=== PATIENT | male | born 1935 | race Hispanic/Latino ===

== ENCOUNTER 2017-01-26 10:53 | Inpatient (IN) | payer MEDICARE, OTHER, BC ==
[2017-01-26 10:53] VITALS: BMI 21.9
--- NOTE | 2017-01-26 13:03 | RAD ---
PROCEDURE: CHEST RADIOGRAPH, 1 VIEW. Technique: Single view portable erect @ 12:19. HISTORY: ADMISSION COMPARISON: None available. FINDINGS: LUNGS: Clear. PLEURA: No pneumothorax or pleural fluid seen. CARDIOVASCULAR: No radiographic findings to suggest acute or significant cardiovascular disease. OSSEOUS STRUCTURES: No significant abnormalities. VISUALIZED UPPER ABDOMEN: Normal. OTHER FINDINGS: None. IMPRESSION: No active disease.
[2017-01-26 13:07] LABS: BASO # 0.1 K/uL (0.0-0.2); BASO % 0.8 % (0.0-2.0); EOS # 0.2 K/uL (0.0-0.7); EOS % 1.6 % (0.0-4.0); HEMATOCRIT 32.3 % (35.0-51.0); LYMPH % 19.9 % (20.0-40.0); MEAN CELL VOLUME 88.4 fL (80.0-94.0); MEAN CORPUSCULAR HEMOGLOBIN 29.5 pg (27.0-31.0); MEAN CORPUSCULAR HGB CONC 33.4 g/dL (33.0-37.0); MEAN PLATELET VOLUME 9.3 fL (7.2-11.7); MONO # 0.9 K/uL (0.0-0.8); MONO % 9.4 % (0.0-10.0); RED CELL DISTRIBUTION WIDTH 14.2 % (11.5-14.5); WHITE BLOOD COUNT 10.1 K/uL (4.8-10.8)
[2017-01-26 13:30] LABS: CHLORIDE 98 mmol/L (98-107)
[2017-01-26 13:31] LABS: POTASSIUM 3.8 mmol/L (3.6-5.2); SODIUM 138 mmol/L (132-148)
[2017-01-26 13:33] LABS: ALB/GLOB RATIO 1.1 (1.0-2.1); AST/SGOT 18 U/L (17-59); BILIRUBIN,TOTAL 0.3 mg/dL (0.2-1.3); BLOOD UREA NITROGEN 28 mg/dL (9-20); CARBON DIOXIDE 27 mmol/L (22-30); GFR AFRICAN-AMERICAN > 60; TOTAL PROTEIN 6.8 g/dL (6.3-8.3)
[2017-01-26 13:34] LABS: ALKALINE PHOSPHATASE 97 U/L (38-126); ALT/SGPT 19 U/L (21-72); CALCIUM 9.1 mg/dl (8.6-10.4); GLUCOSE,RANDOM 105 mg/dL (75-110)
--- NOTE | 2017-01-26 14:00 | C.PDOC ---
History Of Present Illness 82 y/o male sent by longterm with prescription from Dr. Bloom for evaluation of gangrene to right 5th toe. Pt is unable to day when symptoms started, is a poor lhistorian. Pt reports pain in the right foot. He denies chest pain, SOB, fever/chills, trauma/injuries. Time Seen by Provider: 01/26/17 11:21 Chief Complaint (Nursing): Abnormal Skin Integrity History Per: Patient History/Exam Limitations: clinical condition Onset/Duration Of Symptoms: Days Current Symptoms Are (Timing): Still Present Quality Of Symptoms: Painful Severity: Moderate Past Medical History Reviewed: Historical Data, Nursing Documentation, Vital Signs Vital Signs: Last Vital Signs Temp 98 F 01/31/17 15:48 Pulse 73 01/31/17 16:40 Resp 20 01/31/17 15:48 BP 179/62 H 01/31/17 15:48 Pulse Ox 99 01/31/17 15:48 - Medical History PMH: Anemia, Anxiety, Atrial Fibrillation, CAD, HTN, Hypercholesterolemia Surgical History: Coronary Stent - [facility] Procedures COLONOSCOPY (08/26/07) CONTRAST AORTOGRAM (11/26/04) CONTRAST ARTERIOGRAM-LEG (11/26/04) ESOPHAGOGASTRODUODENOSCOPY [EGD] W/CLOSED BIOPSY (08/26/07) Family History: States: No Known Family Hx - Social History Hx Tobacco Use: No Hx Alcohol Use: No Hx Substance Use: No Review Of Systems Except As Marked, All Systems Reviewed And Found Negative. Constitutional: Negative for: Fever, Chills Cardiovascular: Negative for: Chest Pain Respiratory: Negative for: Shortness of Breath Gastrointestinal: Negative for: Nausea, Vomiting, Abdominal Pain, Diarrhea Musculoskeletal: Positive for: Other (pain to right foot) Physical Exam - Physical Exam Appears: Well, Non-toxic, No Acute Distress Skin: Warm, Dry, No Rash Head: Normacephalic Eye(s): bilateral: Normal Inspection Oral Mucosa: Moist Neck: Supple Cardiovascular: Rhythm Regular Respiratory: Normal Breath Sounds, No Rales, No Rhonchi, No Wheezing Gastrointestinal/Abdominal: Normal Exam, Bowel Sounds, Soft, No Tenderness, No Guarding, No Rebound Extremity: Tenderness, No Swelling, Other (Bilateral feet, cool to touch, right foot - black gangrenous eschar on 5th digit, 2nd and 3rd digits fused. Left 4th digit small ulceration 0.5 cm on dorsal aspect) Pulses: Left Dorsalis Pedis: Decreased, Right Dorsalis Pedis: Decreased Neurological/Psych: Other (awake, alert, mildly confused) ED Course And Treatment - Laboratory Results Result Diagrams: 01/28/17 06:54 01/28/17 06:54 ECG: Interpreted By Me, Viewed By Me (sinus bradycardia 59 bpm, normal axis, RBBB, no acute ST changes) O2 Sat by Pulse Oximetry: 100 (on room air) Pulse Ox Interpretation: Normal Progress Note: Plan: Blood work, CXR, XR right foot, arterial doppler ordered and reviewed. Patient given PO tylenol for pain. Spoke with Dr. Bloom, would like CT angio with runoff of extremty - ordered. He states PAD is chronic , no need for heparin. - Physician Consult Information Physician Contacted: Kingsley Silvestre Outcome Of Conversation: Discussed patient with Dr. Umer Silvestre, he agrees with admission for PAD, rigth 5th toe gangrene - Dr. Bloom for vascular surgery. Disposition - Disposition Disposition: HOSPITALIZED Disposition Time: 15:02 Condition: STABLE - Clinical Impression Clinical Impression: Toe gangrene, PAD (peripheral artery disease) - Scribe Statement The provider has reviewed the documentation as recorded by the Frandy cuellar Provider Attestation: All medical record entries made by the Frandy were at my direction and personally dictated by me. I have reviewed the chart and agree that the record accurately reflects my personal performance of the history, physical exam, medical decision making, and the department course for this patient. I have also personally directed, reviewed, and agree with the discharge instructions and disposition. Decision To Admit - Pt Status Changed To: Hospital Disposition Of: Inpatient - Admit Certification Admit to Inpatient:: After my assessment, the patient will require hospitalization for at least two midnights. This is because of the severity of symptoms shown, intensity of services needed, and/or the medical risk in this patient being treated as an outpatient. - InPatient: Physician Admission Certification: I certify that this patient requires 2 or more midnights of care for the following reason:: see notes - . Bed Request Type: Regular Admitting Physician: Kingsley Silvestre Patient Diagnosis: Toe gangrene, PAD (peripheral artery disease)
--- NOTE | 2017-01-26 15:27 | RAD ---
PROCEDURE: Right Foot Radiographs. HISTORY: RIGHT FOOT, 5TH TOE GANGRENE COMPARISON: None. FINDINGS: BONES: No fracture or dislocation. Tiny inferior calcaneal spur JOINTS: First metatarsal-phalangeal joint space narrowing, subchondral sclerosis and 1st metatarsal head osseous hypertrophy no gross periosteal reaction or bone destruction about the 5th digitin this patient with a history of 5th toe gangrene SOFT TISSUES: Mild medial 1st metatarsal-phalangeal joint density/are swelling consistent with minimal bunion. History states 5th toe gangrene - evaluation is limited the 5th toe with scissoring over the 4th. Lateral view suggest diffuse mild soft tissue swelling about all phalanges Arterial vascular calcifications OTHER FINDINGS: None. IMPRESSION: No gross radiographic evidence of osteomyelitis. Nonspecific soft tissue swelling without gross a percutaneous gas apparent on these images First metatarsal-phalangeal joint osteoarthrosis Atherosclerotic arterial vascular disease
[2017-01-26] MEDS ORDERED: Iodixanol 320 mg/ml 150 ml Bottle IV ONE (15:59)
--- NOTE | 2017-01-26 19:15 | CP.PCM.HP ---
History of Present Illness - History of Present Illness History of Present Illness: 82-year-old male sent by residential with prescription from Dr. Bloom for evaluation of gangrene to right fifth toe. Patient is unable to see when symptoms started, is a poor historian. Patient reports pain in the right foot. Patient denies chest pain, SOB, fever/chills, trauma, injuries. Present on Admission - Present on Admission Any Indicators Present on Admission: No Past Patient History - Infectious Disease Hx of Infectious Diseases: None - Tetanus Immunizations Tetanus Immunization: Unknown - Past Social History Smoking Status: Former Smoker - CARDIAC Hx Atrial Fibrillation: Yes Hx Hypercholesterolemia: Yes Hx Hypertension: Yes - PULMONARY Hx Asthma: No Hx Bronchitis: No Hx Chronic Obstructive Pulmonary Disease (COPD): No Hx Emphysema: No Hx Pneumonia: No Hx Sleep Apnea: No - NEUROLOGICAL Hx Alzheimer's Disease: No Hx Dementia: No Hx Migraine: No Hx Parkinson's Disease: No Hx Seizures: No Hx Transient Ischemic Attacks (TIA): No - HEENT Hx HEENT Problems: No - RENAL Hx Chronic Kidney Disease: No Hx Kidney Stones: No - ENDOCRINE/METABOLIC Hx Hyperthyroidism: No Hx Hypothyroidism: No - HEMATOLOGICAL/ONCOLOGICAL Hx Anemia: Yes - INTEGUMENTARY Hx Dermatological Problems: No - MUSCULOSKELETAL/RHEUMATOLOGICAL Hx Arthritis: No Hx Fractures: No Hx Osteoporosis: No - GASTROINTESTINAL Hx Crohn's Disease: No Hx Diverticulitis: No Hx Gall Bladder Disease: No Hx Pancreatitis: No - GENITOURINARY/GYNECOLOGICAL Hx Sexually Transmitted Disorders: No - PSYCHIATRIC Hx Anxiety: Yes Hx Substance Use: No - SURGICAL HISTORY Hx Coronary Stent: Yes - ANESTHESIA Hx Anesthesia: Yes Hx Anesthesia Reactions: No Hx Malignant Hyperthermia: No Meds Allergies/Adverse Reactions: Allergies Allergy/AdvReac Type Severity Reaction Status Date / Time No Known Allergies Allergy Verified 10/02/16 10:29 Results - Vital Signs Recent Vital Signs: Last Vital Signs Temp 97.7 F 01/26/17 18:55 Pulse 67 01/26/17 18:55 Resp 16 01/26/17 18:55 BP 157/54 H 01/26/17 18:55 Pulse Ox 98 01/26/17 18:55 - Labs Result Diagrams: 02/01/17 16:50 02/01/17 16:50 Assessment & Plan (1) Altered mental status Status: Acute (2) Anemia Status: Acute (3) Atrial fibrillation Status: Acute (4) Hematuria Status: Acute (5) Myocardial infarction Status: Acute (6) NSTEMI (non-ST elevated myocardial infarction) Status: Acute (7) Near syncope Status: Acute (8) PAD (peripheral artery disease) Status: Acute (9) Respiratory failure with hypoxia Status: Acute (10) Severe sepsis Status: Acute (11) Toe gangrene Status: Acute (12) Toe ulcer Status: Acute (13) UTI (urinary tract infection) Status: Acute (14) Urinary retention Status: Acute - Assessment and Plan (Free Text) Plan: Consult ID Consult vascular surgeon Bacitracin IV fluid Plavix Cardizem Pepcid Pipercillin Sod/tazobactam Cozaar Lopressor Nitroglycerin Crestor
[2017-01-26] MEDS ORDERED: DICLOFENAC SODIUM TP PRN (19:29)
[2017-01-26] MEDS ORDERED: Magnesium Hydroxide Susp 30 ml UD PO PRN (19:29)
--- NOTE | 2017-01-26 21:28 | CP.PCM.CON ---
History of Present Illness - History of Present Illness History of Present Illness: vascular surgery consult for Dr. Irizarry 82 y/o male pmh of Afib, PVD, [place], CVA, CAD sent by halfway with prescription from [facility] for evaluation of gangrene to right 5th toe. Pt is unable to tell length of duration, poor historian. Pt reports pain in the right foot. Denies chest pain, SOB, fever, chills or any other complaints. Review of Systems - Review of Systems Review of Systems: See HPI Past Patient History - Infectious Disease Hx of Infectious Diseases: None - Tetanus Immunizations Tetanus Immunization: Unknown - Past Medical History & Family History Past Medical History?: Yes - Past Social History Smoking Status: Former Smoker - CARDIAC Hx Atrial Fibrillation: Yes Hx Hypercholesterolemia: Yes Hx Hypertension: Yes - PULMONARY Hx Asthma: No Hx Bronchitis: No Hx Chronic Obstructive Pulmonary Disease (COPD): No Hx Emphysema: No Hx Pneumonia: No Hx Sleep Apnea: No - NEUROLOGICAL Hx Alzheimer's Disease: No HX Cerebrovascular Accident: Yes Hx Dementia: No Hx Migraine: No Hx Parkinson's Disease: No Hx Seizures: No Hx Transient Ischemic Attacks (TIA): No - HEENT Hx HEENT Problems: No - RENAL Hx Chronic Kidney Disease: No Hx Kidney Stones: No - ENDOCRINE/METABOLIC Hx Hyperthyroidism: No Hx Hypothyroidism: No - HEMATOLOGICAL/ONCOLOGICAL Hx Anemia: Yes - INTEGUMENTARY Hx Dermatological Problems: No - MUSCULOSKELETAL/RHEUMATOLOGICAL Hx Arthritis: No Hx Fractures: No Hx Osteoporosis: No - GASTROINTESTINAL Hx Crohn's Disease: No Hx Diverticulitis: No Hx Gall Bladder Disease: No Hx Pancreatitis: No - GENITOURINARY/GYNECOLOGICAL Hx Sexually Transmitted Disorders: No - PSYCHIATRIC Hx Substance Use: No - SURGICAL HISTORY Hx Coronary Stent: Yes - ANESTHESIA Hx Anesthesia: Yes Hx Anesthesia Reactions: No Hx Malignant Hyperthermia: No Meds Allergies/Adverse Reactions: Allergies Allergy/AdvReac Type Severity Reaction Status Date / Time No Known Allergies Allergy Verified 10/02/16 10:29 - Medications Medications: Current Medications Acetaminophen (Tylenol 325mg Tab) 650 mg PO Q4 PRN PRN Reason: Pain, Mild (1-3) Bacitracin (Bacitracin) 0 gm TOP DAILY [facility] Clopidogrel Bisulfate (Plavix) 75 mg PO DAILY [facility] Diltiazem HCl (Cardizem) 30 mg PO QID [facility] Famotidine (Pepcid) 20 mg PO BID [facility] Home Med (Diclofenac Sodium [Diclozor]) 1 each TP DAILY PRN PRN Reason: Pain, Mild (1-3) Piperacillin Sod/Tazobactam (Sod 3.375 gm/ Sodium Chloride) 100 mls @ 100 mls/ hr IVPB Q6H [facility] Lactulose (Enulose) 15 gm PO ONCE PRN PRN Reason: Constipation Losartan Potassium (Cozaar) 100 mg PO DAILY [facility] Magnesium Hydroxide (Milk Of Magnesia) 30 ml PO ONCE PRN PRN Reason: Dyspepsia Metoprolol Tartrate (Lopressor) 100 mg PO BID [facility] Nitroglycerin (Nitrostat Sl Tab) 0.4 mg SL ONCE PRN PRN Reason: Other Rosuvastatin Calcium (Crestor) 10 mg PO HS [facility] Tamsulosin HCl (Flomax) 0.4 mg PO DAILY [facility] Physical Exam - Constitutional Appears: Non-toxic - Head Exam Head Exam: ATRAUMATIC, NORMAL INSPECTION, NORMOCEPHALIC - Eye Exam Eye Exam: EOMI, Normal appearance, PERRL Pupil Exam: NORMAL ACCOMODATION, PERRL - ENT Exam ENT Exam: Mucous Membranes Moist, Normal Exam - Respiratory Exam Respiratory Exam: Clear to Auscultation Bilateral, NORMAL BREATHING PATTERN - Cardiovascular Exam Cardiovascular Exam: REGULAR RHYTHM - GI/Abdominal Exam GI & Abdominal Exam: Normal Bowel Sounds, Soft. absent: Distended, Tenderness - Extremities Exam Additional comments: R big toe gangrenous. cool to touch Results - Vital Signs Recent Vital Signs: Last Vital Signs Temp 97.6 F 01/26/17 19:00 Pulse 114 H 01/26/17 19:00 Resp 20 01/26/17 19:00 BP 177/72 H 01/26/17 19:00 Pulse Ox 95 01/26/17 19:00 - Labs Result Diagrams: 01/26/17 13:02 01/26/17 13:02 Assessment & Plan - Assessment and Plan (Free Text) Assessment: b/l PVD w R toe gangrene Laukocytosis CTA: b/l SFA occlusion, near occluded SMA -Angioplasty tomorrow -NPO after midnight -Hold Plavix Will MARK Irizarry
[2017-01-26] MEDS: Piperacillin/Tazobact 3.375 GM in Sodium Chloride 0.9% 100 ML IVPB SCH (21:48)
[2017-01-27] MEDS: Piperacillin/Tazobact 3.375 GM in Sodium Chloride 0.9% 100 ML IVPB SCH ×2 (01:26→09:30)
[2017-01-27] MEDS: Bacitracin Ointment 30 GM TUBE TOP SCH (10:33)
--- NOTE | 2017-01-27 11:39 | CARD ---
APPROVED REPORT EKG Measurement Heart [id number] <Conclusion> Sinus bradycardia Right bundle branch block Abnormal ECG
--- NOTE | 2017-01-27 12:05 | CT ---
PROCEDURE: CT Angiography Abdomen, Pelvis and Lower Extremity with Contrast HISTORY: diminished pedal pulse, gangrene right side COMPARISON: None. TECHNIQUE: Technique: CT angiography of the abdomen, pelvis and bilateral lower extremities performed in the arterial phase of enhancement. Coronal and sagittal reformats, and well as rotating MIP images of the vessels generated at the workstation. Intravenous contrast dose: 100 milliliters Visipaque 320 Radiation dose: Total exam DLP = 1179.80 MGy-cm. This CT exam was performed using one or more of the following dose reduction techniques: Automated exposure control, adjustment of the mA and/or kV according to patient size, and/or use of iterative reconstruction technique. FINDINGS: CT ANGIOGRAPHY: ABDOMINAL AORTA:: Very irregular plaque throughout abdominal aorta with significant soft plaque and intimal calcification with ulcerative plaque in the infrarenal aorta. MAJOR AORTIC BRANCHES: Celiac [place]: Occluded celiac artery or. Superior mesenteric artery: Moderate stenosis with irregular mixed soft and calcific plaque of the proximal SMA Inferior mesenteric artery: Mild stenosis of the origin of the inferior mesenteric artery Renal arteries: Unremarkable. PELVIC ARTERIES: Right Common Iliac: Unremarkable. Right External Iliac: Unremarkable. Right Internal Iliac: Unremarkable. Left Common Iliac: Unremarkable. Left External Iliac: Unremarkable. Left Internal Iliac: Unremarkable. RIGHT LOWER EXTREMITY ARTERIES: Right Common Femoral: Moderate stenosis stenosis of the proximal common femoral artery Right Superficial Femoral: Occluded SFA with no reconstitution Right Profunda Femoris: Mild stenosis at the origin of the profunda femoral artery Right Popliteal:Occludes proximally Reconstitution of the distal popliteal artery. Right Anterior Tibial: Unremarkable Right Tibioperoneal Trunk: Unremarkable. Right Posterior Tibial: Moderate calcific plaque otherwise patent Right Peroneal: Unremarkable. Right dorsalis pedis : Unremarkable. LEFT LOWER EXTREMITY ARTERIES: Left Common Femoral: Severe stenosis of the proximal common femoral artery. Left Superficial Femoral: Occluded superficial femoral artery beginning at the origin and extending to the mid popliteal artery Left Profunda Femoris: The stenosis at the origin of the superficial femoral artery Left Popliteal: Distal popliteal artery is patent Left Anterior Tibial: A calcific plaque but otherwise Unremarkable. Left Tibioperoneal Trunk: Unremarkable. Left Posterior Tibial: A calcified otherwise Unremarkable. Left Peroneal: Unremarkable. Left Dorsalis pedis: Unremarkable. NON-ANGIOGRAPHIC ASPECT OF THE EXAM: LOWER THORAX: Soft tissue mass seen in the medial basal segment of the right lower lobe measuring 2.3 x 1.7 centimeters. LIVER: Unremarkable. No gross lesion or ductal dilatation. GALLBLADDER AND BILE DUCTS: Unremarkable. PANCREAS: Unremarkable. No gross lesion or ductal dilatation. SPLEEN: Unremarkable. ADRENALS: Unremarkable. No mass. KIDNEYS AND URETERS: Unremarkable. No hydronephrosis. No solid mass. STOMACH AND BOWEL: Unremarkable. No obstruction. No gross mural thickening. APPENDIX: Normal appendix. PERITONEUM: Unremarkable. No free fluid. No free air. LYMPH NODES: Unremarkable. No enlarged lymph nodes. BLADDER: Very distended urinary bladder. REPRODUCTIVE: Unremarkable. BONES: No acute fracture. OTHER FINDINGS: None. IMPRESSION: CT ANGIOGRAM ABDOMEN/ PELVIS: 1.Severe plaque throughout the abdominal aorta with ulcerative plaque in the infrarenal aorta without aneurysm. 2. Occluded tube celiac artery. 3. No stenosis of the proximal SMA. 4. Right and left common iliac artery and external iliac artery are unremarkable. LEFT LOWER EXTREMITY CT ANGIOGRAM: 1. Severe stenosis of the proximal common femoral artery which is otherwise unremarkable. 2. The SFA is occluded beginning at the origin with reconstitution at the level of the distal popliteal artery. 3. There is moderate stenosis at the origin of the profunda femoral artery. 4. Left runoff shows a patent peroneal artery, posterior tibial artery, anterior tibial artery with minimal calcific plaque. RIGHT LOWER EXTREMITY CT ANGIOGRAM: 1. Moderate stenosis of the mid common femoral artery. 2. Superficial femoral artery is occluded beginning at the origin with reconstitution the mid popliteal artery. 3. Profunda femoral artery has mild stenosis at the origin. 4. Right runoff shows a patent peroneal artery anterior tibial artery and posterior tibial artery. NONVASCULAR FINDINGS: Soft tissue mass medial basal segment right lower lobe measuring 2.3 x 1.7 centimeter.
--- NOTE | 2017-01-27 12:37 | VASCLAB ---
STUDY DESCRIPTION: HISTORY: RIGHT LEG DECREASED PULSE PRIORS: None. TECHNIQUE: Pulse volume recording waveforms and segmental pressures of bilateral lower extremities at multiple levels were obtained. Ankle Brachial Indices (ABIs) were calculated. Report prepared by Patito Cordova RDCS, RVS RIGHT LOWER EXTREMITY: * Brachial artery: Pressure - mmHg. * High thigh: Pressure - mmHg: Ratio - : PVR waveform - Pulsatile * Low thigh: Pressure - mmHg: Ratio - PVR waveform: Reduced * Calf: Pressure - mmHg: Ratio - PVR waveform: None * Posterior tibial Artery: Pressure - mmHg: Ratio - PVR waveform: None * Dorsalis pedis Artery: Pressure - mmHg: Ratio - PVR waveform: None * Great toe: Pressure - mmHg: Ratio - PVR waveform: * Ankle brachial index (CODEY): LEFT LOWER EXTREMITY: * Brachial artery: Pressure - mmHg. * High thigh: Pressure - mmHg: Ratio - : PVR waveform - Pulsatile * Low thigh: Pressure - mmHg: Ratio - PVR waveform: Pulsatile * Calf: Pressure - mmHg: Ratio - PVR waveform: Reduced * Posterior tibial Artery: Pressure - mmHg: Ratio - PVR waveform: None * Dorsalis pedis Artery: Pressure - mmHg: Ratio - PVR waveform: None * Great toe: Pressure - mmHg: Ratio - PVR waveform: Ankle brachial index (CODEY): OTHER FINDINGS: IMPRESSION: Right: Moderately reduced PVR waveform of the right distal femoral, dorsalis pedis,suggesting moderate arterial disease of the distal femoral and tibial arteries. Left: Moderately reduced PVR waveform of the left dorsalis pedis, suggesting moderate arterial disease of the tibial arteries. Ankle brachial index was not performed due to no audible pulses. CTA recommended as follow up.
[2017-01-27] MEDS ORDERED: Propofol 10 mg/ml Inj (20 ML) ONE ×2 (14:15→14:16)
[2017-01-27] MEDS ORDERED: Iodixanol 320 MG/ML 100 ML BOTTLE IV ONE (14:33)
[2017-01-27] MEDS ORDERED: Iodixanol 320 MG/ML 200 ML BOTTLE IV ONE (14:33)
[2017-01-27] MEDS ORDERED: ePHEDrine 50 mg/ml Inj ONE (14:53)
--- NOTE | 2017-01-27 15:21 | PCM.SURG1 ---
Surgeon's Initial Post Op Note - Surgeon's Notes Surgeon: derek Watch Mechanic: 0 Type of Anesthesia: IV Sedation Anesthesia Administered By: sanjuana/marvin Pre-Operative Diagnosis: gangrene right 5th toe Operative Findings: multi level disease. atheromatous plaques in infrarenal aorta. 50 % right common iliac stenosis. severe common femoral disease. sfa occluded to level of knee joint. popliteal reappears at knee joint with primary run off via anterior tibial. left. 5 hungarian sheath occlusive in common femoral - poor vizualization of vessels distally. pressure closure to left groin Post-Operative Diagnosis: same Operation Performed: aortofemoral angiogram via left TRUCK LOADER OVERHEAD CRANE Specimen/Specimens Removed: 0 Estimated Blood Loss: EBL {In ML}: 10 Blood Products Given: N/A Drains Used: No Drains Post-Op Condition: Good Date of Surgery/Procedure: 01/27/17 Time of Surgery/Procedure: 15:22
[2017-01-27] MEDS: Piperacill/Tazo 3.375gm in Dex 50 ML IVPB SCH ×2 (16:00→21:46)
[2017-01-27] MEDS: Dextrose 5%/0.45% NS 1,000 ML IV SCH (17:22)
--- NOTE | 2017-01-27 17:57 | CON ---
DATE: 01/27/2017 CHIEF COMPLAINT AND REASON FOR CONSULTATION: The patient referred by Dr. Jeff Silvestre as the patient has been having periods of paranoia, accused the staff trying to hurt him and also has been very restless, agitated, has increasing confusion. HISTORY OF PRESENT ILLNESS: This is the case of an 82-year-old male who was sent in from the senior living. The patient was evaluated initially for gangrene of the right fifth toe. The patient has history of dementia. The patient also complaining of pain in the right toe. The patient referred for evaluation as the patient has been having bouts of agitation, screaming, stating that somebody is trying to hurt him and also trying to kill him and the patient is also trying to get out of bed. The patient apparently went for procedure: The patient went for the following procedure: aortofemoral angiogram via left [employer]. The patient when seen today was noted to be anxious, agitated, restless, stating that somebody is trying to kill him. He also has periods of confusion and wants his Ivy catheter to be removed. The patient was looking for his , stating that he wants to go home. The patient also needs constant monitoring as he is trying to get out of bed. PAST PSYCHIATRIC HISTORY: As stated, in the chart, the patient has no prior inpatient treatment. PAST MEDICAL HISTORY: The patient has a history of atrial fibrillation, cardiac problems, near syncope, urinary retention. The patient also has history of peripheral arterial disease. The patient has history of hypertension , history of coronary stent placement in the past. DRUG AND ALCOHOL HISTORY: Denies any. ALLERGIES: The patient has no known allergies. PSYCHOSOCIAL HISTORY: The patient claims he lives with his . LIST OF CURRENT MEDICATIONS: Includes bacitracin, Cardizem, Cozaar, Crestor, Flomax, metoprolol, Pepcid, Plavix, Zosyn. VITAL SIGNS: Temperature is 97.5, pulse rate is 104, blood pressure 163/73, respirations 20, oxygen sat is 98%. The patient was earlier given Ativan as he was very restless. It did calm him down. LABORATORY DATA: Review of his labs. The patient's WBC is 10.1, H and H is 10.8/32.3, creatinine is 1.1. Liver function tests are within normal limits. REVIEW OF SYSTEMS: GENERAL: The patient is alert, but with periods of confusion. The patient is looking for his , somewhat paranoid. Periods of confusion. SKIN: No diaphoresis. HEENT: No headache or dizziness. NECK: Supple. RESPIRATORY: No dyspnea. CARDIOVASCULAR: No chest pain. GASTROINTESTINAL: No nausea, no vomiting. EXTREMITIES: The patient is not complaining of pain. GENITOURINARY: The patient wants his Ivy catheter to be removed. MUSCULOSKELETAL: Feels weak. NEUROLOGIC: Alert with periods of confusion. MENTAL STATUS EXAMINATION: Elderly male who is about 5 feet, 3-1/2, about 125 pounds. Alert, but confused. Oriented x 2. Mood is irritable. Affect is reactive. Speech spontaneous. Thought process confused off and on. Thought content: Has periods of paranoia, stating people ae trying to kill him. No hallucinations. No suicidal or homicidal ideation. Attention and memory seem to be limited. Insight and judgment limited. Impulse control is guarded at this time. IMPRESSION: Possible delirium, toxic metabolic encephalopathy - multifactorial secondary to his medical problems. PLAN AND RECOMMENDATION: The patient seen, meds reviewed. For now, we will keep patient in the 4-bedded room for monitoring. Psych conrad, the patient is still exhibiting behavior problems. We will try to give him Ativan 0.5 IV b.i.d. p.r.n. for agitation for now. Continue treatment plan as outlined. Isaias Villalba MD cc: [phone] TT: 01/27/2017 17:57:12 Confirmation # [id number] Dictation # [id number] MTDD
--- NOTE | 2017-01-27 18:36 | CP.PCM.CON ---
History of Present Illness - History of Present Illness History of Present Illness: 82 y/o male sent by residential with prescription from [facility] for evaluation of gangrene to right 5th toe. Pt is unable to tell length of duration, poor historian. Pt reports pain in the right foot. Denies chest pain, SOB, fever, chills or any other complaints. - Medical History PMH: Anemia, Anxiety, Atrial Fibrillation, CAD, HTN, Hypercholesterolemia Surgical History: Coronary Stent ANGIO + multi level disease. atheromatous plaques in infrarenal aorta. 50 % right common iliac stenosis. severe common femoral disease. sfa occluded to level of knee joint. popliteal reappears at knee joint with primary run off via anterior tibial. left. 5 telugu sheath occlusive in common femoral - poor vizualization of vessels distally. pressure closure to left groin Past Patient History - Infectious Disease Hx of Infectious Diseases: None - Tetanus Immunizations Tetanus Immunization: Unknown - Past Medical History & Family History Past Medical History?: Yes - Past Social History Smoking Status: Former Smoker - CARDIAC Hx Atrial Fibrillation: Yes Hx Hypercholesterolemia: Yes Hx Hypertension: Yes - PULMONARY Hx Asthma: No Hx Bronchitis: No Hx Chronic Obstructive Pulmonary Disease (COPD): No Hx Emphysema: No Hx Pneumonia: No Hx Sleep Apnea: No - NEUROLOGICAL Hx Alzheimer's Disease: No HX Cerebrovascular Accident: Yes Hx Dementia: No Hx Migraine: No Hx Parkinson's Disease: No Hx Seizures: No Hx Transient Ischemic Attacks (TIA): No - HEENT Hx HEENT Problems: No - RENAL Hx Chronic Kidney Disease: No Hx Kidney Stones: No - ENDOCRINE/METABOLIC Hx Hyperthyroidism: No Hx Hypothyroidism: No - HEMATOLOGICAL/ONCOLOGICAL Hx Anemia: Yes - INTEGUMENTARY Hx Dermatological Problems: No - MUSCULOSKELETAL/RHEUMATOLOGICAL Hx Arthritis: No Hx Fractures: No Hx Osteoporosis: No - GASTROINTESTINAL Hx Crohn's Disease: No Hx Diverticulitis: No Hx Gall Bladder Disease: No Hx Pancreatitis: No - GENITOURINARY/GYNECOLOGICAL Hx Sexually Transmitted Disorders: No - PSYCHIATRIC Hx Substance Use: No - SURGICAL HISTORY Hx Coronary Stent: Yes - ANESTHESIA Hx Anesthesia: Yes Hx Anesthesia Reactions: No Hx Malignant Hyperthermia: No Meds Allergies/Adverse Reactions: Allergies Allergy/AdvReac Type Severity Reaction Status Date / Time No Known Allergies Allergy Verified 10/02/16 10:29 - Medications Medications: Current Medications Acetaminophen (Tylenol 325mg Tab) 650 mg PO Q4 PRN PRN Reason: Pain, Mild (1-3) Last Admin: 01/27/17 03:30 Dose: 650 mg Bacitracin (Bacitracin) 0 gm TOP DAILY [facility] Last Admin: 01/27/17 10:33 Dose: Not Given Clopidogrel Bisulfate (Plavix) 75 mg PO DAILY [facility] Diltiazem HCl (Cardizem) 30 mg PO QID [facility] Last Admin: 01/27/17 17:44 Dose: 30 mg Famotidine (Pepcid) 20 mg PO BID [facility] Last Admin: 01/27/17 17:47 Dose: 20 mg Home Med (Diclofenac Sodium [Diclozor]) 1 each TP DAILY PRN PRN Reason: Pain, Mild (1-3) Piperacillin Sod/Tazobactam Sod (Zosyn 3.375 Gm Iv Premix) 50 mls @ 100 mls/hr IVPB Q6H [facility] Last Admin: 01/27/17 16:00 Dose: 100 mls/hr Dextrose/Sodium Chloride (Dextrose 5%/0.45% Ns 1000 Ml) 1,000 mls @ 100 mls/hr IV .Q10H [facility] Last Admin: 01/27/17 17:22 Dose: 100 mls/hr Lactulose (Enulose) 15 gm PO ONCE PRN PRN Reason: Constipation Lorazepam (Ativan) 0.5 mg IVP BID PRN PRN Reason: Agitation Losartan Potassium (Cozaar) 100 mg PO DAILY [facility] Last Admin: 01/27/17 10:33 Dose: Not Given Magnesium Hydroxide (Milk Of Magnesia) 30 ml PO ONCE PRN PRN Reason: Dyspepsia Metoprolol Tartrate (Lopressor) 100 mg PO BID [facility] Last Admin: 01/27/17 17:44 Dose: 100 mg Nitroglycerin (Nitrostat Sl Tab) 0.4 mg SL ONCE PRN PRN Reason: Other Rosuvastatin Calcium (Crestor) 10 mg PO HS [facility] Last Admin: 01/26/17 21:58 Dose: 10 mg Tamsulosin HCl (Flomax) 0.4 mg PO DAILY [facility] Last Admin: 01/27/17 10:33 Dose: Not Given Results - Vital Signs Recent Vital Signs: Last Vital Signs Temp 97.5 F L 01/27/17 09:13 Pulse 103 H 01/27/17 17:38 Resp 18 01/27/17 17:38 BP 161/65 H 01/27/17 17:38 Pulse Ox 98 01/27/17 17:38 - Labs Result Diagrams: 01/26/17 13:02 01/26/17 13:02
--- NOTE | 2017-01-27 18:46 | CP.PCM.PN ---
Subjective - Date & Time of Evaluation Date of Evaluation: 01/27/17 Time of Evaluation: 10:20 - Subjective Subjective: clinically same Objective - Vital Signs/Intake and Output Vital Signs (last 24 hours): Temp Pulse Resp BP Pulse Ox 97.5 F L 103 H 18 161/65 H 98 01/27/17 09:13 01/27/17 17:38 01/27/17 17:38 01/27/17 17:38 01/27/17 17:38 Intake and Output: 01/27/17 01/27/17 06:59 18:59 Intake Total 100 100 Balance 100 100 - Medications Medications: Current Medications Acetaminophen (Tylenol 325mg Tab) 650 mg PO Q4 PRN PRN Reason: Pain, Mild (1-3) Last Admin: 01/27/17 03:30 Dose: 650 mg Bacitracin (Bacitracin) 0 gm TOP DAILY [facility] Last Admin: 01/27/17 10:33 Dose: Not Given Clopidogrel Bisulfate (Plavix) 75 mg PO DAILY [facility] Diltiazem HCl (Cardizem) 30 mg PO QID [facility] Last Admin: 01/27/17 17:44 Dose: 30 mg Famotidine (Pepcid) 20 mg PO BID [facility] Last Admin: 01/27/17 17:47 Dose: 20 mg Home Med (Diclofenac Sodium [Diclozor]) 1 each TP DAILY PRN PRN Reason: Pain, Mild (1-3) Piperacillin Sod/Tazobactam Sod (Zosyn 3.375 Gm Iv Premix) 50 mls @ 100 mls/hr IVPB Q6H [facility] Last Admin: 01/27/17 16:00 Dose: 100 mls/hr Dextrose/Sodium Chloride (Dextrose 5%/0.45% Ns 1000 Ml) 1,000 mls @ 100 mls/hr IV .Q10H [facility] Last Admin: 01/27/17 17:22 Dose: 100 mls/hr Lactulose (Enulose) 15 gm PO ONCE PRN PRN Reason: Constipation Lorazepam (Ativan) 0.5 mg IVP BID PRN PRN Reason: Agitation Losartan Potassium (Cozaar) 100 mg PO DAILY [facility] Last Admin: 01/27/17 10:33 Dose: Not Given Magnesium Hydroxide (Milk Of Magnesia) 30 ml PO ONCE PRN PRN Reason: Dyspepsia Metoprolol Tartrate (Lopressor) 100 mg PO BID [facility] Last Admin: 01/27/17 17:44 Dose: 100 mg Nitroglycerin (Nitrostat Sl Tab) 0.4 mg SL ONCE PRN PRN Reason: Other Rosuvastatin Calcium (Crestor) 10 mg PO HS [facility] Last Admin: 01/26/17 21:58 Dose: 10 mg Tamsulosin HCl (Flomax) 0.4 mg PO DAILY [facility] Last Admin: 01/27/17 10:33 Dose: Not Given - Labs Labs: PT 11.6 SECONDS (9.7-12.2) 01/26/17 13:02 INR 1.0 01/26/17 13:02 APTT 30 SECONDS (21-34) 01/26/17 13:02 - Constitutional Appears: Well - Head Exam Head Exam: ATRAUMATIC, NORMAL INSPECTION, NORMOCEPHALIC - Eye Exam Eye Exam: EOMI, Normal appearance, PERRL Pupil Exam: NORMAL ACCOMODATION, PERRL - ENT Exam ENT Exam: Mucous Membranes Moist, Normal Exam - Neck Exam Neck Exam: Full ROM, Normal Inspection. absent: Lymphadenopathy - Respiratory Exam Respiratory Exam: Decreased Breath Sounds - Cardiovascular Exam Cardiovascular Exam: REGULAR RHYTHM, +S1, +S2 - GI/Abdominal Exam GI & Abdominal Exam: Soft, Diminished Bowel Sounds - Rectal Exam Rectal Exam: Deferred Assessment and Plan (1) Altered mental status Status: Acute (2) Atrial fibrillation Status: Acute (3) UTI (urinary tract infection) Status: Acute (4) Anemia Status: Acute (5) Hematuria Status: Acute (6) Myocardial infarction Status: Acute (7) Near syncope Status: Acute (8) PAD (peripheral artery disease) Status: Acute (9) Toe gangrene Status: Acute (10) Toe ulcer Status: Acute (11) Urinary retention Status: Acute - Assessment and Plan (Free Text) Plan: Continue same Dr. Herson Thorne Status post aortofemoral angiogram Zosyn Continue IV fluids Losartan Nitroglycerin Plavix
[2017-01-28] MEDS: Dextrose 5%/0.45% NS 1,000 ML IV SCH ×4 (02:13→21:33)
--- NOTE | 2017-01-28 02:23 | CON ---
DATE: 01/27/2017 HISTORY OF PRESENT ILLNESS: This is an 82-year-old male admitted to [facility] with a chief com plaint of right toe gangrene secondary to peripheral vascular disease, referred for infectious diseas e evaluation for antibiotic management. The patient was started empirically on IV Zosyn. Results of cultures are still pending. The patient is a poor historian. It is unclear when he developed the r ight toe gangrene. He was seen and evaluated promptly by Dr. Irizarry, who scheduled him for angiogr am. The angiogram revealed severe disease in the lower extremity. Further workup is planned, which may involve attempt at revascularization or amputation. The patient has a complex past medical histo ry, which includes atrial fibrillation, peripheral vascular disease, stroke, left-sided weakness, HI, CVA, coronary artery disease, gangrene of right fifth toe; unclear as to the duration. REVIEW OF SYSTEMS: Denies chest pain, headache, earache, toothache, visual disturbance, or weight lo ss. Mild pain to right lower extremity. No chest pain, no cough, no shortness of breath. No abdomi nal pain, nausea, vomiting, no diarrhea. No recent travel. No pets. No exposure to toxins or chemi cals. ALLERGIES: None. FAMILY HISTORY: Noncontributory. MEDICATIONS: Include Ativan 0.5 mg IV b.i.d., Cardizem-CD 30 mg 4 times daily, losartan 100 mg daily , 10 mg daily, Flomax 0.4 mg daily, metoprolol 100 p.o. b.i.d., nitroglycerin sublingual p.r.n. chest pain, Pepcid 20 mg daily, Plavix 75 p.o. once daily, Zosyn 3.375 grams IV every 8 hours IV pig gyback. FAMILY HISTORY: Positive for hypertension. No known allergies to medications. PHYSICAL EXAMINATION: GENERAL: Reveals a chronically-ill elderly male, awake, responsive, oriented x 1. VITAL SIGNS: BP 140/70, pulse 76, respiratory rate is 16, temperature 100.2, BP 130/70. HEENT: Head normocephalic, atraumatic. Eyes: Pupils equal, round and reactive, sclerae nonicteric, extraocular motions intact. Ears: Normal. Nose: Normal. Pharynx not injected. Tongue midline. No thrush. Slight facial asymmetry noted. No parotid gland swelling. NECK: No JVD, no thyromegaly, no bruits. CHEST: Symmetrical expansion. LUNGS: Bilateral air entry, decreased breath sounds, clear to auscultation. HEART: S1, S2. ABDOMEN: Obese, soft, bowel sounds present. No rebound, no guarding, no masses. RECTAL: Deferred. EXTREMITIES: Reveal osteoarthritic changes. Peripheral pulses diminished. NEUROLOGIC: Cranial nerves II-XII intact. Moves upper and lower extremities. SKIN: Gangrene of the fifth toe, right foot. LABORATORY DATA: Angiogram revealed multilevel disease, atheromatous plaques, and infrarenal aorta, 50% right common iliac stenosis, severe common femoral disease, SFA/saphenous was occluded. Poplitea l reappears at the knee joint with runoff via anterior tibial. Labs reveal white count 10, platelet count 236,000, hemoglobin 9.3 and platelet count 272,000. BUN and creatinine were normal. ASSESSMENT: 1. Gangrene, fifth toe. 2. Severe peripheral vascular disease. 3. History of coronary artery disease. 4. . 5. Stroke. PLAN: We will obtain blood cultures, wound cultures, urine cultures. Continue current IV antibiotic therapy pending results. Prognosis appears to be guarded for limb salvage. May require amputation. May be at high risk for revascularization. We will discuss further with you and add further recomm endations. Thank you very much for allowing me to participate in the care of this patient. Lan Bains MD cc: [id number] TT: 01/28/2017 02:22:41 Confirmation # [id number] Dictation # [id number] vn
[2017-01-28] MEDS: Piperacill/Tazo 3.375gm in Dex 50 ML IVPB SCH ×4 (02:30→21:27)
[2017-01-28 07:08] LABS: CHLORIDE 104 mmol/L (98-107); POTASSIUM 3.2 mmol/L (3.6-5.2); SODIUM 141 mmol/L (132-148)
[2017-01-28 07:10] LABS: AST/SGOT 24 U/L (17-59); BILIRUBIN,TOTAL 0.4 mg/dL (0.2-1.3); CARBON DIOXIDE 24 mmol/L (22-30); GFR AFRICAN-AMERICAN > 60
[2017-01-28 07:11] LABS: ALB/GLOB RATIO 1.1 (1.0-2.1); ALKALINE PHOSPHATASE 76 U/L (38-126); ALT/SGPT 18 U/L (21-72); BLOOD UREA NITROGEN 16 mg/dL (9-20); CALCIUM 8.2 mg/dl (8.6-10.4); GLUCOSE,RANDOM 121 mg/dL (75-110); TOTAL PROTEIN 5.9 g/dL (6.3-8.3)
[2017-01-28 07:12] LABS: MEAN CELL VOLUME 87.9 fL (80.0-94.0); MEAN CORPUSCULAR HEMOGLOBIN 29.6 pg (27.0-31.0); MEAN CORPUSCULAR HGB CONC 33.6 g/dL (33.0-37.0); MEAN PLATELET VOLUME 9.6 fL (7.2-11.7); RED CELL DISTRIBUTION WIDTH 14.5 % (11.5-14.5); WHITE BLOOD COUNT 10.2 K/uL (4.8-10.8)
--- NOTE | 2017-01-28 11:47 | PN ---
DATE: 01/28/2017 SUBJECTIVE: The patient is seen in safety observation room. The patient still has periods of confusion, insisting he wants to go home, and said his doctor promised him, he will be in the hospital only for 1 day, and he said he has been here for a few days. The patient also does not know where he is. The patient is oriented h knows he is in the hospital and seems to be scared being in the hospital and complaining of pain in his right foot. VITAL SIGNS: Temperature is 97.4. Pulse is 64, blood pressure 161/65, respirations 20. Oxygen sat is 97%. REVIEW OF SYSTEMS: GENERAL: The patient is alert, verbal, but with periods of confusion. He was seen in his room, stating he wants to go home. The patient needs redirection from time to time. SKIN: No diaphoresis. HEENT: No headache, no dizziness. NECK: Supple. RESPIRATORY: No dyspnea. CARDIOVASCULAR: No chest pain. GASTROINTESTINAL: No nausea, no vomiting. GENITOURINARY: The patient has Ivy catheter, but wanted it to be removed. EXTREMITIES: Complaining of pain in his right lower extremity. NEUROLOGIC: Alert with periods of confusion. MENTAL STATUS EXAMINATION: Elderly male seen in the safety observation room, alert, verbal, but still confused. The patient is oriented to person. He was not sure if he was in the hospital or not. He said he used to live close by the hospital for many years. Speech is spontaneous. Affect is reactive. Mood is somatic and anxious. Thought process: Confused off and on. Thought content : The patient wants to go home today still has periods of paranoia and hallucinations. No suicidal or homicidal ideation. Attention and memory seem to be limited. Insight and judgment limited. Impulse control is guarded at this time. IMPRESSION: Delirium, metabolic encephalopathy, multifactorial. PLAN AND RECOMMENDATIONS: The patient is seen, meds reviewed. We will keep the patient in safety observation room. Continue Ativan 0.5 b.i.d. p.r.n. for agitation. Continue treatment plan as outlined. The patient needs to be in the safety observation room, as he needs to be redirected from time to time, especially with his off and on confusion. His mental status seems to be waxing and waning. Isaias Villalba MD cc: [phone] TT: 01/28/2017 10:08:21 Confirmation # [id number] Dictation # [id number] MTDD
[2017-01-28] MEDS ORDERED: Potassium Chloride 20 mEq ER Tab PO ONE (12:45)
[2017-01-28] MEDS: Bacitracin Ointment 30 GM TUBE TOP SCH (12:52)
--- NOTE | 2017-01-28 16:48 | CARD ---
APPROVED REPORT EXAM: Two-dimensional and M-mode echocardiogram with Doppler and color Doppler. Other Information Quality : GoodRhythm : NSR INDICATION Peripheral Edema M-Mode DIMENSIONS RVDd1.14 (2.1-3.2cm)Left Atrium (MM)3.39 (2.5-4.0cm) IVSd0.92 (0.7-1.1cm)Aortic Root2.84 (2.2-3.7cm) LVDd4.68 (4.0-5.6cm)Aortic Cusp Exc.1.25 (1.5-2.0cm) PWd1.03 (0.7-1.1cm)FS (%) 28 % LVDs3.36 (2.0-3.8cm)LVEF (%)55 (>50%) Aortic Valve AoV Peak Prdyhfdl137.1cm/Leatha Peak GR.8mmHg Mitral Valve MV E Vuobzmgj59.0cm/sMV A Fvntshvu984.7cm/sE/A ratio0.7 TDI E/Lateral E'0.0E/Medial E'0.0 Tricuspid Valve TR Peak Qqsmnojo103kk/sTR Peak Gr.[id number] LEFT VENTRICLE The left ventricle is normal size. There is normal left ventricular wall thickness. The left ventricular systolic function is normal. The left ventricular ejection fraction is within the normal range. There is normal LV segmental wall motion. Transmitral Doppler flow pattern is Grade I-abnormal relaxation pattern. RIGHT VENTRICLE The right ventricle is normal size. The right ventricular systolic function is normal. ATRIA The left atrium size is normal. The right atrium size is normal. AORTIC VALVE The aortic valve is normal in structure. No aortic regurgitation is present. MITRAL VALVE The mitral valve is normal in structure. Anterior mitral annular calcification is mild. There is no mitral valve regurgitation noted. TRICUSPID VALVE The tricuspid valve is normal in structure. There is mild tricuspid regurgitation. Right ventricular systolic pressure is estimated at less than 30 mmHg. PULMONIC VALVE The pulmonic valve is not well visualized. GREAT VESSELS The aortic root is normal size. The aortic root displays moderate sclerocalcific changes. The IVC is normal in size and collapses >50% with inspiration. PERICARDIAL EFFUSION There is no pericardial effusion. <Conclusion> The left ventricular systolic function is normal. Transmitral Doppler flow pattern is Grade I-abnormal relaxation pattern. The right ventricular systolic function is normal. Mild anterior mitral annular calcification. There is no mitral valve regurgitation noted. There is mild tricuspid regurgitation. Right ventricular systolic pressure is estimated at less than 30 mmHg. The aortic root displays moderate sclerocalcific changes. There is no pericardial effusion.
--- NOTE | 2017-01-28 16:59 | CP.PCM.PN ---
Subjective - Date & Time of Evaluation Date of Evaluation: 01/28/17 Time of Evaluation: 09:20 - Subjective Subjective: clinically same Objective - Vital Signs/Intake and Output Vital Signs (last 24 hours): Temp Pulse Resp BP Pulse Ox 99.3 F 70 20 171/63 H 99 01/28/17 16:00 01/28/17 16:00 01/28/17 16:00 01/28/17 16:00 01/28/17 16:00 Intake and Output: 01/28/17 01/28/17 06:59 18:59 Intake Total 1520 Output Total 650 Balance 870 - Medications Medications: Current Medications Acetaminophen (Tylenol 325mg Tab) 650 mg PO Q4 PRN PRN Reason: Pain, Mild (1-3) Last Admin: 01/27/17 23:53 Dose: 650 mg Bacitracin (Bacitracin) 0 gm TOP DAILY [facility] Last Admin: 01/28/17 12:52 Dose: 1 applic Clopidogrel Bisulfate (Plavix) 75 mg PO DAILY [facility] Last Admin: 01/28/17 11:42 Dose: 75 mg Diltiazem HCl (Cardizem) 30 mg PO QID [facility] Last Admin: 01/28/17 13:41 Dose: Not Given Famotidine (Pepcid) 20 mg PO BID [facility] Last Admin: 01/28/17 11:42 Dose: 20 mg Home Med (Diclofenac Sodium [Diclozor]) 1 each TP DAILY PRN PRN Reason: Pain, Mild (1-3) Piperacillin Sod/Tazobactam Sod (Zosyn 3.375 Gm Iv Premix) 50 mls @ 100 mls/hr IVPB Q6H [facility] Last Admin: 01/28/17 14:34 Dose: 100 mls/hr Dextrose/Sodium Chloride (Dextrose 5%/0.45% Ns 1000 Ml) 1,000 mls @ 100 mls/hr IV .Q10H [facility] Last Admin: 01/28/17 11:59 Dose: Not Given Lactulose (Enulose) 15 gm PO ONCE PRN PRN Reason: Constipation Lorazepam (Ativan) 0.5 mg IVP BID PRN PRN Reason: Agitation Losartan Potassium (Cozaar) 100 mg PO DAILY [facility] Last Admin: 01/28/17 11:42 Dose: 100 mg Magnesium Hydroxide (Milk Of Magnesia) 30 ml PO ONCE PRN PRN Reason: Dyspepsia Metoprolol Tartrate (Lopressor) 100 mg PO BID [facility] Last Admin: 01/28/17 11:43 Dose: 100 mg Nitroglycerin (Nitrostat Sl Tab) 0.4 mg SL ONCE PRN PRN Reason: Other Rosuvastatin Calcium (Crestor) 10 mg PO HS [facility] Last Admin: 01/27/17 21:47 Dose: 10 mg Tamsulosin HCl (Flomax) 0.4 mg PO DAILY [facility] Last Admin: 01/28/17 11:47 Dose: 0.4 mg - Labs Labs: 01/28/17 06:54 01/28/17 06:54 PT 11.6 SECONDS (9.7-12.2) 01/26/17 13:02 INR 1.0 01/26/17 13:02 APTT 30 SECONDS (21-34) 01/26/17 13:02 - Constitutional Appears: Well - Head Exam Head Exam: ATRAUMATIC, NORMAL INSPECTION, NORMOCEPHALIC - Eye Exam Eye Exam: EOMI, Normal appearance, PERRL Pupil Exam: NORMAL ACCOMODATION, PERRL - ENT Exam ENT Exam: Mucous Membranes Moist, Normal Exam - Neck Exam Neck Exam: Full ROM, Normal Inspection. absent: Lymphadenopathy - Respiratory Exam Respiratory Exam: Decreased Breath Sounds - Cardiovascular Exam Cardiovascular Exam: REGULAR RHYTHM, +S1, +S2 - GI/Abdominal Exam GI & Abdominal Exam: Soft, Diminished Bowel Sounds - Rectal Exam Rectal Exam: Deferred Assessment and Plan (1) Altered mental status Status: Acute (2) Atrial fibrillation Status: Acute (3) UTI (urinary tract infection) Status: Acute (4) Anemia Status: Acute (5) Hematuria Status: Acute (6) Myocardial infarction Status: Acute (7) Near syncope Status: Acute (8) PAD (peripheral artery disease) Status: Acute (9) Toe gangrene Status: Acute (10) Toe ulcer Status: Acute (11) Urinary retention Status: Acute - Assessment and Plan (Free Text) Plan: Vascular surgeon on board Cardio consult Wound care Statin Plavix Zosyn IV fluids
--- NOTE | 2017-01-28 17:19 | CP.PCM.PN ---
Subjective - Date & Time of Evaluation Date of Evaluation: 01/28/17 Time of Evaluation: 16:00 - Subjective Subjective: VASCULAR SURGERY PROGRESS NOTE FOR DR. LEMON Patient seen and examined at bedside. He is s/p angio yesterday. Objective - Vital Signs/Intake and Output Vital Signs (last 24 hours): Temp Pulse Resp BP Pulse Ox 99.3 F 70 20 171/63 H 99 01/28/17 16:00 01/28/17 16:00 01/28/17 16:00 01/28/17 16:00 01/28/17 16:00 Intake and Output: 01/28/17 01/28/17 06:59 18:59 Intake Total 1520 Output Total 650 Balance 870 - Medications Medications: Current Medications Acetaminophen (Tylenol 325mg Tab) 650 mg PO Q4 PRN PRN Reason: Pain, Mild (1-3) Last Admin: 01/27/17 23:53 Dose: 650 mg Bacitracin (Bacitracin) 0 gm TOP DAILY [facility] Last Admin: 01/28/17 12:52 Dose: 1 applic Clopidogrel Bisulfate (Plavix) 75 mg PO DAILY [facility] Last Admin: 01/28/17 11:42 Dose: 75 mg Diltiazem HCl (Cardizem) 30 mg PO QID [facility] Last Admin: 01/28/17 13:41 Dose: Not Given Famotidine (Pepcid) 20 mg PO BID [facility] Last Admin: 01/28/17 11:42 Dose: 20 mg Home Med (Diclofenac Sodium [Diclozor]) 1 each TP DAILY PRN PRN Reason: Pain, Mild (1-3) Piperacillin Sod/Tazobactam Sod (Zosyn 3.375 Gm Iv Premix) 50 mls @ 100 mls/hr IVPB Q6H [facility] Last Admin: 01/28/17 14:34 Dose: 100 mls/hr Dextrose/Sodium Chloride (Dextrose 5%/0.45% Ns 1000 Ml) 1,000 mls @ 100 mls/hr IV .Q10H [facility] Last Admin: 01/28/17 11:59 Dose: Not Given Lactulose (Enulose) 15 gm PO ONCE PRN PRN Reason: Constipation Lorazepam (Ativan) 0.5 mg IVP BID PRN PRN Reason: Agitation Losartan Potassium (Cozaar) 100 mg PO DAILY [facility] Last Admin: 01/28/17 11:42 Dose: 100 mg Magnesium Hydroxide (Milk Of Magnesia) 30 ml PO ONCE PRN PRN Reason: Dyspepsia Metoprolol Tartrate (Lopressor) 100 mg PO BID [facility] Last Admin: 01/28/17 11:43 Dose: 100 mg Nitroglycerin (Nitrostat Sl Tab) 0.4 mg SL ONCE PRN PRN Reason: Other Rosuvastatin Calcium (Crestor) 10 mg PO HS [facility] Last Admin: 01/27/17 21:47 Dose: 10 mg Tamsulosin HCl (Flomax) 0.4 mg PO DAILY [facility] Last Admin: 01/28/17 11:47 Dose: 0.4 mg - Labs Labs: 01/28/17 06:54 01/28/17 06:54 PT 11.6 SECONDS (9.7-12.2) 01/26/17 13:02 INR 1.0 01/26/17 13:02 APTT 30 SECONDS (21-34) 01/26/17 13:02 Assessment and Plan - Assessment and Plan (Free Text) Assessment: 82yo M with PVD and right toe gangrene. Now s/p aortofemoral angiogram via left MANUFACTURING DIRECTOR yesterday - May need bypass - Needs cardiology evaluation prior to consideration of surgery - Discussed plan with Dr. Edie Joaquin PGY-2
--- NOTE | 2017-01-28 19:18 | CP.PCM.PN ---
Subjective - Date & Time of Evaluation Date of Evaluation: 01/28/17 Time of Evaluation: 09:00 - Subjective Subjective: iv rx in progress await vascular follow up Objective - Vital Signs/Intake and Output Vital Signs (last 24 hours): Temp Pulse Resp BP Pulse Ox 99.3 F 70 20 179/52 H 99 01/28/17 16:00 01/28/17 18:28 01/28/17 16:00 01/28/17 18:28 01/28/17 16:00 Intake and Output: 01/28/17 01/29/17 18:59 06:59 Intake Total 1300 Output Total 800 Balance 500 - Medications Medications: Current Medications Acetaminophen (Tylenol 325mg Tab) 650 mg PO Q4 PRN PRN Reason: Pain, Mild (1-3) Last Admin: 01/27/17 23:53 Dose: 650 mg Bacitracin (Bacitracin) 0 gm TOP DAILY [facility] Last Admin: 01/28/17 12:52 Dose: 1 applic Clopidogrel Bisulfate (Plavix) 75 mg PO DAILY [facility] Last Admin: 01/28/17 11:42 Dose: 75 mg Diltiazem HCl (Cardizem) 30 mg PO QID [facility] Last Admin: 01/28/17 18:29 Dose: 30 mg Famotidine (Pepcid) 20 mg PO BID [facility] Last Admin: 01/28/17 18:29 Dose: 20 mg Home Med (Diclofenac Sodium [Diclozor]) 1 each TP DAILY PRN PRN Reason: Pain, Mild (1-3) Piperacillin Sod/Tazobactam Sod (Zosyn 3.375 Gm Iv Premix) 50 mls @ 100 mls/hr IVPB Q6H [facility] Last Admin: 01/28/17 14:34 Dose: 100 mls/hr Dextrose/Sodium Chloride (Dextrose 5%/0.45% Ns 1000 Ml) 1,000 mls @ 100 mls/hr IV .Q10H [facility] Last Admin: 01/28/17 11:59 Dose: Not Given Lactulose (Enulose) 15 gm PO ONCE PRN PRN Reason: Constipation Lorazepam (Ativan) 0.5 mg IVP BID PRN PRN Reason: Agitation Losartan Potassium (Cozaar) 100 mg PO DAILY [facility] Last Admin: 01/28/17 11:42 Dose: 100 mg Magnesium Hydroxide (Milk Of Magnesia) 30 ml PO ONCE PRN PRN Reason: Dyspepsia Metoprolol Tartrate (Lopressor) 100 mg PO BID [facility] Last Admin: 01/28/17 18:29 Dose: 100 mg Nitroglycerin (Nitrostat Sl Tab) 0.4 mg SL ONCE PRN PRN Reason: Other Rosuvastatin Calcium (Crestor) 10 mg PO HS [facility] Last Admin: 01/27/17 21:47 Dose: 10 mg Tamsulosin HCl (Flomax) 0.4 mg PO DAILY [facility] Last Admin: 01/28/17 11:47 Dose: 0.4 mg - Labs Labs: 01/28/17 06:54 01/28/17 06:54 PT 11.6 SECONDS (9.7-12.2) 01/26/17 13:02 INR 1.0 01/26/17 13:02 APTT 30 SECONDS (21-34) 01/26/17 13:02 - Constitutional Appears: Non-toxic, Chronically Ill - Head Exam Head Exam: NORMOCEPHALIC - Eye Exam Eye Exam: PERRL. absent: Scleral icterus - ENT Exam ENT Exam: Mucous Membranes Dry - Neck Exam Neck Exam: absent: Lymphadenopathy - Respiratory Exam Respiratory Exam: Decreased Breath Sounds, Rhonchi - Cardiovascular Exam Cardiovascular Exam: REGULAR RHYTHM, +S1, +S2 - GI/Abdominal Exam GI & Abdominal Exam: Distended, Soft. absent: Tenderness - Rectal Exam Rectal Exam: Deferred Assessment and Plan - Assessment and Plan (Free Text) Assessment: gengrene 5th toe cellulitis r/o sepsis OBS Severe PVD cont rx discussed with dr Umer Silvestre
--- NOTE | 2017-01-28 23:03 | CP.PCM.CON ---
History of Present Illness - History of Present Illness History of Present Illness: Reason For Consultation: Pre Operative Cardiac risk 82 Male poor historian As per chart patient is known to have unfixed CAD, Carotid artery disease, CVA, A Fib, PAD Needs further evaluation and info from Primary sound assistant Dr. Stone Check ECHO 82 y/o male pmh of Afib, PVD, IL, CVA, CAD sent by [facility] with prescription from [place] for evaluation of gangrene to right 5th toe. Pt is unable to tell length of duration, poor historian. Pt reports pain in the right foot. Denies chest pain, SOB, fever, chills or any other complaints. Review of Systems - Review of Systems Review of Systems: Unable to obtain Physical Exam - Constitutional Appears: Non-toxic - Head Exam Head Exam: ATRAUMATIC, NORMAL INSPECTION, NORMOCEPHALIC - Eye Exam Eye Exam: EOMI, Normal appearance, PERRL Pupil Exam: NORMAL ACCOMODATION, PERRL - ENT Exam ENT Exam: Mucous Membranes Moist, Normal Exam - Respiratory Exam Respiratory Exam: Clear to Auscultation Bilateral, NORMAL BREATHING PATTERN - Cardiovascular Exam Cardiovascular Exam: REGULAR RHYTHM - GI/Abdominal Exam GI & Abdominal Exam: Normal Bowel Sounds, Soft. absent: Distended, Tenderness - Extremities Exam Additional comments: R big toe gangrenous. cool to touch Past Patient History - Infectious Disease Hx of Infectious Diseases: None - Tetanus Immunizations Tetanus Immunization: Unknown - Past Medical History & Family History Past Medical History?: Yes - Past Social History Smoking Status: Former Smoker - CARDIAC Hx Atrial Fibrillation: Yes Hx Hypercholesterolemia: Yes Hx Hypertension: Yes - PULMONARY Hx Asthma: No Hx Bronchitis: No Hx Chronic Obstructive Pulmonary Disease (COPD): No Hx Emphysema: No Hx Pneumonia: No Hx Sleep Apnea: No - NEUROLOGICAL Hx Alzheimer's Disease: No HX Cerebrovascular Accident: Yes Hx Dementia: No Hx Migraine: No Hx Parkinson's Disease: No Hx Seizures: No Hx Transient Ischemic Attacks (TIA): No - HEENT Hx HEENT Problems: No - RENAL Hx Chronic Kidney Disease: No Hx Kidney Stones: No - ENDOCRINE/METABOLIC Hx Hyperthyroidism: No Hx Hypothyroidism: No - HEMATOLOGICAL/ONCOLOGICAL Hx Anemia: Yes - INTEGUMENTARY Hx Dermatological Problems: No - MUSCULOSKELETAL/RHEUMATOLOGICAL Hx Arthritis: No Hx Fractures: No Hx Osteoporosis: No - GASTROINTESTINAL Hx Crohn's Disease: No Hx Diverticulitis: No Hx Gall Bladder Disease: No Hx Pancreatitis: No - GENITOURINARY/GYNECOLOGICAL Hx Sexually Transmitted Disorders: No - PSYCHIATRIC Hx Substance Use: No - SURGICAL HISTORY Hx Coronary Stent: Yes - ANESTHESIA Hx Anesthesia: Yes Hx Anesthesia Reactions: No Hx Malignant Hyperthermia: No Meds Allergies/Adverse Reactions: Allergies Allergy/AdvReac Type Severity Reaction Status Date / Time No Known Allergies Allergy Verified 10/02/16 10:29 - Medications Medications: Current Medications Acetaminophen (Tylenol 325mg Tab) 650 mg PO Q4 PRN PRN Reason: Pain, Mild (1-3) Last Admin: 01/28/17 21:18 Dose: 650 mg Bacitracin (Bacitracin) 0 gm TOP DAILY [facility] Last Admin: 01/28/17 12:52 Dose: 1 applic Clopidogrel Bisulfate (Plavix) 75 mg PO DAILY [facility] Last Admin: 01/28/17 11:42 Dose: 75 mg Diltiazem HCl (Cardizem) 30 mg PO QID [facility] Last Admin: 01/28/17 21:18 Dose: 30 mg Famotidine (Pepcid) 20 mg PO BID [facility] Last Admin: 01/28/17 18:29 Dose: 20 mg Home Med (Diclofenac Sodium [Diclozor]) 1 each TP DAILY PRN PRN Reason: Pain, Mild (1-3) Piperacillin Sod/Tazobactam Sod (Zosyn 3.375 Gm Iv Premix) 50 mls @ 100 mls/hr IVPB Q6H [facility] Last Admin: 01/28/17 21:27 Dose: 100 mls/hr Dextrose/Sodium Chloride (Dextrose 5%/0.45% Ns 1000 Ml) 1,000 mls @ 100 mls/hr IV .Q10H [facility] Last Admin: 01/28/17 21:33 Dose: 100 mls/hr Lactulose (Enulose) 15 gm PO ONCE PRN PRN Reason: Constipation Lorazepam (Ativan) 0.5 mg IVP BID PRN PRN Reason: Agitation Losartan Potassium (Cozaar) 100 mg PO DAILY [facility] Last Admin: 01/28/17 11:42 Dose: 100 mg Magnesium Hydroxide (Milk Of Magnesia) 30 ml PO ONCE PRN PRN Reason: Dyspepsia Metoprolol Tartrate (Lopressor) 100 mg PO BID [facility] Last Admin: 01/28/17 18:29 Dose: 100 mg Nitroglycerin (Nitrostat Sl Tab) 0.4 mg SL ONCE PRN PRN Reason: Other Rosuvastatin Calcium (Crestor) 10 mg PO HS [facility] Last Admin: 01/28/17 21:18 Dose: 10 mg Tamsulosin HCl (Flomax) 0.4 mg PO DAILY [facility] Last Admin: 01/28/17 11:47 Dose: 0.4 mg Results - Vital Signs Recent Vital Signs: Last Vital Signs Temp 99.3 F 01/28/17 16:00 Pulse 70 01/28/17 18:28 Resp 20 01/28/17 16:00 BP 179/52 H 01/28/17 18:28 Pulse Ox 99 01/28/17 16:00 - Labs Result Diagrams: 01/28/17 06:54 01/28/17 06:54 Labs: Laboratory Results - last 24 hr 01/28/17 06:54 WBC 10.2 RBC 3.19 L Hgb 9.4 L Hct 28.0 L MCV 87.9 MCH 29.6 MCHC 33.6 RDW 14.5 Plt Count 249 MPV 9.6 Sodium 141 Potassium 3.2 L Chloride 104 Carbon Dioxide 24 Anion Gap 16 BUN 16 Creatinine 1.0 Est GFR ( Amer) > 60 Est GFR (Non-Af Amer) > 60 Random Glucose 121 H Calcium 8.2 L Total Bilirubin 0.4 AST 24 ALT 18 L Alkaline Phosphatase 76 Total Protein 5.9 L Albumin 3.1 L Globulin 2.8 Albumin/Globulin Ratio 1.1 Assessment & Plan - Assessment and Plan (Free Text) Assessment: 1. 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 CAD 3. Carotid artery disease 4. COPD 5. Dementia
[2017-01-29] MEDS: Piperacill/Tazo 3.375gm in Dex 50 ML IVPB SCH ×4 (03:30→21:25)
[2017-01-29] MEDS: Dextrose 5%/0.45% NS 1,000 ML IV SCH ×2 (09:26→17:59)
[2017-01-29] MEDS: Bacitracin Ointment 30 GM TUBE TOP SCH (10:18)
--- NOTE | 2017-01-29 11:08 | CP.PCM.PN ---
Subjective - Date & Time of Evaluation Date of Evaluation: 01/29/17 Time of Evaluation: 07:20 - Subjective Subjective: Vascular Surgery Dr. Irizarry Pt S&E @bedside. AMS. unable to obtain ROS. Family at bedside. spoke at length about currently treatment plan and options. Objective - Vital Signs/Intake and Output Vital Signs (last 24 hours): Temp Pulse Resp BP Pulse Ox 97.5 F L 74 20 180/70 H 97 01/29/17 08:32 01/29/17 08:32 01/29/17 08:32 01/29/17 08:32 01/29/17 08:32 Intake and Output: 01/29/17 01/29/17 06:59 18:59 Intake Total 800 Output Total 1200 Balance -400 - Medications Medications: Current Medications Acetaminophen (Tylenol 325mg Tab) 650 mg PO Q4 PRN PRN Reason: Pain, Mild (1-3) Last Admin: 01/28/17 21:18 Dose: 650 mg Bacitracin (Bacitracin) 0 gm TOP DAILY [facility] Last Admin: 01/29/17 10:18 Dose: 1 applic Clopidogrel Bisulfate (Plavix) 75 mg PO DAILY [facility] Last Admin: 01/29/17 10:15 Dose: 75 mg Diltiazem HCl (Cardizem) 30 mg PO QID [facility] Last Admin: 01/29/17 10:15 Dose: 30 mg Famotidine (Pepcid) 20 mg PO BID [facility] Last Admin: 01/29/17 10:15 Dose: 20 mg Piperacillin Sod/Tazobactam Sod (Zosyn 3.375 Gm Iv Premix) 50 mls @ 100 mls/hr IVPB Q6H [facility] Last Admin: 01/29/17 10:10 Dose: 100 mls/hr Dextrose/Sodium Chloride (Dextrose 5%/0.45% Ns 1000 Ml) 1,000 mls @ 100 mls/hr IV .Q10H [facility] Last Admin: 01/29/17 09:26 Dose: 100 mls/hr Lactulose (Enulose) 15 gm PO ONCE PRN PRN Reason: Constipation Lorazepam (Ativan) 0.5 mg IVP BID PRN PRN Reason: Agitation Losartan Potassium (Cozaar) 100 mg PO DAILY [facility] Last Admin: 01/29/17 10:15 Dose: 100 mg Magnesium Hydroxide (Milk Of Magnesia) 30 ml PO ONCE PRN PRN Reason: Dyspepsia Metoprolol Tartrate (Lopressor) 100 mg PO BID [facility] Last Admin: 01/29/17 10:15 Dose: 100 mg Nitroglycerin (Nitrostat Sl Tab) 0.4 mg SL ONCE PRN PRN Reason: Other Rosuvastatin Calcium (Crestor) 10 mg PO HS [facility] Last Admin: 01/28/17 21:18 Dose: 10 mg Tamsulosin HCl (Flomax) 0.4 mg PO DAILY [facility] Last Admin: 01/29/17 10:15 Dose: 0.4 mg - Labs Labs: 01/28/17 06:54 01/28/17 06:54 PT 11.6 SECONDS (9.7-12.2) 01/26/17 13:02 INR 1.0 01/26/17 13:02 APTT 30 SECONDS (21-34) 01/26/17 13:02 - Constitutional Appears: Non-toxic, Agitated, Confused - Head Exam Head Exam: NORMAL INSPECTION - Eye Exam Eye Exam: Normal appearance - ENT Exam ENT Exam: Mucous Membranes Moist - Respiratory Exam Respiratory Exam: NORMAL BREATHING PATTERN. absent: Accessory Muscle Use, Respiratory Distress - GI/Abdominal Exam GI & Abdominal Exam: Soft. absent: Distended - Extremities Exam Additional comments: R 5th toe gangrene - Neurological Exam Neurological Exam: Altered - Psychiatric Exam Psychiatric exam: Agitated - Skin Skin Exam: Dry, Warm Assessment and Plan - Assessment and Plan (Free Text) Assessment: 82 y/o M w/ PVD and right toe gangrene s/p aortofemoral angiogram via left TEACHER RESOURCE yesterday - will likely need bypass vs amputation - f/u cardiology for surgical clearance - cont medical management Pt discussed w/ Dr. Edie Torres DO PGY1
--- NOTE | 2017-01-29 11:45 | PN ---
DATE: 01/29/2017 SUBJECTIVE: The patient is seen in the safety observation room. He is more alert, oriented. He kno ws he is in the hospital and he also states that his daughter visited him earlier this morning. The patient also wants to go home, but patient states that his doctor is going to do surgery on his toe. The patient has a gangrenous right fifth toe. VITAL SIGNS: Temperature is 97.5, pulse rate is 74, blood pressure 180/70, respirations 20, oxygen s at is 97%. Psych conrad, the patient is taking Ativan p.r.n. 0.5 mg b.i.d., but has not taken it. The patient is manageable. REVIEW OF SYSTEMS: GENERAL: The patient is more alert, verbal, seen in safety observation room. He is redirectable. T he patient states he wants to go home. SKIN: No diaphoresis. HEENT: No headache, no dizziness. NECK: Supple. RESPIRATORY: No dyspnea. CARDIOVASCULAR: No chest pain. GASTROINTESTINAL: No nausea, no vomiting. EXTREMITIES: The patient complaining of mild pain. He is moving extremities. MUSCULOSKELETAL: Feels weak. NEUROLOGIC: Alert, less confused, not agitated. MENTAL STATUS EXAMINATION: Elderly male who looks stated age, oriented x 2. Mood is calmer. Affect is reactive. Speech spontaneous. Thought process coherent. Thought content: The patient states h e wants to go home, but not persistent to leave today. He is more manageable. No psychosis. No bere cidal or homicidal ideation. Attention and memory seem to be improving. Insight and judgment improv ing. Impulse control is fair at this time. IMPRESSION: Metabolic encephalopathy, delirium, secondary to medical condition. PLAN: Continue treatment plan as outlined. The patient seems more manageable at this time. However , we will keep patient in the safety observation room. The patient is not exhibiting periods of para noia when seen. Isaias Villalba MD cc: [phone] TT: 01/29/2017 11:45:02 Confirmation # [id number] Dictation # [id number]
--- NOTE | 2017-01-29 14:18 | CP.PCM.PN ---
Subjective - Date & Time of Evaluation Date of Evaluation: 01/29/17 Time of Evaluation: 09:20 - Subjective Subjective: Clinically same Objective - Vital Signs/Intake and Output Vital Signs (last 24 hours): Temp Pulse Resp BP Pulse Ox 97.5 F L 74 20 180/70 H 97 01/29/17 08:32 01/29/17 13:42 01/29/17 08:32 01/29/17 08:32 01/29/17 08:32 Intake and Output: 01/29/17 01/29/17 06:59 18:59 Intake Total 800 Output Total 1200 Balance -400 - Medications Medications: Current Medications Acetaminophen (Tylenol 325mg Tab) 650 mg PO Q4 PRN PRN Reason: Pain, Mild (1-3) Last Admin: 01/29/17 12:12 Dose: 650 mg Bacitracin (Bacitracin) 0 gm TOP DAILY [facility] Last Admin: 01/29/17 10:18 Dose: 1 applic Clopidogrel Bisulfate (Plavix) 75 mg PO DAILY [facility] Last Admin: 01/29/17 10:15 Dose: 75 mg Diltiazem HCl (Cardizem) 30 mg PO QID [facility] Last Admin: 01/29/17 14:07 Dose: 30 mg Famotidine (Pepcid) 20 mg PO BID [facility] Last Admin: 01/29/17 10:15 Dose: 20 mg Piperacillin Sod/Tazobactam Sod (Zosyn 3.375 Gm Iv Premix) 50 mls @ 100 mls/hr IVPB Q6H [facility] Last Admin: 01/29/17 10:10 Dose: 100 mls/hr Dextrose/Sodium Chloride (Dextrose 5%/0.45% Ns 1000 Ml) 1,000 mls @ 100 mls/hr IV .Q10H [facility] Last Admin: 01/29/17 09:26 Dose: 100 mls/hr Lactulose (Enulose) 15 gm PO ONCE PRN PRN Reason: Constipation Lorazepam (Ativan) 0.5 mg IVP BID PRN PRN Reason: Agitation Losartan Potassium (Cozaar) 100 mg PO DAILY [facility] Last Admin: 01/29/17 10:15 Dose: 100 mg Magnesium Hydroxide (Milk Of Magnesia) 30 ml PO ONCE PRN PRN Reason: Dyspepsia Metoprolol Tartrate (Lopressor) 100 mg PO BID [facility] Last Admin: 01/29/17 10:15 Dose: 100 mg Nitroglycerin (Nitrostat Sl Tab) 0.4 mg SL ONCE PRN PRN Reason: Other Rosuvastatin Calcium (Crestor) 10 mg PO HS [facility] Last Admin: 01/28/17 21:18 Dose: 10 mg Tamsulosin HCl (Flomax) 0.4 mg PO DAILY [facility] Last Admin: 01/29/17 10:15 Dose: 0.4 mg - Labs Labs: 01/28/17 06:54 01/28/17 06:54 PT 11.6 SECONDS (9.7-12.2) 01/26/17 13:02 INR 1.0 01/26/17 13:02 APTT 30 SECONDS (21-34) 01/26/17 13:02 - Constitutional Appears: Well - Head Exam Head Exam: ATRAUMATIC, NORMAL INSPECTION, NORMOCEPHALIC - Eye Exam Eye Exam: EOMI, Normal appearance, PERRL Pupil Exam: NORMAL ACCOMODATION, PERRL - ENT Exam ENT Exam: Mucous Membranes Moist, Normal Exam - Neck Exam Neck Exam: Full ROM, Normal Inspection. absent: Lymphadenopathy - Respiratory Exam Respiratory Exam: Decreased Breath Sounds - Cardiovascular Exam Cardiovascular Exam: REGULAR RHYTHM, +S1, +S2 - GI/Abdominal Exam GI & Abdominal Exam: Soft, Diminished Bowel Sounds - Rectal Exam Rectal Exam: Deferred Assessment and Plan (1) Altered mental status Status: Acute (2) Atrial fibrillation Status: Acute (3) UTI (urinary tract infection) Status: Acute (4) Anemia Status: Acute (5) Hematuria Status: Acute (6) Myocardial infarction Status: Acute (7) Near syncope Status: Acute (8) PAD (peripheral artery disease) Status: Acute (9) Toe gangrene Status: Acute (10) Toe ulcer Status: Acute (11) Urinary retention Status: Acute - Assessment and Plan (Free Text) Plan: Dr. Nayan Irizarry Talk with family Continue Plavix Cardizem Continue antibiotics Continue IV fluids Continue antihypertensive meds
--- NOTE | 2017-01-29 15:07 | VASCLAB ---
PROCEDURE: HISTORY: Bilateral carotid disease COMPARISON: No previous carotid exam. TECHNIQUE: Grayscale and duplex Doppler evaluation of the cervical carotid and vertebral arteries were performed. The common carotid, carotid bifurcations and cervical Internal Carotid Artery (ICA) and proximal External Carotid Artery (ECA) were evaluated. The vertebral arteries were evaluated for gross patency and flow direction. Report prepared by JHOAN Ramirez FINDINGS: RIGHT CAROTID ARTERIES: 1. Common Carotid Artery: No significant focal plaque formation of the right common carotid artery. Maximum Peak Systolic velocity: 91 cm/sec: End-diastolic velocity 10 cm/sec. 2. Carotid Bifurcation: Moderate calcific plaque formation. Maximum Peak Systolic velocity: 117 cm/sec: End-diastolic velocity 19 cm/sec. 3. Internal Carotid Artery: Plaque description: Moderate calcific 3.1. Proximal Segment: Peak systolic velocity 112 cm/sec: End-diastolic velocity 16 cm/sec - % stenosis 0-15% 3.2. Middle Segment: Peak systolic velocity 116 cm/sec: End-diastolic velocity 16 cm/sec - % stenosis 0-15% 3.3. Distal Segment: Peak systolic velocity 76 cm/sec: End-diastolic velocity 13 cm/sec - % stenosis 0-15% 4. External Carotid Artery: Calcific plaque formation. Peak systolic velocity 278 cm/sec 5. ICA/CCA Ratio: 1.5 LEFT CAROTID ARTERIES: 1. Common Carotid Artery: No significant focal plaque formation of the left common carotid artery. Maximum Peak Systolic velocity: 103 cm/sec: End-diastolic velocity 11 cm/sec. 2. Carotid Bifurcation: Calcific plaque formation. Maximum Peak Systolic velocity: 123 cm/sec: End-diastolic velocity 13 cm/sec. 3. Internal Carotid Artery: Plaque description: Severe calcific 3.1. Proximal Segment: Peak systolic velocity 417 cm/sec: End-diastolic velocity 107 cm/sec - % stenosis 70-79% 3.2. Middle Segment: Peak systolic velocity 130 cm/sec: End-diastolic velocity 15 cm/sec - % stenosis 0-15% 3.3. Distal Segment: Peak systolic velocity 93 cm/sec: End-diastolic velocity 11 cm/sec - % stenosis 0-15% 4. External Carotid Artery: Minimal plaque formation. Peak systolic velocity 137 cm/sec 5. ICA/CCA Ratio: 4.3 VERTEBRAL ARTERIES: 1. Right Vertebral Artery: The right vertebral artery flow direction is antegrade. 2. Left Vertebral Artery: The left vertebral artery flow direction is antegrade. OTHER FINDINGS: Unable to obtain brachial pressures. Technically difficult exam due to patient constant movement. IMPRESSION: RIGHT: No evidence of hemodynamically significant stenosis of the right internal carotid artery. Increased velocity of the right ECA of 278 cm/s. LEFT: Elevated velocity at the left proximal internal carotid artery, suggesting 70-79% stenosis. Findings were reported by the vascular technologist sonographer to Satinder Ayala on 01/28/2017 at 10:27 a.m.
--- NOTE | 2017-01-29 15:08 | VASCLAB ---
PROCEDURE: Lower Extremity Vein mapping. HISTORY: Pre op right fem pop bypass, I73.89 PRIORS: No previous exam. TECHNIQUE: Bilateral common femoral, femoral, popliteal and posterior tibial, peroneal and great saphenous veins were evaluated. Flow was assessed with color Doppler, compressibility, assessment of phasic flow and augmentation response. Report prepared by JHOAN Ramirez FINDINGS: RIGHT: 1. Common Femoral Vein: Compressibility - Fully compressible: Thrombus - None : Flow - Phasic: Augmentation -Normal: Reflux - None. 2. Femoral Vein:Compressibility - Fully compressible: Thrombus - None 3. Popliteal Vein: Compressibility - Fully compressible: Thrombus - None 4. Posterior Tibial Vein: Compressibility - Fully compressible: Thrombus - None 5. Peroneal Vein:Compressibility - Fully compressible: Thrombus - None 6. Greater Saphenous Vein: Compressibility - Fully compressible: Thrombus - None 6.1. Thigh - Proximal Diameter: 0.30cm. Mid Diameter: 0.25cm. Distal Diameter: 0.25cm. 6.2. Calf - Proximal Diameter: 0.15cm. Mid Diameter:0.15cm. Distal Diameter: 0.17cm LEFT: 1. Common Femoral Vein: Compressibility - Fully compressible: Thrombus - None : Flow - Phasic: Augmentation -Normal: Reflux - None. 2. Femoral Vein:Compressibility - Fully compressible: Thrombus - None 3. Popliteal Vein: Compressibility - Fully compressible: Thrombus - None 4. Posterior Tibial Vein: Compressibility - Fully compressible: Thrombus - None 5. Peroneal Vein:Compressibility - Fully compressible: Thrombus - None 6. Greater Saphenous Vein: Compressibility - Fully compressible: Thrombus - None 6.1. Thigh - Proximal Diameter: 0.36cm. Mid Diameter: 0.31cm. Distal Diameter: 0.29cm. 6.2. Calf - Proximal Diameter: 0.22cm. Mid Diameter:0.23cm. Distal Diameter: 0.22 cm OTHER FINDINGS: Right: None. Left: None. IMPRESSION: 1. No evidence of deep or superficial vein thrombosis in bilateral lower extremities. 2. Lower extremity vein mapping completed. Please refer to the above listed measurements, for vein size. 3. Technically very difficult examination due to patient status.
--- NOTE | 2017-01-29 19:15 | CP.PCM.PN ---
Subjective - Date & Time of Evaluation Date of Evaluation: 01/29/17 Time of Evaluation: 08:00 - Subjective Subjective: EVENTDS NOTED IV RX REORDERED PRE OP RISK EVAL IN PROGRESS Objective - Vital Signs/Intake and Output Vital Signs (last 24 hours): Temp Pulse Resp BP Pulse Ox 98.2 F 65 20 154/63 H 99 01/29/17 15:00 01/29/17 15:00 01/29/17 15:00 01/29/17 15:00 01/29/17 15:00 Intake and Output: 01/29/17 01/30/17 18:59 06:59 Output Total 300 Balance -300 - Medications Medications: Current Medications Acetaminophen (Tylenol 325mg Tab) 650 mg PO Q4 PRN PRN Reason: Pain, Mild (1-3) Last Admin: 01/29/17 12:12 Dose: 650 mg Bacitracin (Bacitracin) 0 gm TOP DAILY [facility] Last Admin: 01/29/17 10:18 Dose: 1 applic Clopidogrel Bisulfate (Plavix) 75 mg PO DAILY [facility] Last Admin: 01/29/17 10:15 Dose: 75 mg Diltiazem HCl (Cardizem) 30 mg PO QID [facility] Last Admin: 01/29/17 17:55 Dose: 30 mg Famotidine (Pepcid) 20 mg PO BID [facility] Last Admin: 01/29/17 17:55 Dose: 20 mg Piperacillin Sod/Tazobactam Sod (Zosyn 3.375 Gm Iv Premix) 50 mls @ 100 mls/hr IVPB Q6H [facility] Last Admin: 01/29/17 15:19 Dose: 100 mls/hr Dextrose/Sodium Chloride (Dextrose 5%/0.45% Ns 1000 Ml) 1,000 mls @ 100 mls/hr IV .Q10H [facility] Last Admin: 01/29/17 17:59 Dose: 100 mls/hr Lactulose (Enulose) 15 gm PO ONCE PRN PRN Reason: Constipation Lorazepam (Ativan) 0.5 mg IVP BID PRN PRN Reason: Agitation Last Admin: 01/29/17 14:30 Dose: 0.5 mg Losartan Potassium (Cozaar) 100 mg PO DAILY [facility] Last Admin: 01/29/17 10:15 Dose: 100 mg Magnesium Hydroxide (Milk Of Magnesia) 30 ml PO ONCE PRN PRN Reason: Dyspepsia Metoprolol Tartrate (Lopressor) 100 mg PO BID [facility] Last Admin: 01/29/17 17:55 Dose: 100 mg Nitroglycerin (Nitrostat Sl Tab) 0.4 mg SL ONCE PRN PRN Reason: Other Potassium Chloride (K-Dur 20 Meq Er Tab) 40 meq PO Q4H [facility] Stop: 01/29/17 23:01 Rosuvastatin Calcium (Crestor) 10 mg PO HS [facility] Last Admin: 01/28/17 21:18 Dose: 10 mg Tamsulosin HCl (Flomax) 0.4 mg PO DAILY [facility] Last Admin: 01/29/17 10:15 Dose: 0.4 mg - Labs Labs: 01/28/17 06:54 01/28/17 06:54 PT 11.6 SECONDS (9.7-12.2) 01/26/17 13:02 INR 1.0 01/26/17 13:02 APTT 30 SECONDS (21-34) 01/26/17 13:02 - Constitutional Appears: Non-toxic, Cachectic, Chronically Ill - Head Exam Head Exam: NORMOCEPHALIC - ENT Exam ENT Exam: Mucous Membranes Dry - Neck Exam Neck Exam: absent: Lymphadenopathy - Respiratory Exam Respiratory Exam: Decreased Breath Sounds - Cardiovascular Exam Cardiovascular Exam: REGULAR RHYTHM, +S1, +S2 - GI/Abdominal Exam GI & Abdominal Exam: Distended, Soft. absent: Tenderness - Rectal Exam Rectal Exam: Deferred - Exam Exam: NORMAL INSPECTION - Extremities Exam Extremities Exam: Pedal Edema Additional comments: ISCHEMIC CHANGES TO BOTH FEET - Back Exam Back Exam: absent: CVA tenderness (L), CVA tenderness (R) Assessment and Plan - Assessment and Plan (Free Text) Assessment: WILL LIKELY NEED AMPUTATION VS BYPASS
[2017-01-29] MEDS: Potassium Chloride 20 mEq ER Tab PO SCH ×2 (20:23→23:40)
--- NOTE | 2017-01-29 22:56 | CP.PCM.PN ---
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 absent: Distended, Tenderness - Extremities Exam Additional comments: R big toe gangrenous. cool to touch Objective - Vital Signs/Intake and Output Vital Signs (last 24 hours): Temp Pulse Resp BP Pulse Ox 98.2 F 65 20 154/63 H 99 01/29/17 15:00 01/29/17 15:00 01/29/17 15:00 01/29/17 15:00 01/29/17 15:00 Intake and Output: 01/29/17 01/30/17 18:59 06:59 Intake Total 1300 Output Total 300 600 Balance -300 700 - Medications Medications: Current Medications Acetaminophen (Tylenol 325mg Tab) 650 mg PO Q4 PRN PRN Reason: Pain, Mild (1-3) Last Admin: 01/29/17 12:12 Dose: 650 mg Bacitracin (Bacitracin) 0 gm TOP DAILY [facility] Last Admin: 01/29/17 10:18 Dose: 1 applic Clopidogrel Bisulfate (Plavix) 75 mg PO DAILY [facility] Last Admin: 01/29/17 10:15 Dose: 75 mg Diltiazem HCl (Cardizem) 30 mg PO QID [facility] Last Admin: 01/29/17 21:25 Dose: 30 mg Famotidine (Pepcid) 20 mg PO BID [facility] Last Admin: 01/29/17 17:55 Dose: 20 mg Piperacillin Sod/Tazobactam Sod (Zosyn 3.375 Gm Iv Premix) 50 mls @ 100 mls/hr IVPB Q6H [facility] Last Admin: 01/29/17 21:25 Dose: 100 mls/hr Dextrose/Sodium Chloride (Dextrose 5%/0.45% Ns 1000 Ml) 1,000 mls @ 100 mls/hr IV .Q10H [facility] Last Admin: 01/29/17 17:59 Dose: 100 mls/hr Lactulose (Enulose) 15 gm PO ONCE PRN PRN Reason: Constipation Lorazepam (Ativan) 0.5 mg IVP BID PRN PRN Reason: Agitation Last Admin: 01/29/17 14:30 Dose: 0.5 mg Losartan Potassium (Cozaar) 100 mg PO DAILY [facility] Last Admin: 01/29/17 10:15 Dose: 100 mg Magnesium Hydroxide (Milk Of Magnesia) 30 ml PO ONCE PRN PRN Reason: Dyspepsia Metoprolol Tartrate (Lopressor) 100 mg PO BID [facility] Last Admin: 01/29/17 17:55 Dose: 100 mg Nitroglycerin (Nitrostat Sl Tab) 0.4 mg SL ONCE PRN PRN Reason: Other Potassium Chloride (K-Dur 20 Meq Er Tab) 40 meq PO Q4H [facility] Stop: 01/29/17 23:01 Last Admin: 01/29/17 20:23 Dose: 40 meq Rosuvastatin Calcium (Crestor) 10 mg PO HS [facility] Last Admin: 01/29/17 21:25 Dose: 10 mg Tamsulosin HCl (Flomax) 0.4 mg PO DAILY [facility] Last Admin: 01/29/17 10:15 Dose: 0.4 mg - Labs Labs: 01/28/17 06:54 01/28/17 06:54 PT 11.6 SECONDS (9.7-12.2) 01/26/17 13:02 INR 1.0 01/26/17 13:02 APTT 30 SECONDS (21-34) 01/26/17 13:02 Assessment and Plan - Assessment and Plan (Free Text) Assessment: 1. 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 CAD 3. Carotid artery disease 4. COPD 5. Dementia
[2017-01-30] MEDS: Piperacill/Tazo 3.375gm in Dex 50 ML IVPB SCH ×4 (02:31→21:10)
[2017-01-30] MEDS: Dextrose 5%/0.45% NS 1,000 ML IV SCH ×3 (04:56→17:44)
[2017-01-30] MEDS: Bacitracin Ointment 30 GM TUBE TOP SCH (10:02)
--- NOTE | 2017-01-30 10:26 | CP.PCM.PN ---
Subjective - Date & Time of Evaluation Date of Evaluation: 01/30/17 Time of Evaluation: 10:17 - Subjective Subjective: high risk patient with gangrene right foot who has untreated cardiac and carotid disease angio shows need for right Bk fem pop bypass, poor sized vein for conduit.+/- right common iliac stent great casution has to be taken in approaching via the left groin as 5 american sheath was occlusive Objective - Vital Signs/Intake and Output Vital Signs (last 24 hours): Temp Pulse Resp BP Pulse Ox 98.1 F 83 20 167/55 H 98 01/30/17 07:00 01/30/17 07:00 01/30/17 07:00 01/30/17 07:00 01/30/17 07:00 Intake and Output: 01/30/17 01/30/17 06:59 18:59 Intake Total 2100 Output Total 1200 Balance 900 - Medications Medications: Current Medications Acetaminophen (Tylenol 325mg Tab) 650 mg PO Q4 PRN PRN Reason: Pain, Mild (1-3) Last Admin: 01/30/17 09:56 Dose: 650 mg Bacitracin (Bacitracin) 0 gm TOP DAILY [facility] Last Admin: 01/30/17 10:02 Dose: 1 applic Clopidogrel Bisulfate (Plavix) 75 mg PO DAILY [facility] Last Admin: 01/30/17 10:01 Dose: 75 mg Diltiazem HCl (Cardizem) 30 mg PO QID [facility] Last Admin: 01/30/17 10:01 Dose: 30 mg Famotidine (Pepcid) 20 mg PO BID [facility] Last Admin: 01/30/17 10:01 Dose: 20 mg Piperacillin Sod/Tazobactam Sod (Zosyn 3.375 Gm Iv Premix) 50 mls @ 100 mls/hr IVPB Q6H [facility] Last Admin: 01/30/17 02:31 Dose: 100 mls/hr Dextrose/Sodium Chloride (Dextrose 5%/0.45% Ns 1000 Ml) 1,000 mls @ 100 mls/hr IV .Q10H [facility] Last Admin: 01/30/17 04:56 Dose: Not Given Lactulose (Enulose) 15 gm PO ONCE PRN PRN Reason: Constipation Lorazepam (Ativan) 0.5 mg IVP BID PRN PRN Reason: Agitation Last Admin: 01/30/17 02:23 Dose: 0.5 mg Losartan Potassium (Cozaar) 100 mg PO DAILY [facility] Last Admin: 01/30/17 10:01 Dose: 100 mg Magnesium Hydroxide (Milk Of Magnesia) 30 ml PO ONCE PRN PRN Reason: Dyspepsia Metoprolol Tartrate (Lopressor) 100 mg PO BID [facility] Last Admin: 01/30/17 10:01 Dose: 100 mg Nitroglycerin (Nitrostat Sl Tab) 0.4 mg SL ONCE PRN PRN Reason: Other Rosuvastatin Calcium (Crestor) 10 mg PO HS [facility] Last Admin: 01/29/17 21:25 Dose: 10 mg Tamsulosin HCl (Flomax) 0.4 mg PO DAILY [facility] Last Admin: 01/30/17 10:01 Dose: 0.4 mg - Labs Labs: 01/28/17 06:54 01/28/17 06:54 PT 11.6 SECONDS (9.7-12.2) 01/26/17 13:02 INR 1.0 01/26/17 13:02 APTT 30 SECONDS (21-34) 01/26/17 13:02
--- NOTE | 2017-01-30 13:34 | CP.PCM.PN ---
Subjective - Date & Time of Evaluation Date of Evaluation: 01/30/17 Time of Evaluation: 09:20 - Subjective Subjective: clinically same Objective - Vital Signs/Intake and Output Vital Signs (last 24 hours): Temp Pulse Resp BP Pulse Ox 98.1 F 83 20 167/55 H 98 01/30/17 07:00 01/30/17 07:00 01/30/17 07:00 01/30/17 07:00 01/30/17 07:00 Intake and Output: 01/30/17 01/30/17 06:59 18:59 Intake Total 2100 Output Total 1200 Balance 900 - Medications Medications: Current Medications Acetaminophen (Tylenol 325mg Tab) 650 mg PO Q4 PRN PRN Reason: Pain, Mild (1-3) Last Admin: 01/30/17 09:56 Dose: 650 mg Bacitracin (Bacitracin) 0 gm TOP DAILY [facility] Last Admin: 01/30/17 10:02 Dose: 1 applic Clopidogrel Bisulfate (Plavix) 75 mg PO DAILY [facility] Last Admin: 01/30/17 10:01 Dose: 75 mg Diltiazem HCl (Cardizem) 30 mg PO QID [facility] Last Admin: 01/30/17 13:23 Dose: 30 mg Famotidine (Pepcid) 20 mg PO BID [facility] Last Admin: 01/30/17 10:01 Dose: 20 mg Piperacillin Sod/Tazobactam Sod (Zosyn 3.375 Gm Iv Premix) 50 mls @ 100 mls/hr IVPB Q6H [facility] Last Admin: 01/30/17 10:21 Dose: 100 mls/hr Dextrose/Sodium Chloride (Dextrose 5%/0.45% Ns 1000 Ml) 1,000 mls @ 100 mls/hr IV .Q10H [facility] Last Admin: 01/30/17 13:24 Dose: Not Given Lactulose (Enulose) 15 gm PO ONCE PRN PRN Reason: Constipation Lorazepam (Ativan) 0.5 mg IVP BID PRN PRN Reason: Agitation Last Admin: 01/30/17 02:23 Dose: 0.5 mg Losartan Potassium (Cozaar) 100 mg PO DAILY [facility] Last Admin: 01/30/17 10:01 Dose: 100 mg Magnesium Hydroxide (Milk Of Magnesia) 30 ml PO ONCE PRN PRN Reason: Dyspepsia Metoprolol Tartrate (Lopressor) 100 mg PO BID [facility] Last Admin: 01/30/17 10:01 Dose: 100 mg Nitroglycerin (Nitrostat Sl Tab) 0.4 mg SL ONCE PRN PRN Reason: Other Rosuvastatin Calcium (Crestor) 10 mg PO HS [facility] Last Admin: 01/29/17 21:25 Dose: 10 mg Tamsulosin HCl (Flomax) 0.4 mg PO DAILY [facility] Last Admin: 01/30/17 10:01 Dose: 0.4 mg - Labs Labs: 01/28/17 06:54 01/28/17 06:54 PT 11.6 SECONDS (9.7-12.2) 01/26/17 13:02 INR 1.0 01/26/17 13:02 APTT 30 SECONDS (21-34) 01/26/17 13:02 - Constitutional Appears: Well - Head Exam Head Exam: ATRAUMATIC, NORMAL INSPECTION, NORMOCEPHALIC - Eye Exam Eye Exam: EOMI, Normal appearance, PERRL Pupil Exam: NORMAL ACCOMODATION, PERRL - ENT Exam ENT Exam: Mucous Membranes Moist, Normal Exam - Neck Exam Neck Exam: Full ROM, Normal Inspection. absent: Lymphadenopathy - Respiratory Exam Respiratory Exam: Decreased Breath Sounds - Cardiovascular Exam Cardiovascular Exam: REGULAR RHYTHM, +S1, +S2 - GI/Abdominal Exam GI & Abdominal Exam: Soft, Diminished Bowel Sounds - Rectal Exam Rectal Exam: Deferred Assessment and Plan (1) Altered mental status Status: Acute (2) Atrial fibrillation Status: Acute (3) UTI (urinary tract infection) Status: Acute (4) Anemia Status: Acute (5) Hematuria Status: Acute (6) Myocardial infarction Status: Acute (7) Near syncope Status: Acute (8) PAD (peripheral artery disease) Status: Acute (9) Toe gangrene Status: Acute (10) Toe ulcer Status: Acute (11) Urinary retention Status: Acute - Assessment and Plan (Free Text) Plan: Continue antibiotics Wound care Vascular surgeon Cardio consult IV fluids Blood pressure meds
--- NOTE | 2017-01-30 14:03 | PN ---
DATE: 01/30/2017 SUBJECTIVE: The patient is seen. The patient is asking when he is going to be going home, but mental status is much better. He states that he will be going for possible surgery on his right foot next week. Other than that he was given Ativan p.r.n. and more manageable. VITAL SIGNS: Temperature is 98.1, pulse rate is 75, blood pressure 167/55, respirations 20, oxygen sats 98%. REVIEW OF SYSTEMS: GENERAL: The patient is alert, verbal, less confused, seen in the 4-bedded room , redirectable. SKIN: No pruritus. HEENT: No headache, no dizziness. NECK: Supple. RESPIRATORY: No dyspnea. CARDIOVASCULAR: No chest pain. GASTROINTESTINAL: He is eating better. EXTREMITIES: Complaining of pain in his right foot. MUSCULOSKELETAL: Feels weak. NEUROLOGIC: Alert, oriented x 3. MENTAL STATUS EXAMINATION: Elderly male who looks stated age, oriented x 3. The patient is from [facility]. Mood is calm. Affect is reactive. Speech spontaneous. Thought process coherent. Thought content: No overt psychosis. No suicidal or homicidal ideation. Attention and memory seem to be improving. Insight and judgment improving. Impulse control is fair at this time. IMPRESSION: Metabolic encephalopathy. PLAN AND RECOMMENDATIONS: The patient seen, meds reviewed. Continue present management. Surgical followup. The patient may continue the Ativan p.r.n. as ordered. The patient got 1 dose last night. Isaias Villalba MD cc: [phone] TT: 01/30/2017 14:02:31 Confirmation # [id number] Dictation # [id number] [id number]
[2017-01-30] MEDS: Potassium Chloride 20 mEq ER Tab PO SCH ×2 (15:45→17:35)
--- NOTE | 2017-01-30 18:50 | CP.PCM.PN ---
Subjective - Date & Time of Evaluation Date of Evaluation: 01/30/17 Time of Evaluation: 18:31 - Subjective Subjective: Patient seen and evaluated Basing on the patient complete history include history of Myocardial infarction , CAD which was never intervened, Severe Carotid artery disease, diffuse PAD, dementia, HTN and advanced age this patient assessed as high cardiovascular risk (include but not limited to PR, Cardiac arrest, Stroke, )for Peripheral vascular bypass surgery under general or spinal anaesthesia. Discussed with the patient's daughter and Dr. Irizarry. Daughter is considering moving him to larger medical facility where patient can access advanced stroke and heart center if necessary. If the benefit outweighs the risk and if the daughter and the family agreeable consider high risk surgery. If risk outweighs the benefit, choose medical therapy. Final decision left to the surgical team and the family. Thank you - Constitutional Appears: Non-toxic, Cachectic, Chronically Ill - Head Exam Head Exam: NORMOCEPHALIC - ENT Exam ENT Exam: Mucous Membranes Dry - Neck Exam Neck Exam: absent: Lymphadenopathy - Respiratory Exam Respiratory Exam: Decreased Breath Sounds - Cardiovascular Exam Cardiovascular Exam: REGULAR RHYTHM, +S1, +S2 - GI/Abdominal Exam GI & Abdominal Exam: Distended, Soft. absent: Tenderness - Rectal Exam Rectal Exam: Deferred - Exam Exam: NORMAL INSPECTION - Extremities Exam Extremities Exam: Pedal Edema Additional comments: ISCHEMIC CHANGES TO BOTH FEET - Back Exam Objective - Vital Signs/Intake and Output Vital Signs (last 24 hours): Temp Pulse Resp BP Pulse Ox 97.6 F 60 20 117/54 L 99 01/30/17 15:00 01/30/17 15:00 01/30/17 15:00 01/30/17 15:00 01/30/17 15:00 Intake and Output: 01/30/17 01/30/17 06:59 18:59 Intake Total 2100 1000 Output Total 1200 Balance 900 1000 - Medications Medications: Current Medications Acetaminophen (Tylenol 325mg Tab) 650 mg PO Q4 PRN PRN Reason: Pain, Mild (1-3) Last Admin: 01/30/17 14:43 Dose: 650 mg Bacitracin (Bacitracin) 0 gm TOP DAILY [facility] Last Admin: 01/30/17 10:02 Dose: 1 applic Clopidogrel Bisulfate (Plavix) 75 mg PO DAILY [facility] Last Admin: 01/30/17 10:01 Dose: 75 mg Diltiazem HCl (Cardizem) 30 mg PO QID [facility] Last Admin: 01/30/17 18:15 Dose: Not Given Famotidine (Pepcid) 20 mg PO BID [facility] Last Admin: 01/30/17 17:45 Dose: 20 mg Piperacillin Sod/Tazobactam Sod (Zosyn 3.375 Gm Iv Premix) 50 mls @ 100 mls/hr IVPB Q6H [facility] Last Admin: 01/30/17 14:38 Dose: 100 mls/hr Dextrose/Sodium Chloride (Dextrose 5%/0.45% Ns 1000 Ml) 1,000 mls @ 100 mls/hr IV .Q10H [facility] Last Admin: 01/30/17 17:44 Dose: 100 mls/hr Lactulose (Enulose) 15 gm PO ONCE PRN PRN Reason: Constipation Lorazepam (Ativan) 0.5 mg IVP BID PRN PRN Reason: Agitation Last Admin: 01/30/17 02:23 Dose: 0.5 mg Losartan Potassium (Cozaar) 100 mg PO DAILY [facility] Last Admin: 01/30/17 10:01 Dose: 100 mg Magnesium Hydroxide (Milk Of Magnesia) 30 ml PO ONCE PRN PRN Reason: Dyspepsia Metoprolol Tartrate (Lopressor) 100 mg PO BID [facility] Last Admin: 01/30/17 18:15 Dose: Not Given Nitroglycerin (Nitrostat Sl Tab) 0.4 mg SL ONCE PRN PRN Reason: Other Rosuvastatin Calcium (Crestor) 10 mg PO HS [facility] Last Admin: 01/29/17 21:25 Dose: 10 mg Tamsulosin HCl (Flomax) 0.4 mg PO DAILY [facility] Last Admin: 01/30/17 10:01 Dose: 0.4 mg - Labs Labs: 01/28/17 06:54 01/28/17 06:54 PT 11.6 SECONDS (9.7-12.2) 01/26/17 13:02 INR 1.0 01/26/17 13:02 APTT 30 SECONDS (21-34) 01/26/17 13:02 Assessment and Plan - Assessment and Plan (Free Text) Assessment: Basing on the patient complete history include history of Myocardial infarction , CAD which was never intervened, Severe Carotid artery disease, diffuse PAD, dementia, HTN and advanced age this patient assessed as high cardiovascular risk (include but not limited to PR, Cardiac arrest, Stroke, )for Peripheral vascular bypass surgery under general or spinal anaesthesia. Discussed with the patient's daughter and Dr. Irizarry. Daughter is considering moving him to larger medical facility where patient can access advanced stroke and heart center if necessary. If the benefit outweighs the risk and if the daughter and the family agreeable consider high risk surgery. If risk outweighs the benefit, choose medical therapy. Final decision left to the surgical team and the family. Thank you
[2017-01-31] MEDS: Piperacill/Tazo 3.375gm in Dex 50 ML IVPB SCH ×4 (03:45→21:00)
[2017-01-31] MEDS: Dextrose 5%/0.45% NS 1,000 ML IV SCH ×2 (04:00→13:51)
[2017-01-31 08:59] VITALS: RESP 20
[2017-01-31] MEDS: Bacitracin Ointment 30 GM TUBE TOP SCH (09:56)
--- NOTE | 2017-01-31 11:30 | CP.PCM.PN ---
Subjective - Date & Time of Evaluation Date of Evaluation: 01/31/17 Time of Evaluation: 09:20 - Subjective Subjective: clinically same Objective - Vital Signs/Intake and Output Vital Signs (last 24 hours): Temp Pulse Resp BP Pulse Ox 97.3 F L 73 20 176/68 H 98 01/31/17 08:58 01/31/17 08:58 01/31/17 08:58 01/31/17 08:58 01/31/17 08:58 Intake and Output: 01/31/17 01/31/17 06:59 18:59 Intake Total 2040 Output Total 1650 Balance 390 - Medications Medications: Current Medications Acetaminophen (Tylenol 325mg Tab) 650 mg PO Q4 PRN PRN Reason: Pain, Mild (1-3) Last Admin: 01/30/17 19:57 Dose: 650 mg Bacitracin (Bacitracin) 0 gm TOP DAILY [facility] Last Admin: 01/31/17 09:56 Dose: 1 applic Clopidogrel Bisulfate (Plavix) 75 mg PO DAILY [facility] Last Admin: 01/31/17 09:56 Dose: 75 mg Diltiazem HCl (Cardizem) 30 mg PO QID [facility] Last Admin: 01/31/17 09:54 Dose: 30 mg Famotidine (Pepcid) 20 mg PO BID [facility] Last Admin: 01/31/17 09:55 Dose: 20 mg Piperacillin Sod/Tazobactam Sod (Zosyn 3.375 Gm Iv Premix) 50 mls @ 100 mls/hr IVPB Q6H [facility] Last Admin: 01/31/17 09:54 Dose: 100 mls/hr Dextrose/Sodium Chloride (Dextrose 5%/0.45% Ns 1000 Ml) 1,000 mls @ 100 mls/hr IV .Q10H [facility] Last Admin: 01/31/17 04:00 Dose: 100 mls/hr Lactulose (Enulose) 15 gm PO ONCE PRN PRN Reason: Constipation Lorazepam (Ativan) 0.5 mg IVP BID PRN PRN Reason: Agitation Last Admin: 01/30/17 02:23 Dose: 0.5 mg Losartan Potassium (Cozaar) 100 mg PO DAILY [facility] Last Admin: 01/31/17 09:55 Dose: 100 mg Magnesium Hydroxide (Milk Of Magnesia) 30 ml PO ONCE PRN PRN Reason: Dyspepsia Metoprolol Tartrate (Lopressor) 100 mg PO BID [facility] Last Admin: 01/31/17 09:55 Dose: 100 mg Nitroglycerin (Nitrostat Sl Tab) 0.4 mg SL ONCE PRN PRN Reason: Other Rosuvastatin Calcium (Crestor) 10 mg PO HS [facility] Last Admin: 01/30/17 21:10 Dose: 10 mg Tamsulosin HCl (Flomax) 0.4 mg PO DAILY [facility] Last Admin: 01/31/17 09:56 Dose: 0.4 mg Tramadol HCl (Ultram) 50 mg PO Q4H PRN PRN Reason: Pain, moderate (4-7) - Labs Labs: 01/28/17 06:54 01/28/17 06:54 PT 11.6 SECONDS (9.7-12.2) 01/26/17 13:02 INR 1.0 01/26/17 13:02 APTT 30 SECONDS (21-34) 01/26/17 13:02 - Constitutional Appears: Well - Head Exam Head Exam: ATRAUMATIC, NORMAL INSPECTION, NORMOCEPHALIC - Eye Exam Eye Exam: EOMI, Normal appearance, PERRL Pupil Exam: NORMAL ACCOMODATION, PERRL - ENT Exam ENT Exam: Mucous Membranes Moist, Normal Exam - Neck Exam Neck Exam: Full ROM, Normal Inspection. absent: Lymphadenopathy - Respiratory Exam Respiratory Exam: Decreased Breath Sounds - Cardiovascular Exam Cardiovascular Exam: REGULAR RHYTHM, +S1, +S2 - GI/Abdominal Exam GI & Abdominal Exam: Soft, Diminished Bowel Sounds - Rectal Exam Rectal Exam: Deferred Assessment and Plan (1) Altered mental status Status: Acute (2) Atrial fibrillation Status: Acute (3) UTI (urinary tract infection) Status: Acute (4) Anemia Status: Acute (5) Hematuria Status: Acute (6) Myocardial infarction Status: Acute (7) Near syncope Status: Acute (8) PAD (peripheral artery disease) Status: Acute (9) Toe gangrene Status: Acute (10) Toe ulcer Status: Acute (11) Urinary retention Status: Acute - Assessment and Plan (Free Text) Plan: Dr Angeles Spicer on board Wound care Continue antibiotics Cardizem Plavix Continue blood pressure meds Prognosis explained
--- NOTE | 2017-01-31 13:21 | PN ---
DATE: 01/31/2017 SUBJECTIVE: The patient is seen. The patient is improving clinically. He states that his family is visiting him. He also gave some information, but he is stating that he speaks 6 languages and his brother speaks 12 languages. He is from [facility]. No behavioral problems. The patient is currently in safety observation room and redirectable. He said he is looking forward for surgery. VITAL SIGNS: Temperature is 97.3, pulse rate 73, blood pressure 176/68, respirations 20, oxygen saturation 98%. The patient is only on Ativan p.r.n. REVIEW OF SYSTEMS: GENERAL: He is alert, oriented x 3, seen in his room, redirectable. SKIN: No diaphoresis. HEENT: No headache, no dizziness. NECK: Supple. RESPIRATORY: No dyspnea. CARDIOVASCULAR: No chest pain. GASTROINTESTINAL: He is eating well. EXTREMITIES: Not complaining of pain. MUSCULOSKELETAL: Feels weak. NEUROLOGIC: Alert, oriented x 3. PSYCHIATRIC: The patient's mental status seems to be much improved. MENTAL STATUS EXAMINATION: Elderly male who looks stated age, oriented x 3. Mood is calm. Affect is reactive. Speech spontaneous. Thought process coherent. Thought content: No overt psychosis. No suicidal or homicidal ideation. Attention and memory seem to be improving. Insight and judgment improving. Impulse control is fair at this time. IMPRESSION: Metabolic encephalopathy, improving. PLAN AND RECOMMENDATIONS: The patient seen, meds reviewed. Continue present management. Continue surgical followup. Continue Ativan as ordered. Isaias Villalba MD cc: [phone] TT: 01/31/2017 13:21:03 Confirmation # [id number] Dictation # [id number] MTDD
--- NOTE | 2017-01-31 15:32 | CP.PCM.PN ---
Subjective - Date & Time of Evaluation Date of Evaluation: 01/31/17 Time of Evaluation: 09:00 - Subjective Subjective: high risk patient with gangrene right foot who has untreated cardiac and carotid disease events noted dr olson on board Objective - Vital Signs/Intake and Output Vital Signs (last 24 hours): Temp Pulse Resp BP Pulse Ox 97.3 F L 73 20 176/68 H 98 01/31/17 08:58 01/31/17 08:58 01/31/17 08:58 01/31/17 08:58 01/31/17 08:58 Intake and Output: 01/31/17 01/31/17 06:59 18:59 Intake Total 2040 Output Total 1650 700 Balance 390 -700 - Medications Medications: Current Medications Acetaminophen (Tylenol 325mg Tab) 650 mg PO Q4 PRN PRN Reason: Pain, Mild (1-3) Last Admin: 01/31/17 12:00 Dose: 650 mg Bacitracin (Bacitracin) 0 gm TOP DAILY [facility] Last Admin: 01/31/17 09:56 Dose: 1 applic Clopidogrel Bisulfate (Plavix) 75 mg PO DAILY [facility] Last Admin: 01/31/17 09:56 Dose: 75 mg Diltiazem HCl (Cardizem) 30 mg PO QID [facility] Last Admin: 01/31/17 13:52 Dose: 30 mg Famotidine (Pepcid) 20 mg PO BID [facility] Last Admin: 01/31/17 09:55 Dose: 20 mg Piperacillin Sod/Tazobactam Sod (Zosyn 3.375 Gm Iv Premix) 50 mls @ 100 mls/hr IVPB Q6H [facility] Last Admin: 01/31/17 15:14 Dose: 100 mls/hr Dextrose/Sodium Chloride (Dextrose 5%/0.45% Ns 1000 Ml) 1,000 mls @ 100 mls/hr IV .Q10H [facility] Last Admin: 01/31/17 13:51 Dose: 100 mls/hr Lactulose (Enulose) 15 gm PO ONCE PRN PRN Reason: Constipation Lorazepam (Ativan) 0.5 mg IVP BID PRN PRN Reason: Agitation Last Admin: 01/30/17 02:23 Dose: 0.5 mg Losartan Potassium (Cozaar) 100 mg PO DAILY [facility] Last Admin: 01/31/17 09:55 Dose: 100 mg Magnesium Hydroxide (Milk Of Magnesia) 30 ml PO ONCE PRN PRN Reason: Dyspepsia Metoprolol Tartrate (Lopressor) 100 mg PO BID [facility] Last Admin: 01/31/17 09:55 Dose: 100 mg Nitroglycerin (Nitrostat Sl Tab) 0.4 mg SL ONCE PRN PRN Reason: Other Rosuvastatin Calcium (Crestor) 10 mg PO HS [facility] Last Admin: 01/30/17 21:10 Dose: 10 mg Tamsulosin HCl (Flomax) 0.4 mg PO DAILY [facility] Last Admin: 01/31/17 09:56 Dose: 0.4 mg Tramadol HCl (Ultram) 50 mg PO Q4H PRN PRN Reason: Pain, moderate (4-7) - Labs Labs: 01/28/17 06:54 01/28/17 06:54 PT 11.6 SECONDS (9.7-12.2) 01/26/17 13:02 INR 1.0 01/26/17 13:02 APTT 30 SECONDS (21-34) 01/26/17 13:02 - Constitutional Appears: Non-toxic, Chronically Ill - Head Exam Head Exam: NORMOCEPHALIC - Eye Exam Eye Exam: PERRL. absent: Scleral icterus - ENT Exam ENT Exam: Mucous Membranes Dry - Neck Exam Neck Exam: absent: Lymphadenopathy - Respiratory Exam Respiratory Exam: Decreased Breath Sounds, Rhonchi - Cardiovascular Exam Cardiovascular Exam: REGULAR RHYTHM, +S1, +S2 - GI/Abdominal Exam GI & Abdominal Exam: Distended, Soft. absent: Tenderness - Rectal Exam Rectal Exam: Deferred - Exam Exam: NORMAL INSPECTION - Extremities Exam Extremities Exam: absent: Calf Tenderness, Pedal Edema - Back Exam Back Exam: absent: CVA tenderness (L), CVA tenderness (R) - Neurological Exam Neurological Exam: Alert, Awake, Oriented x3 - Psychiatric Exam Psychiatric exam: Normal Mood - Skin Skin Exam: Dry, Intact Assessment and Plan (1) Anemia Status: Acute (2) Atrial fibrillation Status: Acute (3) Toe ulcer Status: Acute - Assessment and Plan (Free Text) Assessment: ischemic ulcer cellulitis pvd cad arrythmia poor prognosis
[2017-02-01] MEDS: Dextrose 5%/0.45% NS 1,000 ML IV SCH ×3 (02:10→19:45)
[2017-02-01] MEDS: Piperacill/Tazo 3.375gm in Dex 50 ML IVPB SCH ×4 (02:43→21:33)
[2017-02-01] MEDS: Bacitracin Ointment 30 GM TUBE TOP SCH (09:36)
--- NOTE | 2017-02-01 14:29 | PN ---
DATE: 02/01/2017 SUBJECTIVE: The patient is seen in the safety observation room, receiving care from staff. The tosin ent is still awaiting medical clearance. He is supposed to go for surgery, but psych conrad, his menta l status is much improved. VITAL SIGNS: Temperature is 98.8, pulse rate 66, blood pressure 164/63, respirations 20, oxygen sat is 97%. REVIEW OF SYSTEMS: GENERAL: The patient is seen in a 4-bedded room, alert, verbal, asking care from staff. SKIN: No pruritus. HEENT: No headache, no dizziness. NECK: Supple. RESPIRATORY: No dyspnea. CARDIOVASCULAR: No chest pain. GASTROINTESTINAL: No nausea, no vomiting. EXTREMITIES: Not complaining of pain. MUSCULOSKELETAL: Weakness improving. NEUROLOGIC: Alert, oriented x 3. MENTAL STATUS EXAMINATION: Elderly male who looks stated age. Alert, oriented x 3, cooperative with staff. The patient, as stated, was receiving care. Speech spontaneous. Affect is reactive. Mood is calm. Thought process coherent. Thought content: The patient is looking forward for his possibl e surgery as patient has gangrened on his right fifth toe. No paranoia. No suicidal or homicidal id eation. No psychosis. Attention and memory seem to be fair. Insight and judgment fair. Impulse co ntrol is fair. IMPRESSION: Metabolic encephalopathy, much improved. PLAN AND RECOMMENDATIONS: The patient seen, meds reviewed. Continue present management. Continue t reatment plan as ordered. Continue present psych meds as ordered. The patient is manageable at this time and confusion has improved. Isaias Villalba MD cc: [phone] TT: 02/01/2017 14:28:50 Confirmation # [id number] Dictation # [id number]
[2017-02-01 17:00] LABS: BASO # 0.1 K/uL (0.0-0.2); BASO % 0.8 % (0.0-2.0); EOS # 0.6 K/uL (0.0-0.7); EOS % 6.3 % (0.0-4.0); HEMATOCRIT 27.6 % (35.0-51.0); LYMPH # 1.8 K/uL (1.0-4.3); MEAN CELL VOLUME 89.8 fL (80.0-94.0); MEAN CORPUSCULAR HEMOGLOBIN 29.8 pg (27.0-31.0); MEAN CORPUSCULAR HGB CONC 33.2 g/dL (33.0-37.0); MEAN PLATELET VOLUME 9.1 fL (7.2-11.7); MONO # 0.9 K/uL (0.0-0.8); MONO % 9.5 % (0.0-10.0); NRBC % 0.1 % (0.0-2.0); RED CELL DISTRIBUTION WIDTH 14.5 % (11.5-14.5); WHITE BLOOD COUNT 9.5 K/uL (4.8-10.8)
--- NOTE | 2017-02-01 17:03 | CP.PCM.PN ---
Subjective - Date & Time of Evaluation Date of Evaluation: 02/01/17 Time of Evaluation: 09:40 - Subjective Subjective: clinically same Objective - Vital Signs/Intake and Output Vital Signs (last 24 hours): Temp Pulse Resp BP Pulse Ox 97.6 F 66 20 193/66 H 98 02/01/17 15:00 02/01/17 15:00 02/01/17 15:00 02/01/17 15:00 02/01/17 15:00 Intake and Output: 02/01/17 02/01/17 06:59 18:59 Intake Total 1600 Output Total 2100 Balance -500 - Medications Medications: Current Medications Acetaminophen (Tylenol 325mg Tab) 650 mg PO Q4 PRN PRN Reason: Pain, Mild (1-3) Last Admin: 01/31/17 12:00 Dose: 650 mg Bacitracin (Bacitracin) 0 gm TOP DAILY [facility] Last Admin: 02/01/17 09:36 Dose: 1 applic Clopidogrel Bisulfate (Plavix) 75 mg PO DAILY [facility] Last Admin: 02/01/17 09:34 Dose: 75 mg Diltiazem HCl (Cardizem) 30 mg PO QID [facility] Last Admin: 02/01/17 14:17 Dose: 30 mg Famotidine (Pepcid) 20 mg PO BID [facility] Last Admin: 02/01/17 09:34 Dose: 20 mg Piperacillin Sod/Tazobactam Sod (Zosyn 3.375 Gm Iv Premix) 50 mls @ 100 mls/hr IVPB Q6H [facility] Last Admin: 02/01/17 16:05 Dose: 100 mls/hr Dextrose/Sodium Chloride (Dextrose 5%/0.45% Ns 1000 Ml) 1,000 mls @ 100 mls/hr IV .Q10H [facility] Last Admin: 02/01/17 09:40 Dose: Not Given Lactulose (Enulose) 15 gm PO ONCE PRN PRN Reason: Constipation Lorazepam (Ativan) 0.5 mg IVP BID PRN PRN Reason: Agitation Last Admin: 02/01/17 04:12 Dose: 0.5 mg Losartan Potassium (Cozaar) 100 mg PO DAILY [facility] Last Admin: 02/01/17 09:34 Dose: 100 mg Magnesium Hydroxide (Milk Of Magnesia) 30 ml PO ONCE PRN PRN Reason: Dyspepsia Metoprolol Tartrate (Lopressor) 100 mg PO BID [facility] Last Admin: 02/01/17 09:36 Dose: 100 mg Nitroglycerin (Nitrostat Sl Tab) 0.4 mg SL ONCE PRN PRN Reason: Other Rosuvastatin Calcium (Crestor) 10 mg PO HS [facility] Last Admin: 01/31/17 21:00 Dose: 10 mg Tamsulosin HCl (Flomax) 0.4 mg PO DAILY [facility] Last Admin: 02/01/17 09:34 Dose: 0.4 mg Tramadol HCl (Ultram) 50 mg PO Q4H PRN PRN Reason: Pain, moderate (4-7) Last Admin: 02/01/17 14:17 Dose: 50 mg - Labs Labs: 01/28/17 06:54 01/28/17 06:54 PT 11.6 SECONDS (9.7-12.2) 01/26/17 13:02 INR 1.0 01/26/17 13:02 APTT 30 SECONDS (21-34) 01/26/17 13:02 - Constitutional Appears: Well - Head Exam Head Exam: ATRAUMATIC, NORMAL INSPECTION, NORMOCEPHALIC - Eye Exam Eye Exam: EOMI, Normal appearance, PERRL Pupil Exam: NORMAL ACCOMODATION, PERRL - ENT Exam ENT Exam: Mucous Membranes Moist, Normal Exam - Neck Exam Neck Exam: Full ROM, Normal Inspection. absent: Lymphadenopathy - Respiratory Exam Respiratory Exam: Decreased Breath Sounds - Cardiovascular Exam Cardiovascular Exam: REGULAR RHYTHM, +S1, +S2 - GI/Abdominal Exam GI & Abdominal Exam: Soft, Diminished Bowel Sounds - Rectal Exam Rectal Exam: Deferred Assessment and Plan (1) Altered mental status Status: Acute (2) Atrial fibrillation Status: Acute (3) UTI (urinary tract infection) Status: Acute (4) Anemia Status: Acute (5) Hematuria Status: Acute (6) Myocardial infarction Status: Acute (7) Near syncope Status: Acute (8) PAD (peripheral artery disease) Status: Acute (9) Toe gangrene Status: Acute (10) Toe ulcer Status: Acute (11) Urinary retention Status: Acute - Assessment and Plan (Free Text) Plan: Vascular surgeon on board cardio on board Continue antibiotics Wound care Prevention of foot injury Continue Plavix and Cardizem Blood pressure medications
[2017-02-01 17:16] LABS: CHLORIDE 104 mmol/L (98-107); POTASSIUM 3.8 mmol/L (3.6-5.2); SODIUM 138 mmol/L (132-148)
[2017-02-01 17:18] LABS: ALB/GLOB RATIO 1.1 (1.0-2.1); AST/SGOT 42 U/L (17-59); BILIRUBIN,TOTAL 0.1 mg/dL (0.2-1.3); CARBON DIOXIDE 22 mmol/L (22-30); GFR AFRICAN-AMERICAN > 60; TOTAL PROTEIN 6.1 g/dL (6.3-8.3)
[2017-02-01 17:19] LABS: ALKALINE PHOSPHATASE 60 U/L (38-126); ALT/SGPT 23 U/L (21-72); BLOOD UREA NITROGEN 8 mg/dL (9-20); CALCIUM 8.1 mg/dl (8.6-10.4); GLUCOSE,RANDOM 100 mg/dL (75-110)
[2017-02-02] MEDS: Piperacill/Tazo 3.375gm in Dex 50 ML IVPB SCH ×3 (03:31→15:30)
[2017-02-02] MEDS: Dextrose 5%/0.45% NS 1,000 ML IV SCH (03:33)
--- NOTE | 2017-02-02 11:07 | PN ---
DATE: 02/02/2017 SUBJECTIVE: The patient is alert, verbal in the 4-bedded room. The patient needs redirection from time to time, as the patient tends to strip his clothes. He states that he is waiting for surgery, but not complaining of pain in his lower extremities, especially his right foot. VITAL SIGNS: Temperature is 98.1, pulse rate 58, blood pressure 169/51, respirations 20. Oxygen sat is 99%. REVIEW OF SYSTEMS: GENERAL: The patient is alert, verbal, seen in 4-bedded room. Cooperative, offers no new complaints. SKIN: No diaphoresis. HEENT: No headache, no dizziness. NECK: Supple. RESPIRATORY: No dyspnea. CARDIOVASCULAR: No chest pain. GASTROINTESTINAL: He is eating better. EXTREMITIES: Not complaining of pain. He is moving extremities. MUSCULOSKELETAL: Still feels weak. NEUROLOGIC: Alert and oriented x 3. GENITOURINARY: No urinary problems. MENTAL STATUS EXAMINATION: Elderly male who looks stated age, oriented x 3, cooperative with staff. The patient is much improved. Speech is spontaneous. Mood is calmer. Affect is reactive. Thought process is coherent. Thought content: The patient is not having behavioral problems. He is cooperative with care. He said he is waiting for surgery. No suicidal or homicidal ideation or psychosis. Attention and memory seem to be improving. Insight and judgment fair. Impulse control is fair. IMPRESSION: Metabolic encephalopathy, much improved. PLAN AND RECOMMENDATIONS: The patient is seen, meds reviewed. Continue present management. Continue present psych meds as ordered. We will keep patient in the 4-bedded room, as the patient needs redirection from time to time. Isaias Villalba MD cc: [phone] TT: 02/02/2017 11:07:05 Confirmation # [id number] Dictation # [id number] [id number]
[2017-02-02] MEDS: Bacitracin Ointment 30 GM TUBE TOP SCH (11:26)
--- NOTE | 2017-02-02 15:07 | CP.PCM.PN ---
Subjective - Date & Time of Evaluation Date of Evaluation: 02/02/17 Time of Evaluation: 09:40 - Subjective Subjective: clinically same Objective - Vital Signs/Intake and Output Vital Signs (last 24 hours): Temp Pulse Resp BP Pulse Ox 98.1 F 58 L 20 169/51 H 99 02/02/17 08:00 02/02/17 08:00 02/02/17 08:00 02/02/17 08:00 02/02/17 08:00 Intake and Output: 02/02/17 02/02/17 06:59 18:59 Intake Total 850 700 Output Total 500 600 Balance 350 100 - Medications Medications: Current Medications Acetaminophen (Tylenol 325mg Tab) 650 mg PO Q4 PRN PRN Reason: Pain, Mild (1-3) Last Admin: 02/02/17 00:11 Dose: 650 mg Bacitracin (Bacitracin) 0 gm TOP DAILY [facility] Last Admin: 02/02/17 11:26 Dose: 1 applic Clopidogrel Bisulfate (Plavix) 75 mg PO DAILY [facility] Last Admin: 02/02/17 11:20 Dose: 75 mg Diltiazem HCl (Cardizem) 30 mg PO QID [facility] Last Admin: 02/02/17 13:10 Dose: 30 mg Famotidine (Pepcid) 20 mg PO BID [facility] Last Admin: 02/02/17 11:25 Dose: 20 mg Piperacillin Sod/Tazobactam Sod (Zosyn 3.375 Gm Iv Premix) 50 mls @ 100 mls/hr IVPB Q6H [facility] Last Admin: 02/02/17 08:59 Dose: 100 mls/hr Lactulose (Enulose) 15 gm PO ONCE PRN PRN Reason: Constipation Lorazepam (Ativan) 0.5 mg IVP BID PRN PRN Reason: Agitation Last Admin: 02/02/17 03:31 Dose: 0.5 mg Losartan Potassium (Cozaar) 100 mg PO DAILY [facility] Last Admin: 02/02/17 11:20 Dose: 100 mg Magnesium Hydroxide (Milk Of Magnesia) 30 ml PO ONCE PRN PRN Reason: Dyspepsia Metoprolol Tartrate (Lopressor) 100 mg PO BID [facility] Last Admin: 02/02/17 11:20 Dose: 100 mg Nitroglycerin (Nitrostat Sl Tab) 0.4 mg SL ONCE PRN PRN Reason: Other Rosuvastatin Calcium (Crestor) 10 mg PO HS [facility] Last Admin: 02/01/17 21:33 Dose: 10 mg Tamsulosin HCl (Flomax) 0.4 mg PO DAILY [facility] Last Admin: 02/02/17 11:20 Dose: 0.4 mg Tramadol HCl (Ultram) 50 mg PO Q4H PRN PRN Reason: Pain, moderate (4-7) Last Admin: 02/02/17 14:58 Dose: 50 mg - Labs Labs: 02/01/17 16:50 02/01/17 16:50 PT 11.6 SECONDS (9.7-12.2) 01/26/17 13:02 INR 1.0 01/26/17 13:02 APTT 30 SECONDS (21-34) 01/26/17 13:02 - Constitutional Appears: Well - Head Exam Head Exam: ATRAUMATIC, NORMAL INSPECTION, NORMOCEPHALIC - Eye Exam Eye Exam: EOMI, Normal appearance, PERRL Pupil Exam: NORMAL ACCOMODATION, PERRL - ENT Exam ENT Exam: Mucous Membranes Moist, Normal Exam - Neck Exam Neck Exam: Full ROM, Normal Inspection. absent: Lymphadenopathy - Respiratory Exam Respiratory Exam: Decreased Breath Sounds - Cardiovascular Exam Cardiovascular Exam: +S1, +S2 - GI/Abdominal Exam GI & Abdominal Exam: Diminished Bowel Sounds - Rectal Exam Rectal Exam: Deferred Assessment and Plan (1) Altered mental status Status: Acute (2) Atrial fibrillation Status: Acute (3) UTI (urinary tract infection) Status: Acute (4) Anemia Status: Acute (5) Hematuria Status: Acute (6) Myocardial infarction Status: Acute (7) Near syncope Status: Acute (8) PAD (peripheral artery disease) Status: Acute (9) Toe gangrene Status: Acute (10) Toe ulcer Status: Acute (11) Urinary retention Status: Acute - Assessment and Plan (Free Text) Plan: No fresh complaints patient is alert awake Discharged to [facility] Dr. Collazo Wound care Continue meds Continue antibiotics
[2017-02-02 15:28] VITALS: BP 182/54; PULSE 62; TEMP 98.8; O2SAT 96
--- NOTE | 2017-02-02 17:10 | CP.PCM.PN ---
Subjective - Date & Time of Evaluation Date of Evaluation: 02/02/17 Time of Evaluation: 11:00 - Subjective Subjective: Alert, awake, s/p angiogram by DR Bloom. Denies sob or chest pains. Objective - Vital Signs/Intake and Output Vital Signs (last 24 hours): Temp Pulse Resp BP Pulse Ox 98.8 F 62 20 182/54 H 96 02/02/17 15:26 02/02/17 15:26 02/02/17 15:26 02/02/17 15:26 02/02/17 15:26 Intake and Output: 02/02/17 02/02/17 06:59 18:59 Intake Total 850 700 Output Total 500 600 Balance 350 100 - Medications Medications: Current Medications Acetaminophen (Tylenol 325mg Tab) 650 mg PO Q4 PRN PRN Reason: Pain, Mild (1-3) Last Admin: 02/02/17 00:11 Dose: 650 mg Bacitracin (Bacitracin) 0 gm TOP DAILY [facility] Last Admin: 02/02/17 11:26 Dose: 1 applic Clopidogrel Bisulfate (Plavix) 75 mg PO DAILY [facility] Last Admin: 02/02/17 11:20 Dose: 75 mg Diltiazem HCl (Cardizem) 30 mg PO QID [facility] Last Admin: 02/02/17 13:10 Dose: 30 mg Famotidine (Pepcid) 20 mg PO BID [facility] Last Admin: 02/02/17 11:25 Dose: 20 mg Piperacillin Sod/Tazobactam Sod (Zosyn 3.375 Gm Iv Premix) 50 mls @ 100 mls/hr IVPB Q6H [facility] Last Admin: 02/02/17 15:30 Dose: 100 mls/hr Lactulose (Enulose) 15 gm PO ONCE PRN PRN Reason: Constipation Lorazepam (Ativan) 0.5 mg IVP BID PRN PRN Reason: Agitation Last Admin: 02/02/17 03:31 Dose: 0.5 mg Losartan Potassium (Cozaar) 100 mg PO DAILY [facility] Last Admin: 02/02/17 11:20 Dose: 100 mg Magnesium Hydroxide (Milk Of Magnesia) 30 ml PO ONCE PRN PRN Reason: Dyspepsia Metoprolol Tartrate (Lopressor) 100 mg PO BID [facility] Last Admin: 02/02/17 11:20 Dose: 100 mg Nitroglycerin (Nitrostat Sl Tab) 0.4 mg SL ONCE PRN PRN Reason: Other Rosuvastatin Calcium (Crestor) 10 mg PO HS [facility] Last Admin: 02/01/17 21:33 Dose: 10 mg Tamsulosin HCl (Flomax) 0.4 mg PO DAILY [facility] Last Admin: 02/02/17 11:20 Dose: 0.4 mg Tramadol HCl (Ultram) 50 mg PO Q4H PRN PRN Reason: Pain, moderate (4-7) Last Admin: 02/02/17 14:58 Dose: 50 mg - Labs Labs: 02/01/17 16:50 02/01/17 16:50 PT 11.6 SECONDS (9.7-12.2) 01/26/17 13:02 INR 1.0 01/26/17 13:02 APTT 30 SECONDS (21-34) 01/26/17 13:02 Assessment and Plan - Assessment and Plan (Free Text) Assessment: Patient is seen and examined. Awake, alert , less confused. No sob or chest pains. He is accepted by [facility] , under DR Collazo for possible vascular surgery, will be transferred today. Daughter made aware.
== END 2017-02-02 17:45 | disposition short-term general hospital (02) | DRG 299 ==
LOC: C.ER 10:53 → C.9E 15:02 → C.5T 18:24 → C.3T 01-28 14:49
PROVIDERS: ADMIT Internal Medicine Nephrology; ATTEND Internal Medicine Nephrology
PROC: B40DYZZ Plain Radiography of Aorta and Bilateral Lower Extremity Arteries using Other Contrast (ICD-10-PCS; principal; 2017-01-27)
DX: I70.268 Atherosclerosis of native arteries of extremities with gangrene, other extremity (principal); G92 Toxic encephalopathy; I48.91 Unspecified atrial fibrillation; F03.90 Unspecified dementia, unspecified severity, without behavioral disturbance, psychotic disturbance, mood disturbance, and anxiety; F22 Delusional disorders; J44.9 Chronic obstructive pulmonary disease, unspecified; D64.9 Anemia, unspecified; F41.9 Anxiety disorder, unspecified; I25.10 Atherosclerotic heart disease of native coronary artery without angina pectoris; E78.00 Pure hypercholesterolemia, unspecified; Z95.5 Presence of coronary angioplasty implant and graft; L98.499 Non-pressure chronic ulcer of skin of other sites with unspecified severity; Z87.891 Personal history of nicotine dependence; Z86.73 Personal history of transient ischemic attack (TIA), and cerebral infarction without residual deficits; I10 Essential (primary) hypertension; L03.031 Cellulitis of right toe; F09 Unspecified mental disorder due to known physiological condition

== ENCOUNTER 2017-04-14 10:46 | Inpatient (IN) | payer MEDICARE, BC, OTHER ==
[2017-04-14 10:47] VITALS: BMI 21.9
--- NOTE | 2017-04-14 11:32 | C.PDOC ---
History Of Present Illness History as per [facility] paperwork. 82 y/o male sent from [facility] for new onset lethargy, sluggishness, and change in mental status. Patient with severe confusion baseline. 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 PMD: Dr. Jeff Silvestre Time Seen by Provider: 04/14/17 11:25 Chief Complaint (Nursing): Altered Mental Status History Per: Other ([place] paperwork) History/Exam Limitations: Clinical Condition Usual Baseline: Alert Confused Past Medical History Reviewed: Historical Data, Nursing Documentation, Vital Signs Vital Signs: Last Vital Signs Temp 97.7 F 04/14/17 13:15 Pulse 115 H 04/14/17 13:17 Resp 20 04/14/17 13:17 BP 143/54 L 04/14/17 13:17 Pulse Ox 85 L 04/14/17 13:17 - Medical History PMH: Anemia, Anxiety, Atrial Fibrillation, CAD, HTN, Hypercholesterolemia Denies: Alzheimer's Disease, Arthritis, Asthma, Bipolar Disorder, Bronchitis , Cardia Arrhythmia, CHF, COPD, Crohn's Disease, Dementia, Depression, Diverticulitis, Emphysema, Fibromyalgia, Fractures, Gastrointestinal Ulcer, Gall Bladder Disease, HIV, Hyperthyroidism, Hypothyroidism, Kidney Stones, Migraine, Mitral Valve Prolapse, Osteoporosis, Pancreatitis, Paranoia, Parkinson 's Disease, Peripheral Edema, Pneumonia, Post Traumatic Stress Disorder, Chronic Kidney Disease, Schizophrenia, Seizures, Sickle Cell Disease, Sexually Transmitted Disease, Sleep Apnea, TIA Surgical History: Coronary Stent Denies: Appendectomy, Cholecystectomy, Pacemaker - [facility] Procedures COLONOSCOPY (08/26/07) CONTRAST AORTOGRAM (11/26/04) CONTRAST ARTERIOGRAM-LEG (11/26/04) ESOPHAGOGASTRODUODENOSCOPY [EGD] W/CLOSED BIOPSY (08/26/07) PLAIN RADIOGRAPHY OF AORTA, BI LE ART USING OTH CONTRAST (01/26/17) Family History: States: Unknown Family Hx - Social History Hx Tobacco Use: No Hx Alcohol Use: No Hx Substance Use: No Review Of Systems Review Of Systems: ROS cannot be obtained secondary to pt's inabilty to answer questions. Physical Exam - Physical Exam Appears: Other (vocalizing sounds but not words/nonverbal, severely contracted) Skin: Warm, Dry Head: Atraumatic, Normacephalic Eye(s): bilateral: PERRL, EOMI Teeth: Edentulous Neck: Supple Chest: Symmetrical Cardiovascular: Rhythm Irregular (regular irregular), No Murmur Respiratory: Rales (scattered), No Wheezing Gastrointestinal/Abdominal: Soft, No Tenderness, No Guarding, No Rebound Back: Normal Inspection, Other (no decubiti) Extremity: No Deformity, Other (patches of eschar over multiple digits, bilateral feet) ED Course And Treatment - Laboratory Results Result Diagrams: 04/14/17 11:38 04/14/17 11:53 ECG: Interpreted By Me ECG Rhythm: Atrial Fibrillation Rate From EC (bpm) O2 Sat by Pulse Oximetry: 98 (RA) Pulse Ox Interpretation: Normal Disposition Discussed With Dr.: Kath Ewing Doctor Will See Patient In The: Hospital - Disposition Disposition: HOSPITALIZED Disposition Time: 12:37 Condition: GUARDED - Clinical Impression Clinical Impression: Atrial fibrillation, Altered mental status, UTI (urinary tract infection) - Scribe Statement The provider has reviewed the documentation as recorded by the Frandy Cage Provider Attestation: All medical record entries made by the Frandy were at my direction and personally dictated by me. I have reviewed the chart and agree that the record accurately reflects my personal performance of the history, physical exam, medical decision making, and the department course for this patient. I have also personally directed, reviewed, and agree with the discharge instructions and disposition. Decision To Admit - Pt Status Changed To: Hospital Disposition Of: Inpatient - Admit Certification Admit to Inpatient:: After my assessment, the patient will require hospitalization for at least two midnights. This is because of the severity of symptoms shown, intensity of services needed, and/or the medical risk in this patient being treated as an outpatient. - InPatient: Physician Admission Certification:: ams, rapid afib, uti - . Bed Request Type: Telemetry Patient Diagnosis: Atrial fibrillation, Altered mental status, UTI (urinary tract infection)
[2017-04-14] MEDS ORDERED: cefTRIAXone IV 1 gm in Dextros 50 ML IVPB ONE ×2 (11:33→11:51)
[2017-04-14] MEDS ORDERED: Piperacillin/Tazobact 3.375 gm 100 ML IV STA (11:34)
[2017-04-14 11:35] LABS: VENOUS BLOOD GAS BASE EXCESS 2.7 mmol/L (0.0-2.0); VENOUS BLOOD GAS PCO2 36 mmHg (40-60); VENOUS BLOOD GAS PO2 52 mm/Hg (30-55); VENOUS BLOOD PH 7.47 (7.32-7.43)
[2017-04-14] MEDS ORDERED: Vancomycin 1 gm/NS 200 ml 1 GM/200 ML BAG IVPB STA (11:35)
[2017-04-14 11:47] LABS: BASO # 0.1 K/uL (0.0-0.2); BASO % 0.5 % (0.0-2.0); EOS # 0.1 K/uL (0.0-0.7); EOS % 0.7 % (0.0-4.0); HEMOGLOBIN 9.1 g/dL (12.0-18.0); LYMPH % 15.4 % (20.0-40.0); MEAN CELL VOLUME 88.9 fL (80.0-94.0); MEAN CORPUSCULAR HEMOGLOBIN 28.5 pg (27.0-31.0); MEAN CORPUSCULAR HGB CONC 32.1 g/dL (33.0-37.0); MEAN PLATELET VOLUME 9.8 fL (7.2-11.7); MONO # 1.6 K/uL (0.0-0.8); MONO % 8.4 % (0.0-10.0); NEUT # 14.7 K/uL (1.8-7.0); RBC 3.17 Mil/uL (4.40-5.90); RED CELL DISTRIBUTION WIDTH 15.7 % (11.5-14.5)
[2017-04-14] MEDS ORDERED: Piperacillin/Tazobact 3.375 gm 100 ML IVPB ONE (11:51)
[2017-04-14 11:55] LABS: GRANULAR CAST 5 /lpf (0-1); SQUAMOUS EPITHIAL 2 /hpf (0-5); URINE BACTERIA RARE (<OCC); URINE BILIRUBIN NEGATIVE (NEGATIVE); URINE BLOOD 2+ (NEGATIVE); URINE CLARITY Hazy (Clear); URINE COLOR Yellow (YELLOW); URINE GLUCOSE (UA) NORMAL (Normal); URINE LEUKOCYTE ESTERASE 3+ Leu/uL (Negative); URINE NITRATE NEGATIVE (NEGATIVE); URINE PROTEIN 2+ mg/dL (NEGATIVE); URINE UROBILINOGEN NORMAL mg/dL (0.2-1.0); WHITE BLOOD COUNT 19.6 K/uL (4.8-10.8)
[2017-04-14 11:59] LABS: INR 1.1; PROTHROMBIN TIME 12.5 SECONDS (9.7-12.2)
[2017-04-14 12:20] LABS: CK-MB 8.33 ng/mL (0.0-3.38)
[2017-04-14 12:25] LABS: ALBUMIN 2.7 g/dL (3.5-5.0)
[2017-04-14 12:28] LABS: ALB/GLOB RATIO 0.8 (1.0-2.1); AST/SGOT 132 U/L (17-59); GFR AFRICAN-AMERICAN > 60; GFR NON-AFRICAN AMERICAN > 60
[2017-04-14 12:29] LABS: ALT/SGPT 116 U/L (21-72); BLOOD UREA NITROGEN 46 mg/dL (9-20); CALCIUM 8.2 mg/dl (8.6-10.4); LIPASE 20 U/L (23-300)
[2017-04-14] MEDS ORDERED: Sodium Chloride 0.9% 1,000 ML IV ONE ×2 (12:32→15:39)
[2017-04-14] MEDS ORDERED: Vancomycin 1 GM 1 GM/250 ML BAG IVPB ONE (12:49)
--- NOTE | 2017-04-14 13:21 | RAD ---
HISTORY: SOB COMPARISON: Chest x-ray performed 01/26/17 TECHNIQUE: Chest, one view. FINDINGS: Examination limited by patient obliquity. LUNGS: No focal consolidation. Please note that chest x-ray has limited sensitivity for the detection of pulmonary masses. PLEURA: No significant pleural effusion identified. No definite pneumothorax . CARDIOVASCULAR: The cardiomediastinal silhouette appears within normal limits of size. OSSEOUS STRUCTURES: Degenerative changes. Acromioclavicular arthropathy. VISUALIZED UPPER ABDOMEN: Unremarkable. OTHER FINDINGS: None. IMPRESSION: No focal consolidation, significant pleural effusion, or definite pneumothorax identified.
--- NOTE | 2017-04-14 14:00 | CP.PCM.CON ---
<Alan Almanzar - Last Filed: 04/14/17 15:28> History of Present Illness - History of Present Illness History of Present Illness: ICU Consult Note: Dr Bo Re: AMS, Elevated Troponin Pt is 82M with PMH of anemia, anxiety, afib, CAD (s/p stent placement), HTN, HLD , PAD. Pt is accompanied by daughter. Recently sent from [facility] for new onset lethargy and AMS. Per daughter pt is actually very sharp and alert. He has been placed on numerous anti-depressants since loss of his about 8 months ago. Pt was recently treated for UTI w/ VRE in March with Macrobid. Daughter reports pt's urine has been exceptionally dark with solid chunks within it for past 24 hours. Currently, pt states he is having chest pain. Denies abdominal pain, fevers, chills, nausea or vomiting. ED work-up shows leukocytosis of 19K, mild transaminitis and elevated troponin of 8.8. Given elevated troponin pt will be admitted to ICU. Review of Systems - Review of Systems All systems: reviewed and no additional remarkable complaints except (as per HPI ) Past Patient History - Infectious Disease Hx of Infectious Diseases: None - Tetanus Immunizations Tetanus Immunization: Unknown - Past Medical History & Family History Past Medical History?: Yes - Past Social History Smoking Status: Former Smoker - CARDIAC Hx Atrial Fibrillation: Yes Hx Cardia Arrhythmia: No Hx Congestive Heart Failure: No Hx Hypercholesterolemia: Yes Hx Hypertension: Yes Hx Mitral Valve Prolapse: No Hx Pacemaker: No Hx Peripheral Edema: No - PULMONARY Hx Asthma: No Hx Bronchitis: No Hx Chronic Obstructive Pulmonary Disease (COPD): No Hx Emphysema: No Hx Pneumonia: No Hx Sleep Apnea: No - NEUROLOGICAL Hx Alzheimer's Disease: No Hx Dementia: No Hx Migraine: No Hx Parkinson's Disease: No Hx Seizures: No Hx Transient Ischemic Attacks (TIA): No - HEENT Hx HEENT Problems: No - RENAL Hx Chronic Kidney Disease: No Hx Kidney Stones: No - ENDOCRINE/METABOLIC Hx Hyperthyroidism: No Hx Hypothyroidism: No - HEMATOLOGICAL/ONCOLOGICAL Hx Anemia: Yes Hx Human Immunodeficiency Virus (HIV): No Hx Sickle Cell Disease: No - INTEGUMENTARY Hx Dermatological Problems: No - MUSCULOSKELETAL/RHEUMATOLOGICAL Hx Arthritis: No Hx Fractures: No Hx Osteoporosis: No - GASTROINTESTINAL Hx Crohn's Disease: No Hx Diverticulitis: No Hx Gall Bladder Disease: No Hx Pancreatitis: No - GENITOURINARY/GYNECOLOGICAL Hx Sexually Transmitted Disorders: No - PSYCHIATRIC Hx Anxiety: Yes Hx Bipolar Disorder: No Hx Depression: No Hx Paranoia: No Hx Post Traumatic Stress Disorder: No Hx Schizophrenia: No Hx Substance Use: No - SURGICAL HISTORY Hx Appendectomy: No Hx Cholecystectomy: No Hx Coronary Stent: Yes - ANESTHESIA Hx Anesthesia: Yes Hx Anesthesia Reactions: No Hx Malignant Hyperthermia: No Meds Allergies/Adverse Reactions: Allergies Allergy/AdvReac Type Severity Reaction Status Date / Time No Known Allergies Allergy Verified 10/02/16 10:29 Physical Exam - Constitutional Appears: Confused, Cachectic, Chronically Ill - Eye Exam Eye Exam: EOMI - ENT Exam ENT Exam: Mucous Membranes Dry - Respiratory Exam Respiratory Exam: NORMAL BREATHING PATTERN. absent: Accessory Muscle Use, Rhonchi, Wheezes, Respiratory Distress - Cardiovascular Exam Cardiovascular Exam: Tachycardia, Irregular Rhythm, Systolic Murmur (aortic stenosis grade III). absent: Diastolic murmur, JVD, RRR - GI/Abdominal Exam GI & Abdominal Exam: Soft. absent: Distended, Firm, Tenderness - Rectal Exam Rectal Exam: absent: Deferred - Exam Additional comments: rooney in place, mildly dark urine with debris - Extremities Exam Extremities exam: Positive for: pedal pulses present (palpable DP L>R). 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 HTN Neuro: GCS 15 AMS - AAO to person but not place and time: likely 2/2 urosepsis Pulm: 100% FiO2 on 2L NC CV: Afib with RVR 120s, Aortic Stenosis; Hx of HTN, CAD w/ stent placement Consult Dr Spicer cardiology Aortic Stenosis POC Troponin 8.8: will get serial troponin and EKG Resume home anti-htn meds Heme: HgB 9.1 - chronic anemia Continue to monitor Renal: Endo: GI: No abdominal pain/symptoms will resume diet PPI : replace Rooney - cont strict I/O f/u urine culture - will order repeat tomorrow from new catheter hx of VRE in urine - will txt empirically ID: likely urosepsis f/u cultures begin empiric abx will get ID consult DVT proph - SCDs, HSQ Q8H GI proph - Pepcid Code status - DNR/DNI Case discussed with Dr. Anupam Almanzar, PGY3 <Deandre Bo S - Last Filed: 04/14/17 16:57> Meds - Medications Medications: Current Medications Alprazolam (Xanax) 0.25 mg PO Q8 PRN PRN Reason: Anxiety Stop: 04/21/17 16:36 Aspirin (Ecotrin) 81 mg PO DAILY [facility] Clopidogrel Bisulfate (Plavix) 75 mg PO DAILY [facility] Famotidine (Pepcid) 20 mg IVP DAILY [facility] Diltiazem HCl 125 mg/ Sodium (Chloride) 125 mls @ 5 mls/hr IV .Q24H [facility]; 5 MG/ HR PRN Reason: Protocol Imipenem/Cilastatin Sodium 500 (mg/ Sodium Chloride) 100 mls @ 100 mls/hr IVPB Q8H [facility] Vancomycin/Sodium Chloride (Vancocin) 1 gm in 200 mls @ 133.333 mls/hr IVPB Q24H [facility] Stop: 04/20/17 13:01 Results - Vital Signs Recent Vital Signs: Last Vital Signs Temp 97.7 F 04/14/17 13:15 Pulse 120 H 04/14/17 16:00 Resp 14 04/14/17 16:00 BP 134/67 04/14/17 15:39 Pulse Ox 100 04/14/17 16:00 - Labs Result Diagrams: 04/14/17 11:38 04/14/17 11:53 Attending/Attestation - Attestation I have personally seen and examined this patient.: Yes I have fully participated in the care of the patient.: Yes I have reviewed all pertinent clinical information: Yes Notes (Text): 04/14/17 16:55 Patient seen and examined. 82-year-old male transferred from [facility] for lethargy and change in mental status In the emergency room found to have elevated troponins. Started on IV antibiotics for possible sepsis. Patient recently treated for VRE. Continue IV fluids and monitor intake and output Triple lumen catheter placed left internal jugular Cardiology evaluation for elevated troponin Continue Plavix and aspirin Started on Cardizem drip for A. fib with rapid ventricular rate
--- NOTE | 2017-04-14 17:32 | RAD ---
HISTORY: s/p left IJ insertion COMPARISON: Comparison made with prior study 04/14/2017 FINDINGS: LUNGS: Interval placement left IJ region central venous line with tip extending superiorly on into the jugular vein. This must be repositioned. Findings discussed with ICU physician Dr. Almanzar at approximately 5:29 p.m. with written down and read back verification. No evidence of pneumothorax. Suspect minor bibasilar atelectasis PLEURA: No significant pleural effusion identified, no pneumothorax apparent. CARDIOVASCULAR: Normal. OSSEOUS STRUCTURES: No significant abnormalities. VISUALIZED UPPER ABDOMEN: Normal. OTHER FINDINGS: None. IMPRESSION: Malpositioned left IJ central venous line which extends superiorly into the upper neck as above. This must be repositioned. ICU physician aware these findings as above. No evidence of pneumothorax. Suspect mild bibasilar atelectasis.
[2017-04-14] MEDS: Sodium Chloride 0.9% 1,000 ML IV SCH (18:10)
[2017-04-14] MEDS ORDERED: Heparin25000 units/250ml 1/2NS 25,000 UNITS/250 ML BAG IV PRN (18:53)
--- NOTE | 2017-04-14 23:21 | CP.PCM.HP ---
Past Patient History - Infectious Disease Hx of Infectious Diseases: None - Tetanus Immunizations Tetanus Immunization: Unknown - Past Medical History & Family History Past Medical History?: Yes - Past Social History Smoking Status: Former Smoker - CARDIAC Hx Atrial Fibrillation: Yes Hx Cardia Arrhythmia: No Hx Congestive Heart Failure: No Hx Hypercholesterolemia: Yes Hx Hypertension: Yes Hx Mitral Valve Prolapse: No Hx Pacemaker: No Hx Peripheral Edema: No - PULMONARY Hx Asthma: No Hx Bronchitis: No Hx Chronic Obstructive Pulmonary Disease (COPD): No Hx Emphysema: No Hx Pneumonia: No Hx Sleep Apnea: No - NEUROLOGICAL Hx Alzheimer's Disease: No Hx Dementia: No Hx Migraine: No Hx Parkinson's Disease: No Hx Seizures: No Hx Transient Ischemic Attacks (TIA): No - HEENT Hx HEENT Problems: No - RENAL Hx Chronic Kidney Disease: No Hx Kidney Stones: No - ENDOCRINE/METABOLIC Hx Hyperthyroidism: No Hx Hypothyroidism: No - HEMATOLOGICAL/ONCOLOGICAL Hx Anemia: Yes Hx Human Immunodeficiency Virus (HIV): No Hx Sickle Cell Disease: No - INTEGUMENTARY Hx Dermatological Problems: No - MUSCULOSKELETAL/RHEUMATOLOGICAL Hx Arthritis: No Hx Fractures: No Hx Osteoporosis: No - GASTROINTESTINAL Hx Crohn's Disease: No Hx Diverticulitis: No Hx Gall Bladder Disease: No Hx Pancreatitis: No - GENITOURINARY/GYNECOLOGICAL Hx Sexually Transmitted Disorders: No - PSYCHIATRIC Hx Anxiety: Yes Hx Bipolar Disorder: No Hx Depression: No Hx Paranoia: No Hx Post Traumatic Stress Disorder: No Hx Schizophrenia: No Hx Substance Use: No - SURGICAL HISTORY Hx Appendectomy: No Hx Cholecystectomy: No Hx Coronary Stent: Yes - ANESTHESIA Hx Anesthesia: Yes Hx Anesthesia Reactions: No Hx Malignant Hyperthermia: No Meds Allergies/Adverse Reactions: Allergies Allergy/AdvReac Type Severity Reaction Status Date / Time No Known Allergies Allergy Verified 10/02/16 10:29 Results - Vital Signs Recent Vital Signs: Last Vital Signs Temp 98.2 F 04/14/17 20:00 Pulse 145 H 04/14/17 21:38 Resp 17 04/14/17 21:38 BP 143/60 04/14/17 21:38 Pulse Ox 97 04/14/17 21:38 - Labs Result Diagrams: 04/14/17 11:38 04/14/17 11:53 Labs: Laboratory Results - last 24 hr 04/14/17 20:48 Troponin I 4.5300 H*
--- NOTE | 2017-04-14 23:38 | CP.PCM.CON ---
History of Present Illness - History of Present Illness History of Present Illness: Patient seen and evaluated Non [facility] Medical management as per family request Past Patient History - Infectious Disease Hx of Infectious Diseases: None - Tetanus Immunizations Tetanus Immunization: Unknown - Past Medical History & Family History Past Medical History?: Yes - Past Social History Smoking Status: Former Smoker - CARDIAC Hx Atrial Fibrillation: Yes Hx Cardia Arrhythmia: No Hx Congestive Heart Failure: No Hx Hypercholesterolemia: Yes Hx Hypertension: Yes Hx Mitral Valve Prolapse: No Hx Pacemaker: No Hx Peripheral Edema: No - PULMONARY Hx Asthma: No Hx Bronchitis: No Hx Chronic Obstructive Pulmonary Disease (COPD): No Hx Emphysema: No Hx Pneumonia: No Hx Sleep Apnea: No - NEUROLOGICAL Hx Alzheimer's Disease: No Hx Dementia: No Hx Migraine: No Hx Parkinson's Disease: No Hx Seizures: No Hx Transient Ischemic Attacks (TIA): No - HEENT Hx HEENT Problems: No - RENAL Hx Chronic Kidney Disease: No Hx Kidney Stones: No - ENDOCRINE/METABOLIC Hx Hyperthyroidism: No Hx Hypothyroidism: No - HEMATOLOGICAL/ONCOLOGICAL Hx Anemia: Yes Hx Human Immunodeficiency Virus (HIV): No Hx Sickle Cell Disease: No - INTEGUMENTARY Hx Dermatological Problems: No - MUSCULOSKELETAL/RHEUMATOLOGICAL Hx Arthritis: No Hx Fractures: No Hx Osteoporosis: No - GASTROINTESTINAL Hx Crohn's Disease: No Hx Diverticulitis: No Hx Gall Bladder Disease: No Hx Pancreatitis: No - GENITOURINARY/GYNECOLOGICAL Hx Sexually Transmitted Disorders: No - PSYCHIATRIC Hx Anxiety: Yes Hx Bipolar Disorder: No Hx Depression: No Hx Paranoia: No Hx Post Traumatic Stress Disorder: No Hx Schizophrenia: No Hx Substance Use: No - SURGICAL HISTORY Hx Appendectomy: No Hx Cholecystectomy: No Hx Coronary Stent: Yes - ANESTHESIA Hx Anesthesia: Yes Hx Anesthesia Reactions: No Hx Malignant Hyperthermia: No Meds Allergies/Adverse Reactions: Allergies Allergy/AdvReac Type Severity Reaction Status Date / Time No Known Allergies Allergy Verified 10/02/16 10:29 - Medications Medications: Current Medications Alprazolam (Xanax) 0.25 mg PO Q8 PRN PRN Reason: Anxiety Stop: 04/21/17 16:36 Aspirin (Ecotrin) 81 mg PO DAILY [facility] Clopidogrel Bisulfate (Plavix) 75 mg PO DAILY [facility] Famotidine (Pepcid) 20 mg IVP DAILY [facility] Diltiazem HCl 125 mg/ Sodium (Chloride) 125 mls @ 5 mls/hr IV .Q24H [facility]; 5 MG/ HR PRN Reason: Protocol Last Titration: 04/14/17 20:00 Dose: 15 mg/hr, 15 mls/hr Imipenem/Cilastatin Sodium 500 (mg/ Sodium Chloride) 100 mls @ 100 mls/hr IVPB Q8H [facility] Last Admin: 04/14/17 18:09 Dose: 100 mls/hr Vancomycin/Sodium Chloride (Vancocin) 1 gm in 200 mls @ 133.333 mls/hr IVPB Q24H [facility] Stop: 04/20/17 13:01 Sodium Chloride (Sodium Chloride 0.9%) 1,000 mls @ 100 mls/hr IV .Q10H [facility] Last Admin: 04/14/17 18:10 Dose: 100 mls/hr Heparin Sodium/Sodium Chloride (Heparin 34765 Units/250ml 1/2 Normal Saline) 25 ,000 units in 250 mls @ 6.532 mls/hr IV .Q24H PRN; Protocol; 12 UNITS/KG/HR PRN Reason: PROTOCOL Last Admin: 04/14/17 19:51 Dose: 12 units/kg/hr, 6.532 mls/hr Results - Vital Signs Recent Vital Signs: Last Vital Signs Temp 98.2 F 04/14/17 20:00 Pulse 145 H 04/14/17 21:38 Resp 17 04/14/17 21:38 BP 143/60 04/14/17 21:38 Pulse Ox 97 04/14/17 21:38 - Labs Result Diagrams: 04/14/17 11:38 04/14/17 11:53 Labs: Laboratory Results - last 24 hr 04/14/17 20:48 Troponin I 4.5300 H*
--- NOTE | 2017-04-14 23:59 | CP.PCM.CON ---
History of Present Illness - History of Present Illness History of Present Illness: INFECTIOUS DISEASE CONSULT; HPI Pt is 82M with PMH of anemia, anxiety, afib, CAD (s/p stent placement), HTN, HLD , PAD. Pt is accompanied by daughter. Recently sent from [facility] for new onset lethargy and AMS. Pt was recently treated for UTI w/ VRE in March with Macrobid. Daughter reports pt's urine has been exceptionally dark with solid chunks within it for past 24 hours. Currently, pt states he is having chest pain. Denies abdominal pain, fevers, chills, nausea or vomiting. ED work-up shows leukocytosis of 19K, mild transaminitis and elevated troponin of 8.8. Given elevated troponin pt admitted to ICU. INFECTIOUS DISEASE CONSULTATION REQUESTED BY PMD FOR FURTHER EVALUATION. HISTORY OBTAINED MAINLY FROM THE CHART PATIENT UNABLE TO GIVE MUCH HISTORY. PATIENT PRESENTLY IS ON VANCOMYCIN 1 G EVERY 24 HOURLY RECEIVED 1 DOSE OF 1 G ROCEPHIN IN THE ER. NOW SWITCHED TO PRIMAXIN 500 EVERY 8 HOURLY.04/14/17. PMH: Anemia, Anxiety, Atrial Fibrillation, CAD, HTN, Hypercholesterolemia Surgical History: Coronary Stent Denies: Appendectomy, Cholecystectomy, Pacemaker - [facility] Procedures COLONOSCOPY (08/26/07) CONTRAST AORTOGRAM (11/26/04) CONTRAST ARTERIOGRAM-LEG (11/26/04) ESOPHAGOGASTRODUODENOSCOPY [EGD] W/CLOSED BIOPSY (08/26/07) PLAIN RADIOGRAPHY OF AORTA, BI LE ART USING OTH CONTRAST (01/26/17) Family History: States: Unknown Family Hx - Social History Hx Tobacco Use: No Hx Alcohol Use: No Hx Substance Use: No Review of Systems - Review of Systems Systems not reviewed;Unavailable: Altered Mental Status (not obtainable.) Past Patient History - Infectious Disease Hx of Infectious Diseases: None - Tetanus Immunizations Tetanus Immunization: Unknown - Past Medical History & Family History Past Medical History?: Yes - Past Social History Smoking Status: Former Smoker - CARDIAC Hx Atrial Fibrillation: Yes Hx Cardia Arrhythmia: No Hx Congestive Heart Failure: No Hx Hypercholesterolemia: Yes Hx Hypertension: Yes Hx Mitral Valve Prolapse: No Hx Pacemaker: No Hx Peripheral Edema: No - PULMONARY Hx Asthma: No Hx Bronchitis: No Hx Chronic Obstructive Pulmonary Disease (COPD): No Hx Emphysema: No Hx Pneumonia: No Hx Sleep Apnea: No - NEUROLOGICAL Hx Alzheimer's Disease: No Hx Dementia: No Hx Migraine: No Hx Parkinson's Disease: No Hx Seizures: No Hx Transient Ischemic Attacks (TIA): No - HEENT Hx HEENT Problems: No - RENAL Hx Chronic Kidney Disease: No Hx Kidney Stones: No - ENDOCRINE/METABOLIC Hx Hyperthyroidism: No Hx Hypothyroidism: No - HEMATOLOGICAL/ONCOLOGICAL Hx Anemia: Yes Hx Human Immunodeficiency Virus (HIV): No Hx Sickle Cell Disease: No - INTEGUMENTARY Hx Dermatological Problems: No - MUSCULOSKELETAL/RHEUMATOLOGICAL Hx Arthritis: No Hx Fractures: No Hx Osteoporosis: No - GASTROINTESTINAL Hx Crohn's Disease: No Hx Diverticulitis: No Hx Gall Bladder Disease: No Hx Pancreatitis: No - GENITOURINARY/GYNECOLOGICAL Hx Sexually Transmitted Disorders: No - PSYCHIATRIC Hx Anxiety: Yes Hx Bipolar Disorder: No Hx Depression: No Hx Paranoia: No Hx Post Traumatic Stress Disorder: No Hx Schizophrenia: No Hx Substance Use: No - SURGICAL HISTORY Hx Appendectomy: No Hx Cholecystectomy: No Hx Coronary Stent: Yes - ANESTHESIA Hx Anesthesia: Yes Hx Anesthesia Reactions: No Hx Malignant Hyperthermia: No Meds Allergies/Adverse Reactions: Allergies Allergy/AdvReac Type Severity Reaction Status Date / Time No Known Allergies Allergy Verified 10/02/16 10:29 - Medications Medications: Current Medications Alprazolam (Xanax) 0.25 mg PO Q8 PRN PRN Reason: Anxiety Stop: 04/21/17 16:36 Aspirin (Ecotrin) 81 mg PO DAILY [facility] Clopidogrel Bisulfate (Plavix) 75 mg PO DAILY [facility] Famotidine (Pepcid) 20 mg IVP DAILY [facility] Diltiazem HCl 125 mg/ Sodium (Chloride) 125 mls @ 5 mls/hr IV .Q24H DEUCE; 5 MG/ HR PRN Reason: Protocol Last Titration: 04/14/17 20:00 Dose: 15 mg/hr, 15 mls/hr Imipenem/Cilastatin Sodium 500 (mg/ Sodium Chloride) 100 mls @ 100 mls/hr IVPB Q8H DEUCE Last Admin: 04/14/17 18:09 Dose: 100 mls/hr Vancomycin/Sodium Chloride (Vancocin) 1 gm in 200 mls @ 133.333 mls/hr IVPB Q24H DEUCE Stop: 04/20/17 13:01 Sodium Chloride (Sodium Chloride 0.9%) 1,000 mls @ 100 mls/hr IV .Q10H DEUCE Last Admin: 04/14/17 18:10 Dose: 100 mls/hr Heparin Sodium/Sodium Chloride (Heparin 93863 Units/250ml 1/2 Normal Saline) 25 ,000 units in 250 mls @ 6.532 mls/hr IV .Q24H PRN; Protocol; 12 UNITS/KG/HR PRN Reason: PROTOCOL Last Admin: 04/14/17 19:51 Dose: 12 units/kg/hr, 6.532 mls/hr Physical Exam - Constitutional Appears: No Acute Distress - Head Exam Head Exam: NORMAL INSPECTION - Eye Exam Eye Exam: PERRL, Scleral icterus - ENT Exam ENT Exam: Normal Oropharynx - Neck Exam Neck exam: Positive for: Normal Inspection - Respiratory Exam Respiratory Exam: Decreased Breath Sounds - Cardiovascular Exam Cardiovascular Exam: Irregular Rhythm, +S1, +S2 - GI/Abdominal Exam GI & Abdominal Exam: Normal Bowel Sounds, Soft. absent: Tenderness - Extremities Exam Extremities exam: Positive for: pedal edema, pedal pulses present. Negative for : calf tenderness, normal capillary refill (RT FOOT DISTAL TOES WITH ISCHEMIC CHANGES AND DRY GANGRENE.) - Neurological Exam Neurological exam: Altered - Skin Skin Exam: Normal Color Results - Vital Signs Recent Vital Signs: Last Vital Signs Temp 98.2 F 04/14/17 20:00 Pulse 145 H 04/14/17 21:38 Resp 17 04/14/17 21:38 BP 143/60 04/14/17 21:38 Pulse Ox 97 04/14/17 21:38 - Labs Result Diagrams: 04/15/17 06:34 04/15/17 06:34 Labs: Laboratory Results - last 24 hr 04/14/17 20:48 Troponin I 4.5300 H* - Imaging and Cardiology Chest x-ray Status: Report reviewed by me (mild by basilar atelectasis. Malpositioned left IJ CVC. Physician aware) Assessment & Plan (1) Altered mental status Assessment and Plan: pancultures ua/urine cultures. MRSA screen Continue IV Primaxin 500 every 8 hourly for broader gram-negative coverage. / Continue IV Vanco 1 g every 24 hourly for now. 04/14/17. Monitor renal functions closely. follow-up Vanco trough level prior to the fourth dose and keep it between 10 and 20.. Follow-up CBC with differential in a.m. Follow-up LFTs in a.m. Follow-up cultures to adjust antibiotics. Patient presently has a Ivy catheter. Monitor input and output. Status: Acute (2) Atrial fibrillation Status: Acute (3) UTI (urinary tract infection) Assessment and Plan: UA urine culture in progress. Patient on IV antibiotics. We'll follow cultures to adjust antibiotics. Status: Acute (4) Myocardial infarction Status: Acute (5) PAD (peripheral artery disease) Assessment and Plan: patient has right foot distal toes with ischemic changes and dry gangrene. Status: Acute
[2017-04-15] MEDS: Heparin25000 units/250ml 1/2NS 25,000 UNITS/250 ML BAG IV PRN ×2 (02:31→20:27)
[2017-04-15] MEDS ORDERED: Heparin25000 units/250ml 1/2NS 25,000 UNITS/250 ML BAG IV PRN (03:00)
[2017-04-15] MEDS: Sodium Chloride 0.9% 1,000 ML IV SCH ×4 (03:17→20:20)
[2017-04-15 06:48] LABS: BASO % 0.3 % (0.0-2.0); EOS # 0.1 K/uL (0.0-0.7); EOS % 0.8 % (0.0-4.0); HEMOGLOBIN 7.4 g/dL (12.0-18.0); LYMPH # 1.9 K/uL (1.0-4.3); LYMPH % 10.9 % (20.0-40.0); MEAN CORPUSCULAR HEMOGLOBIN 28.6 pg (27.0-31.0); MEAN CORPUSCULAR HGB CONC 31.7 g/dL (33.0-37.0); MEAN PLATELET VOLUME 10.2 fL (7.2-11.7); MONO # 1.3 K/uL (0.0-0.8); MONO % 7.8 % (0.0-10.0); NEUT # 13.8 K/uL (1.8-7.0); NEUT % 80.2 % (50.0-75.0); RBC 2.61 Mil/uL (4.40-5.90); RED CELL DISTRIBUTION WIDTH 15.8 % (11.5-14.5); WHITE BLOOD COUNT 17.3 K/uL (4.8-10.8)
[2017-04-15 07:07] LABS: ALBUMIN 2.4 g/dL (3.5-5.0)
[2017-04-15 07:10] LABS: GFR AFRICAN-AMERICAN > 60; GFR NON-AFRICAN AMERICAN > 60
[2017-04-15 07:11] LABS: ALB/GLOB RATIO 0.8 (1.0-2.1); ALT/SGPT 111 U/L (21-72); AST/SGOT 100 U/L (17-59); BLOOD UREA NITROGEN 38 mg/dL (9-20)
[2017-04-15 07:12] LABS: CALCIUM 7.7 mg/dl (8.6-10.4); MAGNESIUM 2.1 mg/dL (1.6-2.3)
--- NOTE | 2017-04-15 08:28 | RAD ---
HISTORY: IJ withdrawn 3 cm COMPARISON: 04/14/2017 at 1648 hours FINDINGS: LUNGS: Please note below regarding the left internal jugular vein catheter cephalad course. No consolidation elevated right hemidiaphragm. Shallow inspiration. Mild central pulmonary vascular congestion PLEURA: No significant pleural effusion identified, no pneumothorax apparent. CARDIOVASCULAR: The previously referenced left internal jugular central venous line tip coursing cephalad and its prior repositioning recommendation is renoted. Per the prior report of this was discussed with the caring physician on 04/14/2017 at 5:29 p.m. This catheter course does not appear to have been repositioned changed to any significant degree a notable on this exam. As a result these findings were also called to the ICU and directly discussed with the nurse, Trista , taking care the patient on 04/15/2017 at 8:20 a.m.. Minimal cardiomegaly OSSEOUS STRUCTURES: Mild shoulder arthrosis and mid to inferior thoracic spine spondylosis VISUALIZED UPPER ABDOMEN: Normal. OTHER FINDINGS: EKG leads in place IMPRESSION: Left internal jugular vein catheter believe to be malpositioned--coursing cephalad. No pneumothorax. No consolidation Findings re- communicated as above No consolidation. Minimal cardiomegaly. Mild pulmonary venous congestion
[2017-04-15] MEDS: Vancomycin 1 gm/NS 200 ml 1 GM/200 ML BAG IVPB SCH (13:42)
--- NOTE | 2017-04-15 15:31 | CP.CCUPN ---
<Alan Almanzar - Last Filed: 04/15/17 15:01> CCU Objective - Vital Signs / Intake & Output Vital Signs (Last 4 hours): Vital Signs Pulse Resp BP Pulse Ox 04/15/17 12:02 111 H 21 135/50 L 96 04/15/17 12:00 105 H 21 99 Intake and Output (Last 8hrs): Intake & Output 04/15/17 04/15/17 04/15/17 06:59 14:59 22:59 Intake Total 1138.7 1118.4 Output Total 340 130 Balance 798.7 988.4 Weight 112 lb 6.972 oz Intake: IV 186.8 30 Intake, IV Amount 951.9 1088.4 LFA #18 95 110 Left Forearm 800 910 Right Forearm 56.9 68.4 Oral 0 0 Output: Emesis 340 130 - Medications Active Medications: Active Medications Generic Name Dose Route Start Last Admin Trade Name Freq PRN Reason Stop Dose Admin Alprazolam 0.25 mg 04/14/17 16:35 04/15/17 14:11 Xanax PO 04/21/17 16:36 0.25 mg Q8 PRN Administration Anxiety Aspirin 81 mg 04/15/17 10:00 04/15/17 14:12 Ecotrin PO 81 mg DAILY DEUCE Administration Clopidogrel Bisulfate 75 mg 04/15/17 10:00 04/15/17 14:11 Plavix PO 75 mg DAILY DEUCE Administration Diltiazem HCl 30 mg 04/15/17 14:00 04/15/17 14:09 Cardizem PO 30 mg QID DEUCE Administration Famotidine 20 mg 04/15/17 10:00 04/15/17 10:50 Pepcid IVP 20 mg DAILY DEUCE Administration Diltiazem HCl 125 mg/ Sodium 125 mls @ 5 mls/hr 04/14/17 16:00 04/15/17 13:34 Chloride IV 15 mg/hr .Q24H DEUCE 15 mls/hr Protocol Administration 5 MG/HR Imipenem/Cilastatin Sodium 500 100 mls @ 100 mls/hr 04/14/17 18:00 04/15/17 10:50 mg/ Sodium Chloride IVPB 100 mls/hr Q8H DEUCE Administration Vancomycin/Sodium Chloride 1 gm in 200 mls @ 133.333 mls/hr 04/15/17 13:00 13:42 Vancocin IVPB 04/20/17 13:01 133.333 mls/hr Q24H DEUCE Administration Sodium Chloride 1,000 mls @ 100 mls/hr 04/14/17 17:15 04/15/17 13:44 Sodium Chloride 0.9% IV Not Given .Q10H DEUCE Heparin Sodium/Sodium Chloride 25,000 units in 250 mls @ 6.532 mls/hr 03:15 04/15/17 02:31 Heparin 22337 Units/250ml 1/2 Normal Saline IV 14 units/kg/hr .Q24H PRN 7.62 mls/hr PROTOCOL Titration Protocol 12 UNITS/KG/HR - Patient Studies Lab Studies: Microbiology Studies 04/14/17 Unknown MRSA Culture (Admit) - Final Naris MRSA NOT DETECTED Lab Studies 04/15/17 04/15/17 04/15/17 Range/Units 09:22 06:34 06:34 WBC (4.8-10.8) K/uL RBC (4.40-5.90) Mil/uL Hgb (12.0-18.0) g/dL Hct (35.0-51.0) % MCV (80.0-94.0) fL MCH (27.0-31.0) pg MCHC (33.0-37.0) g/dL RDW (11.5-14.5) % Plt Count (130-400) K/uL MPV (7.2-11.7) fL Neut % (Auto) (50.0-75.0) % Lymph % (Auto) (20.0-40.0) % Clark % (Auto) (0.0-10.0) % Eos % (Auto) (0.0-4.0) % Baso % (Auto) (0.0-2.0) % Neut # (1.8-7.0) K/uL Lymph # (1.0-4.3) K/uL Clark # (0.0-0.8) K/uL Eos # (0.0-0.7) K/uL Baso # (0.0-0.2) K/uL APTT 74 H D (21-34) SECONDS Sodium 137 (132-148) mmol/L Potassium 4.0 (3.6-5.2) mmol/L Chloride 105 (98-107) mmol/L Carbon Dioxide 20 L (22-30) mmol/L Anion Gap 16 (10-20) BUN 38 H (9-20) mg/dL Creatinine 0.8 (0.8-1.5) MG/DL Est GFR ( Amer) > 60 Est GFR (Non-Af Amer) > 60 Random Glucose 135 H (75-110) mg/dL Lactic Acid 1.2 (0.7-2.1) mmol/L Calcium 7.7 L (8.6-10.4) mg/dl Phosphorus 3.9 (2.5-4.5) mg/dL Magnesium 2.1 (1.6-2.3) mg/dL Total Bilirubin 0.6 (0.2-1.3) mg/dL AST 100 H D (17-59) U/L ALT 111 H (21-72) U/L Alkaline Phosphatase 140 H (38-126) U/L Troponin I (0.00-0.120) ng/mL Total Protein 5.5 L (6.3-8.3) g/dL Albumin 2.4 L (3.5-5.0) g/dL Globulin 3.1 (2.2-3.9) gm/dL Albumin/Globulin Ratio 0.8 L (1.0-2.1) 04/15/17 04/15/17 04/15/17 Range/Units 06:34 02:03 02:03 WBC 17.3 H (4.8-10.8) K/uL RBC 2.61 L (4.40-5.90) Mil/uL Hgb 7.4 L (12.0-18.0) g/dL Hct 23.4 L (35.0-51.0) % MCV 90.0 (80.0-94.0) fL MCH 28.6 (27.0-31.0) pg MCHC 31.7 L (33.0-37.0) g/dL RDW 15.8 H (11.5-14.5) % Plt Count 276 (130-400) K/uL MPV 10.2 (7.2-11.7) fL Neut % (Auto) 80.2 H (50.0-75.0) % Lymph % (Auto) 10.9 L (20.0-40.0) % Clark % (Auto) 7.8 (0.0-10.0) % Eos % (Auto) 0.8 (0.0-4.0) % Baso % (Auto) 0.3 (0.0-2.0) % Neut # 13.8 H (1.8-7.0) K/uL Lymph # 1.9 (1.0-4.3) K/uL Clark # 1.3 H (0.0-0.8) K/uL Eos # 0.1 (0.0-0.7) K/uL Baso # 0.0 (0.0-0.2) K/uL APTT 39 H D (21-34) SECONDS Sodium (132-148) mmol/L Potassium (3.6-5.2) mmol/L Chloride (98-107) mmol/L Carbon Dioxide (22-30) mmol/L Anion Gap (10-20) BUN (9-20) mg/dL Creatinine (0.8-1.5) MG/DL Est GFR ( Amer) Est GFR (Non-Af Amer) Random Glucose (75-110) mg/dL Lactic Acid (0.7-2.1) mmol/L Calcium (8.6-10.4) mg/dl Phosphorus (2.5-4.5) mg/dL Magnesium (1.6-2.3) mg/dL Total Bilirubin (0.2-1.3) mg/dL AST (17-59) U/L ALT (21-72) U/L Alkaline Phosphatase (38-126) U/L Troponin I 3.9800 H* (0.00-0.120) ng/mL Total Protein (6.3-8.3) g/dL Albumin (3.5-5.0) g/dL Globulin (2.2-3.9) gm/dL Albumin/Globulin Ratio (1.0-2.1) 04/14/17 Range/Units 20:48 WBC (4.8-10.8) K/uL RBC (4.40-5.90) Mil/uL Hgb (12.0-18.0) g/dL Hct (35.0-51.0) % MCV (80.0-94.0) fL MCH (27.0-31.0) pg MCHC (33.0-37.0) g/dL RDW (11.5-14.5) % Plt Count (130-400) K/uL MPV (7.2-11.7) fL Neut % (Auto) (50.0-75.0) % Lymph % (Auto) (20.0-40.0) % Clark % (Auto) (0.0-10.0) % Eos % (Auto) (0.0-4.0) % Baso % (Auto) (0.0-2.0) % Neut # (1.8-7.0) K/uL Lymph # (1.0-4.3) K/uL Clark # (0.0-0.8) K/uL Eos # (0.0-0.7) K/uL Baso # (0.0-0.2) K/uL APTT (21-34) SECONDS Sodium (132-148) mmol/L Potassium (3.6-5.2) mmol/L Chloride (98-107) mmol/L Carbon Dioxide (22-30) mmol/L Anion Gap (10-20) BUN (9-20) mg/dL Creatinine (0.8-1.5) MG/DL Est GFR ( Amer) Est GFR (Non-Af Amer) Random Glucose (75-110) mg/dL Lactic Acid (0.7-2.1) mmol/L Calcium (8.6-10.4) mg/dl Phosphorus (2.5-4.5) mg/dL Magnesium (1.6-2.3) mg/dL Total Bilirubin (0.2-1.3) mg/dL AST (17-59) U/L ALT (21-72) U/L Alkaline Phosphatase (38-126) U/L Troponin I 4.5300 H* (0.00-0.120) ng/mL Total Protein (6.3-8.3) g/dL Albumin (3.5-5.0) g/dL Globulin (2.2-3.9) gm/dL Albumin/Globulin Ratio (1.0-2.1) Laboratory Results - last 24 hr 04/14/17 04/15/17 04/15/17 20:48 02:03 02:03 WBC RBC Hgb Hct MCV MCH MCHC RDW Plt Count MPV Neut % (Auto) Lymph % (Auto) Clark % (Auto) Eos % (Auto) Baso % (Auto) Neut # Lymph # Clark # Eos # Baso # APTT 39 H D Sodium Potassium Chloride Carbon Dioxide Anion Gap BUN Creatinine Est GFR ( Amer) Est GFR (Non-Af Amer) Random Glucose Lactic Acid Calcium Phosphorus Magnesium Total Bilirubin AST ALT Alkaline Phosphatase Troponin I 4.5300 H* 3.9800 H* Total Protein Albumin Globulin Albumin/Globulin Ratio 04/15/17 04/15/17 04/15/17 06:34 06:34 06:34 WBC 17.3 H RBC 2.61 L Hgb 7.4 L Hct 23.4 L MCV 90.0 MCH 28.6 MCHC 31.7 L RDW 15.8 H Plt Count 276 MPV 10.2 Neut % (Auto) 80.2 H Lymph % (Auto) 10.9 L Clark % (Auto) 7.8 Eos % (Auto) 0.8 Baso % (Auto) 0.3 Neut # 13.8 H Lymph # 1.9 Clark # 1.3 H Eos # 0.1 Baso # 0.0 APTT Sodium 137 Potassium 4.0 Chloride 105 Carbon Dioxide 20 L Anion Gap 16 BUN 38 H Creatinine 0.8 Est GFR ( Amer) > 60 Est GFR (Non-Af Amer) > 60 Random Glucose 135 H Lactic Acid 1.2 Calcium 7.7 L Phosphorus 3.9 Magnesium 2.1 Total Bilirubin 0.6 AST 100 H D ALT 111 H Alkaline Phosphatase 140 H Troponin I Total Protein 5.5 L Albumin 2.4 L Globulin 3.1 Albumin/Globulin Ratio 0.8 L 04/15/17 09:22 WBC RBC Hgb Hct MCV MCH MCHC RDW Plt Count MPV Neut % (Auto) Lymph % (Auto) Clark % (Auto) Eos % (Auto) Baso % (Auto) Neut # Lymph # Clark # Eos # Baso # APTT 74 H D Sodium Potassium Chloride Carbon Dioxide Anion Gap BUN Creatinine Est GFR ( Amer) Est GFR (Non-Af Amer) Random Glucose Lactic Acid Calcium Phosphorus Magnesium Total Bilirubin AST ALT Alkaline Phosphatase Troponin I Total Protein Albumin Globulin Albumin/Globulin Ratio Fingerstick Blood Sugar Results: 200 Critical Care Progress Note - Nutrition Nutrition: Nutrition Category Date Time Status Pureed [Dysphagia/Modified Consistency Diet] [DIET] Diets 04/15/17 Lunch Active Assessment/Plan - Assessment and Plan (Free Text) Plan: Neuro: GCS 15 AMS - AAO to person but not place and time: likely 2/2 urosepsis Pulm: 100% on 2L NC CV: Afib with RVR; now 100-110s on Cardizem drip, Aortic Stenosis; Hx of HTN, CAD w / stent placement Consult Dr Spicer cardiology POC Troponin 8.8: now 3.98 Likely non-ST MD Transitioning to PO cardizem Heme: HgB 7.4 -chronic anemia - drop likely dilutional Continue to monitor closely Renal: 38/0.8 will continue gentle hydration GI: No abdominal pain/symptoms will resume diet pureed s/p swallow eval P : cont strict I/O repeat urine culture 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 Roger Almnazar, PGY3 - Date & Time Date: 04/15/17 Time: 16:53 <Thomas Duran - Last Filed: 04/15/17 18:13> CCU Objective - Vital Signs / Intake & Output Intake and Output (Last 8hrs): Intake & Output 04/15/17 04/15/17 04/15/17 06:59 14:59 22:59 Intake Total 1138.7 1118.4 Output Total 340 130 Balance 798.7 988.4 Weight 112 lb 6.972 oz Intake: IV 186.8 30 Intake, IV Amount 951.9 1088.4 LFA #18 95 110 Left Forearm 800 910 Right Forearm 56.9 68.4 Oral 0 0 Output: Emesis 340 130 - Medications Active Medications: Active Medications Generic Name Dose Route Start Last Admin Trade Name Freq PRN Reason Stop Dose Admin Alprazolam 0.25 mg 04/14/17 16:35 04/15/17 14:11 Xanax PO 04/21/17 16:36 0.25 mg Q8 PRN Administration Anxiety Aspirin 81 mg 04/15/17 10:00 04/15/17 14:12 Ecotrin PO 81 mg DAILY DEUCE Administration Clopidogrel Bisulfate 75 mg 04/15/17 10:00 04/15/17 14:11 Plavix PO 75 mg DAILY DEUCE Administration Diltiazem HCl 30 mg 04/15/17 14:00 04/15/17 17:39 Cardizem PO 30 mg QID DEUCE Administration Famotidine 20 mg 04/15/17 10:00 04/15/17 10:50 Pepcid IVP 20 mg DAILY DEUCE Administration Diltiazem HCl 125 mg/ Sodium 125 mls @ 5 mls/hr 04/14/17 16:00 04/15/17 17:42 Chloride IV Not Given .Q24H DEUCE Protocol 5 MG/HR Imipenem/Cilastatin Sodium 500 100 mls @ 100 mls/hr 04/14/17 18:00 04/15/17 17:37 mg/ Sodium Chloride IVPB 100 mls/hr Q8H DEUCE Administration Vancomycin/Sodium Chloride 1 gm in 200 mls @ 133.333 mls/hr 04/15/17 13:00 13:42 Vancocin IVPB 04/20/17 13:01 133.333 mls/hr Q24H DEUCE Administration Sodium Chloride 1,000 mls @ 100 mls/hr 04/14/17 17:15 04/15/17 13:44 Sodium Chloride 0.9% IV Not Given .Q10H DEUCE Heparin Sodium/Sodium Chloride 25,000 units in 250 mls @ 6.532 mls/hr 03:15 04/15/17 02:31 Heparin 13556 Units/250ml 1/2 Normal Saline IV 14 units/kg/hr .Q24H PRN 7.62 mls/hr PROTOCOL Titration Protocol 12 UNITS/KG/HR - Patient Studies Lab Studies: Microbiology Studies 04/14/17 Unknown MRSA Culture (Admit) - Final Naris MRSA NOT DETECTED Lab Studies 04/15/17 04/15/17 04/15/17 Range/Units 14:59 09:22 06:34 WBC (4.8-10.8) K/uL RBC (4.40-5.90) Mil/uL Hgb (12.0-18.0) g/dL Hct (35.0-51.0) % MCV (80.0-94.0) fL MCH (27.0-31.0) pg MCHC (33.0-37.0) g/dL RDW (11.5-14.5) % Plt Count (130-400) K/uL MPV (7.2-11.7) fL Neut % (Auto) (50.0-75.0) % Lymph % (Auto) (20.0-40.0) % Clark % (Auto) (0.0-10.0) % Eos % (Auto) (0.0-4.0) % Baso % (Auto) (0.0-2.0) % Neut # (1.8-7.0) K/uL Lymph # (1.0-4.3) K/uL Clark # (0.0-0.8) K/uL Eos # (0.0-0.7) K/uL Baso # (0.0-0.2) K/uL APTT 50 H D 74 H D (21-34) SECONDS Sodium (132-148) mmol/L Potassium (3.6-5.2) mmol/L Chloride (98-107) mmol/L Carbon Dioxide (22-30) mmol/L Anion Gap (10-20) BUN (9-20) mg/dL Creatinine (0.8-1.5) MG/DL Est GFR ( Amer) Est GFR (Non-Af Amer) Random Glucose (75-110) mg/dL Lactic Acid 1.2 (0.7-2.1) mmol/L Calcium (8.6-10.4) mg/dl Phosphorus (2.5-4.5) mg/dL Magnesium (1.6-2.3) mg/dL Total Bilirubin (0.2-1.3) mg/dL AST (17-59) U/L ALT (21-72) U/L Alkaline Phosphatase (38-126) U/L Troponin I (0.00-0.120) ng/mL Total Protein (6.3-8.3) g/dL Albumin (3.5-5.0) g/dL Globulin (2.2-3.9) gm/dL Albumin/Globulin Ratio (1.0-2.1) 04/15/17 04/15/17 04/15/17 Range/Units 06:34 06:34 02:03 WBC 17.3 H (4.8-10.8) K/uL RBC 2.61 L (4.40-5.90) Mil/uL Hgb 7.4 L (12.0-18.0) g/dL Hct 23.4 L (35.0-51.0) % MCV 90.0 (80.0-94.0) fL MCH 28.6 (27.0-31.0) pg MCHC 31.7 L (33.0-37.0) g/dL RDW 15.8 H (11.5-14.5) % Plt Count 276 (130-400) K/uL MPV 10.2 (7.2-11.7) fL Neut % (Auto) 80.2 H (50.0-75.0) % Lymph % (Auto) 10.9 L (20.0-40.0) % Clark % (Auto) 7.8 (0.0-10.0) % Eos % (Auto) 0.8 (0.0-4.0) % Baso % (Auto) 0.3 (0.0-2.0) % Neut # 13.8 H (1.8-7.0) K/uL Lymph # 1.9 (1.0-4.3) K/uL Clark # 1.3 H (0.0-0.8) K/uL Eos # 0.1 (0.0-0.7) K/uL Baso # 0.0 (0.0-0.2) K/uL APTT 39 H D (21-34) SECONDS Sodium 137 (132-148) mmol/L Potassium 4.0 (3.6-5.2) mmol/L Chloride 105 (98-107) mmol/L Carbon Dioxide 20 L (22-30) mmol/L Anion Gap 16 (10-20) BUN 38 H (9-20) mg/dL Creatinine 0.8 (0.8-1.5) MG/DL Est GFR ( Amer) > 60 Est GFR (Non-Af Amer) > 60 Random Glucose 135 H (75-110) mg/dL Lactic Acid (0.7-2.1) mmol/L Calcium 7.7 L (8.6-10.4) mg/dl Phosphorus 3.9 (2.5-4.5) mg/dL Magnesium 2.1 (1.6-2.3) mg/dL Total Bilirubin 0.6 (0.2-1.3) mg/dL AST 100 H D (17-59) U/L ALT 111 H (21-72) U/L Alkaline Phosphatase 140 H (38-126) U/L Troponin I (0.00-0.120) ng/mL Total Protein 5.5 L (6.3-8.3) g/dL Albumin 2.4 L (3.5-5.0) g/dL Globulin 3.1 (2.2-3.9) gm/dL Albumin/Globulin Ratio 0.8 L (1.0-2.1) 04/15/17 04/14/17 Range/Units 02:03 20:48 WBC (4.8-10.8) K/uL RBC (4.40-5.90) Mil/uL Hgb (12.0-18.0) g/dL Hct (35.0-51.0) % MCV (80.0-94.0) fL MCH (27.0-31.0) pg MCHC (33.0-37.0) g/dL RDW (11.5-14.5) % Plt Count (130-400) K/uL MPV (7.2-11.7) fL Neut % (Auto) (50.0-75.0) % Lymph % (Auto) (20.0-40.0) % Clark % (Auto) (0.0-10.0) % Eos % (Auto) (0.0-4.0) % Baso % (Auto) (0.0-2.0) % Neut # (1.8-7.0) K/uL Lymph # (1.0-4.3) K/uL Clark # (0.0-0.8) K/uL Eos # (0.0-0.7) K/uL Baso # (0.0-0.2) K/uL APTT (21-34) SECONDS Sodium (132-148) mmol/L Potassium (3.6-5.2) mmol/L Chloride (98-107) mmol/L Carbon Dioxide (22-30) mmol/L Anion Gap (10-20) BUN (9-20) mg/dL Creatinine (0.8-1.5) MG/DL Est GFR ( Amer) Est GFR (Non-Af Amer) Random Glucose (75-110) mg/dL Lactic Acid (0.7-2.1) mmol/L Calcium (8.6-10.4) mg/dl Phosphorus (2.5-4.5) mg/dL Magnesium (1.6-2.3) mg/dL Total Bilirubin (0.2-1.3) mg/dL AST (17-59) U/L ALT (21-72) U/L Alkaline Phosphatase (38-126) U/L Troponin I 3.9800 H* 4.5300 H* (0.00-0.120) ng/mL Total Protein (6.3-8.3) g/dL Albumin (3.5-5.0) g/dL Globulin (2.2-3.9) gm/dL Albumin/Globulin Ratio (1.0-2.1) Laboratory Results - last 24 hr 04/14/17 04/15/17 04/15/17 20:48 02:03 02:03 WBC RBC Hgb Hct MCV MCH MCHC RDW Plt Count MPV Neut % (Auto) Lymph % (Auto) Clark % (Auto) Eos % (Auto) Baso % (Auto) Neut # Lymph # Clark # Eos # Baso # APTT 39 H D Sodium Potassium Chloride Carbon Dioxide Anion Gap BUN Creatinine Est GFR ( Amer) Est GFR (Non-Af Amer) Random Glucose Lactic Acid Calcium Phosphorus Magnesium Total Bilirubin AST ALT Alkaline Phosphatase Troponin I 4.5300 H* 3.9800 H* Total Protein Albumin Globulin Albumin/Globulin Ratio 04/15/17 04/15/17 04/15/17 06:34 06:34 06:34 WBC 17.3 H RBC 2.61 L Hgb 7.4 L Hct 23.4 L MCV 90.0 MCH 28.6 MCHC 31.7 L RDW 15.8 H Plt Count 276 MPV 10.2 Neut % (Auto) 80.2 H Lymph % (Auto) 10.9 L Clark % (Auto) 7.8 Eos % (Auto) 0.8 Baso % (Auto) 0.3 Neut # 13.8 H Lymph # 1.9 Clark # 1.3 H Eos # 0.1 Baso # 0.0 APTT Sodium 137 Potassium 4.0 Chloride 105 Carbon Dioxide 20 L Anion Gap 16 BUN 38 H Creatinine 0.8 Est GFR ( Amer) > 60 Est GFR (Non-Af Amer) > 60 Random Glucose 135 H Lactic Acid 1.2 Calcium 7.7 L Phosphorus 3.9 Magnesium 2.1 Total Bilirubin 0.6 AST 100 H D ALT 111 H Alkaline Phosphatase 140 H Troponin I Total Protein 5.5 L Albumin 2.4 L Globulin 3.1 Albumin/Globulin Ratio 0.8 L 04/15/17 04/15/17 09:22 14:59 WBC RBC Hgb Hct MCV MCH MCHC RDW Plt Count MPV Neut % (Auto) Lymph % (Auto) Clark % (Auto) Eos % (Auto) Baso % (Auto) Neut # Lymph # Clark # Eos # Baso # APTT 74 H D 50 H D Sodium Potassium Chloride Carbon Dioxide Anion Gap BUN Creatinine Est GFR ( Amer) Est GFR (Non-Af Amer) Random Glucose Lactic Acid Calcium Phosphorus Magnesium Total Bilirubin AST ALT Alkaline Phosphatase Troponin I Total Protein Albumin Globulin Albumin/Globulin Ratio Critical Care Progress Note - Nutrition Nutrition: Nutrition Category Date Time Status Pureed [Dysphagia/Modified Consistency Diet] [DIET] Diets 04/15/17 Lunch Active Attending/Attestation - Attestation I have personally seen and examined this patient.: Yes I have fully participated in the care of the patient.: Yes I have reviewed all pertinent clinical information: Yes Notes (Text): 04/15/17 18:12 Today: April The Patient was seen and examined at the bedside, Medical records reviewed, all clinical/lab/hemodynamic/radiographic data were reviewed and management issues were discussed and formulated, Events reviewed Pain issues, skin care, head of the bed elevation, glycemic control were addressed. Agree with above treatment plans as transcribed in Dr. Almanzar note
--- NOTE | 2017-04-15 15:42 | CP.PCM.PN ---
Subjective - Date & Time of Evaluation Date of Evaluation: 04/15/17 Time of Evaluation: 12:00 - Subjective Subjective: Clinically same Objective - Vital Signs/Intake and Output Vital Signs (last 24 hours): Temp Pulse Resp BP Pulse Ox 97.8 F 111 H 21 135/50 L 96 04/15/17 00:00 04/15/17 12:02 04/15/17 12:02 04/15/17 12:02 04/15/17 12:02 Intake and Output: 04/15/17 04/15/17 06:59 18:59 Intake Total 1638.2 1118.4 Output Total 575 130 Balance 1063.2 988.4 - Medications Medications: Current Medications Alprazolam (Xanax) 0.25 mg PO Q8 PRN PRN Reason: Anxiety Stop: 04/21/17 16:36 Last Admin: 04/15/17 14:11 Dose: 0.25 mg Aspirin (Ecotrin) 81 mg PO DAILY [facility] Last Admin: 04/15/17 14:12 Dose: 81 mg Clopidogrel Bisulfate (Plavix) 75 mg PO DAILY [facility] Last Admin: 04/15/17 14:11 Dose: 75 mg Diltiazem HCl (Cardizem) 30 mg PO QID [facility] Last Admin: 04/15/17 14:09 Dose: 30 mg Famotidine (Pepcid) 20 mg IVP DAILY [facility] Last Admin: 04/15/17 10:50 Dose: 20 mg Diltiazem HCl 125 mg/ Sodium (Chloride) 125 mls @ 5 mls/hr IV .Q24H DEUCE; 5 MG/ HR PRN Reason: Protocol Last Admin: 04/15/17 13:34 Dose: 15 mg/hr, 15 mls/hr Imipenem/Cilastatin Sodium 500 (mg/ Sodium Chloride) 100 mls @ 100 mls/hr IVPB Q8H [facility] Last Admin: 04/15/17 10:50 Dose: 100 mls/hr Vancomycin/Sodium Chloride (Vancocin) 1 gm in 200 mls @ 133.333 mls/hr IVPB Q24H [facility] Stop: 04/20/17 13:01 Last Admin: 04/15/17 13:42 Dose: 133.333 mls/hr Sodium Chloride (Sodium Chloride 0.9%) 1,000 mls @ 100 mls/hr IV .Q10H [facility] Last Admin: 04/15/17 13:44 Dose: Not Given Heparin Sodium/Sodium Chloride (Heparin 91708 Units/250ml 1/2 Normal Saline) 25 ,000 units in 250 mls @ 6.532 mls/hr IV .Q24H PRN; Protocol; 12 UNITS/KG/HR PRN Reason: PROTOCOL Last Titration: 04/15/17 02:31 Dose: 14 units/kg/hr, 7.62 mls/hr - Labs Labs: 04/15/17 06:34 04/15/17 06:34 PT 12.5 SECONDS (9.7-12.2) H 04/14/17 11:38 INR 1.1 04/14/17 11:38 APTT 50 SECONDS (21-34) H D 04/15/17 14:59
--- NOTE | 2017-04-15 22:22 | CP.PCM.PN ---
Subjective - Date & Time of Evaluation Date of Evaluation: 04/15/17 Time of Evaluation: 22:21 - Subjective Subjective: CHIEF COMPLAINTS TODAY : afebrile,vss AWAKE BUT CONFUSED. ROS. HEENT : N. Resp : No SOB wheezing, cough Cardio : No CP, PND orthopnea GI : No abd. Pain, n/v RETURN TO VENDOR : No headache , focal deficit. Musculoskel : N Ext. : Pedal pulses WEAK, no edema or calf pain RT,FOOT TOES ISCHEMIC CHANGES AND DRY GANGRENE. Derm : N . Psych : N. PE. Pt. is awake in no distress.CONFUSED V.S As noted in the chart Head ,ear nose,throat and eyes : Normal. Neck : Supple with normal carotids. Lungs: FEW BASILAR RALES Heart : S1 & S2 IRREGULAR. . No murmur. Abd : Soft non tender with normal bowel sounds. Neuro : Moves all ext. with no localized deficit. Ext : No edema with intact pulses. Neg. calf tenderness Derm : No rashes or decubitus ulcer. Radiology/Labs . REVIEWED BLOOD CULTURES NEGATIVE TO DATE .LFTS ; TRANSAMINITIS IMPROVING. TROPONINS POSITIVE. Plan : Objective - Vital Signs/Intake and Output Vital Signs (last 24 hours): Temp Pulse Resp BP Pulse Ox 99 F 126 H 27 H 138/65 92 L 04/15/17 20:00 04/15/17 18:00 04/15/17 18:00 04/15/17 17:59 04/15/17 18:00 Intake and Output: 04/15/17 04/16/17 18:59 06:59 Intake Total 2301.4 439.2 Output Total 1732 Balance 569.4 439.2 - Medications Medications: Current Medications Alprazolam (Xanax) 0.25 mg PO Q8 PRN PRN Reason: Anxiety Stop: 04/21/17 16:36 Last Admin: 04/15/17 14:11 Dose: 0.25 mg Aspirin (Ecotrin) 81 mg PO DAILY [facility] Last Admin: 04/15/17 14:12 Dose: 81 mg Clopidogrel Bisulfate (Plavix) 75 mg PO DAILY [facility] Last Admin: 04/15/17 14:11 Dose: 75 mg Diltiazem HCl (Cardizem) 30 mg PO QID [facility] Last Admin: 04/15/17 21:25 Dose: 30 mg Famotidine (Pepcid) 20 mg IVP DAILY [facility] Last Admin: 04/15/17 10:50 Dose: 20 mg Diltiazem HCl 125 mg/ Sodium (Chloride) 125 mls @ 5 mls/hr IV .Q24H DEUCE; 5 MG/ HR PRN Reason: Protocol Last Admin: 04/15/17 22:12 Dose: 15 mg/hr, 15 mls/hr Imipenem/Cilastatin Sodium 500 (mg/ Sodium Chloride) 100 mls @ 100 mls/hr IVPB Q8H [facility] Last Admin: 04/15/17 17:37 Dose: 100 mls/hr Vancomycin/Sodium Chloride (Vancocin) 1 gm in 200 mls @ 133.333 mls/hr IVPB Q24H [facility] Stop: 04/20/17 13:01 Last Admin: 04/15/17 13:42 Dose: 133.333 mls/hr Sodium Chloride (Sodium Chloride 0.9%) 1,000 mls @ 100 mls/hr IV .Q10H [facility] Last Admin: 04/15/17 20:20 Dose: 100 mls/hr Heparin Sodium/Sodium Chloride (Heparin 22361 Units/250ml 1/2 Normal Saline) 25 ,000 units in 250 mls @ 6.532 mls/hr IV .Q24H PRN; Protocol; 12 UNITS/KG/HR PRN Reason: PROTOCOL Last Admin: 04/15/17 20:27 Dose: 12 units/kg/hr, 6.532 mls/hr - Labs Labs: 04/15/17 06:34 04/15/17 06:34 PT 12.5 SECONDS (9.7-12.2) H 04/14/17 11:38 INR 1.1 04/14/17 11:38 APTT 50 SECONDS (21-34) H D 04/15/17 14:59 Assessment and Plan (1) Altered mental status Assessment & Plan: Continue IV Primaxin 500 every 8 hourly for broader gram-negative coverage. / Continue IV Vanco 1 g every 24 hourly for now. 04/14/17. Monitor renal functions closely. follow-up Vanco trough level prior to the fourth dose and keep it between 10 and 20.. FOLLOW-UP CULTURES TO ADJUST ANTIBIOTICS. Status: Acute (2) Atrial fibrillation Status: Acute (3) UTI (urinary tract infection) Assessment & Plan: URINALYSIS 3+ LEUKOCYTES, wbc 723, rbcS 159, YEAST MANY. PATIENT ON ANTIBIOTICS. FOLLOW-UP CULTURES TO ADJUST ANTIBIOTICS. Status: Acute (4) Myocardial infarction Assessment & Plan: PATIENT ON CARDIZEM DRIP. CARDIOLOGY ON BOARD. Status: Acute (5) PAD (peripheral artery disease) Assessment & Plan: PATIENT HAS RIGHT FOOT WITH ISCHEMIC CHANGES/AND DRY GANGRENE. Status: Acute
--- NOTE | 2017-04-15 22:30 | CP.PCM.PN ---
Subjective - Date & Time of Evaluation Date of Evaluation: 04/15/17 Time of Evaluation: 17:05 - Subjective Subjective: Patient seen and evaluated More awake and comfortable No cardiac events Objective - Vital Signs/Intake and Output Vital Signs (last 24 hours): Temp Pulse Resp BP Pulse Ox 99 F 126 H 27 H 138/65 92 L 04/15/17 20:00 04/15/17 18:00 04/15/17 18:00 04/15/17 17:59 04/15/17 18:00 Intake and Output: 04/15/17 04/16/17 18:59 06:59 Intake Total 2301.4 439.2 Output Total 1732 Balance 569.4 439.2 - Medications Medications: Current Medications Alprazolam (Xanax) 0.25 mg PO Q8 PRN PRN Reason: Anxiety Stop: 04/21/17 16:36 Last Admin: 04/15/17 14:11 Dose: 0.25 mg Aspirin (Ecotrin) 81 mg PO DAILY [facility] Last Admin: 04/15/17 14:12 Dose: 81 mg Clopidogrel Bisulfate (Plavix) 75 mg PO DAILY [facility] Last Admin: 04/15/17 14:11 Dose: 75 mg Diltiazem HCl (Cardizem) 30 mg PO QID [facility] Last Admin: 04/15/17 21:25 Dose: 30 mg Famotidine (Pepcid) 20 mg IVP DAILY [facility] Last Admin: 04/15/17 10:50 Dose: 20 mg Diltiazem HCl 125 mg/ Sodium (Chloride) 125 mls @ 5 mls/hr IV .Q24H [facility]; 5 MG/ HR PRN Reason: Protocol Last Admin: 04/15/17 22:12 Dose: 15 mg/hr, 15 mls/hr Imipenem/Cilastatin Sodium 500 (mg/ Sodium Chloride) 100 mls @ 100 mls/hr IVPB Q8H [facility] Last Admin: 04/15/17 17:37 Dose: 100 mls/hr Vancomycin/Sodium Chloride (Vancocin) 1 gm in 200 mls @ 133.333 mls/hr IVPB Q24H [facility] Stop: 04/20/17 13:01 Last Admin: 04/15/17 13:42 Dose: 133.333 mls/hr Sodium Chloride (Sodium Chloride 0.9%) 1,000 mls @ 100 mls/hr IV .Q10H [facility] Last Admin: 04/15/17 20:20 Dose: 100 mls/hr Heparin Sodium/Sodium Chloride (Heparin 96390 Units/250ml 1/2 Normal Saline) 25 ,000 units in 250 mls @ 6.532 mls/hr IV .Q24H PRN; Protocol; 12 UNITS/KG/HR PRN Reason: PROTOCOL Last Admin: 04/15/17 20:27 Dose: 12 units/kg/hr, 6.532 mls/hr - Labs Labs: 04/15/17 06:34 04/15/17 06:34 PT 12.5 SECONDS (9.7-12.2) H 04/14/17 11:38 INR 1.1 04/14/17 11:38 APTT 50 SECONDS (21-34) H D 04/15/17 14:59
[2017-04-16] MEDS: Sodium Chloride 0.9% 1,000 ML IV SCH (02:08)
[2017-04-16] MEDS ORDERED: Metoprolol 1 mg/ml Inj IVP ONE (05:55)
[2017-04-16 07:00] LABS: BASO % 0.2 % (0.0-2.0); EOS % 0.1 % (0.0-4.0); HEMOGLOBIN 7.6 g/dL (12.0-18.0); LYMPH # 2.6 K/uL (1.0-4.3); LYMPH % 11.1 % (20.0-40.0); MEAN CELL VOLUME 90.4 fL (80.0-94.0); MEAN CORPUSCULAR HEMOGLOBIN 28.3 pg (27.0-31.0); MEAN CORPUSCULAR HGB CONC 31.4 g/dL (33.0-37.0); MEAN PLATELET VOLUME 10.7 fL (7.2-11.7); MONO # 1.6 K/uL (0.0-0.8); NEUT # 18.9 K/uL (1.8-7.0); NEUT % 81.6 % (50.0-75.0); RBC 2.67 Mil/uL (4.40-5.90); WHITE BLOOD COUNT 23.2 K/uL (4.8-10.8)
--- NOTE | 2017-04-16 07:07 | CARD ---
APPROVED REPORT EKG Measurement Heart [id number] <Conclusion> Atrial fibrillation with rapid ventricular response Right bundle branch block Abnormal ECG
[2017-04-16 07:20] LABS: ALBUMIN 2.4 g/dL (3.5-5.0)
[2017-04-16 07:22] LABS: GFR AFRICAN-AMERICAN > 60; GFR NON-AFRICAN AMERICAN > 60
[2017-04-16 07:23] LABS: ALB/GLOB RATIO 0.8 (1.0-2.1); ALT/SGPT 125 U/L (21-72); AST/SGOT 126 U/L (17-59); BLOOD UREA NITROGEN 38 mg/dL (9-20)
[2017-04-16 07:24] LABS: MAGNESIUM 2.2 mg/dL (1.6-2.3)
--- NOTE | 2017-04-16 09:25 | RAD ---
HISTORY: rhonchi COMPARISON: Comparison made with prior study dated 04/14/2017. FINDINGS: LUNGS: Diffuse bilateral are infiltrates likely representing pulmonary edema/ CHF however pneumonia not excluded. Bilateral effusions are also felt be present. Interval removal malpositioned left IJ central venous line PLEURA: As above. No pneumothorax apparent. CARDIOVASCULAR: Normal. OSSEOUS STRUCTURES: No significant abnormalities. VISUALIZED UPPER ABDOMEN: Normal. OTHER FINDINGS: None. IMPRESSION: Diffuse bilateral infiltrates possibly representing pulmonary edema/ CHF however pneumonia not excluded. Bilateral effusions also felt be present. Interval removal malposition left IJ central venous line
--- NOTE | 2017-04-16 09:43 | CP.PCM.CON ---
History of Present Illness - History of Present Illness History of Present Illness: Pt S&E. Had tachycardia to 140s last night and given stat dose of lopressor. Now in 90-100s on 5mcg Cardizem (down from 15 mcg) and on PO TID. Pt is more alert and oriented today. Urine cultures have not returned yet. Afebrile, but WBC inc to 23.2 today. Pt has congestive breath sounds, + rhonchi, stat CXR showed inc pulm vasc congestion so 20 lasix was given this morning. Fluids D/ C. Will D/C heparin drip as pt is on plavix and aspirin with not intent for PCI. Will tranfuse 1 unit pRBC Review of Systems - Review of Systems Systems not reviewed;Unavailable: Altered Mental Status, Language Barrier Past Patient History - Infectious Disease Hx of Infectious Diseases: None - Tetanus Immunizations Tetanus Immunization: Unknown - Past Medical History & Family History Past Medical History?: Yes - Past Social History Smoking Status: Former Smoker - CARDIAC Hx Atrial Fibrillation: Yes Hx Cardia Arrhythmia: No Hx Congestive Heart Failure: No Hx Hypercholesterolemia: Yes Hx Hypertension: Yes Hx Mitral Valve Prolapse: No Hx Pacemaker: No Hx Peripheral Edema: No - PULMONARY Hx Asthma: No Hx Bronchitis: No Hx Chronic Obstructive Pulmonary Disease (COPD): No Hx Emphysema: No Hx Pneumonia: No Hx Sleep Apnea: No - NEUROLOGICAL Hx Alzheimer's Disease: No Hx Dementia: No Hx Migraine: No Hx Parkinson's Disease: No Hx Seizures: No Hx Transient Ischemic Attacks (TIA): No - HEENT Hx HEENT Problems: No - RENAL Hx Chronic Kidney Disease: No Hx Kidney Stones: No - ENDOCRINE/METABOLIC Hx Hyperthyroidism: No Hx Hypothyroidism: No - HEMATOLOGICAL/ONCOLOGICAL Hx Anemia: Yes Hx Human Immunodeficiency Virus (HIV): No Hx Sickle Cell Disease: No - INTEGUMENTARY Hx Dermatological Problems: No - MUSCULOSKELETAL/RHEUMATOLOGICAL Hx Arthritis: No Hx Fractures: No Hx Osteoporosis: No - GASTROINTESTINAL Hx Crohn's Disease: No Hx Diverticulitis: No Hx Gall Bladder Disease: No Hx Pancreatitis: No - GENITOURINARY/GYNECOLOGICAL Hx Sexually Transmitted Disorders: No - PSYCHIATRIC Hx Anxiety: Yes Hx Bipolar Disorder: No Hx Depression: No Hx Paranoia: No Hx Post Traumatic Stress Disorder: No Hx Schizophrenia: No Hx Substance Use: No - SURGICAL HISTORY Hx Appendectomy: No Hx Cholecystectomy: No Hx Coronary Stent: Yes - ANESTHESIA Hx Anesthesia: Yes Hx Anesthesia Reactions: No Hx Malignant Hyperthermia: No Meds Allergies/Adverse Reactions: Allergies Allergy/AdvReac Type Severity Reaction Status Date / Time No Known Allergies Allergy Verified 10/02/16 10:29 - Medications Medications: Current Medications Alprazolam (Xanax) 0.25 mg PO Q8 PRN PRN Reason: Anxiety Stop: 04/21/17 16:36 Last Admin: 04/15/17 22:55 Dose: 0.25 mg Aspirin (Ecotrin) 81 mg PO DAILY [facility] Last Admin: 04/15/17 14:12 Dose: 81 mg Clopidogrel Bisulfate (Plavix) 75 mg PO DAILY [facility] Last Admin: 04/15/17 14:11 Dose: 75 mg Diltiazem HCl (Cardizem) 30 mg PO QID [facility] Last Admin: 04/15/17 21:25 Dose: 30 mg Famotidine (Pepcid) 20 mg IVP DAILY [facility] Last Admin: 04/15/17 10:50 Dose: 20 mg Diltiazem HCl 125 mg/ Sodium (Chloride) 125 mls @ 5 mls/hr IV .Q24H [facility]; 5 MG/ HR PRN Reason: Protocol Last Admin: 04/16/17 08:48 Dose: 5 mg/hr, 5 mls/hr Imipenem/Cilastatin Sodium 500 (mg/ Sodium Chloride) 100 mls @ 100 mls/hr IVPB Q8H [facility] Last Admin: 04/16/17 01:01 Dose: 100 mls/hr Vancomycin/Sodium Chloride (Vancocin) 1 gm in 200 mls @ 133.333 mls/hr IVPB Q24H [facility] Stop: 04/20/17 13:01 Last Admin: 04/15/17 13:42 Dose: 133.333 mls/hr Physical Exam - Constitutional Appears: No Acute Distress, Chronically Ill - Head Exam Head Exam: ATRAUMATIC - Eye Exam Eye Exam: EOMI Pupil Exam: PERRL - ENT Exam ENT Exam: Mucous Membranes Dry - Respiratory Exam Respiratory Exam: Decreased Breath Sounds, Rales, Rhonchi. absent: Accessory Muscle Use, Respiratory Distress Additional comments: tachypnea - Cardiovascular Exam Cardiovascular Exam: REGULAR RHYTHM, Systolic Murmur. absent: Tachycardia - GI/Abdominal Exam GI & Abdominal Exam: Soft. absent: Distended, Tenderness - Extremities Exam Extremities exam: Positive for: pedal pulses present. Negative for: calf tenderness, pedal edema - Neurological Exam Neurological exam: Alert - Psychiatric Exam Psychiatric exam: Normal Affect, Normal Mood - Skin Skin Exam: Normal Color, Warm Results - Vital Signs Recent Vital Signs: Last Vital Signs Temp 98.4 F 04/16/17 08:00 Pulse 98 H 04/16/17 08:00 Resp 24 04/16/17 08:00 BP 126/51 L 04/16/17 08:46 Pulse Ox 91 L 04/16/17 06:00 - Labs Result Diagrams: 04/16/17 06:45 04/16/17 06:45 Labs: Laboratory Results - last 24 hr 04/15/17 04/16/17 04/16/17 14:59 06:45 06:45 WBC 23.2 H RBC 2.67 L Hgb 7.6 L Hct 24.1 L MCV 90.4 MCH 28.3 MCHC 31.4 L RDW 16.0 H Plt Count 373 MPV 10.7 Neut % (Auto) 81.6 H Lymph % (Auto) 11.1 L [place] % (Auto) 7.0 Eos % (Auto) 0.1 Baso % (Auto) 0.2 Neut # 18.9 H Lymph # 2.6 [place] # 1.6 H Eos # 0.0 Baso # 0.0 APTT 50 H D Sodium 139 Potassium 4.0 Chloride 110 H Carbon Dioxide 18 L Anion Gap 15 BUN 38 H Creatinine 0.9 Est GFR ( Amer) > 60 Est GFR (Non-Af Amer) > 60 Random Glucose 148 H Calcium 8.0 L Phosphorus 3.9 Magnesium 2.2 Total Bilirubin 0.6 AST 126 H D ALT 125 H Alkaline Phosphatase 176 H D Total Protein 5.5 L Albumin 2.4 L Globulin 3.1 Albumin/Globulin Ratio 0.8 L 04/16/17 06:45 WBC RBC Hgb Hct MCV MCH MCHC RDW Plt Count MPV Neut % (Auto) Lymph % (Auto) [place] % (Auto) Eos % (Auto) Baso % (Auto) Neut # Lymph # [place] # Eos # Baso # APTT 45 H D Sodium Potassium Chloride Carbon Dioxide Anion Gap BUN Creatinine Est GFR ( Amer) Est GFR (Non-Af Amer) Random Glucose Calcium Phosphorus Magnesium Total Bilirubin AST ALT Alkaline Phosphatase Total Protein Albumin Globulin Albumin/Globulin Ratio Assessment & Plan - Assessment and Plan (Free Text) Assessment: 82M admitted with AMS, Afib and RVR, possible NSTEMI Plan: Neuro: GCS 15 AMS - AAO to person and now place but not time: likely 2/2 urosepsis Pulm: 100% on 2L NC worsening breath sounds - CXR shows pulm congestion stat lasix 20mg ordered - will f/u UO and repeat CXR this afternoon D/C fluids CV: Afib with RVR; now 90-100s on Cardizem drip now 5mcg, titrating down, on TID PO cardizem Aortic Stenosis; Hx of HTN, CAD w/ stent placement Consult Dr Spicer cardiology- no plan for PCI and family requests no aggressive intervention Likely non-ST RI Will D/C heparin drip PO plavix and aspirin Will remove TLC Heme: HgB 7.6 -chronic anemia - will give 1 unit pRBC Continue to monitor closely Renal: 38/0.8 will continue gentle hydration GI: No abdominal pain/symptoms will resume diet pureed s/p swallow eval P : cont strict I/O repeat urine culture 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 Roger Almanzar, [id number]
--- NOTE | 2017-04-16 09:54 | CP.CCUPN ---
<Alan Almanzar Dalila - Last Filed: 04/16/17 09:55> CCU Subjective - Physician Review Events Since Last Encounter (Free Text): 04/16/17 09:54 Pt S&E. Had tachycardia to 140s last night and given stat dose of lopressor. Still has minimal chest discomfort. Now in 90-100s on 5mcg Cardizem (down from 15 mcg) and on PO TID. Pt is more alert and oriented today. Urine cultures have not returned yet. Afebrile, but WBC inc to 23.2 today. Pt has congestive breath sounds, + rhonchi, stat CXR showed inc pulm vasc congestion so 20 lasix was given this morning. Fluids D/C. Will D/C heparin drip as pt is on plavix and aspirin with not intent for PCI. Will tranfuse 1 unit pRBC 04/16/17 09:57 CCU Objective - Vital Signs / Intake & Output Vital Signs (Last 4 hours): Vital Signs Temp Pulse Resp BP Pulse Ox 04/16/17 08:46 126/51 L 04/16/17 08:00 98.4 F 98 H 24 126/51 L 04/16/17 06:00 136 H 54 H 129/60 91 L Intake and Output (Last 8hrs): Intake & Output 04/15/17 04/16/17 04/16/17 22:59 06:59 14:59 Intake Total 1940.0 838.3 10 Output Total 1787 315 Balance 153.0 523.3 10 Intake: IV 331.6 115 10 Intake, IV Amount 988.4 673.3 LFA #18 75 Left Forearm 500 Left Medial Port 300 500 RFA 45 112.5 Right Forearm 68.4 60.8 Oral 620 50 Output: Urine 1785 315 Urethral ([place]) 1785 315 Stool 2 Other: # Bowel Movements 1 - Physical Exam Narrative Physical Exam (Free Text): 04/16/17 09:56 AAO x 2, increased orientation from previous exams Head: Positive for: Atraumatic Pupils: Positive for: PERRL Extroacular Muscles: Positive for: EOMI Mouth: Positive for: Moist Mucous Membranes Respiratory/Chest: Positive for: Rales, Tachypneic. Negative for: Clear to Auscultation, Respiratory Distress, Accessory Muscle Use Cardiovascular: Positive for: Regular Rate and Rhythm, Murmurs. Negative for: Tachycardic Abdomen: Negative for: Tenderness, Distention Neurological: Positive for: GCS=15 Skin: Positive for: Warm, Dry Psychiatric: Positive for: Alert - Medications Active Medications: Active Medications Generic Name Dose Route Start Last Admin Trade Name Freq PRN Reason Stop Dose Admin Alprazolam 0.25 mg 04/14/17 16:35 04/15/17 22:55 Xanax PO 04/21/17 16:36 0.25 mg Q8 PRN Administration Anxiety Aspirin 81 mg 04/15/17 10:00 04/15/17 14:12 Ecotrin PO 81 mg DAILY DEUCE Administration Clopidogrel Bisulfate 75 mg 04/15/17 10:00 04/15/17 14:11 Plavix PO 75 mg DAILY DEUCE Administration Diltiazem HCl 30 mg 04/15/17 14:00 04/15/17 21:25 Cardizem PO 30 mg QID DEUCE Administration Famotidine 20 mg 04/15/17 10:00 04/15/17 10:50 Pepcid IVP 20 mg DAILY DEUCE Administration Diltiazem HCl 125 mg/ Sodium 125 mls @ 5 mls/hr 04/14/17 16:00 04/16/17 08:48 Chloride IV 5 mg/hr .Q24H DEUCE 5 mls/hr Protocol Administration 5 MG/HR Imipenem/Cilastatin Sodium 500 100 mls @ 100 mls/hr 04/14/17 18:00 04/16/17 01:01 mg/ Sodium Chloride IVPB 100 mls/hr Q8H DEUCE Administration Vancomycin/Sodium Chloride 1 gm in 200 mls @ 133.333 mls/hr 04/15/17 13:00 13:42 Vancocin IVPB 04/20/17 13:01 133.333 mls/hr Q24H DEUCE Administration - Patient Studies Lab Studies: Microbiology Studies 04/14/17 Unknown MRSA Culture (Admit) - Final Naris MRSA NOT DETECTED Lab Studies 04/16/17 04/16/17 04/16/17 Range/Units 06:45 06:45 06:45 WBC 23.2 H (4.8-10.8) K/uL RBC 2.67 L (4.40-5.90) Mil/uL Hgb 7.6 L (12.0-18.0) g/dL Hct 24.1 L (35.0-51.0) % MCV 90.4 (80.0-94.0) fL MCH 28.3 (27.0-31.0) pg MCHC 31.4 L (33.0-37.0) g/dL RDW 16.0 H (11.5-14.5) % Plt Count 373 (130-400) K/uL MPV 10.7 (7.2-11.7) fL Neut % (Auto) 81.6 H (50.0-75.0) % Lymph % (Auto) 11.1 L (20.0-40.0) % [place] % (Auto) 7.0 (0.0-10.0) % Eos % (Auto) 0.1 (0.0-4.0) % Baso % (Auto) 0.2 (0.0-2.0) % Neut # 18.9 H (1.8-7.0) K/uL Lymph # 2.6 (1.0-4.3) K/uL [place] # 1.6 H (0.0-0.8) K/uL Eos # 0.0 (0.0-0.7) K/uL Baso # 0.0 (0.0-0.2) K/uL APTT 45 H D (21-34) SECONDS Sodium 139 (132-148) mmol/L Potassium 4.0 (3.6-5.2) mmol/L Chloride 110 H (98-107) mmol/L Carbon Dioxide 18 L (22-30) mmol/L Anion Gap 15 (10-20) BUN 38 H (9-20) mg/dL Creatinine 0.9 (0.8-1.5) MG/DL Est GFR ( Amer) > 60 Est GFR (Non-Af Amer) > 60 Random Glucose 148 H (75-110) mg/dL Calcium 8.0 L (8.6-10.4) mg/dl Phosphorus 3.9 (2.5-4.5) mg/dL Magnesium 2.2 (1.6-2.3) mg/dL Total Bilirubin 0.6 (0.2-1.3) mg/dL AST 126 H D (17-59) U/L ALT 125 H (21-72) U/L Alkaline Phosphatase 176 H D (38-126) U/L Total Protein 5.5 L (6.3-8.3) g/dL Albumin 2.4 L (3.5-5.0) g/dL Globulin 3.1 (2.2-3.9) gm/dL Albumin/Globulin Ratio 0.8 L (1.0-2.1) 04/15/17 Range/Units 14:59 WBC (4.8-10.8) K/uL RBC (4.40-5.90) Mil/uL Hgb (12.0-18.0) g/dL Hct (35.0-51.0) % MCV (80.0-94.0) fL MCH (27.0-31.0) pg MCHC (33.0-37.0) g/dL RDW (11.5-14.5) % Plt Count (130-400) K/uL MPV (7.2-11.7) fL Neut % (Auto) (50.0-75.0) % Lymph % (Auto) (20.0-40.0) % [place] % (Auto) (0.0-10.0) % Eos % (Auto) (0.0-4.0) % Baso % (Auto) (0.0-2.0) % Neut # (1.8-7.0) K/uL Lymph # (1.0-4.3) K/uL [place] # (0.0-0.8) K/uL Eos # (0.0-0.7) K/uL Baso # (0.0-0.2) K/uL APTT 50 H D (21-34) SECONDS Sodium (132-148) mmol/L Potassium (3.6-5.2) mmol/L Chloride (98-107) mmol/L Carbon Dioxide (22-30) mmol/L Anion Gap (10-20) BUN (9-20) mg/dL Creatinine (0.8-1.5) MG/DL Est GFR ( Amer) Est GFR (Non-Af Amer) Random Glucose (75-110) mg/dL Calcium (8.6-10.4) mg/dl Phosphorus (2.5-4.5) mg/dL Magnesium (1.6-2.3) mg/dL Total Bilirubin (0.2-1.3) mg/dL AST (17-59) U/L ALT (21-72) U/L Alkaline Phosphatase (38-126) U/L Total Protein (6.3-8.3) g/dL Albumin (3.5-5.0) g/dL Globulin (2.2-3.9) gm/dL Albumin/Globulin Ratio (1.0-2.1) Laboratory Results - last 24 hr 04/15/17 04/16/17 04/16/17 14:59 06:45 06:45 WBC 23.2 H RBC 2.67 L Hgb 7.6 L Hct 24.1 L MCV 90.4 MCH 28.3 MCHC 31.4 L RDW 16.0 H Plt Count 373 MPV 10.7 Neut % (Auto) 81.6 H Lymph % (Auto) 11.1 L [place] % (Auto) 7.0 Eos % (Auto) 0.1 Baso % (Auto) 0.2 Neut # 18.9 H Lymph # 2.6 [place] # 1.6 H Eos # 0.0 Baso # 0.0 APTT 50 H D Sodium 139 Potassium 4.0 Chloride 110 H Carbon Dioxide 18 L Anion Gap 15 BUN 38 H Creatinine 0.9 Est GFR ( Amer) > 60 Est GFR (Non-Af Amer) > 60 Random Glucose 148 H Calcium 8.0 L Phosphorus 3.9 Magnesium 2.2 Total Bilirubin 0.6 AST 126 H D ALT 125 H Alkaline Phosphatase 176 H D Total Protein 5.5 L Albumin 2.4 L Globulin 3.1 Albumin/Globulin Ratio 0.8 L 04/16/17 06:45 WBC RBC Hgb Hct MCV MCH MCHC RDW Plt Count MPV Neut % (Auto) Lymph % (Auto) [place] % (Auto) Eos % (Auto) Baso % (Auto) Neut # Lymph # [place] # Eos # Baso # APTT 45 H D Sodium Potassium Chloride Carbon Dioxide Anion Gap BUN Creatinine Est GFR ( Amer) Est GFR (Non-Af Amer) Random Glucose Calcium Phosphorus Magnesium Total Bilirubin AST ALT Alkaline Phosphatase Total Protein Albumin Globulin Albumin/Globulin Ratio Fingerstick Blood Sugar Results: 200 Review of Systems - Review of Systems Systems not reviewed;Unavailable: Altered Mental Status Critical Care Progress Note - Nutrition Nutrition: Nutrition Category Date Time Status Pureed [Dysphagia/Modified Consistency Diet] [DIET] Diets 04/15/17 Lunch Active Assessment/Plan - Assessment and Plan (Free Text) Assessment: 82M admitted with AMS, Afib and RVR, possible NSTEMI Plan: Neuro: GCS 15 AMS - AAO to person and now place but not time: likely 2/2 urosepsis Pulm: 100% on 2L NC worsening breath sounds - CXR shows pulm congestion stat lasix 20mg ordered - will f/u UO and repeat CXR this afternoon D/C fluids CV: Afib with RVR; now 90-100s on Cardizem drip now 5mcg, titrating down, on TID PO cardizem Aortic Stenosis; Hx of HTN, CAD w/ stent placement Consult Dr Spicer cardiology- no plan for PCI and family requests no aggressive intervention Likely non-ST [place] Will D/C heparin drip PO plavix and aspirin Will remove TLC Heme: HgB 7.6 -chronic anemia - will give 1 unit pRBC Continue to monitor closely Renal: 38/0.9 no intervention need giving 20 lasix GI: pureed diet : cont strict I/O repeat urine culture ordered - will f/u with lab today hx of VRE in urine - will txt empirically ID: afebrile, WBC inc to 23.2, likely urosepsis f/u cultures continue empiric abx - switched to Primaxin/Vanco as per ID Dr Che following DVT proph - SCDs, HSQ Q8H GI proph - Pepcid Code status - DNR/DNI Case discussed with Dr. Anupam Almanzar, PGY3 <Deandre Bo S - Last Filed: 04/16/17 15:54> CCU Objective - Vital Signs / Intake & Output Vital Signs (Last 4 hours): Vital Signs Temp Pulse Resp BP 04/16/17 15:25 92 H 27 H 131/57 L 04/16/17 14:25 98.5 F 82 27 H 108/58 L 04/16/17 13:55 98.4 F 87 38 H 107/47 L 04/16/17 13:42 86 04/16/17 13:40 98.4 F 87 42 H 104/46 L 04/16/17 13:25 98.3 F 88 32 H 100/37 L Intake and Output (Last 8hrs): Intake & Output 04/16/17 04/16/17 04/16/17 06:59 14:59 22:59 Intake Total 838.3 175.8 Output Total 315 285 Balance 523.3 -109.2 Intake: IV 115 35 Intake, IV Amount 673.3 140.8 Left Medial Port 500 RFA 112.5 118 Right Forearm 60.8 22.8 Oral 50 Blood Product 0 Red Blood Cells Cpd As1 0 Lr Unit [id number] Output: Urine 315 285 Urethral (Ivy) 315 285 - Medications Active Medications: Active Medications Generic Name Dose Route Start Last Admin Trade Name Freq PRN Reason Stop Dose Admin Alprazolam 0.25 mg 04/14/17 16:35 04/15/17 22:55 Xanax PO 04/21/17 16:36 0.25 mg Q8 PRN Administration Anxiety Aspirin 81 mg 04/15/17 10:00 04/15/17 14:12 Ecotrin PO 81 mg DAILY DEUCE Administration Clopidogrel Bisulfate 75 mg 04/15/17 10:00 04/15/17 14:11 Plavix PO 75 mg DAILY DEUCE Administration Diltiazem HCl 30 mg 04/15/17 14:00 04/16/17 10:00 Cardizem PO Not Given QID DEUCE Famotidine 20 mg 04/15/17 10:00 04/16/17 11:39 Pepcid IVP 20 mg DAILY DEUCE Administration Diltiazem HCl 125 mg/ Sodium 125 mls @ 5 mls/hr 04/14/17 16:00 04/16/17 09:00 Chloride IV 3 mg/hr .Q24H DEUCE 3 mls/hr Protocol Titration 5 MG/HR Imipenem/Cilastatin Sodium 500 100 mls @ 100 mls/hr 04/14/17 18:00 04/16/17 11:39 mg/ Sodium Chloride IVPB 100 mls/hr Q8H DEUCE Administration Vancomycin/Sodium Chloride 1 gm in 200 mls @ 133.333 mls/hr 04/15/17 13:00 13:42 Vancocin IVPB 04/20/17 13:01 133.333 mls/hr Q24H DEUCE Administration - Patient Studies Lab Studies: Lab Studies 04/16/17 04/16/17 04/16/17 Range/Units 11:32 06:45 06:45 WBC (4.8-10.8) K/uL RBC (4.40-5.90) Mil/uL Hgb (12.0-18.0) g/dL Hct (35.0-51.0) % MCV (80.0-94.0) fL MCH (27.0-31.0) pg MCHC (33.0-37.0) g/dL RDW (11.5-14.5) % Plt Count (130-400) K/uL MPV (7.2-11.7) fL Neut % (Auto) (50.0-75.0) % Lymph % (Auto) (20.0-40.0) % [place] % (Auto) (0.0-10.0) % Eos % (Auto) (0.0-4.0) % Baso % (Auto) (0.0-2.0) % Neut # (1.8-7.0) K/uL Lymph # (1.0-4.3) K/uL [place] # (0.0-0.8) K/uL Eos # (0.0-0.7) K/uL Baso # (0.0-0.2) K/uL APTT 45 H D (21-34) SECONDS Sodium 139 (132-148) mmol/L Potassium 4.0 (3.6-5.2) mmol/L Chloride 110 H (98-107) mmol/L Carbon Dioxide 18 L (22-30) mmol/L Anion Gap 15 (10-20) BUN 38 H (9-20) mg/dL Creatinine 0.9 (0.8-1.5) MG/DL Est GFR ( Amer) > 60 Est GFR (Non-Af Amer) > 60 Random Glucose 148 H (75-110) mg/dL Calcium 8.0 L (8.6-10.4) mg/dl Phosphorus 3.9 (2.5-4.5) mg/dL Magnesium 2.2 (1.6-2.3) mg/dL Total Bilirubin 0.6 (0.2-1.3) mg/dL AST 126 H D (17-59) U/L ALT 125 H (21-72) U/L Alkaline Phosphatase 176 H D (38-126) U/L Total Protein 5.5 L (6.3-8.3) g/dL Albumin 2.4 L (3.5-5.0) g/dL Globulin 3.1 (2.2-3.9) gm/dL Albumin/Globulin Ratio 0.8 L (1.0-2.1) Blood Type O POSITIVE Antibody Screen Negative 04/16/17 Range/Units 06:45 WBC 23.2 H (4.8-10.8) K/uL RBC 2.67 L (4.40-5.90) Mil/uL Hgb 7.6 L (12.0-18.0) g/dL Hct 24.1 L (35.0-51.0) % MCV 90.4 (80.0-94.0) fL MCH 28.3 (27.0-31.0) pg MCHC 31.4 L (33.0-37.0) g/dL RDW 16.0 H (11.5-14.5) % Plt Count 373 (130-400) K/uL MPV 10.7 (7.2-11.7) fL Neut % (Auto) 81.6 H (50.0-75.0) % Lymph % (Auto) 11.1 L (20.0-40.0) % [place] % (Auto) 7.0 (0.0-10.0) % Eos % (Auto) 0.1 (0.0-4.0) % Baso % (Auto) 0.2 (0.0-2.0) % Neut # 18.9 H (1.8-7.0) K/uL Lymph # 2.6 (1.0-4.3) K/uL [place] # 1.6 H (0.0-0.8) K/uL Eos # 0.0 (0.0-0.7) K/uL Baso # 0.0 (0.0-0.2) K/uL APTT (21-34) SECONDS Sodium (132-148) mmol/L Potassium (3.6-5.2) mmol/L Chloride (98-107) mmol/L Carbon Dioxide (22-30) mmol/L Anion Gap (10-20) BUN (9-20) mg/dL Creatinine (0.8-1.5) MG/DL Est GFR ( Amer) Est GFR (Non-Af Amer) Random Glucose (75-110) mg/dL Calcium (8.6-10.4) mg/dl Phosphorus (2.5-4.5) mg/dL Magnesium (1.6-2.3) mg/dL Total Bilirubin (0.2-1.3) mg/dL AST (17-59) U/L ALT (21-72) U/L Alkaline Phosphatase (38-126) U/L Total Protein (6.3-8.3) g/dL Albumin (3.5-5.0) g/dL Globulin (2.2-3.9) gm/dL Albumin/Globulin Ratio (1.0-2.1) Blood Type Antibody Screen Laboratory Results - last 24 hr 04/16/17 04/16/17 04/16/17 06:45 06:45 06:45 WBC 23.2 H RBC 2.67 L Hgb 7.6 L Hct 24.1 L MCV 90.4 MCH 28.3 MCHC 31.4 L RDW 16.0 H Plt Count 373 MPV 10.7 Neut % (Auto) 81.6 H Lymph % (Auto) 11.1 L [place] % (Auto) 7.0 Eos % (Auto) 0.1 Baso % (Auto) 0.2 Neut # 18.9 H Lymph # 2.6 [place] # 1.6 H Eos # 0.0 Baso # 0.0 APTT 45 H D Sodium 139 Potassium 4.0 Chloride 110 H Carbon Dioxide 18 L Anion Gap 15 BUN 38 H Creatinine 0.9 Est GFR ( Amer) > 60 Est GFR (Non-Af Amer) > 60 Random Glucose 148 H Calcium 8.0 L Phosphorus 3.9 Magnesium 2.2 Total Bilirubin 0.6 AST 126 H D ALT 125 H Alkaline Phosphatase 176 H D Total Protein 5.5 L Albumin 2.4 L Globulin 3.1 Albumin/Globulin Ratio 0.8 L Blood Type Antibody Screen 04/16/17 11:32 WBC RBC Hgb Hct MCV MCH MCHC RDW Plt Count MPV Neut % (Auto) Lymph % (Auto) [place] % (Auto) Eos % (Auto) Baso % (Auto) Neut # Lymph # [place] # Eos # Baso # APTT Sodium Potassium Chloride Carbon Dioxide Anion Gap BUN Creatinine Est GFR ( Amer) Est GFR (Non-Af Amer) Random Glucose Calcium Phosphorus Magnesium Total Bilirubin AST ALT Alkaline Phosphatase Total Protein Albumin Globulin Albumin/Globulin Ratio Blood Type O POSITIVE Antibody Screen Negative Critical Care Progress Note - Nutrition Nutrition: Nutrition Category Date Time Status Pureed [Dysphagia/Modified Consistency Diet] [DIET] Diets 04/15/17 Lunch Active Attending/Attestation - Attestation I have personally seen and examined this patient.: Yes I have fully participated in the care of the patient.: Yes I have reviewed all pertinent clinical information: Yes Notes (Text): 04/16/17 15:52 Patient seen and examined in the intensive care unit. Case discussed with staff in the morning rounds. Placed on BiPAP for respiratory distress and chest x-ray consistent with CHF/ fluid overload Lasix 60 mg Continue antibiotics Patient DNR/DNI Follow-up culture and sensitivity
--- NOTE | 2017-04-16 09:58 | CP.PCM.CON ---
History of Present Illness - History of Present Illness History of Present Illness: 82 year old seen for dry gangrene of both feet.Pt seen in ICU . Past Patient History - Infectious Disease Hx of Infectious Diseases: None - Tetanus Immunizations Tetanus Immunization: Unknown - Past Medical History & Family History Past Medical History?: Yes - Past Social History Smoking Status: Former Smoker - CARDIAC Hx Atrial Fibrillation: Yes Hx Cardia Arrhythmia: No Hx Congestive Heart Failure: No Hx Hypercholesterolemia: Yes Hx Hypertension: Yes Hx Mitral Valve Prolapse: No Hx Pacemaker: No Hx Peripheral Edema: No - PULMONARY Hx Asthma: No Hx Bronchitis: No Hx Chronic Obstructive Pulmonary Disease (COPD): No Hx Emphysema: No Hx Pneumonia: No Hx Sleep Apnea: No - NEUROLOGICAL Hx Alzheimer's Disease: No Hx Dementia: No Hx Migraine: No Hx Parkinson's Disease: No Hx Seizures: No Hx Transient Ischemic Attacks (TIA): No - HEENT Hx HEENT Problems: No - RENAL Hx Chronic Kidney Disease: No Hx Kidney Stones: No - ENDOCRINE/METABOLIC Hx Hyperthyroidism: No Hx Hypothyroidism: No - HEMATOLOGICAL/ONCOLOGICAL Hx Anemia: Yes Hx Human Immunodeficiency Virus (HIV): No Hx Sickle Cell Disease: No - INTEGUMENTARY Hx Dermatological Problems: No - MUSCULOSKELETAL/RHEUMATOLOGICAL Hx Arthritis: No Hx Fractures: No Hx Osteoporosis: No - GASTROINTESTINAL Hx Crohn's Disease: No Hx Diverticulitis: No Hx Gall Bladder Disease: No Hx Pancreatitis: No - GENITOURINARY/GYNECOLOGICAL Hx Sexually Transmitted Disorders: No - PSYCHIATRIC Hx Anxiety: Yes Hx Bipolar Disorder: No Hx Depression: No Hx Paranoia: No Hx Post Traumatic Stress Disorder: No Hx Schizophrenia: No Hx Substance Use: No - SURGICAL HISTORY Hx Appendectomy: No Hx Cholecystectomy: No Hx Coronary Stent: Yes - ANESTHESIA Hx Anesthesia: Yes Hx Anesthesia Reactions: No Hx Malignant Hyperthermia: No Meds Allergies/Adverse Reactions: Allergies Allergy/AdvReac Type Severity Reaction Status Date / Time No Known Allergies Allergy Verified 10/02/16 10:29 - Medications Medications: Current Medications Alprazolam (Xanax) 0.25 mg PO Q8 PRN PRN Reason: Anxiety Stop: 04/21/17 16:36 Last Admin: 04/15/17 22:55 Dose: 0.25 mg Aspirin (Ecotrin) 81 mg PO DAILY [facility] Last Admin: 04/15/17 14:12 Dose: 81 mg Clopidogrel Bisulfate (Plavix) 75 mg PO DAILY [facility] Last Admin: 04/15/17 14:11 Dose: 75 mg Diltiazem HCl (Cardizem) 30 mg PO QID [facility] Last Admin: 04/15/17 21:25 Dose: 30 mg Famotidine (Pepcid) 20 mg IVP DAILY [facility] Last Admin: 04/15/17 10:50 Dose: 20 mg Diltiazem HCl 125 mg/ Sodium (Chloride) 125 mls @ 5 mls/hr IV .Q24H DEUCE; 5 MG/ HR PRN Reason: Protocol Last Admin: 04/16/17 08:48 Dose: 5 mg/hr, 5 mls/hr Imipenem/Cilastatin Sodium 500 (mg/ Sodium Chloride) 100 mls @ 100 mls/hr IVPB Q8H [facility] Last Admin: 04/16/17 01:01 Dose: 100 mls/hr Vancomycin/Sodium Chloride (Vancocin) 1 gm in 200 mls @ 133.333 mls/hr IVPB Q24H [facility] Stop: 04/20/17 13:01 Last Admin: 04/15/17 13:42 Dose: 133.333 mls/hr Physical Exam - Extremities Exam Additional comments: o/gangrene of digits b/l .cold Ischemic feet with non palpable pulses b/l . Results - Vital Signs Recent Vital Signs: Last Vital Signs Temp 98.4 F 04/16/17 08:00 Pulse 98 H 04/16/17 08:00 Resp 24 04/16/17 08:00 BP 126/51 L 04/16/17 08:46 Pulse Ox 91 L 04/16/17 06:00 - Labs Result Diagrams: 04/18/17 06:15 04/18/17 06:15 Labs: Laboratory Results - last 24 hr 04/15/17 04/16/17 04/16/17 14:59 06:45 06:45 WBC 23.2 H RBC 2.67 L Hgb 7.6 L Hct 24.1 L MCV 90.4 MCH 28.3 MCHC 31.4 L RDW 16.0 H Plt Count 373 MPV 10.7 Neut % (Auto) 81.6 H Lymph % (Auto) 11.1 L [place] % (Auto) 7.0 Eos % (Auto) 0.1 Baso % (Auto) 0.2 Neut # 18.9 H Lymph # 2.6 [place] # 1.6 H Eos # 0.0 Baso # 0.0 APTT 50 H D Sodium 139 Potassium 4.0 Chloride 110 H Carbon Dioxide 18 L Anion Gap 15 BUN 38 H Creatinine 0.9 Est GFR ( Amer) > 60 Est GFR (Non-Af Amer) > 60 Random Glucose 148 H Calcium 8.0 L Phosphorus 3.9 Magnesium 2.2 Total Bilirubin 0.6 AST 126 H D ALT 125 H Alkaline Phosphatase 176 H D Total Protein 5.5 L Albumin 2.4 L Globulin 3.1 Albumin/Globulin Ratio 0.8 L 04/16/17 06:45 WBC RBC Hgb Hct MCV MCH MCHC RDW Plt Count MPV Neut % (Auto) Lymph % (Auto) [place] % (Auto) Eos % (Auto) Baso % (Auto) Neut # Lymph # [place] # Eos # Baso # APTT 45 H D Sodium Potassium Chloride Carbon Dioxide Anion Gap BUN Creatinine Est GFR ( Amer) Est GFR (Non-Af Amer) Random Glucose Calcium Phosphorus Magnesium Total Bilirubin AST ALT Alkaline Phosphatase Total Protein Albumin Globulin Albumin/Globulin Ratio Assessment & Plan - Assessment and Plan (Free Text) Assessment: a/ Gangrene b/l feet . Plan: p/ local protective care due to medical condition.
--- NOTE | 2017-04-16 14:50 | CP.PCM.CON ---
History of Present Illness - History of Present Illness History of Present Illness: 82 y/o male with pmhx of anemia, anxiety, afib, CAD (s/p stent placement), HTN, HLD, PAD, seen at bedside in ICU after podiatry consultation for attending, Dr. Craig. Patient is sleeping in NAD. Patient was Recently sent from [facility] for new onset lethargy and AMS. Patient has gangrene of digits bilaterally. Unable to gain thorough history and physical at this time. Review of Systems - Constitutional Constitutional: As Per HPI Past Patient History - Infectious Disease Hx of Infectious Diseases: None - Tetanus Immunizations Tetanus Immunization: Unknown - Past Medical History & Family History Past Medical History?: Yes - Past Social History Smoking Status: Former Smoker - CARDIAC Hx Atrial Fibrillation: Yes Hx Cardia Arrhythmia: No Hx Congestive Heart Failure: No Hx Hypercholesterolemia: Yes Hx Hypertension: Yes Hx Mitral Valve Prolapse: No Hx Pacemaker: No Hx Peripheral Edema: No - PULMONARY Hx Asthma: No Hx Bronchitis: No Hx Chronic Obstructive Pulmonary Disease (COPD): No Hx Emphysema: No Hx Pneumonia: No Hx Sleep Apnea: No - NEUROLOGICAL Hx Alzheimer's Disease: No Hx Dementia: No Hx Migraine: No Hx Parkinson's Disease: No Hx Seizures: No Hx Transient Ischemic Attacks (TIA): No - HEENT Hx HEENT Problems: No - RENAL Hx Chronic Kidney Disease: No Hx Kidney Stones: No - ENDOCRINE/METABOLIC Hx Hyperthyroidism: No Hx Hypothyroidism: No - HEMATOLOGICAL/ONCOLOGICAL Hx Anemia: Yes Hx Human Immunodeficiency Virus (HIV): No Hx Sickle Cell Disease: No - INTEGUMENTARY Hx Dermatological Problems: No - MUSCULOSKELETAL/RHEUMATOLOGICAL Hx Arthritis: No Hx Fractures: No Hx Osteoporosis: No - GASTROINTESTINAL Hx Crohn's Disease: No Hx Diverticulitis: No Hx Gall Bladder Disease: No Hx Pancreatitis: No - GENITOURINARY/GYNECOLOGICAL Hx Sexually Transmitted Disorders: No - PSYCHIATRIC Hx Anxiety: Yes Hx Bipolar Disorder: No Hx Depression: No Hx Paranoia: No Hx Post Traumatic Stress Disorder: No Hx Schizophrenia: No Hx Substance Use: No - SURGICAL HISTORY Hx Appendectomy: No Hx Cholecystectomy: No Hx Coronary Stent: Yes - ANESTHESIA Hx Anesthesia: Yes Hx Anesthesia Reactions: No Hx Malignant Hyperthermia: No Meds Allergies/Adverse Reactions: Allergies Allergy/AdvReac Type Severity Reaction Status Date / Time No Known Allergies Allergy Verified 10/02/16 10:29 - Medications Medications: Current Medications Alprazolam (Xanax) 0.25 mg PO Q8 PRN PRN Reason: Anxiety Stop: 04/21/17 16:36 Last Admin: 04/15/17 22:55 Dose: 0.25 mg Aspirin (Ecotrin) 81 mg PO DAILY [facility] Last Admin: 04/15/17 14:12 Dose: 81 mg Clopidogrel Bisulfate (Plavix) 75 mg PO DAILY [facility] Last Admin: 04/15/17 14:11 Dose: 75 mg Diltiazem HCl (Cardizem) 30 mg PO QID [facility] Last Admin: 04/16/17 10:00 Dose: Not Given Famotidine (Pepcid) 20 mg IVP DAILY [facility] Last Admin: 04/16/17 11:39 Dose: 20 mg Diltiazem HCl 125 mg/ Sodium (Chloride) 125 mls @ 5 mls/hr IV .Q24H [facility]; 5 MG/ HR PRN Reason: Protocol Last Titration: 04/16/17 09:00 Dose: 3 mg/hr, 3 mls/hr Imipenem/Cilastatin Sodium 500 (mg/ Sodium Chloride) 100 mls @ 100 mls/hr IVPB Q8H [facility] Last Admin: 04/16/17 11:39 Dose: 100 mls/hr Vancomycin/Sodium Chloride (Vancocin) 1 gm in 200 mls @ 133.333 mls/hr IVPB Q24H [facility] Stop: 04/20/17 13:01 Last Admin: 04/15/17 13:42 Dose: 133.333 mls/hr Physical Exam - Constitutional Appears: Well, Non-toxic, No Acute Distress - Extremities Exam Additional comments: Vasc: nonpalpable pedal pulses b/l, TG cool to cool, CFT sluggish b/l neuro: grossly diminished derm: gangrene of digits 3-5 right with ischemic changes to lateral midfoot, ischemic changes to left foot digits, no edema, no open lesions, no ascending cellulitis, no fluctuance, no drainage, no purulence ortho: no pain on palpation of feet b/l - Neurological Exam Neurological exam: Alert, Oriented x3 Results - Vital Signs Recent Vital Signs: Last Vital Signs Temp 98.4 F 04/16/17 13:55 Pulse 87 04/16/17 13:55 Resp 38 H 04/16/17 13:55 BP 107/47 L 04/16/17 13:55 Pulse Ox 91 L 04/16/17 06:00 - Labs Result Diagrams: 04/16/17 06:45 04/16/17 06:45 Labs: Laboratory Results - last 24 hr 04/15/17 04/16/17 04/16/17 14:59 06:45 06:45 WBC 23.2 H RBC 2.67 L Hgb 7.6 L Hct 24.1 L MCV 90.4 MCH 28.3 MCHC 31.4 L RDW 16.0 H Plt Count 373 MPV 10.7 Neut % (Auto) 81.6 H Lymph % (Auto) 11.1 L [place] % (Auto) 7.0 Eos % (Auto) 0.1 Baso % (Auto) 0.2 Neut # 18.9 H Lymph # 2.6 [place] # 1.6 H Eos # 0.0 Baso # 0.0 APTT 50 H D Sodium 139 Potassium 4.0 Chloride 110 H Carbon Dioxide 18 L Anion Gap 15 BUN 38 H Creatinine 0.9 Est GFR ( Amer) > 60 Est GFR (Non-Af Amer) > 60 Random Glucose 148 H Calcium 8.0 L Phosphorus 3.9 Magnesium 2.2 Total Bilirubin 0.6 AST 126 H D ALT 125 H Alkaline Phosphatase 176 H D Total Protein 5.5 L Albumin 2.4 L Globulin 3.1 Albumin/Globulin Ratio 0.8 L Blood Type Antibody Screen 04/16/17 04/16/17 06:45 11:32 WBC RBC Hgb Hct MCV MCH MCHC RDW Plt Count MPV Neut % (Auto) Lymph % (Auto) [place] % (Auto) Eos % (Auto) Baso % (Auto) Neut # Lymph # [place] # Eos # Baso # APTT 45 H D Sodium Potassium Chloride Carbon Dioxide Anion Gap BUN Creatinine Est GFR ( Amer) Est GFR (Non-Af Amer) Random Glucose Calcium Phosphorus Magnesium Total Bilirubin AST ALT Alkaline Phosphatase Total Protein Albumin Globulin Albumin/Globulin Ratio Blood Type O POSITIVE Antibody Screen Negative Assessment & Plan - Assessment and Plan (Free Text) Assessment: 82 y/o male seen at bedside in ICU for dry gangrene of both feet secondary to ischemia Plan: patient evaluated and chart reviewed seen at bedside in ICU labs and vitals reviewed; WBC 23.2, afebrile discussed in detail with attending Dr. Craig f/u blood cx continue wearing multipodus boots while in bed no surgical intervention at this time cont. medical mgmt podiatry will continue to follow while in house
[2017-04-16] MEDS ORDERED: Fluconazole IV 200mg/100 ml NS 100 MG in Premixed IV 1 EA IVPB SCH (16:00)
[2017-04-16] MEDS: Vancomycin 1 gm/NS 200 ml 1 GM/200 ML BAG IVPB SCH (16:59)
[2017-04-16] MEDS ORDERED: Fluconazole IV 100mg/50 ml NS 50 ML IVPB SCH ×2 (18:00→22:00)
--- NOTE | 2017-04-16 18:17 | CP.PCM.PN ---
Subjective - Date & Time of Evaluation Date of Evaluation: 04/16/17 Time of Evaluation: 11:40 - Subjective Subjective: clinically same Objective - Vital Signs/Intake and Output Vital Signs (last 24 hours): Temp Pulse Resp BP Pulse Ox 98.6 F 122 H 38 H 155/66 H 91 L 04/16/17 17:30 04/16/17 17:30 04/16/17 17:30 04/16/17 18:12 04/16/17 06:00 Intake and Output: 04/16/17 04/16/17 06:59 18:59 Intake Total 1745.3 550.8 Output Total 500 285 Balance 1245.3 265.8 - Medications Medications: Current Medications Aspirin (Ecotrin) 81 mg PO DAILY [facility] Last Admin: 04/16/17 12:00 Dose: Not Given Clopidogrel Bisulfate (Plavix) 75 mg PO DAILY [facility] Last Admin: 04/16/17 10:00 Dose: Not Given Diltiazem HCl (Cardizem) 30 mg PO QID [facility] Last Admin: 04/16/17 18:15 Dose: Not Given Famotidine (Pepcid) 20 mg IVP DAILY [facility] Last Admin: 04/16/17 11:39 Dose: 20 mg Diltiazem HCl 125 mg/ Sodium (Chloride) 125 mls @ 5 mls/hr IV .Q24H [facility]; 5 MG/ HR PRN Reason: Protocol Last Titration: 04/16/17 09:00 Dose: 3 mg/hr, 3 mls/hr Imipenem/Cilastatin Sodium 500 (mg/ Sodium Chloride) 100 mls @ 100 mls/hr IVPB Q8H [facility] Last Admin: 04/16/17 11:39 Dose: 100 mls/hr Vancomycin/Sodium Chloride (Vancocin) 1 gm in 200 mls @ 133.333 mls/hr IVPB Q24H [facility] Stop: 04/20/17 13:01 Last Admin: 04/16/17 16:59 Dose: 133.333 mls/hr Fluconazole (Diflucan Iv 100 Mg/50 Ml Ns) 50 mls @ 100 mls/hr IVPB Q24H [facility] - Labs Labs: 04/16/17 06:45 04/16/17 06:45 PT 12.5 SECONDS (9.7-12.2) H 04/14/17 11:38 INR 1.1 04/14/17 11:38 APTT 45 SECONDS (21-34) H D 04/16/17 06:45 - Constitutional Appears: Well - Head Exam Head Exam: ATRAUMATIC, NORMAL INSPECTION, NORMOCEPHALIC - Eye Exam Eye Exam: EOMI, Normal appearance, PERRL Pupil Exam: NORMAL ACCOMODATION, PERRL - ENT Exam ENT Exam: Mucous Membranes Moist, Normal Exam - Neck Exam Neck Exam: Full ROM, Normal Inspection. absent: Lymphadenopathy - Respiratory Exam Respiratory Exam: Decreased Breath Sounds - Cardiovascular Exam Cardiovascular Exam: REGULAR RHYTHM, +S1, +S2 - GI/Abdominal Exam GI & Abdominal Exam: Soft, Diminished Bowel Sounds - Rectal Exam Rectal Exam: Deferred
--- NOTE | 2017-04-16 22:31 | CP.PCM.PN ---
Subjective - Date & Time of Evaluation Date of Evaluation: 04/16/17 Time of Evaluation: 22:30 - Subjective Subjective: CHIEF COMPLAINTS TODAY : EVENTS NOTED PATIENT SHORT OF BREATH AND TACHYPNEA. PATIENT ON BIPAP WBC INCREASING CXR -PULMONARY EDEMA/CHF With bilateral pleural effusions. ROS. HEENT : N. Resp : No SOB wheezing, cough Cardio : No CP, PND orthopnea GI : No abd. Pain, n/v KEYLINER : No headache , focal deficit. Musculoskel : N Ext. : Pedal pulses WEAK, no edema or calf pain RT,FOOT TOES ISCHEMIC CHANGES AND DRY GANGRENE. Derm : N . Psych : N. PE. Pt. is awake in no distress.CONFUSED V.S As noted in the chart Head ,ear nose,throat and eyes : Normal. Neck : Supple with normal carotids. Lungs: FEW BASILAR RALES Heart : S1 & S2 IRREGULAR. . No murmur. Abd : Soft non tender with normal bowel sounds. Neuro : Moves all ext. with no localized deficit. Ext : No edema with intact pulses. Neg. calf tenderness Derm : No rashes or decubitus ulcer. Radiology/Labs . REVIEWED CXR 04/16/17 diffuse bilateral infiltrates representing PE /CHF /? PNEUMONIA.BILATERAL PLEURAL EFFUSIONS. urine culture 04/14/17 +ve YEAST BLOOD CULTURES NEGATIVE TO DATE .LFTS ; TRANSAMINITIS IMPROVING. TROPONINS POSITIVE. Objective - Vital Signs/Intake and Output Vital Signs (last 24 hours): Temp Pulse Resp BP Pulse Ox 98.4 F 130 H 38 H 155/66 H 91 L 04/16/17 20:00 04/16/17 19:54 04/16/17 17:30 04/16/17 18:12 04/16/17 06:00 Intake and Output: 04/16/17 04/17/17 18:59 06:59 Intake Total 759.8 195 Output Total 667 800 Balance 92.8 -605 - Medications Medications: Current Medications Aspirin (Ecotrin) 81 mg PO DAILY [facility] Last Admin: 04/16/17 12:00 Dose: Not Given Clopidogrel Bisulfate (Plavix) 75 mg PO DAILY [facility] Last Admin: 04/16/17 10:00 Dose: Not Given Diltiazem HCl (Cardizem) 30 mg PO QID [facility] Last Admin: 04/16/17 21:28 Dose: Not Given Famotidine (Pepcid) 20 mg IVP DAILY [facility] Last Admin: 04/16/17 11:39 Dose: 20 mg Diltiazem HCl 125 mg/ Sodium (Chloride) 125 mls @ 5 mls/hr IV .Q24H [facility]; 5 MG/ HR PRN Reason: Protocol Last Admin: 04/16/17 19:53 Dose: Not Given Imipenem/Cilastatin Sodium 500 (mg/ Sodium Chloride) 100 mls @ 100 mls/hr IVPB Q8H [facility] Last Admin: 04/16/17 19:10 Dose: 100 mls/hr Vancomycin/Sodium Chloride (Vancocin) 1 gm in 200 mls @ 133.333 mls/hr IVPB Q24H [facility] Stop: 04/20/17 13:01 Last Admin: 04/16/17 16:59 Dose: 133.333 mls/hr Fluconazole (Diflucan Iv 100 Mg/50 Ml Ns) 50 mls @ 100 mls/hr IVPB Q24H [facility] Last Admin: 04/16/17 21:30 Dose: 100 mls/hr - Labs Labs: 04/16/17 06:45 04/16/17 06:45 PT 12.5 SECONDS (9.7-12.2) H 04/14/17 11:38 INR 1.1 04/14/17 11:38 APTT 45 SECONDS (21-34) H D 04/16/17 06:45 Assessment and Plan (1) Altered mental status Assessment & Plan: Continue IV Primaxin 500 every 8 hourly for broader gram-negative coverage. / Continue IV Vanco 1 g every 24 hourly for now. 04/14/17. Monitor renal functions closely. follow-up Vanco trough level prior to the fourth dose and keep it between 10 and 20.. As discussed with resident patient given a dose of Lasix 40 mg IV push Follow-up chest x-ray in a.m. PATIENT ALSO STARTED ON iv dIFLUCAN 100 MG ONCE A DAY DAILY OR [facility]. Status: Acute (2) Atrial fibrillation Status: Acute (3) UTI (urinary tract infection) Assessment & Plan: URINALYSIS 3+ LEUKOCYTES, wbc 723, rbcS 159, YEAST MANY. urine culture positive for yeast As discussed with resident, will start patient on IV Diflucan 100 mg once a day daily after blood cultures 2 sets for yeast MONITOR lftS VERY CLOSELY. Status: Acute (4) Myocardial infarction Status: Acute (5) PAD (peripheral artery disease) Assessment & Plan: PATIENT HAS BILATERAL ISCHEMIC GANGRENOUS TOES. Status: Acute
--- NOTE | 2017-04-16 22:40 | CP.PCM.PN ---
Subjective - Date & Time of Evaluation Date of Evaluation: 04/16/17 Time of Evaluation: 11:40 - Subjective Subjective: Patient seen and evaluated Denies chest pain and dyspnea No additional cardiac events noted Objective - Vital Signs/Intake and Output Vital Signs (last 24 hours): Temp Pulse Resp BP Pulse Ox 98.4 F 135 H 38 H 155/66 H 91 L 04/16/17 20:00 04/16/17 22:37 04/16/17 17:30 04/16/17 18:12 04/16/17 06:00 Intake and Output: 04/16/17 04/17/17 18:59 06:59 Intake Total 759.8 195 Output Total 667 800 Balance 92.8 -605 - Medications Medications: Current Medications Aspirin (Ecotrin) 81 mg PO DAILY [facility] Last Admin: 04/16/17 12:00 Dose: Not Given Clopidogrel Bisulfate (Plavix) 75 mg PO DAILY [facility] Last Admin: 04/16/17 10:00 Dose: Not Given Diltiazem HCl (Cardizem) 30 mg PO QID [facility] Last Admin: 04/16/17 21:28 Dose: Not Given Famotidine (Pepcid) 20 mg IVP DAILY [facility] Last Admin: 04/16/17 11:39 Dose: 20 mg Diltiazem HCl 125 mg/ Sodium (Chloride) 125 mls @ 5 mls/hr IV .Q24H [facility]; 5 MG/ HR PRN Reason: Protocol Last Admin: 04/16/17 19:53 Dose: Not Given Imipenem/Cilastatin Sodium 500 (mg/ Sodium Chloride) 100 mls @ 100 mls/hr IVPB Q8H [facility] Last Admin: 04/16/17 19:10 Dose: 100 mls/hr Vancomycin/Sodium Chloride (Vancocin) 1 gm in 200 mls @ 133.333 mls/hr IVPB Q24H [facility] Stop: 04/20/17 13:01 Last Admin: 04/16/17 16:59 Dose: 133.333 mls/hr Fluconazole (Diflucan Iv 100 Mg/50 Ml Ns) 50 mls @ 100 mls/hr IVPB Q24H [facility] Last Admin: 04/16/17 21:30 Dose: 100 mls/hr - Labs Labs: 04/16/17 06:45 04/16/17 06:45 PT 12.5 SECONDS (9.7-12.2) H 04/14/17 11:38 INR 1.1 04/14/17 11:38 APTT 45 SECONDS (21-34) H D 04/16/17 06:45
[2017-04-17] MEDS ORDERED: Metoprolol 1 mg/ml Inj IVP ONE (00:17)
[2017-04-17] MEDS: Metoprolol 1 mg/ml Inj IVP SCH ×2 (05:41→12:17)
[2017-04-17 06:55] LABS: HEMOGLOBIN 9.9 g/dL (12.0-18.0); MEAN CELL VOLUME 89.5 fL (80.0-94.0); MEAN CORPUSCULAR HEMOGLOBIN 29.2 pg (27.0-31.0); MEAN CORPUSCULAR HGB CONC 32.7 g/dL (33.0-37.0); MEAN PLATELET VOLUME 9.6 fL (7.2-11.7); RBC 3.4 Mil/uL (4.40-5.90); RED CELL DISTRIBUTION WIDTH 15.8 % (11.5-14.5); WHITE BLOOD COUNT 16.2 K/uL (4.8-10.8)
[2017-04-17 07:03] LABS: ALBUMIN 2.2 g/dL (3.5-5.0)
[2017-04-17 07:06] LABS: ALB/GLOB RATIO 0.8 (1.0-2.1); BLOOD UREA NITROGEN 52 mg/dL (9-20); GFR AFRICAN-AMERICAN > 60; GFR NON-AFRICAN AMERICAN 58
[2017-04-17 07:07] LABS: CALCIUM 7.1 mg/dl (8.6-10.4)
[2017-04-17 07:26] LABS: ALT/SGPT 2029 U/L (21-72)
[2017-04-17 07:37] LABS: AST/SGOT 2246 U/L (17-59)
--- NOTE | 2017-04-17 10:09 | CP.CCUPN ---
CCU Subjective - Physician Review Events Since Last Encounter (Free Text): 04/17/17 09:53 The Patient was seen and examined at the bedside, Medical records reviewed, all clinical/lab/hemodynamic/radiographic data were reviewed and management issues were discussed and formulated, Events reviewed Pt lethargic, mildly anxious received ativan 0.5 mg given for agitation He was transfused 1 unit pRBC yesterday Remains in A-fib with RVR on cardiazem drip, PO ASA and plavix Also on PO Cardiazem and lopressor was added NG tube placed during round for medications and feeding, CXR showing NG tube extending into the stomach. Will start tube feeding with Oxypa On IV Lasix ordered, and diuresing well K supplemented Taken off BIPAP, placed on 3L nasal cannula, tolerating so far and saturating mid 90s On Contact isolation and antibiotics with Vancomycin, Imipenem and Fluconazole [facility] with elevated LFTs, will repeat LFT/hepatitis profile DNR/DNI CCU Objective - Vital Signs / Intake & Output Vital Signs (Last 4 hours): Vital Signs Pulse 04/17/17 08:36 94 H 04/17/17 06:10 115 H Intake and Output (Last 8hrs): Intake & Output 04/16/17 04/17/17 04/17/17 22:59 06:59 14:59 Intake Total 779 311 15 Output Total 1181 775 60 Balance -402 -464 -45 Intake: IV 9 91 Intake, IV Amount 395 220 15 Left Forearm 45 120 15 RFA 350 100 Oral 0 0 0 Blood Product 325 Red Blood Cells Cpd As1 325 Lr Unit [id number] Other 50 Red Blood Cells Cpd As1 50 Lr Unit [id number] Output: Urine 1180 775 60 Urethral (Ivy) 1180 775 60 Stool 1 - Physical Exam Head: Positive for: Atraumatic Pupils: Positive for: PERRL Extroacular Muscles: Positive for: EOMI Conjunctiva: Positive for: Normal. Negative for: Injected, Icteric Mouth: Positive for: Moist Mucous Membranes Respiratory/Chest: Positive for: Rales, Tachypneic. Negative for: Clear to Auscultation, Respiratory Distress, Accessory Muscle Use Cardiovascular: Positive for: Regular Rate and Rhythm, Murmurs. Negative for: Tachycardic Abdomen: Negative for: Tenderness, Distention Neurological: Positive for: Motor Func Grossly Intact, Normal Sensory Function Skin: Positive for: Warm, Dry Psychiatric: Positive for: Alert, Anxious, Agitated - Medications Active Medications: Active Medications Generic Name Dose Route Start Last Admin Trade Name Chloe PRN Reason Stop Dose Admin Aspirin 81 mg 04/15/17 10:00 04/16/17 12:00 Ecotrin PO Not Given DAILY [facility] Clopidogrel Bisulfate 75 mg 04/15/17 10:00 04/16/17 10:00 Plavix PO Not Given DAILY [facility] Diltiazem HCl 30 mg 04/15/17 14:00 04/16/17 21:28 Cardizem PO Not Given QID [facility] Famotidine 20 mg 04/15/17 10:00 04/16/17 11:39 Pepcid IVP 20 mg DAILY [facility] Administration Diltiazem HCl 125 mg/ Sodium 125 mls @ 5 mls/hr 04/14/17 16:00 04/17/17 01:41 Chloride IV 15 mg/hr .Q24H [facility] 15 mls/hr Protocol Administration 5 MG/HR Imipenem/Cilastatin Sodium 500 100 mls @ 100 mls/hr 04/14/17 18:00 04/17/17 01:34 mg/ Sodium Chloride IVPB 100 mls/hr Q8H [facility] Administration Vancomycin/Sodium Chloride 1 gm in 200 mls @ 133.333 mls/hr 04/15/17 13:00 16:59 Vancocin IVPB 04/20/17 13:01 133.333 mls/hr Q24H [facility] Administration Fluconazole 50 mls @ 100 mls/hr 04/16/17 22:00 04/16/17 21:30 Diflucan Iv 100 Mg/50 Ml Ns IVPB 100 mls/hr Q24H [facility] Administration Metoprolol Tartrate 5 mg 04/17/17 06:00 04/17/17 05:41 Lopressor IVP 5 mg Q6 [facility] Administration - Patient Studies Lab Studies: Lab Studies 04/17/17 04/17/17 04/16/17 Range/Units 06:46 06:46 11:32 WBC 16.2 H (4.8-10.8) K/uL RBC 3.40 L (4.40-5.90) Mil/uL Hgb 9.9 L D (12.0-18.0) g/dL Hct 30.4 L (35.0-51.0) % MCV 89.5 (80.0-94.0) fL MCH 29.2 (27.0-31.0) pg MCHC 32.7 L (33.0-37.0) g/dL RDW 15.8 H (11.5-14.5) % Plt Count 320 (130-400) K/uL MPV 9.6 (7.2-11.7) fL Sodium 142 (132-148) mmol/L Potassium 3.2 L (3.6-5.2) mmol/L Chloride 109 H (98-107) mmol/L Carbon Dioxide 18 L (22-30) mmol/L Anion Gap 18 (10-20) BUN 52 H (9-20) mg/dL Creatinine 1.2 (0.8-1.5) MG/DL Est GFR ( Amer) > 60 Est GFR (Non-Af Amer) 58 Random Glucose 141 H (75-110) mg/dL Calcium 7.1 L (8.6-10.4) mg/dl Total Bilirubin 0.8 (0.2-1.3) mg/dL AST 2246 H (17-59) U/L ALT 2029 H (21-72) U/L Alkaline Phosphatase 154 H (38-126) U/L Total Protein 5.0 L (6.3-8.3) g/dL Albumin 2.2 L (3.5-5.0) g/dL Globulin 2.9 (2.2-3.9) gm/dL Albumin/Globulin Ratio 0.8 L (1.0-2.1) Blood Type O POSITIVE Antibody Screen Negative Laboratory Results - last 24 hr 04/16/17 04/17/17 04/17/17 11:32 06:46 06:46 WBC 16.2 H RBC 3.40 L Hgb 9.9 L D Hct 30.4 L MCV 89.5 MCH 29.2 MCHC 32.7 L RDW 15.8 H Plt Count 320 MPV 9.6 Sodium 142 Potassium 3.2 L Chloride 109 H Carbon Dioxide 18 L Anion Gap 18 BUN 52 H Creatinine 1.2 Est GFR ( Amer) > 60 Est GFR (Non-Af Amer) 58 Random Glucose 141 H Calcium 7.1 L Total Bilirubin 0.8 AST 2246 H ALT 2029 H Alkaline Phosphatase 154 H Total Protein 5.0 L Albumin 2.2 L Globulin 2.9 Albumin/Globulin Ratio 0.8 L Blood Type O POSITIVE Antibody Screen Negative Fingerstick Blood Sugar Results: 200 Review of Systems - Review of Systems Systems not reviewed;Unavailable: Uncooperative Critical Care Progress Note - Nutrition Nutrition: Nutrition Category Date Time Status Pureed [Dysphagia/Modified Consistency Diet] [DIET] Diets 04/15/17 Lunch Active Assessment/Plan (1) Atrial fibrillation Current Visit: Yes Status: Acute Comment: Wean off cardiazem drip Continue PO Cardiazem and lopressor was added Continue PO ASA and plavix (2) Severe sepsis Current Visit: Yes Status: Acute Comment: On Contact isolation and antibiotics with Vancomycin, Imipenem and Fluconazole [facility] with elevated LFTs, will repeat LFT/hepatitis profile (3) Altered mental status Current Visit: Yes Status: Acute (4) UTI (urinary tract infection) Current Visit: Yes Status: Acute (5) PAD (peripheral artery disease) Current Visit: No Status: Acute (6) Toe gangrene Current Visit: No Status: Acute
--- NOTE | 2017-04-17 10:51 | RAD ---
PROCEDURE: CHEST RADIOGRAPH, 1 VIEW HISTORY: S/p NG tube placement COMPARISON: 04/16/2017 FINDINGS: LUNGS: Confluent diffuse increased areas of consolidative changes seen throughout the right lung and left lung base. Moderate to severe venous congestion. Probable bilateral pleural effusions. PLEURA: As above. CARDIOVASCULAR: Cardiomegaly. OSSEOUS STRUCTURES: No significant abnormalities. VISUALIZED UPPER ABDOMEN: Normal. OTHER FINDINGS: NG tube extending into the stomach. IMPRESSION: Confluent diffuse increased areas of consolidative changes seen throughout the right lung and left lung base. Moderate to severe venous congestion. Probable bilateral pleural effusions.
[2017-04-17] MEDS: HYDROmorphone 0.5 mg/0.5 ml ISec IVP PRN ×2 (12:17→23:26)
--- NOTE | 2017-04-17 13:33 | CP.PCM.PN ---
Subjective - Date & Time of Evaluation Date of Evaluation: 04/17/17 Time of Evaluation: 13:33 - Subjective Subjective: AFEBRILE OFF BIPAP, ON NASAL CANULA 2LO2 ON IV LASIX CXR -PULMONARY EDEMA/CHF With bilateral pleural effusions. ROS. HEENT : N. Resp : LESS SOB wheezing, cough Cardio : No CP, PND orthopnea GI : No abd. 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 Musculoskel : N Ext. : Pedal pulses WEAK, no edema or calf pain RT,FOOT TOES ISCHEMIC CHANGES AND DRY GANGRENE. Derm : N . Psych : N. PE. Pt. is awake in no distress.CONFUSED V.S As noted in the chart Head ,ear nose,throat and eyes : Normal. Neck : Supple with normal carotids. Lungs: FEW BASILAR RALES Heart : S1 & S2 IRREGULAR. . No murmur. Abd : Soft non tender with normal bowel sounds. Neuro : Moves all ext. with no localized deficit. Ext : No edema with intact pulses. Neg. calf tenderness Derm : No rashes or decubitus ulcer. Radiology/Labs . REVIEWED CXR 04/16/17 diffuse bilateral infiltrates representing PE /CHF /? PNEUMONIA.BILATERAL PLEURAL EFFUSIONS. urine culture 04/14/17 +ve YEAST BLOOD CULTURES NEGATIVE TO DATE .LFTS ; TRANSAMINITIS IMPROVING. TROPONINS POSITIVE. Objective - Vital Signs/Intake and Output Vital Signs (last 24 hours): Temp Pulse Resp BP Pulse Ox 97.3 F L 92 H 38 H 128/57 L 93 L 04/17/17 08:00 04/17/17 13:29 04/17/17 10:11 04/17/17 10:11 04/17/17 10:11 Intake and Output: 04/17/17 04/17/17 06:59 18:59 Intake Total 506 185 Output Total 1575 235 Balance -1069 -50 - Medications Medications: Current Medications Aspirin (Ecotrin) 81 mg PO DAILY [facility] Last Admin: 04/16/17 12:00 Dose: Not Given Clopidogrel Bisulfate (Plavix) 75 mg PO DAILY [facility] Last Admin: 04/16/17 10:00 Dose: Not Given Diltiazem HCl (Cardizem) 30 mg PO QID [facility] Last Admin: 04/17/17 10:37 Dose: Not Given Famotidine (Pepcid) 20 mg IVP DAILY [facility] Last Admin: 04/17/17 10:37 Dose: 20 mg Hydromorphone HCl (Dilaudid) 0.5 mg IVP Q6H PRN PRN Reason: pain Last Admin: 04/17/17 12:17 Dose: 0.5 mg Diltiazem HCl 125 mg/ Sodium (Chloride) 125 mls @ 5 mls/hr IV .Q24H [facility]; 5 MG/ HR PRN Reason: Protocol Last Admin: 04/17/17 12:20 Dose: 15 mg/hr, 15 mls/hr Imipenem/Cilastatin Sodium 500 (mg/ Sodium Chloride) 100 mls @ 100 mls/hr IVPB Q8H [facility] Last Admin: 04/17/17 10:36 Dose: 100 mls/hr Vancomycin/Sodium Chloride (Vancocin) 1 gm in 200 mls @ 133.333 mls/hr IVPB Q24H [facility] Stop: 04/20/17 13:01 Last Admin: 04/16/17 16:59 Dose: 133.333 mls/hr Metoprolol Tartrate (Lopressor) 5 mg IVP Q6 [facility] Last Admin: 04/17/17 12:17 Dose: 5 mg - Labs Labs: 04/17/17 06:46 04/17/17 06:46 PT 12.5 SECONDS (9.7-12.2) H 04/14/17 11:38 INR 1.1 04/14/17 11:38 APTT 45 SECONDS (21-34) H D 04/16/17 06:45 Assessment and Plan (1) Altered mental status Assessment & Plan: MENTAL STATUS IMPROVED BUT PT STILL FORGETFUL Continue IV Primaxin 500 every 8 hourly for broader gram-negative coverage. / Continue IV Vanco 1 g every 24 hourly for now. 04/14/17. Monitor renal functions closely. follow-up Vanco trough level prior to the fourth dose and keep it between 10 and 20. IV DIFLUCAN HELD IN VIEW OF RISING TRANSAMINITIS. STATINS HELD ALSO. OBSERVE LFTS . IF IMPROVING WILL CONSIDER RESTARTING IV DIFLUCAN BUT DECREASE DOSE.(100MG IV MWF ) . Status: Acute (2) Atrial fibrillation Status: Acute (3) UTI (urinary tract infection) Assessment & Plan: LAST URINE CULTURE +VE YEAST. BLOOD CULTURES -VE FOR FUNGAL ELEMENTS.F/U CULTURES. Status: Acute (4) Myocardial infarction Status: Acute (5) PAD (peripheral artery disease) Assessment & Plan: PATIENT HAS BILATERAL ISCHEMIC GANGRENOUS TOES. Status: Acute
--- NOTE | 2017-04-17 14:31 | CP.PCM.PN ---
Subjective - Date & Time of Evaluation Date of Evaluation: 04/17/17 Time of Evaluation: 12:40 - Subjective Subjective: clinically same Objective - Vital Signs/Intake and Output Vital Signs (last 24 hours): Temp Pulse Resp BP Pulse Ox 97.3 F L 92 H 38 H 128/57 L 93 L 04/17/17 08:00 04/17/17 13:29 04/17/17 10:11 04/17/17 10:11 04/17/17 10:11 Intake and Output: 04/17/17 04/17/17 06:59 18:59 Intake Total 506 185 Output Total 1575 235 Balance -1069 -50 - Medications Medications: Current Medications Aspirin (Ecotrin) 81 mg PO DAILY [facility] Last Admin: 04/16/17 12:00 Dose: Not Given Clopidogrel Bisulfate (Plavix) 75 mg PO DAILY [facility] Last Admin: 04/16/17 10:00 Dose: Not Given Diltiazem HCl (Cardizem) 30 mg PO QID [facility] Last Admin: 04/17/17 10:37 Dose: Not Given Famotidine (Pepcid) 20 mg IVP DAILY [facility] Last Admin: 04/17/17 10:37 Dose: 20 mg Hydromorphone HCl (Dilaudid) 0.5 mg IVP Q6H PRN PRN Reason: pain Last Admin: 04/17/17 12:17 Dose: 0.5 mg Diltiazem HCl 125 mg/ Sodium (Chloride) 125 mls @ 5 mls/hr IV .Q24H [facility]; 5 MG/ HR PRN Reason: Protocol Last Admin: 04/17/17 12:20 Dose: 15 mg/hr, 15 mls/hr Imipenem/Cilastatin Sodium 500 (mg/ Sodium Chloride) 100 mls @ 100 mls/hr IVPB Q8H [facility] Last Admin: 04/17/17 10:36 Dose: 100 mls/hr Vancomycin/Sodium Chloride (Vancocin) 1 gm in 200 mls @ 133.333 mls/hr IVPB Q24H [facility] Stop: 04/20/17 13:01 Last Admin: 04/16/17 16:59 Dose: 133.333 mls/hr Metoprolol Tartrate (Lopressor) 5 mg IVP Q6 [facility] Last Admin: 04/17/17 12:17 Dose: 5 mg - Labs Labs: 04/17/17 06:46 04/17/17 06:46 PT 12.5 SECONDS (9.7-12.2) H 04/14/17 11:38 INR 1.1 04/14/17 11:38 APTT 45 SECONDS (21-34) H D 04/16/17 06:45 - Constitutional Appears: Well - Head Exam Head Exam: ATRAUMATIC, NORMAL INSPECTION, NORMOCEPHALIC - Eye Exam Eye Exam: EOMI, Normal appearance, PERRL Pupil Exam: NORMAL ACCOMODATION, PERRL - ENT Exam ENT Exam: Mucous Membranes Moist, Normal Exam - Neck Exam Neck Exam: Full ROM, Normal Inspection. absent: Lymphadenopathy - Respiratory Exam Respiratory Exam: Decreased Breath Sounds - Cardiovascular Exam Cardiovascular Exam: REGULAR RHYTHM, +S1, +S2 - GI/Abdominal Exam GI & Abdominal Exam: Soft, Diminished Bowel Sounds - Rectal Exam Rectal Exam: Deferred
[2017-04-17] MEDS: Vancomycin 1 gm/NS 200 ml 1 GM/200 ML BAG IVPB SCH (14:38)
[2017-04-17] MEDS ORDERED: HYDROmorphone 0.5 mg/0.5 ml ISec IVP STA (16:07)
[2017-04-17] MEDS ORDERED: Potassium Chloride 20 mEq ER Tab PO STA (17:02)
--- NOTE | 2017-04-17 17:50 | US ---
Abdominal ultrasound History: Elevated liver enzymes. Comparison: None available. Technique: Real-time sonography was performed through the abdomen. Findings: Liver: 12.2 centimeters length. Increased echogenicity of hepatic parenchyma suggestive for fatty infiltration versus hepatic parenchymal disease. Clinical correlation. Normal color Doppler flow in the portal and hepatic veins. Gallbladder appears preserved. Normal wall thickness of 2.5 millimeters. Common bile duct measures 2.7 millimeters, within normal limits. Limited visualization of the pancreas. Spleen measures 9 centimeters length, within limits. Visualized proximal aorta and IVC are preserved. Right kidney: 10.6 x 4.7 x 4.7 centimeters. No calculi or hydronephrosis. Left kidney 0.8 x 6.1 x 4.9 centimeters. No calculi or hydronephrosis. Bilateral pleural effusions are noted. Impression: Increased echogenicity of the hepatic parenchyma suggestive for fatty infiltration versus hepatic parenchymal disease. Clinical correlation. Bilateral pleural effusions noted. Limited visualization of the pancreas and aorta.
[2017-04-17] MEDS ORDERED: Potassium Chloride 20 mEq/15 ml LIQ UD PO STA (18:48)
[2017-04-17 19:51] LABS: HEMOGLOBIN 10.4 g/dL (12.0-18.0); MEAN CELL VOLUME 88.5 fL (80.0-94.0); MEAN CORPUSCULAR HEMOGLOBIN 28.6 pg (27.0-31.0); MEAN CORPUSCULAR HGB CONC 32.3 g/dL (33.0-37.0); MEAN PLATELET VOLUME 9.7 fL (7.2-11.7); RBC 3.63 Mil/uL (4.40-5.90); WHITE BLOOD COUNT 20.6 K/uL (4.8-10.8)
[2017-04-17 20:01] LABS: INR 1.2; PROTHROMBIN TIME 13.7 SECONDS (9.7-12.2)
[2017-04-17 20:02] LABS: ALBUMIN 2.5 g/dL (3.5-5.0)
[2017-04-17 20:05] LABS: GFR AFRICAN-AMERICAN > 60; GFR NON-AFRICAN AMERICAN 58
[2017-04-17 20:06] LABS: ALB/GLOB RATIO 0.8 (1.0-2.1); BILIRUBIN,DIRECT 0.7 mg/dL (0.0-0.4); BLOOD UREA NITROGEN 59 mg/dL (9-20); CALCIUM 8.1 mg/dl (8.6-10.4)
[2017-04-17 20:08] LABS: IRON 39 ug/dL (49-181)
[2017-04-17 20:15] LABS: IMMUNOGLOBULIN G 723.1 mg/dL (700.0-1600.0)
[2017-04-17 20:16] LABS: IMMUNOGLOBULIN A 277.3 mg/dL (70.0-400.0)
[2017-04-17 20:21] LABS: % IRON SATURATION 20 (20-55); TOTAL IRON BINDING CAPACITY 196 ug/dL (250-450)
[2017-04-17 20:38] LABS: ALT/SGPT 1896 U/L (21-72); AST/SGOT 1246 U/L (17-59)
[2017-04-18 06:30] LABS: BASO # 0.1 K/uL (0.0-0.2); BASO % 0.2 % (0.0-2.0); EOS # 0.1 K/uL (0.0-0.7); EOS % 0.6 % (0.0-4.0); HEMOGLOBIN 10.6 g/dL (12.0-18.0); LYMPH # 2.3 K/uL (1.0-4.3); LYMPH % 10.8 % (20.0-40.0); MEAN CELL VOLUME 89.7 fL (80.0-94.0); MEAN CORPUSCULAR HEMOGLOBIN 28.9 pg (27.0-31.0); MEAN CORPUSCULAR HGB CONC 32.2 g/dL (33.0-37.0); MEAN PLATELET VOLUME 9.7 fL (7.2-11.7); MONO # 1.1 K/uL (0.0-0.8); MONO % 5.4 % (0.0-10.0); NEUT # 17.5 K/uL (1.8-7.0); NRBC % 0.2 % (0.0-2.0); RBC 3.67 Mil/uL (4.40-5.90); RED CELL DISTRIBUTION WIDTH 15.9 % (11.5-14.5); WHITE BLOOD COUNT 21.1 K/uL (4.8-10.8)
[2017-04-18 06:37] LABS: ALBUMIN 2.4 g/dL (3.5-5.0)
[2017-04-18 06:40] LABS: ALB/GLOB RATIO 0.8 (1.0-2.1); GFR AFRICAN-AMERICAN > 60; GFR NON-AFRICAN AMERICAN > 60
[2017-04-18 06:41] LABS: BLOOD UREA NITROGEN 57 mg/dL (9-20); CALCIUM 7.6 mg/dl (8.6-10.4); MAGNESIUM 2.3 mg/dL (1.6-2.3)
[2017-04-18 07:00] LABS: ALT/SGPT 1569 U/L (21-72); AST/SGOT 932 U/L (17-59)
--- NOTE | 2017-04-18 07:59 | CP.PCM.CON ---
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 Patient note able to provide history due to confusion at baseline. Nursing facility chart review and ICU nurse report worsened confusion and lethargy at nursing facility with confirmed severe sepsis secondary to yeast UTI with Bilateral pleural effusions requiring BiPAP and nasal cannula supplementation. GI consultation for worsening LFTs. Unable to obtain ROS or prior endoscopic evaluation due to confusion. Family- unable to obtain due to confusion Social- unable to obtain due to confusion, intermediate chart states former tobacco abuse Surgery- coronary stent, unable to obtain due to confusion Review of Systems - Review of Systems Systems not reviewed;Unavailable: Altered Mental Status Past Patient History - Infectious Disease Hx of Infectious Diseases: None - Tetanus Immunizations Tetanus Immunization: Unknown - Past Medical History & Family History Past Medical History?: Yes - Past Social History Smoking Status: Former Smoker - CARDIAC Hx Atrial Fibrillation: Yes Hx Cardia Arrhythmia: No Hx Congestive Heart Failure: No Hx Hypercholesterolemia: Yes Hx Hypertension: Yes Hx Mitral Valve Prolapse: No Hx Pacemaker: No Hx Peripheral Edema: No - PULMONARY Hx Asthma: No Hx Bronchitis: No Hx Chronic Obstructive Pulmonary Disease (COPD): No Hx Emphysema: No Hx Pneumonia: No Hx Sleep Apnea: No - NEUROLOGICAL Hx Alzheimer's Disease: No Hx Dementia: No Hx Migraine: No Hx Parkinson's Disease: No Hx Seizures: No Hx Transient Ischemic Attacks (TIA): No - HEENT Hx HEENT Problems: No - RENAL Hx Chronic Kidney Disease: No Hx Kidney Stones: No - ENDOCRINE/METABOLIC Hx Hyperthyroidism: No Hx Hypothyroidism: No - HEMATOLOGICAL/ONCOLOGICAL Hx Anemia: Yes Hx Human Immunodeficiency Virus (HIV): No Hx Sickle Cell Disease: No - INTEGUMENTARY Hx Dermatological Problems: No - MUSCULOSKELETAL/RHEUMATOLOGICAL Hx Arthritis: No Hx Fractures: No Hx Osteoporosis: No - GASTROINTESTINAL Hx Crohn's Disease: No Hx Diverticulitis: No Hx Gall Bladder Disease: No Hx Pancreatitis: No - GENITOURINARY/GYNECOLOGICAL Hx Sexually Transmitted Disorders: No - PSYCHIATRIC Hx Anxiety: Yes Hx Bipolar Disorder: No Hx Depression: No Hx Paranoia: No Hx Post Traumatic Stress Disorder: No Hx Schizophrenia: No Hx Substance Use: No - SURGICAL HISTORY Hx Appendectomy: No Hx Cholecystectomy: No Hx Coronary Stent: Yes - ANESTHESIA Hx Anesthesia: Yes Hx Anesthesia Reactions: No Hx Malignant Hyperthermia: No Meds Allergies/Adverse Reactions: Allergies Allergy/AdvReac Type Severity Reaction Status Date / Time No Known Allergies Allergy Verified 10/02/16 10:29 - Medications Medications: Current Medications Aspirin (Ecotrin) 81 mg PO DAILY [facility] Last Admin: 04/17/17 14:45 Dose: 81 mg Clopidogrel Bisulfate (Plavix) 75 mg PO DAILY [facility] Last Admin: 04/17/17 14:45 Dose: 75 mg Diltiazem HCl (Cardizem) 30 mg PO QID [facility] Last Admin: 04/17/17 21:33 Dose: 30 mg Famotidine (Pepcid) 20 mg IVP DAILY [facility] Last Admin: 04/17/17 10:37 Dose: 20 mg Furosemide (Lasix) 20 mg IVP DAILY [facility] Last Admin: 04/17/17 18:50 Dose: 20 mg Hydromorphone HCl (Dilaudid) 0.5 mg IVP Q6H PRN PRN Reason: pain Last Admin: 04/17/17 23:26 Dose: 0.5 mg Diltiazem HCl 125 mg/ Sodium (Chloride) 125 mls @ 5 mls/hr IV .Q24H [facility]; 5 MG/ HR PRN Reason: Protocol Last Admin: 04/18/17 04:52 Dose: 15 mg/hr, 15 mls/hr Imipenem/Cilastatin Sodium 500 (mg/ Sodium Chloride) 100 mls @ 100 mls/hr IVPB Q8H [facility] Last Admin: 04/18/17 01:05 Dose: 100 mls/hr Vancomycin/Sodium Chloride (Vancocin) 1 gm in 200 mls @ 133.333 mls/hr IVPB Q24H [facility] Stop: 04/20/17 13:01 Last Admin: 04/17/17 14:38 Dose: 133.333 mls/hr Metoprolol Tartrate (Lopressor) 25 mg PO Q8 [facility] Last Admin: 04/18/17 05:01 Dose: 25 mg Physical Exam - Constitutional Appears: Confused, Chronically Ill - Head Exam Head Exam: ATRAUMATIC, NORMOCEPHALIC - Eye Exam Eye Exam: PERRL Pupil Exam: PERRL. absent: Miosis, Mydriatic - ENT Exam ENT Exam: Mucous Membranes Dry, Normal Oropharynx - Neck Exam Neck exam: Positive for: Normal Inspection. Negative for: Tenderness - Respiratory Exam Respiratory Exam: Decreased Breath Sounds, Rhonchi. absent: Rales - Cardiovascular Exam Cardiovascular Exam: Irregular Rhythm, +S1, +S2. absent: Gallop, Rubs - GI/Abdominal Exam GI & Abdominal Exam: Soft. absent: Distended, Firm, Guarding, Normal Bowel Sounds, Organomegaly, Rebound, Rigid, Tenderness - Extremities Exam Additional comments: flexion contractures, no edema - Neurological Exam Neurological exam: Altered - Psychiatric Exam Additional comments: confused, incomprehensible with low audible sounds - Skin Skin Exam: Dry, Intact, Normal Color, Warm Results - Vital Signs Recent Vital Signs: Last Vital Signs Temp 98.5 F 04/18/17 04:00 Pulse 139 H 04/18/17 07:42 Resp 28 H 04/18/17 06:00 BP 115/50 L 04/18/17 05:40 Pulse Ox 96 04/18/17 06:00 - Labs Result Diagrams: 04/18/17 06:15 04/18/17 06:15 Labs: Laboratory Results - last 24 hr 04/17/17 04/17/17 04/17/17 19:35 19:35 19:35 WBC RBC Hgb Hct MCV MCH MCHC RDW Plt Count MPV Neut % (Auto) Lymph % (Auto) Garvin % (Auto) Eos % (Auto) Baso % (Auto) Neut # Lymph # Garvin # Eos # Baso # Retic Count PT 13.7 H INR 1.2 Sodium Potassium Chloride Carbon Dioxide Anion Gap BUN Creatinine Est GFR ( Amer) Est GFR (Non-Af Amer) Random Glucose Lactic Acid Calcium Phosphorus Magnesium Iron 39 L TIBC 196 L % Saturation 20 Total Bilirubin Direct Bilirubin AST ALT Alkaline Phosphatase Lactate Dehydrogenase 3885 H Total Creatine Kinase 3960 H Total Protein Albumin Globulin Albumin/Globulin Ratio IgG IgA IgM 04/17/17 04/17/17 04/17/17 19:35 19:35 19:35 WBC 20.6 H RBC 3.63 L Hgb 10.4 L Hct 32.1 L MCV 88.5 MCH 28.6 MCHC 32.3 L RDW 16.0 H Plt Count 371 MPV 9.7 Neut % (Auto) Lymph % (Auto) Garvin % (Auto) Eos % (Auto) Baso % (Auto) Neut # Lymph # Garvin # Eos # Baso # Retic Count 2.2 H PT INR Sodium Potassium Chloride Carbon Dioxide Anion Gap BUN Creatinine Est GFR ( Amer) Est GFR (Non-Af Amer) Random Glucose Lactic Acid 1.4 Calcium Phosphorus Magnesium Iron TIBC % Saturation Total Bilirubin Direct Bilirubin AST ALT Alkaline Phosphatase Lactate Dehydrogenase Total Creatine Kinase Total Protein Albumin Globulin Albumin/Globulin Ratio IgG 723.1 IgA 277.3 IgM 57.0 04/17/17 04/18/17 04/18/17 19:35 06:15 06:15 WBC 21.1 H RBC 3.67 L Hgb 10.6 L Hct 32.9 L MCV 89.7 MCH 28.9 MCHC 32.2 L RDW 15.9 H Plt Count 408 H MPV 9.7 Neut % (Auto) 83.0 H Lymph % (Auto) 10.8 L Garvin % (Auto) 5.4 Eos % (Auto) 0.6 Baso % (Auto) 0.2 Neut # 17.5 H Lymph # 2.3 Garvin # 1.1 H Eos # 0.1 Baso # 0.1 Retic Count PT INR Sodium 145 144 Potassium 3.9 3.6 Chloride 114 H 110 H Carbon Dioxide 20 L 21 L Anion Gap 15 17 BUN 59 H 57 H Creatinine 1.2 1.1 Est GFR ( Amer) > 60 > 60 Est GFR (Non-Af Amer) 58 > 60 Random Glucose 134 H 158 H Lactic Acid Calcium 8.1 L 7.6 L Phosphorus 3.5 Magnesium 2.3 Iron TIBC % Saturation Total Bilirubin 0.9 1.0 Direct Bilirubin 0.7 H AST 1246 H 932 H D ALT 1896 H 1569 H Alkaline Phosphatase 172 H 213 H D Lactate Dehydrogenase Total Creatine Kinase Total Protein 5.7 L 5.5 L Albumin 2.5 L 2.4 L Globulin 3.2 3.1 Albumin/Globulin Ratio 0.8 L 0.8 L IgG IgA IgM Assessment & Plan - Assessment and Plan (Free Text) Assessment: 82 year old male with 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 Active treatment of severe sepsis secondary to yeast UTI with Bilateral pleural effusions requiring BiPAP and nasal cannula supplementation. GI consultation for worsening LFTs. Unable to obtain ROS or prior endoscopic evaluation due to confusion. Plan: >multifactorial >sudden LFT worsening secondary to ischemic hepatitis-transient hypotension on -NSTEMI (elevated CPK), sepsis -drug induced -PVD- B/L LE dry gangrene -AfibRVR >Abdominal Duplex- heaptic steatosis, patent portal and hepatic veins >LFTs improving, continue to trend >pending Hepatitis panel and autoimmune workup >will follow clinical course <Phoenix Tan - Last Filed: 04/18/17 10:48> Meds - Medications Medications: Current Medications Aspirin (Ecotrin) 81 mg PO DAILY [facility] Last Admin: 04/17/17 14:45 Dose: 81 mg Clopidogrel Bisulfate (Plavix) 75 mg PO DAILY [facility] Last Admin: 04/17/17 14:45 Dose: 75 mg Diltiazem HCl (Cardizem) 30 mg PO QID [facility] Last Admin: 04/17/17 21:33 Dose: 30 mg Famotidine (Pepcid) 20 mg IVP DAILY [facility] Last Admin: 04/17/17 10:37 Dose: 20 mg Furosemide (Lasix) 20 mg IVP DAILY [facility] Last Admin: 04/17/17 18:50 Dose: 20 mg Hydromorphone HCl (Dilaudid) 0.5 mg IVP Q6H PRN PRN Reason: pain Last Admin: 04/17/17 23:26 Dose: 0.5 mg Diltiazem HCl 125 mg/ Sodium (Chloride) 125 mls @ 5 mls/hr IV .Q24H [facility]; 5 MG/ HR PRN Reason: Protocol Last Admin: 04/18/17 04:52 Dose: 15 mg/hr, 15 mls/hr Imipenem/Cilastatin Sodium 500 (mg/ Sodium Chloride) 100 mls @ 100 mls/hr IVPB Q8H [facility] Last Admin: 04/18/17 01:05 Dose: 100 mls/hr Vancomycin/Sodium Chloride (Vancocin) 1 gm in 200 mls @ 133.333 mls/hr IVPB Q24H [facility] Stop: 04/20/17 13:01 Last Admin: 04/17/17 14:38 Dose: 133.333 mls/hr Metoprolol Tartrate (Lopressor) 25 mg PO Q8 [facility] Last Admin: 04/18/17 05:01 Dose: 25 mg Results - Vital Signs Recent Vital Signs: Last Vital Signs Temp 99.2 F 04/18/17 08:00 Pulse 139 H 04/18/17 07:42 Resp 28 H 04/18/17 06:00 BP 115/50 L 04/18/17 05:40 Pulse Ox 96 04/18/17 06:00 - Labs Result Diagrams: 04/18/17 06:15 04/18/17 06:15 Labs: Laboratory Results - last 24 hr 04/17/17 04/17/17 04/17/17 19:35 19:35 19:35 WBC RBC Hgb Hct MCV MCH MCHC RDW Plt Count MPV Neut % (Auto) Lymph % (Auto) Garvin % (Auto) Eos % (Auto) Baso % (Auto) Neut # Lymph # Garvin # Eos # Baso # Retic Count PT 13.7 H INR 1.2 Sodium Potassium Chloride Carbon Dioxide Anion Gap BUN Creatinine Est GFR ( Amer) Est GFR (Non-Af Amer) Random Glucose Lactic Acid Calcium Phosphorus Magnesium Iron 39 L TIBC 196 L % Saturation 20 Total Bilirubin Direct Bilirubin AST ALT Alkaline Phosphatase Lactate Dehydrogenase 3885 H Total Creatine Kinase 3960 H Total Protein Albumin Globulin Albumin/Globulin Ratio IgG IgA IgM 04/17/17 04/17/17 04/17/17 19:35 19:35 19:35 WBC 20.6 H RBC 3.63 L Hgb 10.4 L Hct 32.1 L MCV 88.5 MCH 28.6 MCHC 32.3 L RDW 16.0 H Plt Count 371 MPV 9.7 Neut % (Auto) Lymph % (Auto) Garvin % (Auto) Eos % (Auto) Baso % (Auto) Neut # Lymph # Garvin # Eos # Baso # Retic Count 2.2 H PT INR Sodium Potassium Chloride Carbon Dioxide Anion Gap BUN Creatinine Est GFR ( Amer) Est GFR (Non-Af Amer) Random Glucose Lactic Acid 1.4 Calcium Phosphorus Magnesium Iron TIBC % Saturation Total Bilirubin Direct Bilirubin AST ALT Alkaline Phosphatase Lactate Dehydrogenase Total Creatine Kinase Total Protein Albumin Globulin Albumin/Globulin Ratio IgG 723.1 IgA 277.3 IgM 57.0 04/17/17 04/18/17 04/18/17 19:35 06:15 06:15 WBC 21.1 H RBC 3.67 L Hgb 10.6 L Hct 32.9 L MCV 89.7 MCH 28.9 MCHC 32.2 L RDW 15.9 H Plt Count 408 H MPV 9.7 Neut % (Auto) 83.0 H Lymph % (Auto) 10.8 L Garvin % (Auto) 5.4 Eos % (Auto) 0.6 Baso % (Auto) 0.2 Neut # 17.5 H Lymph # 2.3 Garvin # 1.1 H Eos # 0.1 Baso # 0.1 Retic Count PT INR Sodium 145 144 Potassium 3.9 3.6 Chloride 114 H 110 H Carbon Dioxide 20 L 21 L Anion Gap 15 17 BUN 59 H 57 H Creatinine 1.2 1.1 Est GFR ( Amer) > 60 > 60 Est GFR (Non-Af Amer) 58 > 60 Random Glucose 134 H 158 H Lactic Acid Calcium 8.1 L 7.6 L Phosphorus 3.5 Magnesium 2.3 Iron TIBC % Saturation Total Bilirubin 0.9 1.0 Direct Bilirubin 0.7 H AST 1246 H 932 H D ALT 1896 H 1569 H Alkaline Phosphatase 172 H 213 H D Lactate Dehydrogenase Total Creatine Kinase Total Protein 5.7 L 5.5 L Albumin 2.5 L 2.4 L Globulin 3.2 3.1 Albumin/Globulin Ratio 0.8 L 0.8 L IgG IgA IgM Attending/Attestation - Attestation I have personally seen and examined this patient.: Yes I have fully participated in the care of the patient.: Yes I have reviewed all pertinent clinical information: Yes Notes (Text): 04/18/17 10:43 82 year old male with h/o CVA with left hemiparesis and altered mental status, PVD, CAD s/p stent, on dual antiplatelet therapy, atrial fibrillation, HTN, HLD , who we are consulted for elevated lfts, likely ischemic hepatitis/shock liver. 1. Ischemic hepatitis 2. Elevated lfts 3. Fatty liver disease Plan: -US abdomen reviewed, fatty liver noted, vessels ok -likely acute rise in lfts is related to ischemic hepatitis considering extensive h/o atherosclerotic disease/cardiovascular disease and recent documented hypotensive episode prior to the onset of dramatic rise in lfts -his mental status is at baseline, which is confused -he does not appear to have liver failure considering his INR is 1.2 -monitor INR daily -lfts are downtrending -evaluate for other chronic and acute liver diseases as above
[2017-04-18] MEDS: HYDROmorphone 0.5 mg/0.5 ml ISec IVP PRN ×2 (10:52→18:11)
[2017-04-18] MEDS: Vancomycin 1 gm/NS 200 ml 1 GM/200 ML BAG IVPB SCH (13:02)
--- NOTE | 2017-04-18 13:05 | CP.PCM.PN ---
Subjective - Date & Time of Evaluation Date of Evaluation: 04/17/17 Time of Evaluation: 13:05 - Subjective Subjective: Patient seen and evaluated Rapid a Fib on cardizem drip S/P Non STEMI Conservative medical management for CAD now D/W Son at bedside Objective - Vital Signs/Intake and Output Vital Signs (last 24 hours): Temp Pulse Resp BP Pulse Ox 99.2 F 123 H 22 146/71 97 04/18/17 08:00 04/18/17 12:00 04/18/17 12:00 04/18/17 12:59 04/18/17 12:00 Intake and Output: 04/18/17 04/18/17 06:59 18:59 Intake Total 670 430 Output Total 1080 455 Balance -410 -25 - Medications Medications: Current Medications Aspirin (Ecotrin) 81 mg PO DAILY [facility] Last Admin: 04/18/17 10:50 Dose: 81 mg Clopidogrel Bisulfate (Plavix) 75 mg PO DAILY [facility] Last Admin: 04/18/17 10:50 Dose: 75 mg Diltiazem HCl (Cardizem) 30 mg PO QID [facility] Last Admin: 04/18/17 13:01 Dose: 30 mg Famotidine (Pepcid) 20 mg IVP DAILY [facility] Last Admin: 04/18/17 10:50 Dose: 20 mg Furosemide (Lasix) 20 mg IVP DAILY [facility] Last Admin: 04/18/17 10:49 Dose: 20 mg Hydromorphone HCl (Dilaudid) 0.5 mg IVP Q6H PRN PRN Reason: pain Last Admin: 04/18/17 10:52 Dose: 0.5 mg Diltiazem HCl 125 mg/ Sodium (Chloride) 125 mls @ 5 mls/hr IV .Q24H [facility]; 5 MG/ HR PRN Reason: Protocol Last Admin: 04/18/17 04:52 Dose: 15 mg/hr, 15 mls/hr Imipenem/Cilastatin Sodium 500 (mg/ Sodium Chloride) 100 mls @ 100 mls/hr IVPB Q8H [facility] Last Admin: 04/18/17 10:51 Dose: 100 mls/hr Vancomycin/Sodium Chloride (Vancocin) 1 gm in 200 mls @ 133.333 mls/hr IVPB Q24H [facility] Stop: 04/20/17 13:01 Last Admin: 04/18/17 13:02 Dose: 133.333 mls/hr Metoprolol Tartrate (Lopressor) 25 mg PO Q8 [facility] Last Admin: 04/18/17 12:59 Dose: 25 mg - Labs Labs: 04/18/17 06:15 04/18/17 06:15 PT 13.7 SECONDS (9.7-12.2) H 04/17/17 19:35 INR 1.2 04/17/17 19:35 APTT 45 SECONDS (21-34) H D 04/16/17 06:45
--- NOTE | 2017-04-18 14:36 | CP.CCUPN ---
CCU Subjective - Physician Review Events Since Last Encounter (Free Text): 04/18/17 14:31 Patient seen and examined in the intensive care unit. discussed during the morning rounds. Remains on BiPAP/tachypneic On Cardizem drip at 15 mg with heart rate in the mid 90s Worsening right foot gangrenous changes Started on morphine for pain No response to vocal commands Afebrile No active bleeding noted Seen by GI for elevated LFTs CCU Objective - Vital Signs / Intake & Output Vital Signs (Last 4 hours): Vital Signs Pulse Resp BP Pulse Ox 04/18/17 14:00 114 H 25 H 97 04/18/17 13:39 114 H 26 H 162/72 H 96 04/18/17 13:21 119 H 04/18/17 13:00 121 H 23 92 L 04/18/17 12:59 146/71 04/18/17 12:39 111 H 26 H 146/71 95 04/18/17 12:00 123 H 22 97 04/18/17 11:56 120 H 04/18/17 11:39 117 H 19 156/66 H 94 L 04/18/17 11:00 118 H 20 83 L 04/18/17 10:49 140/92 H 04/18/17 10:40 132 H 33 H 140/92 H 86 L Intake and Output (Last 8hrs): Intake & Output 04/17/17 04/18/17 04/18/17 22:59 06:59 14:59 Intake Total 662 480 780 Output Total 740 630 955 Balance -78 -150 -175 Weight 115 lb 115 lb Intake: IV 125 125 Intake, IV Amount 287 195 420 Left Hand 120 95 120 RFA 167 100 300 Tube Feeding 100 160 240 Other 150 120 Output: Urine 740 630 955 Urethral (Ivy) 740 630 955 Other: # Bowel Movements 1 - Physical Exam Head: Positive for: Atraumatic Pupils: Positive for: PERRL Extroacular Muscles: Positive for: EOMI Conjunctiva: Positive for: Normal. Negative for: Injected, Icteric Mouth: Positive for: Moist Mucous Membranes Respiratory/Chest: Positive for: Rales, Tachypneic. Negative for: Clear to Auscultation, Respiratory Distress, Accessory Muscle Use Cardiovascular: Positive for: Regular Rate and Rhythm, Murmurs. Negative for: Tachycardic Abdomen: Negative for: Tenderness, Distention Lower Extremity: Positive for: Other (Right foot gangrene) Neurological: Positive for: Motor Func Grossly Intact, Normal Sensory Function Skin: Positive for: Warm, Dry Psychiatric: Positive for: Alert, Anxious, Agitated - Medications Active Medications: Active Medications Generic Name Dose Route Start Last Admin Trade Name Freq PRN Reason Stop Dose Admin Aspirin 81 mg 04/15/17 10:00 04/18/17 10:50 Ecotrin PO 81 mg DAILY DEUCE Administration Clopidogrel Bisulfate 75 mg 04/15/17 10:00 04/18/17 10:50 Plavix PO 75 mg DAILY DEUCE Administration Diltiazem HCl 30 mg 04/15/17 14:00 04/18/17 13:01 Cardizem PO 30 mg QID DEUCE Administration Famotidine 20 mg 04/15/17 10:00 04/18/17 10:50 Pepcid IVP 20 mg DAILY DEUCE Administration Furosemide 20 mg 04/17/17 17:00 04/18/17 10:49 Lasix IVP 20 mg DAILY DEUCE Administration Hydromorphone HCl 0.5 mg 04/17/17 11:51 04/18/17 10:52 Dilaudid IVP 0.5 mg Q6H PRN Administration pain Diltiazem HCl 125 mg/ Sodium 125 mls @ 5 mls/hr 04/14/17 16:00 04/18/17 04:52 Chloride IV 15 mg/hr .Q24H DEUCE 15 mls/hr Protocol Administration 5 MG/HR Imipenem/Cilastatin Sodium 500 100 mls @ 100 mls/hr 04/14/17 18:00 04/18/17 10:51 mg/ Sodium Chloride IVPB 100 mls/hr Q8H DEUCE Administration Vancomycin/Sodium Chloride 1 gm in 200 mls @ 133.333 mls/hr 04/15/17 13:00 13:02 Vancocin IVPB 04/20/17 13:01 133.333 mls/hr Q24H DEUCE Administration Metoprolol Tartrate 25 mg 04/17/17 16:45 04/18/17 12:59 Lopressor PO 25 mg Q8 DEUCE Administration - Patient Studies Lab Studies: Microbiology Studies 04/16/17 16:45 Fungal Culture - Preliminary Blood Lab Studies 07/09/17 07/09/17 07/08/17 Range/Units 06:15 06:15 19:35 WBC 21.1 H (4.8-10.8) K/uL RBC 3.67 L (4.40-5.90) Mil/uL Hgb 10.6 L (12.0-18.0) g/dL Hct 32.9 L (35.0-51.0) % MCV 89.7 (80.0-94.0) fL MCH 28.9 (27.0-31.0) pg MCHC 32.2 L (33.0-37.0) g/dL RDW 15.9 H (11.5-14.5) % Plt Count 408 H (130-400) K/uL MPV 9.7 (7.2-11.7) fL Neut % (Auto) 83.0 H (50.0-75.0) % Lymph % (Auto) 10.8 L (20.0-40.0) % [place] % (Auto) 5.4 (0.0-10.0) % Eos % (Auto) 0.6 (0.0-4.0) % Baso % (Auto) 0.2 (0.0-2.0) % Neut # 17.5 H (1.8-7.0) K/uL Lymph # 2.3 (1.0-4.3) K/uL [place] # 1.1 H (0.0-0.8) K/uL Eos # 0.1 (0.0-0.7) K/uL Baso # 0.1 (0.0-0.2) K/uL Retic Count (0.5-1.5) % PT (9.7-12.2) SECONDS INR Sodium 144 145 (132-148) mmol/L Potassium 3.6 3.9 (3.6-5.2) mmol/L Chloride 110 H 114 H (98-107) mmol/L Carbon Dioxide 21 L 20 L (22-30) mmol/L Anion Gap 17 15 (10-20) BUN 57 H 59 H (9-20) mg/dL Creatinine 1.1 1.2 (0.8-1.5) MG/DL Est GFR ( Amer) > 60 > 60 Est GFR (Non-Af Amer) > 60 58 Random Glucose 158 H 134 H (75-110) mg/dL Lactic Acid (0.7-2.1) mmol/L Calcium 7.6 L 8.1 L (8.6-10.4) mg/dl Phosphorus 3.5 (2.5-4.5) mg/dL Magnesium 2.3 (1.6-2.3) mg/dL Iron (49-181) ug/dL TIBC (250-450) ug/dL % Saturation (20-55) Total Bilirubin 1.0 0.9 (0.2-1.3) mg/dL Direct Bilirubin 0.7 H (0.0-0.4) mg/dL AST 932 H D 1246 H (17-59) U/L ALT 1569 H 1896 H (21-72) U/L Alkaline Phosphatase 213 H D 172 H (38-126) U/L Lactate Dehydrogenase (313-618) U/L Total Creatine Kinase (55-170) U/L Total Protein 5.5 L 5.7 L (6.3-8.3) g/dL Albumin 2.4 L 2.5 L (3.5-5.0) g/dL Globulin 3.1 3.2 (2.2-3.9) gm/dL Albumin/Globulin Ratio 0.8 L 0.8 L (1.0-2.1) IgG (700.0-1600.0) mg/dL IgA (70.0-400.0) mg/dL IgM (40.0-230.0) mg/dL 04/17/17 04/17/17 04/17/17 Range/Units 19:35 19:35 19:35 WBC 20.6 H (4.8-10.8) K/uL RBC 3.63 L (4.40-5.90) Mil/uL Hgb 10.4 L (12.0-18.0) g/dL Hct 32.1 L (35.0-51.0) % MCV 88.5 (80.0-94.0) fL MCH 28.6 (27.0-31.0) pg MCHC 32.3 L (33.0-37.0) g/dL RDW 16.0 H (11.5-14.5) % Plt Count 371 (130-400) K/uL MPV 9.7 (7.2-11.7) fL Neut % (Auto) (50.0-75.0) % Lymph % (Auto) (20.0-40.0) % [place] % (Auto) (0.0-10.0) % Eos % (Auto) (0.0-4.0) % Baso % (Auto) (0.0-2.0) % Neut # (1.8-7.0) K/uL Lymph # (1.0-4.3) K/uL [place] # (0.0-0.8) K/uL Eos # (0.0-0.7) K/uL Baso # (0.0-0.2) K/uL Retic Count 2.2 H (0.5-1.5) % PT (9.7-12.2) SECONDS INR Sodium (132-148) mmol/L Potassium (3.6-5.2) mmol/L Chloride (98-107) mmol/L Carbon Dioxide (22-30) mmol/L Anion Gap (10-20) BUN (9-20) mg/dL Creatinine (0.8-1.5) MG/DL Est GFR ( Amer) Est GFR (Non-Af Amer) Random Glucose (75-110) mg/dL Lactic Acid 1.4 (0.7-2.1) mmol/L Calcium (8.6-10.4) mg/dl Phosphorus (2.5-4.5) mg/dL Magnesium (1.6-2.3) mg/dL Iron (49-181) ug/dL TIBC (250-450) ug/dL % Saturation (20-55) Total Bilirubin (0.2-1.3) mg/dL Direct Bilirubin (0.0-0.4) mg/dL AST (17-59) U/L ALT (21-72) U/L Alkaline Phosphatase (38-126) U/L Lactate Dehydrogenase (313-618) U/L Total Creatine Kinase (55-170) U/L Total Protein (6.3-8.3) g/dL Albumin (3.5-5.0) g/dL Globulin (2.2-3.9) gm/dL Albumin/Globulin Ratio (1.0-2.1) IgG 723.1 (700.0-1600.0) mg/dL IgA 277.3 (70.0-400.0) mg/dL IgM 57.0 (40.0-230.0) mg/dL 04/17/17 04/17/17 04/17/17 Range/Units 19:35 19:35 19:35 WBC (4.8-10.8) K/uL RBC (4.40-5.90) Mil/uL Hgb (12.0-18.0) g/dL Hct (35.0-51.0) % MCV (80.0-94.0) fL MCH (27.0-31.0) pg MCHC (33.0-37.0) g/dL RDW (11.5-14.5) % Plt Count (130-400) K/uL MPV (7.2-11.7) fL Neut % (Auto) (50.0-75.0) % Lymph % (Auto) (20.0-40.0) % [place] % (Auto) (0.0-10.0) % Eos % (Auto) (0.0-4.0) % Baso % (Auto) (0.0-2.0) % Neut # (1.8-7.0) K/uL Lymph # (1.0-4.3) K/uL [place] # (0.0-0.8) K/uL Eos # (0.0-0.7) K/uL Baso # (0.0-0.2) K/uL Retic Count (0.5-1.5) % PT 13.7 H (9.7-12.2) SECONDS INR 1.2 Sodium (132-148) mmol/L Potassium (3.6-5.2) mmol/L Chloride (98-107) mmol/L Carbon Dioxide (22-30) mmol/L Anion Gap (10-20) BUN (9-20) mg/dL Creatinine (0.8-1.5) MG/DL Est GFR ( Amer) Est GFR (Non-Af Amer) Random Glucose (75-110) mg/dL Lactic Acid (0.7-2.1) mmol/L Calcium (8.6-10.4) mg/dl Phosphorus (2.5-4.5) mg/dL Magnesium (1.6-2.3) mg/dL Iron 39 L (49-181) ug/dL TIBC 196 L (250-450) ug/dL % Saturation 20 (20-55) Total Bilirubin (0.2-1.3) mg/dL Direct Bilirubin (0.0-0.4) mg/dL AST (17-59) U/L ALT (21-72) U/L Alkaline Phosphatase (38-126) U/L Lactate Dehydrogenase 3885 H (313-618) U/L Total Creatine Kinase 3960 H (55-170) U/L Total Protein (6.3-8.3) g/dL Albumin (3.5-5.0) g/dL Globulin (2.2-3.9) gm/dL Albumin/Globulin Ratio (1.0-2.1) IgG (700.0-1600.0) mg/dL IgA (70.0-400.0) mg/dL IgM (40.0-230.0) mg/dL Laboratory Results - last 24 hr 04/17/17 04/17/17 04/17/17 19:35 19:35 19:35 WBC RBC Hgb Hct MCV MCH MCHC RDW Plt Count MPV Neut % (Auto) Lymph % (Auto) [place] % (Auto) Eos % (Auto) Baso % (Auto) Neut # Lymph # [place] # Eos # Baso # Retic Count PT 13.7 H INR 1.2 Sodium Potassium Chloride Carbon Dioxide Anion Gap BUN Creatinine Est GFR ( Amer) Est GFR (Non-Af Amer) Random Glucose Lactic Acid Calcium Phosphorus Magnesium Iron 39 L TIBC 196 L % Saturation 20 Total Bilirubin Direct Bilirubin AST ALT Alkaline Phosphatase Lactate Dehydrogenase 3885 H Total Creatine Kinase 3960 H Total Protein Albumin Globulin Albumin/Globulin Ratio IgG IgA IgM 04/17/17 04/17/17 04/17/17 19:35 19:35 19:35 WBC 20.6 H RBC 3.63 L Hgb 10.4 L Hct 32.1 L MCV 88.5 MCH 28.6 MCHC 32.3 L RDW 16.0 H Plt Count 371 MPV 9.7 Neut % (Auto) Lymph % (Auto) [place] % (Auto) Eos % (Auto) Baso % (Auto) Neut # Lymph # [place] # Eos # Baso # Retic Count 2.2 H PT INR Sodium Potassium Chloride Carbon Dioxide Anion Gap BUN Creatinine Est GFR ( Amer) Est GFR (Non-Af Amer) Random Glucose Lactic Acid 1.4 Calcium Phosphorus Magnesium Iron TIBC % Saturation Total Bilirubin Direct Bilirubin AST ALT Alkaline Phosphatase Lactate Dehydrogenase Total Creatine Kinase Total Protein Albumin Globulin Albumin/Globulin Ratio IgG 723.1 IgA 277.3 IgM 57.0 04/17/17 04/18/17 04/18/17 19:35 06:15 06:15 WBC 21.1 H RBC 3.67 L Hgb 10.6 L Hct 32.9 L MCV 89.7 MCH 28.9 MCHC 32.2 L RDW 15.9 H Plt Count 408 H MPV 9.7 Neut % (Auto) 83.0 H Lymph % (Auto) 10.8 L [place] % (Auto) 5.4 Eos % (Auto) 0.6 Baso % (Auto) 0.2 Neut # 17.5 H Lymph # 2.3 [place] # 1.1 H Eos # 0.1 Baso # 0.1 Retic Count PT INR Sodium 145 144 Potassium 3.9 3.6 Chloride 114 H 110 H Carbon Dioxide 20 L 21 L Anion Gap 15 17 BUN 59 H 57 H Creatinine 1.2 1.1 Est GFR ( Amer) > 60 > 60 Est GFR (Non-Af Amer) 58 > 60 Random Glucose 134 H 158 H Lactic Acid Calcium 8.1 L 7.6 L Phosphorus 3.5 Magnesium 2.3 Iron TIBC % Saturation Total Bilirubin 0.9 1.0 Direct Bilirubin 0.7 H AST 1246 H 932 H D ALT 1896 H 1569 H Alkaline Phosphatase 172 H 213 H D Lactate Dehydrogenase Total Creatine Kinase Total Protein 5.7 L 5.5 L Albumin 2.5 L 2.4 L Globulin 3.2 3.1 Albumin/Globulin Ratio 0.8 L 0.8 L IgG IgA IgM Fingerstick Blood Sugar Results: 200 Review of Systems - Review of Systems Systems not reviewed;Unavailable: Respiratory Distress Assessment/Plan (1) Respiratory failure with hypoxia Current Visit: Yes Status: Acute Comment: Secondary to CHF and possible pneumonia Continue diuretics and antibiotics Continue BiPAP Spoke with daughter at length (2) NSTEMI (non-ST elevated myocardial infarction) Current Visit: Yes Status: Acute Comment: Continue Plavix and aspirin (3) Atrial fibrillation Current Visit: Yes Status: Acute Comment: On Cardizem drip Cardiology follow-up off HEPARIN drip Start Lovenox (4) Toe gangrene Current Visit: No Status: Acute Comment: Vascular consult Patient DNR/DNI
--- NOTE | 2017-04-18 16:10 | CP.PCM.PN ---
Subjective - Date & Time of Evaluation Date of Evaluation: 04/18/17 Time of Evaluation: 14:00 - Subjective Subjective: 82 y/o male seen at bedside in ICU for gangrene of his digits bilaterally. Patient is sleeping in NAD. Unable to speak to the patient at this time. Objective - Vital Signs/Intake and Output Vital Signs (last 24 hours): Temp Pulse Resp BP Pulse Ox 99.2 F 114 H 25 H 162/72 H 97 04/18/17 08:00 04/18/17 14:00 04/18/17 14:00 04/18/17 13:39 04/18/17 14:00 Intake and Output: 04/18/17 04/18/17 06:59 18:59 Intake Total 670 780 Output Total 1080 955 Balance -410 -175 - Medications Medications: Current Medications Aspirin (Ecotrin) 81 mg PO DAILY [facility] Last Admin: 04/18/17 10:50 Dose: 81 mg Clopidogrel Bisulfate (Plavix) 75 mg PO DAILY [facility] Last Admin: 04/18/17 10:50 Dose: 75 mg Diltiazem HCl (Cardizem) 30 mg PO QID [facility] Last Admin: 04/18/17 13:01 Dose: 30 mg Famotidine (Pepcid) 20 mg IVP DAILY [facility] Last Admin: 04/18/17 10:50 Dose: 20 mg Furosemide (Lasix) 20 mg IVP DAILY [facility] Last Admin: 04/18/17 10:49 Dose: 20 mg Hydromorphone HCl (Dilaudid) 0.5 mg IVP Q6H PRN PRN Reason: pain Last Admin: 04/18/17 10:52 Dose: 0.5 mg Diltiazem HCl 125 mg/ Sodium (Chloride) 125 mls @ 5 mls/hr IV .Q24H DEUCE; 5 MG/ HR PRN Reason: Protocol Last Admin: 04/18/17 04:52 Dose: 15 mg/hr, 15 mls/hr Imipenem/Cilastatin Sodium 500 (mg/ Sodium Chloride) 100 mls @ 100 mls/hr IVPB Q8H [facility] Last Admin: 04/18/17 10:51 Dose: 100 mls/hr Vancomycin/Sodium Chloride (Vancocin) 1 gm in 200 mls @ 133.333 mls/hr IVPB Q24H [facility] Stop: 04/20/17 13:01 Last Admin: 04/18/17 13:02 Dose: 133.333 mls/hr Metoprolol Tartrate (Lopressor) 25 mg PO Q8 DEUCE Last Admin: 04/18/17 12:59 Dose: 25 mg - Labs Labs: 04/18/17 06:15 04/18/17 06:15 PT 13.7 SECONDS (9.7-12.2) H 04/17/17 19:35 INR 1.2 04/17/17 19:35 APTT 45 SECONDS (21-34) H D 04/16/17 06:45 - Constitutional Appears: Well, Non-toxic, No Acute Distress - Extremities Exam Additional comments: VASC: DP/PT pulses are nonpalpable b/l, SHERIFF'S DETECTIVE: > 5 sec to dorsal forefoot; TG cool to cool DERM: gangrene of digits 3-5 right with ischemic changes to lateral midfoot, 2nd digit distal tip appears to turn gangrenous, ischemic changes to left foot digits 4 and 5 with small patch of necrotic tissue on dorsum of the 2nd digit, no edema, no open lesions, no ascending cellulitis, no fluctuance, no drainage, no purulence NEURO: grossly diminished ORTHO: no pain on palpation of feet b/l - Neurological Exam Neurological Exam: Alert, Awake, Oriented x3 - Psychiatric Exam Psychiatric exam: Normal Affect, Normal Mood Assessment and Plan - Assessment and Plan (Free Text) Assessment: 82 y/o male seen at bedside in ICU for dry gangrene of both feet secondary to ischemia Plan: Patient evaluated and chart reviewed Patient discussed in details with attending Dr. Craig Labs and vitals reviewed; afebrile, WBC @ 21.1 f/u blood cx Patient to continue wearing multipodus boots while in bed no surgical intervention at this time cont. medical management podiatry will continue to follow while in house
--- NOTE | 2017-04-18 18:36 | CP.PCM.CON ---
History of Present Illness - History of Present Illness History of Present Illness: VASCULAR SURGERY CONSULT NOTE FOR DR. LEMON 82yo M with PMHx of [place], CAD, severe carotid artery disease, diffuse PAD, dementia, HTN who has severe PAD. Patient had aortofemoral angiogram via left [employer]OX LINING MACHINE OPERATOR on 01/27/[address] Lemon which found multilevel disease, atheromatous plaques in infrarenal aorta, 50% right common iliac stenosis, severe common femoral disease, SFA occluded to level of knee joint, popliteal reappears at knee joint with primary runoff via anterior tibial. Poor visualization of left vessels distally due to 5F sheath being occlusive at common femoral. Patient was recommended to have right fem pop bypass +/- right common iliac stent however, the patient was high risk for surgery as evaluated by cardiology. The patient was transferred to [facility] under Dr. Collazo on 02/02/17 for possible vascular surgery. He was sent to the [facility] [place] ED on 04/14/17 from [facility] for new onset lethargy and change in mental status. He was admitted for Afib with RVR and placed on Cardizem drip. Also found to have NSTEMI which is being treated with medical management. This morning he was noted to have worsening right foot gangrene. Patient was on BIPAP with tube feeds and did not respond to questions or vocal commands. Patient now DNR/DNI. PMHx: [place], CAD, severe carotid artery disease, diffuse PAD, dementia, HTN, VRE UTI, anemia, anxiety Review of Systems - Review of Systems Systems not reviewed;Unavailable: Altered Mental Status Past Patient History - Infectious Disease Hx of Infectious Diseases: None - Tetanus Immunizations Tetanus Immunization: Unknown - Past Medical History & Family History Past Medical History?: Yes - Past Social History Smoking Status: Former Smoker - CARDIAC Hx Atrial Fibrillation: Yes Hx Cardia Arrhythmia: No Hx Congestive Heart Failure: No Hx Hypercholesterolemia: Yes Hx Hypertension: Yes Hx Mitral Valve Prolapse: No Hx Pacemaker: No Hx Peripheral Edema: No - PULMONARY Hx Asthma: No Hx Bronchitis: No Hx Chronic Obstructive Pulmonary Disease (COPD): No Hx Emphysema: No Hx Pneumonia: No Hx Sleep Apnea: No - NEUROLOGICAL Hx Alzheimer's Disease: No Hx Dementia: No Hx Migraine: No Hx Parkinson's Disease: No Hx Seizures: No Hx Transient Ischemic Attacks (TIA): No - HEENT Hx HEENT Problems: No - RENAL Hx Chronic Kidney Disease: No Hx Kidney Stones: No - ENDOCRINE/METABOLIC Hx Hyperthyroidism: No Hx Hypothyroidism: No - HEMATOLOGICAL/ONCOLOGICAL Hx Anemia: Yes Hx Human Immunodeficiency Virus (HIV): No Hx Sickle Cell Disease: No - INTEGUMENTARY Hx Dermatological Problems: No - MUSCULOSKELETAL/RHEUMATOLOGICAL Hx Arthritis: No Hx Fractures: No Hx Osteoporosis: No - GASTROINTESTINAL Hx Crohn's Disease: No Hx Diverticulitis: No Hx Gall Bladder Disease: No Hx Pancreatitis: No - GENITOURINARY/GYNECOLOGICAL Hx Sexually Transmitted Disorders: No - PSYCHIATRIC Hx Anxiety: Yes Hx Bipolar Disorder: No Hx Depression: No Hx Paranoia: No Hx Post Traumatic Stress Disorder: No Hx Schizophrenia: No Hx Substance Use: No - SURGICAL HISTORY Hx Appendectomy: No Hx Cholecystectomy: No Hx Coronary Stent: Yes - ANESTHESIA Hx Anesthesia: Yes Hx Anesthesia Reactions: No Hx Malignant Hyperthermia: No Meds Allergies/Adverse Reactions: Allergies Allergy/AdvReac Type Severity Reaction Status Date / Time No Known Allergies Allergy Verified 10/02/16 10:29 - Medications Medications: Current Medications Aspirin (Ecotrin) 81 mg PO DAILY [facility] Last Admin: 04/18/17 10:50 Dose: 81 mg Clopidogrel Bisulfate (Plavix) 75 mg PO DAILY [facility] Last Admin: 04/18/17 10:50 Dose: 75 mg Diltiazem HCl (Cardizem) 30 mg PO QID [facility] Last Admin: 04/18/17 18:18 Dose: 30 mg Famotidine (Pepcid) 20 mg IVP DAILY [facility] Last Admin: 04/18/17 10:50 Dose: 20 mg Furosemide (Lasix) 20 mg IVP DAILY [facility] Last Admin: 04/18/17 10:49 Dose: 20 mg Hydromorphone HCl (Dilaudid) 0.5 mg IVP Q6H PRN PRN Reason: pain Last Admin: 04/18/17 18:11 Dose: 0.5 mg Diltiazem HCl 125 mg/ Sodium (Chloride) 125 mls @ 5 mls/hr IV .Q24H DEUCE; 5 MG/ HR PRN Reason: Protocol Last Admin: 04/18/17 16:11 Dose: 15 mg/hr, 15 mls/hr Imipenem/Cilastatin Sodium 500 (mg/ Sodium Chloride) 100 mls @ 100 mls/hr IVPB Q8H [facility] Last Admin: 04/18/17 18:11 Dose: 100 mls/hr Vancomycin/Sodium Chloride (Vancocin) 1 gm in 200 mls @ 133.333 mls/hr IVPB Q24H [facility] Stop: 04/20/17 13:01 Last Admin: 04/18/17 13:02 Dose: 133.333 mls/hr Metoprolol Tartrate (Lopressor) 25 mg PO Q8 [facility] Last Admin: 04/18/17 12:59 Dose: 25 mg Physical Exam - Constitutional Appears: No Acute Distress, Chronically Ill - Respiratory Exam Respiratory Exam: NORMAL BREATHING PATTERN (on BIPAP). absent: Respiratory Distress - Cardiovascular Exam Cardiovascular Exam: Tachycardia, +S1, +S2 - GI/Abdominal Exam GI & Abdominal Exam: Soft. absent: Distended - Extremities Exam Additional comments: LE contractures Right foot: cool to touch, DP/PT pulses not able to be found with doppler, gangrene of right 2-5 digits Left foot: cool but warmer than right foot, 2+ pitting edema, DP pulse not able to be found with doppler, gangrene to 2nd, 4th, 5th toes Palpable femoral pulses bilaterally - Neurological Exam Neurological exam: Altered - Skin Skin Exam: Dry Results - Vital Signs Recent Vital Signs: Last Vital Signs Temp 98.8 F 04/18/17 16:00 Pulse 103 H 04/18/17 18:00 Resp 23 04/18/17 18:00 BP 144/54 L 04/18/17 17:39 Pulse Ox 98 04/18/17 18:00 - Labs Result Diagrams: 04/18/17 06:15 04/18/17 06:15 Labs: Laboratory Results - last 24 hr 04/17/17 04/17/17 04/17/17 19:35 19:35 19:35 WBC RBC Hgb Hct MCV MCH MCHC RDW Plt Count MPV Neut % (Auto) Lymph % (Auto) [place] % (Auto) Eos % (Auto) Baso % (Auto) Neut # Lymph # [place] # Eos # Baso # Retic Count PT 13.7 H INR 1.2 Sodium Potassium Chloride Carbon Dioxide Anion Gap BUN Creatinine Est GFR ( Amer) Est GFR (Non-Af Amer) Random Glucose Lactic Acid Calcium Phosphorus Magnesium Iron 39 L TIBC 196 L % Saturation 20 Total Bilirubin Direct Bilirubin AST ALT Alkaline Phosphatase Lactate Dehydrogenase 3885 H Total Creatine Kinase 3960 H Total Protein Albumin Globulin Albumin/Globulin Ratio IgG IgA IgM 04/17/17 04/17/17 04/17/17 19:35 19:35 19:35 WBC 20.6 H RBC 3.63 L Hgb 10.4 L Hct 32.1 L MCV 88.5 MCH 28.6 MCHC 32.3 L RDW 16.0 H Plt Count 371 MPV 9.7 Neut % (Auto) Lymph % (Auto) [place] % (Auto) Eos % (Auto) Baso % (Auto) Neut # Lymph # [place] # Eos # Baso # Retic Count 2.2 H PT INR Sodium Potassium Chloride Carbon Dioxide Anion Gap BUN Creatinine Est GFR ( Amer) Est GFR (Non-Af Amer) Random Glucose Lactic Acid 1.4 Calcium Phosphorus Magnesium Iron TIBC % Saturation Total Bilirubin Direct Bilirubin AST ALT Alkaline Phosphatase Lactate Dehydrogenase Total Creatine Kinase Total Protein Albumin Globulin Albumin/Globulin Ratio IgG 723.1 IgA 277.3 IgM 57.0 04/17/17 04/18/17 04/18/17 19:35 06:15 06:15 WBC 21.1 H RBC 3.67 L Hgb 10.6 L Hct 32.9 L MCV 89.7 MCH 28.9 MCHC 32.2 L RDW 15.9 H Plt Count 408 H MPV 9.7 Neut % (Auto) 83.0 H Lymph % (Auto) 10.8 L [place] % (Auto) 5.4 Eos % (Auto) 0.6 Baso % (Auto) 0.2 Neut # 17.5 H Lymph # 2.3 [place] # 1.1 H Eos # 0.1 Baso # 0.1 Retic Count PT INR Sodium 145 144 Potassium 3.9 3.6 Chloride 114 H 110 H Carbon Dioxide 20 L 21 L Anion Gap 15 17 BUN 59 H 57 H Creatinine 1.2 1.1 Est GFR ( Amer) > 60 > 60 Est GFR (Non-Af Amer) 58 > 60 Random Glucose 134 H 158 H Lactic Acid Calcium 8.1 L 7.6 L Phosphorus 3.5 Magnesium 2.3 Iron TIBC % Saturation Total Bilirubin 0.9 1.0 Direct Bilirubin 0.7 H AST 1246 H 932 H D ALT 1896 H 1569 H Alkaline Phosphatase 172 H 213 H D Lactate Dehydrogenase Total Creatine Kinase Total Protein 5.7 L 5.5 L Albumin 2.5 L 2.4 L Globulin 3.2 3.1 Albumin/Globulin Ratio 0.8 L 0.8 L IgG IgA IgM Assessment & Plan - Assessment and Plan (Free Text) Assessment: 82yo M with PMHx of [place], CAD, severe carotid artery disease, diffuse PAD, dementia, HTN who has severe PAD with 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 - Remove SCDs - On Plavix and Aspirin for NSTEMI - May put on Heparin drip as per ICU team - Patient very high surgical risk. Daughter agrees that surgery is too high risk. - Discussed plan with Dr. Edie Joaquin PGY-3
--- NOTE | 2017-04-18 21:05 | CP.PCM.PN ---
Subjective - Date & Time of Evaluation Date of Evaluation: 04/18/17 Time of Evaluation: 13:20 - Subjective Subjective: clinically same Objective - Vital Signs/Intake and Output Vital Signs (last 24 hours): Temp Pulse Resp BP Pulse Ox 98.8 F 108 H 22 128/15 L 98 04/18/17 16:00 04/18/17 20:07 04/18/17 19:00 04/18/17 18:39 04/18/17 19:00 Intake and Output: 04/18/17 04/19/17 18:59 06:59 Intake Total 1105 150 Output Total 1055 50 Balance 50 100 - Medications Medications: Current Medications Aspirin (Ecotrin) 81 mg PO DAILY [facility] Last Admin: 04/18/17 10:50 Dose: 81 mg Clopidogrel Bisulfate (Plavix) 75 mg PO DAILY [facility] Last Admin: 04/18/17 10:50 Dose: 75 mg Diltiazem HCl (Cardizem) 30 mg PO QID [facility] Last Admin: 04/18/17 18:18 Dose: 30 mg Enoxaparin Sodium (Lovenox) 60 mg SC Q12 [facility] Famotidine (Pepcid) 20 mg IVP DAILY [facility] Last Admin: 04/18/17 10:50 Dose: 20 mg Furosemide (Lasix) 20 mg IVP DAILY [facility] Last Admin: 04/18/17 10:49 Dose: 20 mg Hydromorphone HCl (Dilaudid) 0.5 mg IVP Q6H PRN PRN Reason: pain Last Admin: 04/18/17 18:11 Dose: 0.5 mg Diltiazem HCl 125 mg/ Sodium (Chloride) 125 mls @ 5 mls/hr IV .Q24H [facility]; 5 MG/ HR PRN Reason: Protocol Last Admin: 04/18/17 16:11 Dose: 15 mg/hr, 15 mls/hr Imipenem/Cilastatin Sodium 500 (mg/ Sodium Chloride) 100 mls @ 100 mls/hr IVPB Q8H [facility] Last Admin: 04/18/17 18:11 Dose: 100 mls/hr Vancomycin/Sodium Chloride (Vancocin) 1 gm in 200 mls @ 133.333 mls/hr IVPB Q24H [facility] Stop: 04/20/17 13:01 Last Admin: 04/18/17 13:02 Dose: 133.333 mls/hr Metoprolol Tartrate (Lopressor) 25 mg PO Q8 [facility] Last Admin: 04/18/17 12:59 Dose: 25 mg Morphine Sulfate (Morphine) 2 mg IV Q4 PRN PRN Reason: Pain, moderate (4-7) - Labs Labs: 04/18/17 06:15 04/18/17 06:15 PT 13.7 SECONDS (9.7-12.2) H 04/17/17 19:35 INR 1.2 04/17/17 19:35 APTT 45 SECONDS (21-34) H D 04/16/17 06:45 - Constitutional Appears: Well - Head Exam Head Exam: ATRAUMATIC, NORMAL INSPECTION, NORMOCEPHALIC - Eye Exam Eye Exam: EOMI, Normal appearance, PERRL Pupil Exam: NORMAL ACCOMODATION, PERRL - ENT Exam ENT Exam: Mucous Membranes Moist, Normal Exam - Neck Exam Neck Exam: Full ROM, Normal Inspection. absent: Lymphadenopathy - Respiratory Exam Respiratory Exam: Decreased Breath Sounds - Cardiovascular Exam Cardiovascular Exam: REGULAR RHYTHM, +S1, +S2 - GI/Abdominal Exam GI & Abdominal Exam: Soft, Diminished Bowel Sounds - Rectal Exam Rectal Exam: Deferred
[2017-04-18] MEDS: Enoxaparin 60 mg Syringe SC SCH (21:38)
--- NOTE | 2017-04-18 21:44 | CP.PCM.PN ---
Subjective - Date & Time of Evaluation Date of Evaluation: 04/18/17 Time of Evaluation: 17:00 - Subjective Subjective: Patient seen and evaluated No new events Conservative medical management DNR/DNI Objective - Vital Signs/Intake and Output Vital Signs (last 24 hours): Temp Pulse Resp BP Pulse Ox 98.8 F 108 H 22 152/67 H 98 04/18/17 16:00 04/18/17 20:07 04/18/17 19:00 04/18/17 21:38 04/18/17 19:00 Intake and Output: 04/18/17 04/19/17 18:59 06:59 Intake Total 1105 150 Output Total 1055 50 Balance 50 100 - Medications Medications: Current Medications Aspirin (Ecotrin) 81 mg PO DAILY [facility] Last Admin: 04/18/17 10:50 Dose: 81 mg Clopidogrel Bisulfate (Plavix) 75 mg PO DAILY [facility] Last Admin: 04/18/17 10:50 Dose: 75 mg Diltiazem HCl (Cardizem) 30 mg PO QID [facility] Last Admin: 04/18/17 21:38 Dose: 30 mg Enoxaparin Sodium (Lovenox) 60 mg SC Q12 [facility] Last Admin: 04/18/17 21:38 Dose: 60 mg Famotidine (Pepcid) 20 mg IVP DAILY [facility] Last Admin: 04/18/17 10:50 Dose: 20 mg Furosemide (Lasix) 20 mg IVP DAILY [facility] Last Admin: 04/18/17 10:49 Dose: 20 mg Hydromorphone HCl (Dilaudid) 0.5 mg IVP Q6H PRN PRN Reason: pain Last Admin: 04/18/17 18:11 Dose: 0.5 mg Diltiazem HCl 125 mg/ Sodium (Chloride) 125 mls @ 5 mls/hr IV .Q24H [facility]; 5 MG/ HR PRN Reason: Protocol Last Admin: 04/18/17 16:11 Dose: 15 mg/hr, 15 mls/hr Imipenem/Cilastatin Sodium 500 (mg/ Sodium Chloride) 100 mls @ 100 mls/hr IVPB Q8H [facility] Last Admin: 04/18/17 18:11 Dose: 100 mls/hr Vancomycin/Sodium Chloride (Vancocin) 1 gm in 200 mls @ 133.333 mls/hr IVPB Q24H [facility] Stop: 04/20/17 13:01 Last Admin: 04/18/17 13:02 Dose: 133.333 mls/hr Metoprolol Tartrate (Lopressor) 25 mg PO Q8 [facility] Last Admin: 04/18/17 21:38 Dose: 25 mg Morphine Sulfate (Morphine) 2 mg IV Q4 PRN PRN Reason: Pain, moderate (4-7) - Labs Labs: 04/18/17 06:15 04/18/17 06:15 PT 13.7 SECONDS (9.7-12.2) H 04/17/17 19:35 INR 1.2 04/17/17 19:35 APTT 45 SECONDS (21-34) H D 04/16/17 06:45
[2017-04-19 06:24] LABS: HEMOGLOBIN 10.5 g/dL (12.0-18.0); MEAN CELL VOLUME 90.5 fL (80.0-94.0); MEAN CORPUSCULAR HGB CONC 30.9 g/dL (33.0-37.0); MEAN PLATELET VOLUME 9.5 fL (7.2-11.7); RBC 3.76 Mil/uL (4.40-5.90); RED CELL DISTRIBUTION WIDTH 16.3 % (11.5-14.5); WHITE BLOOD COUNT 18.9 K/uL (4.8-10.8)
[2017-04-19 06:34] LABS: ALBUMIN 2.3 g/dL (3.5-5.0)
[2017-04-19 06:36] LABS: ALB/GLOB RATIO 0.7 (1.0-2.1); AST/SGOT 616 U/L (17-59); GFR AFRICAN-AMERICAN > 60; GFR NON-AFRICAN AMERICAN > 60
[2017-04-19 06:37] LABS: BLOOD UREA NITROGEN 58 mg/dL (9-20); CALCIUM 7.6 mg/dl (8.6-10.4)
[2017-04-19 06:56] LABS: ALT/SGPT 1134 U/L (21-72)
--- NOTE | 2017-04-19 07:55 | CP.PCM.PN ---
<Lisbeth Vogel - Last Filed: 04/19/17 12:19> Subjective - Date & Time of Evaluation Date of Evaluation: 04/19/17 Time of Evaluation: 07:53 - Subjective Subjective: Gastroenterology Fellow/PGY5 Progress Note Patient remains nonverbal with worsened baseline confusion in setting of sepsis. Nursing denies acute events overnight. Tube feeds via NG tube started overnight and tolerated well. One bowel movement yesterday. A 12-point review of systems not able to be completed due to altered mental status. Objective - Vital Signs/Intake and Output Vital Signs (last 24 hours): Temp Pulse Resp BP Pulse Ox 98.5 F 100 H 22 126/66 100 04/19/17 04:00 04/19/17 07:40 04/19/17 07:00 04/19/17 06:02 04/19/17 07:00 Intake and Output: 04/19/17 04/19/17 06:59 18:59 Intake Total 1060.0 55 Output Total 660 Balance 400.0 55 - Medications Medications: Current Medications Aspirin (Ecotrin) 81 mg PO DAILY [facility] Last Admin: 04/18/17 10:50 Dose: 81 mg Clopidogrel Bisulfate (Plavix) 75 mg PO DAILY [facility] Last Admin: 04/18/17 10:50 Dose: 75 mg Diltiazem HCl (Cardizem) 30 mg PO QID [facility] Last Admin: 04/18/17 21:38 Dose: 30 mg Enoxaparin Sodium (Lovenox) 60 mg SC Q12 [facility] Last Admin: 04/18/17 21:38 Dose: 60 mg Famotidine (Pepcid) 20 mg IVP DAILY [facility] Last Admin: 04/18/17 10:50 Dose: 20 mg Furosemide (Lasix) 20 mg IVP DAILY [facility] Last Admin: 04/18/17 10:49 Dose: 20 mg Hydromorphone HCl (Dilaudid) 0.5 mg IVP Q6H PRN PRN Reason: pain Last Admin: 04/18/17 18:11 Dose: 0.5 mg Diltiazem HCl 125 mg/ Sodium (Chloride) 125 mls @ 5 mls/hr IV .Q24H [facility]; 5 MG/ HR PRN Reason: Protocol Last Admin: 04/19/17 02:05 Dose: 15 mg/hr, 15 mls/hr Imipenem/Cilastatin Sodium 500 (mg/ Sodium Chloride) 100 mls @ 100 mls/hr IVPB Q8H [facility] Last Admin: 04/19/17 01:56 Dose: 100 mls/hr Vancomycin/Sodium Chloride (Vancocin) 1 gm in 200 mls @ 133.333 mls/hr IVPB Q24H [facility] Stop: 04/20/17 13:01 Last Admin: 04/18/17 13:02 Dose: 133.333 mls/hr Metoprolol Tartrate (Lopressor) 25 mg PO Q8 [facility] Last Admin: 04/19/17 05:56 Dose: 25 mg Morphine Sulfate (Morphine) 2 mg IV Q4 PRN PRN Reason: Pain, moderate (4-7) Last Admin: 04/19/17 03:29 Dose: 2 mg - Labs Labs: 04/19/17 06:18 04/19/17 06:18 PT 13.7 SECONDS (9.7-12.2) H 04/17/17 19:35 INR 1.2 04/17/17 19:35 APTT 45 SECONDS (21-34) H D 04/16/17 06:45 - Constitutional Appears: No Acute Distress, Chronically Ill - Head Exam Head Exam: ATRAUMATIC, NORMOCEPHALIC - Eye Exam Eye Exam: EOMI, PERRL Pupil Exam: PERRL. absent: Miosis, Mydriatic - ENT Exam ENT Exam: Mucous Membranes Dry, Normal Oropharynx Additional comments: NGT in place in right nares - Neck Exam Neck Exam: Full ROM, Normal Inspection - Respiratory Exam Respiratory Exam: Clear to Ausculation Bilateral. absent: Rales, Rhonchi, Wheezes - Cardiovascular Exam Cardiovascular Exam: RRR, +S1, +S2. absent: Gallop, Rubs - GI/Abdominal Exam GI & Abdominal Exam: Soft, Normal Bowel Sounds. 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 Active treatment of severe sepsis secondary to yeast UTI, concern for HCAP with bilateral pleural effusions requiring BiPAP. GI consultation for worsening LFTs. Abdominal Duplex showed hepatic steatosis, patent portal and hepatic veins. Plan: >sudden LFT worsening secondary to ischemic hepatitis-transient hypotension on -NSTEMI (elevated CPK), sepsis, PVD with B/L LE dry gangrene -AfibRVR >initial elevated LFTs in setting of cholestasis of sepsis, congestive hepatopathy, drug induced >LFTs improving, continue to trend >pending Hepatitis panel and autoimmune workup >thank you for opportunity to participate in the care of this patient. Please contact with any questions or concerns. <Matheus Lay MD - Last Filed: 04/19/17 16:25> Objective - Vital Signs/Intake and Output Vital Signs (last 24 hours): Temp Pulse Resp BP Pulse Ox 98.6 F 100 H 27 H 133/56 L 99 04/19/17 16:00 04/19/17 16:01 04/19/17 16:00 04/19/17 15:59 04/19/17 16:00 Intake and Output: 04/19/17 04/19/17 06:59 18:59 Intake Total 1060.0 545 Output Total 660 500 Balance 400.0 45 - Medications Medications: Current Medications Aspirin (Ecotrin) 81 mg PO DAILY [facility] Last Admin: 04/19/17 10:26 Dose: 81 mg Clopidogrel Bisulfate (Plavix) 75 mg PO DAILY [facility] Last Admin: 04/19/17 10:26 Dose: 75 mg Diltiazem HCl (Cardizem) 60 mg PO Q8H [facility] Last Admin: 04/19/17 10:26 Dose: 60 mg Enoxaparin Sodium (Lovenox) 60 mg SC Q12 [facility] Last Admin: 04/19/17 10:25 Dose: 60 mg Famotidine (Pepcid) 20 mg IVP DAILY [facility] Last Admin: 04/19/17 10:26 Dose: 20 mg Furosemide (Lasix) 20 mg IVP DAILY [facility] Last Admin: 04/19/17 10:26 Dose: 20 mg Hydromorphone HCl (Dilaudid) 0.5 mg IVP Q6H PRN PRN Reason: pain Last Admin: 04/19/17 11:53 Dose: 0.5 mg Imipenem/Cilastatin Sodium 500 (mg/ Sodium Chloride) 100 mls @ 100 mls/hr IVPB Q8H [facility] Last Admin: 04/19/17 10:27 Dose: 100 mls/hr Vancomycin/Sodium Chloride (Vancocin) 1 gm in 200 mls @ 133.333 mls/hr IVPB Q24H [facility] Stop: 04/20/17 13:01 Last Admin: 04/19/17 15:42 Dose: 133.333 mls/hr Diltiazem HCl 125 mg/ Sodium (Chloride) 125 mls @ 5 mls/hr IV .Q24H PRN; 5 MG/ HR PRN Reason: Protocol Last Admin: 04/19/17 11:58 Dose: 5 mg/hr, 5 mls/hr Metoprolol Tartrate (Lopressor) 50 mg PO Q12 [facility] Last Admin: 04/19/17 10:27 Dose: 50 mg Morphine Sulfate (Morphine) 2 mg IV Q4 PRN PRN Reason: Pain, moderate (4-7) Last Admin: 04/19/17 08:01 Dose: 2 mg - Labs Labs: 04/19/17 06:18 04/19/17 06:18 PT 13.7 SECONDS (9.7-12.2) H 04/17/17 19:35 INR 1.2 04/17/17 19:35 APTT 45 SECONDS (21-34) H D 04/16/17 06:45 Attending/Attestation - Attestation I have personally seen and examined this patient.: Yes I have fully participated in the care of the patient.: Yes I have reviewed all pertinent clinical information, including history, physical exam and plan: Yes Notes (Text): 04/19/17 16:24 Patient seen at [facility] with Gi fellow. 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 Active treatment of severe sepsis secondary to yeast UTI, concern for HCAP with bilateral pleural effusions requiring BiPAP. GI consultation for worsening LFTs. Abdominal Duplex showed hepatic steatosis, patent portal and hepatic veins. LFt now downtrending pending autoimmune and hepatitis serologies. Likely cause ischemic hepatitis and congestive hepatopathy.
--- NOTE | 2017-04-19 08:09 | CP.CCUPN ---
<Stephanie Shi - Last Filed: 04/19/17 13:54> CCU Subjective - Physician Review Subjective (Free Text): 04/19/17 13:25 Patient seen and examined at bedside in the AM. Patient was alert but not oriented. Patient continuously grunted. Per patient's daughter would like to discuss the option of hospice care for her father. 04/19/17 13:25 CCU Objective - Vital Signs / Intake & Output Vital Signs (Last 4 hours): Vital Signs Pulse Resp BP Pulse Ox 04/19/17 07:40 100 H 04/19/17 07:00 102 H 22 100 04/19/17 06:16 103 H 04/19/17 06:02 114 H 22 126/66 100 04/19/17 06:00 122 H 17 100 04/19/17 05:56 139/59 L 04/19/17 05:00 107 H 17 99 Intake and Output (Last 8hrs): Intake & Output 04/18/17 04/19/17 04/19/17 22:59 06:59 14:59 Intake Total 731.7 528.3 55 Output Total 500 410 Balance 231.7 118.3 55 Intake: IV 86.7 38.3 Intake, IV Amount 215 110 15 Left Hand 115 110 15 RFA 100 Tube Feeding 280 280 40 Other 150 100 Output: Urine 500 410 Urethral (Ivy) 500 410 - Physical Exam Head: Positive for: Atraumatic Pupils: Positive for: PERRL Extroacular Muscles: Positive for: EOMI Conjunctiva: Positive for: Normal, Icteric Mouth: Positive for: Moist Mucous Membranes Respiratory/Chest: Positive for: Rales, Tachypneic. Negative for: Clear to Auscultation, Respiratory Distress, Accessory Muscle Use Cardiovascular: Positive for: Regular Rate and Rhythm, Murmurs, Tachycardic Abdomen: Positive for: Normal Bowel Sounds. Negative for: Tenderness, Distention Lower Extremity: Positive for: Other (Right foot gangrene) Skin: Positive for: Warm, Dry Psychiatric: Positive for: Alert, Anxious, Agitated - Medications Active Medications: Active Medications Generic Name Dose Route Start Last Admin Trade Name Freq PRN Reason Stop Dose Admin Aspirin 81 mg 04/15/17 10:00 04/18/17 10:50 Ecotrin PO 81 mg DAILY [facility] Administration Clopidogrel Bisulfate 75 mg 04/15/17 10:00 04/18/17 10:50 Plavix PO 75 mg DAILY [facility] Administration Diltiazem HCl 30 mg 04/15/17 14:00 04/18/17 21:38 Cardizem PO 30 mg QID [facility] Administration Enoxaparin Sodium 60 mg 04/18/17 22:00 04/18/17 21:38 Lovenox SC 60 mg Q12 [facility] Administration Famotidine 20 mg 04/15/17 10:00 04/18/17 10:50 Pepcid IVP 20 mg DAILY [facility] Administration Furosemide 20 mg 04/17/17 17:00 04/18/17 10:49 Lasix IVP 20 mg DAILY [facility] Administration Hydromorphone HCl 0.5 mg 04/17/17 11:51 04/18/17 18:11 Dilaudid IVP 0.5 mg Q6H PRN Administration pain Diltiazem HCl 125 mg/ Sodium 125 mls @ 5 mls/hr 04/14/17 16:00 04/19/17 02:05 Chloride IV 15 mg/hr .Q24H [facility] 15 mls/hr Protocol Administration 5 MG/HR Imipenem/Cilastatin Sodium 500 100 mls @ 100 mls/hr 04/14/17 18:00 04/19/17 01:56 mg/ Sodium Chloride IVPB 100 mls/hr Q8H [facility] Administration Vancomycin/Sodium Chloride 1 gm in 200 mls @ 133.333 mls/hr 04/15/17 13:00 13:02 Vancocin IVPB 04/20/17 13:01 133.333 mls/hr Q24H [facility] Administration Metoprolol Tartrate 25 mg 04/17/17 16:45 04/19/17 05:56 Lopressor PO 25 mg Q8 [facility] Administration Morphine Sulfate 2 mg 04/18/17 18:35 04/19/17 08:01 Morphine IV 2 mg Q4 PRN Administration Pain, moderate (4-7) - Patient Studies Lab Studies: Lab Studies 04/19/17 04/19/17 Range/Units 06:18 06:18 WBC 18.9 H (4.8-10.8) K/uL RBC 3.76 L (4.40-5.90) Mil/uL Hgb 10.5 L (12.0-18.0) g/dL Hct 34.0 L (35.0-51.0) % MCV 90.5 (80.0-94.0) fL MCH 28.0 (27.0-31.0) pg MCHC 30.9 L (33.0-37.0) g/dL RDW 16.3 H (11.5-14.5) % Plt Count 377 (130-400) K/uL MPV 9.5 (7.2-11.7) fL Sodium 148 (132-148) mmol/L Potassium 3.6 (3.6-5.2) mmol/L Chloride 114 H (98-107) mmol/L Carbon Dioxide 25 (22-30) mmol/L Anion Gap 13 (10-20) BUN 58 H (9-20) mg/dL Creatinine 0.9 (0.8-1.5) MG/DL Est GFR ( Amer) > 60 Est GFR (Non-Af Amer) > 60 Random Glucose 164 H (75-110) mg/dL Calcium 7.6 L (8.6-10.4) mg/dl Total Bilirubin 1.2 (0.2-1.3) mg/dL AST 616 H D (17-59) U/L ALT 1134 H (21-72) U/L Alkaline Phosphatase 237 H (38-126) U/L Total Protein 5.5 L (6.3-8.3) g/dL Albumin 2.3 L (3.5-5.0) g/dL Globulin 3.2 (2.2-3.9) gm/dL Albumin/Globulin Ratio 0.7 L (1.0-2.1) Laboratory Results - last 24 hr 04/19/17 04/19/17 06:18 06:18 WBC 18.9 H RBC 3.76 L Hgb 10.5 L Hct 34.0 L MCV 90.5 MCH 28.0 MCHC 30.9 L RDW 16.3 H Plt Count 377 MPV 9.5 Sodium 148 Potassium 3.6 Chloride 114 H Carbon Dioxide 25 Anion Gap 13 BUN 58 H Creatinine 0.9 Est GFR ( Amer) > 60 Est GFR (Non-Af Amer) > 60 Random Glucose 164 H Calcium 7.6 L Total Bilirubin 1.2 AST 616 H D ALT 1134 H Alkaline Phosphatase 237 H Total Protein 5.5 L Albumin 2.3 L Globulin 3.2 Albumin/Globulin Ratio 0.7 L Fingerstick Blood Sugar Results: 200 Review of Systems - Review of Systems Systems not reviewed;Unavailable: Altered Mental Status Assessment/Plan - Assessment and Plan (Free Text) Assessment: 82M admitted with AMS, Afib and RVR, possible NSTEMI Plan: Neuro: GCS 15 AMS - AAO to person and now place but not time: likely 2/2 urosepsis Pulm: 100% on 2L NC worsening breath sounds - CXR shows pulm congestion stat lasix 20mg ordered - will f/u UO and repeat CXR this afternoon D/C fluids CV: Afib with RVR; now 90-100s on Cardizem drip now 5mcg, titrating down, on TID PO cardizem 75mg Aortic Stenosis; Hx of HTN, CAD w/ stent placement Consult Dr Spicer cardiology- no plan for PCI and family requests no aggressive intervention Likely non-ST [place] Will D/C heparin drip PO plavix and aspirin Will remove TLC Heme: HgB 10.5 -chronic anemia Continue to monitor closely Renal: 58/0.9 no intervention need giving 20 lasix GI: pureed diet : cont strict I/O repeat urine culture ordered - will f/u with lab today hx of VRE in urine - will txt empirically ID: afebrile, WBC inc to 23.2, likely urosepsis Naris culture (04/14): no growth f/u blood continue empiric abx - switched to Primaxin/Vanco as per ID Dr Che following f/u vancomycin troph DVT proph - SCDs, HSQ Q8H GI proph - Pepcid Disposition: Palliative Care Consult: Anna Marie Hand --> help appreciated - Discussion of hospice care Code status - DNR/DNI Case discussed with Dr. Amanda Shi, PGY-1 <Kayce Patel - Last Filed: 04/19/17 19:18> CCU Objective - Vital Signs / Intake & Output Vital Signs (Last 4 hours): Vital Signs Temp Pulse Resp BP Pulse Ox 04/19/17 19:00 117 H 19 98 04/19/17 18:00 127 H 13 98 04/19/17 17:59 126 H 19 138/63 98 04/19/17 17:00 108 H 15 99 04/19/17 16:01 100 H 04/19/17 16:00 98.6 F 90 27 H 99 04/19/17 15:59 102 H 22 133/56 L 98 Intake and Output (Last 8hrs): Intake & Output 04/19/17 04/19/17 04/19/17 06:59 14:59 22:59 Intake Total 528.3 255 520 Output Total 410 650 335 Balance 118.3 -395 185 Intake: IV 38.3 Intake, IV Amount 110 55 320 Left Hand 110 55 20 RFA 300 Tube Feeding 280 200 200 Other 100 Output: Urine 410 650 335 Urethral (Ivy) 410 650 335 - Medications Active Medications: Active Medications Generic Name Dose Route Start Last Admin Trade Name Freq PRN Reason Stop Dose Admin Aspirin 81 mg 04/15/17 10:00 04/19/17 10:26 Ecotrin PO 81 mg DAILY [facility] Administration Clopidogrel Bisulfate 75 mg 04/15/17 10:00 04/19/17 10:26 Plavix PO 75 mg DAILY [facility] Administration Diltiazem HCl 60 mg 04/19/17 10:15 04/19/17 17:35 Cardizem PO 60 mg Q8H [facility] Administration Enoxaparin Sodium 60 mg 04/18/17 22:00 04/19/17 10:25 Lovenox SC 60 mg Q12 [facility] Administration Famotidine 20 mg 04/15/17 10:00 04/19/17 10:26 Pepcid IVP 20 mg DAILY [facility] Administration Furosemide 20 mg 04/17/17 17:00 04/19/17 10:26 Lasix IVP 20 mg DAILY [facility] Administration Hydromorphone HCl 0.5 mg 04/17/17 11:51 04/19/17 11:53 Dilaudid IVP 0.5 mg Q6H PRN Administration pain Imipenem/Cilastatin Sodium 500 100 mls @ 100 mls/hr 04/14/17 18:00 04/19/17 17:34 mg/ Sodium Chloride IVPB 100 mls/hr Q8H [facility] Administration Vancomycin/Sodium Chloride 1 gm in 200 mls @ 133.333 mls/hr 04/15/17 13:00 15:42 Vancocin IVPB 04/20/17 13:01 133.333 mls/hr Q24H [facility] Administration Diltiazem HCl 125 mg/ Sodium 125 mls @ 5 mls/hr 04/19/17 10:54 04/19/17 11:58 Chloride IV 5 mg/hr .Q24H PRN 5 mls/hr Protocol Administration 5 MG/HR Metoprolol Tartrate 50 mg 04/19/17 10:15 04/19/17 10:27 Lopressor PO 50 mg Q12 [facility] Administration Morphine Sulfate 2 mg 04/18/17 18:35 04/19/17 08:01 Morphine IV 2 mg Q4 PRN Administration Pain, moderate (4-7) - Patient Studies Lab Studies: Lab Studies 04/19/17 04/19/17 04/19/17 Range/Units 12:29 06:18 06:18 WBC 18.9 H (4.8-10.8) K/uL RBC 3.76 L (4.40-5.90) Mil/uL Hgb 10.5 L (12.0-18.0) g/dL Hct 34.0 L (35.0-51.0) % MCV 90.5 (80.0-94.0) fL MCH 28.0 (27.0-31.0) pg MCHC 30.9 L (33.0-37.0) g/dL RDW 16.3 H (11.5-14.5) % Plt Count 377 (130-400) K/uL MPV 9.5 (7.2-11.7) fL Sodium 148 (132-148) mmol/L Potassium 3.6 (3.6-5.2) mmol/L Chloride 114 H (98-107) mmol/L Carbon Dioxide 25 (22-30) mmol/L Anion Gap 13 (10-20) BUN 58 H (9-20) mg/dL Creatinine 0.9 (0.8-1.5) MG/DL Est GFR ( Amer) > 60 Est GFR (Non-Af Amer) > 60 Random Glucose 164 H (75-110) mg/dL Calcium 7.6 L (8.6-10.4) mg/dl Total Bilirubin 1.2 (0.2-1.3) mg/dL AST 616 H D (17-59) U/L ALT 1134 H (21-72) U/L Alkaline Phosphatase 237 H (38-126) U/L Total Protein 5.5 L (6.3-8.3) g/dL Albumin 2.3 L (3.5-5.0) g/dL Globulin 3.2 (2.2-3.9) gm/dL Albumin/Globulin Ratio 0.7 L (1.0-2.1) Vancomycin Trough 13.0 H (5.0-10.0) ug/mL WILLY 6 Profile (NEGATIVE) Anti-Mitochondrial Ab (Negative) Anti-Smooth Muscle Ab (Negative) Hepatitis A IgM Ab (NEGATIVE) Hep Bs Antigen (NEGATIVE) Hep B Core IgM Ab (NEGATIVE) Hepatitis C Antibody (NEGATIVE) 04/17/17 04/17/17 04/17/17 Range/Units 19:35 19:35 19:35 WBC (4.8-10.8) K/uL RBC (4.40-5.90) Mil/uL Hgb (12.0-18.0) g/dL Hct (35.0-51.0) % MCV (80.0-94.0) fL MCH (27.0-31.0) pg MCHC (33.0-37.0) g/dL RDW (11.5-14.5) % Plt Count (130-400) K/uL MPV (7.2-11.7) fL Sodium (132-148) mmol/L Potassium (3.6-5.2) mmol/L Chloride (98-107) mmol/L Carbon Dioxide (22-30) mmol/L Anion Gap (10-20) BUN (9-20) mg/dL Creatinine (0.8-1.5) MG/DL Est GFR ( Amer) Est GFR (Non-Af Amer) Random Glucose (75-110) mg/dL Calcium (8.6-10.4) mg/dl Total Bilirubin (0.2-1.3) mg/dL AST (17-59) U/L ALT (21-72) U/L Alkaline Phosphatase (38-126) U/L Total Protein (6.3-8.3) g/dL Albumin (3.5-5.0) g/dL Globulin (2.2-3.9) gm/dL Albumin/Globulin Ratio (1.0-2.1) Vancomycin Trough (5.0-10.0) ug/mL WILLY 6 Profile Negative (NEGATIVE) Anti-Mitochondrial Ab Negative (Negative) Anti-Smooth Muscle Ab Negative (Negative) Hepatitis A IgM Ab Negative (NEGATIVE) Hep Bs Antigen Negative (NEGATIVE) Hep B Core IgM Ab Negative (NEGATIVE) Hepatitis C Antibody Negative (NEGATIVE) Laboratory Results - last 24 hr 04/17/17 04/17/17 04/17/17 19:35 19:35 19:35 WBC RBC Hgb Hct MCV MCH MCHC RDW Plt Count MPV Sodium Potassium Chloride Carbon Dioxide Anion Gap BUN Creatinine Est GFR ( Amer) Est GFR (Non-Af Amer) Random Glucose Calcium Total Bilirubin AST ALT Alkaline Phosphatase Total Protein Albumin Globulin Albumin/Globulin Ratio Vancomycin Trough WILLY 6 Profile Negative Anti-Mitochondrial Ab Negative Anti-Smooth Muscle Ab Negative Hepatitis A IgM Ab Negative Hep Bs Antigen Negative Hep B Core IgM Ab Negative Hepatitis C Antibody Negative 04/19/17 04/19/17 04/19/17 06:18 06:18 12:29 WBC 18.9 H RBC 3.76 L Hgb 10.5 L Hct 34.0 L MCV 90.5 MCH 28.0 MCHC 30.9 L RDW 16.3 H Plt Count 377 MPV 9.5 Sodium 148 Potassium 3.6 Chloride 114 H Carbon Dioxide 25 Anion Gap 13 BUN 58 H Creatinine 0.9 Est GFR ( Amer) > 60 Est GFR (Non-Af Amer) > 60 Random Glucose 164 H Calcium 7.6 L Total Bilirubin 1.2 AST 616 H D ALT 1134 H Alkaline Phosphatase 237 H Total Protein 5.5 L Albumin 2.3 L Globulin 3.2 Albumin/Globulin Ratio 0.7 L Vancomycin Trough 13.0 H WILLY 6 Profile Anti-Mitochondrial Ab Anti-Smooth Muscle Ab Hepatitis A IgM Ab Hep Bs Antigen Hep B Core IgM Ab Hepatitis C Antibody Attending/Attestation - Attestation I have personally seen and examined this patient.: Yes I have fully participated in the care of the patient.: Yes I have reviewed all pertinent clinical information: Yes Notes (Text): 04/19/17 19:18 agree with above note during rounds in the am pt was examined and clinical decision was made and discussed with icu team
[2017-04-19 08:12] LABS: HEPATITIS B SURFACE AG NEGATIVE (NEGATIVE)
[2017-04-19 08:17] LABS: HEPATITIS A IGM NEGATIVE (NEGATIVE)
[2017-04-19 08:18] LABS: HEPATITIS B CORE AB NEGATIVE (NEGATIVE)
[2017-04-19 08:30] LABS: HEPATITIS C ANTIBODY NEGATIVE (NEGATIVE)
[2017-04-19] MEDS ORDERED: Digoxin 500 mcg/2ml (0.5 mg/2ml) Inj IVP ONE (10:06)
[2017-04-19] MEDS: Enoxaparin 60 mg Syringe SC SCH ×2 (10:25→21:24)
[2017-04-19 10:27] VITALS: PULSE 113
[2017-04-19] MEDS: HYDROmorphone 0.5 mg/0.5 ml ISec IVP PRN ×2 (11:53→23:19)
--- NOTE | 2017-04-19 14:24 | CP.PCM.CON ---
History of Present Illness - History of Present Illness History of Present Illness: Palliative consult Requested by Krystle RAVI Reason: Goals of care discussion Patient is a 82 yo male [place] with increased lethargy, sluggishness and changes in mental status. Patient was confused at base line prior to this event. As per family, patient's daughter who visits daily noticed changes in patient's mental tatus and insisted on transfer to the hospital. Upon admission patient was found with UTI, low Hb, increased LFTs and increased WBC of 18.9. The CXR was significant for mild pulmonary congestion and CHF. After the blood transfusion the Hb jah up to 10.5. Patient was placed on BiPap for respiratory support and cardizem drip for tachycardia. Over the weekend family agreed with DNR/DNI status, document on chart. PMH: UTI, Parkinson's, A fib, CAD, CHF, HTN, HIV, right foot gangrene Soc: Hx: , [place] resident, has two children, daughter who lives near the [place] visits daily fam Hx: family not aware of any Review of Systems - Review of Systems All systems: reviewed and no additional remarkable complaints except - Constitutional Constitutional: Weakness - Cardiovascular Cardiovascular: Dyspnea, Dyspnea on Exertion, Pedal Edema - Respiratory Respiratory: Dyspnea on Exertion, Chest Congestion - Gastrointestinal Gastrointestinal: Fecal Incontinence - Genitourinary Genitourinary: Urinary Incontinence - Musculoskeletal Musculoskeletal: Deformity, Limited Range of Motion, Muscle Weakness, Stiffness - Integumentary Integumentary: Change in Pigmentation, Wounds - Neurological Neurological: Confusion - Psychiatric Psychiatric: Confusion, Difficulty Concentrating - Hematologic/Lymphatic Hematologic: Easy Bleeding Past Patient History - Infectious Disease Hx of Infectious Diseases: None - Tetanus Immunizations Tetanus Immunization: Unknown - Past Medical History & Family History Past Medical History?: Yes - Past Social History Smoking Status: Former Smoker - CARDIAC Hx Atrial Fibrillation: Yes Hx Cardia Arrhythmia: No Hx Congestive Heart Failure: No Hx Hypercholesterolemia: Yes Hx Hypertension: Yes Hx Mitral Valve Prolapse: No Hx Pacemaker: No Hx Peripheral Edema: No - PULMONARY Hx Asthma: No Hx Bronchitis: No Hx Chronic Obstructive Pulmonary Disease (COPD): No Hx Emphysema: No Hx Pneumonia: No Hx Sleep Apnea: No - NEUROLOGICAL Hx Alzheimer's Disease: No Hx Dementia: No Hx Migraine: No Hx Parkinson's Disease: No Hx Seizures: No Hx Transient Ischemic Attacks (TIA): No - HEENT Hx HEENT Problems: No - RENAL Hx Chronic Kidney Disease: No Hx Kidney Stones: No - ENDOCRINE/METABOLIC Hx Hyperthyroidism: No Hx Hypothyroidism: No - HEMATOLOGICAL/ONCOLOGICAL Hx Anemia: Yes Hx Human Immunodeficiency Virus (HIV): No Hx Sickle Cell Disease: No - INTEGUMENTARY Hx Dermatological Problems: No - MUSCULOSKELETAL/RHEUMATOLOGICAL Hx Arthritis: No Hx Fractures: No Hx Osteoporosis: No - GASTROINTESTINAL Hx Crohn's Disease: No Hx Diverticulitis: No Hx Gall Bladder Disease: No Hx Pancreatitis: No - GENITOURINARY/GYNECOLOGICAL Hx Sexually Transmitted Disorders: No - PSYCHIATRIC Hx Anxiety: Yes Hx Bipolar Disorder: No Hx Depression: No Hx Paranoia: No Hx Post Traumatic Stress Disorder: No Hx Schizophrenia: No Hx Substance Use: No - SURGICAL HISTORY Hx Appendectomy: No Hx Cholecystectomy: No Hx Coronary Stent: Yes - ANESTHESIA Hx Anesthesia: Yes Hx Anesthesia Reactions: No Hx Malignant Hyperthermia: No Meds Allergies/Adverse Reactions: Allergies Allergy/AdvReac Type Severity Reaction Status Date / Time No Known Allergies Allergy Verified 10/02/16 10:29 - Medications Medications: Current Medications Aspirin (Ecotrin) 81 mg PO DAILY [facility] Last Admin: 04/19/17 10:26 Dose: 81 mg Clopidogrel Bisulfate (Plavix) 75 mg PO DAILY [facility] Last Admin: 04/19/17 10:26 Dose: 75 mg Diltiazem HCl (Cardizem) 60 mg PO Q8H [facility] Last Admin: 04/19/17 10:26 Dose: 60 mg Enoxaparin Sodium (Lovenox) 60 mg SC Q12 [facility] Last Admin: 04/19/17 10:25 Dose: 60 mg Famotidine (Pepcid) 20 mg IVP DAILY [facility] Last Admin: 04/19/17 10:26 Dose: 20 mg Furosemide (Lasix) 20 mg IVP DAILY [facility] Last Admin: 04/19/17 10:26 Dose: 20 mg Hydromorphone HCl (Dilaudid) 0.5 mg IVP Q6H PRN PRN Reason: pain Last Admin: 04/19/17 11:53 Dose: 0.5 mg Imipenem/Cilastatin Sodium 500 (mg/ Sodium Chloride) 100 mls @ 100 mls/hr IVPB Q8H [facility] Last Admin: 04/19/17 10:27 Dose: 100 mls/hr Vancomycin/Sodium Chloride (Vancocin) 1 gm in 200 mls @ 133.333 mls/hr IVPB Q24H [facility] Stop: 04/20/17 13:01 Last Admin: 04/18/17 13:02 Dose: 133.333 mls/hr Diltiazem HCl 125 mg/ Sodium (Chloride) 125 mls @ 5 mls/hr IV .Q24H PRN; 5 MG/ HR PRN Reason: Protocol Last Admin: 04/19/17 11:58 Dose: 5 mg/hr, 5 mls/hr Metoprolol Tartrate (Lopressor) 50 mg PO Q12 [facility] Last Admin: 04/19/17 10:27 Dose: 50 mg Morphine Sulfate (Morphine) 2 mg IV Q4 PRN PRN Reason: Pain, moderate (4-7) Last Admin: 04/19/17 08:01 Dose: 2 mg Physical Exam - Constitutional Appears: Chronically Ill - Head Exam Head Exam: ATRAUMATIC, NORMAL INSPECTION, NORMOCEPHALIC - Eye Exam Eye Exam: EOMI, Normal appearance, PERRL Pupil Exam: NORMAL ACCOMODATION, PERRL - ENT Exam ENT Exam: Mucous Membranes Moist, Normal Exam - Neck Exam Neck exam: Positive for: Normal Inspection - Respiratory Exam Respiratory Exam: Decreased Breath Sounds, Respiratory Distress - Cardiovascular Exam Cardiovascular Exam: Tachycardia, Irregular Rhythm - GI/Abdominal Exam GI & Abdominal Exam: Normal Bowel Sounds, Soft - Rectal Exam Rectal Exam: Deferred - Extremities Exam Additional comments: discoloration, gangrene - Back Exam Back exam: NORMAL INSPECTION - Neurological Exam Neurological exam: Altered, Motor Sensory Deficit - Psychiatric Exam Psychiatric exam: Flat Affect - Skin Skin Exam: Dry, Mottled Results - Vital Signs Recent Vital Signs: Last Vital Signs Temp 98.5 F 04/19/17 04:00 Pulse 92 H 04/19/17 13:32 Resp 18 04/19/17 13:00 BP 138/62 04/19/17 11:59 Pulse Ox 99 04/19/17 13:00 - Labs Result Diagrams: 04/19/17 06:18 04/19/17 06:18 Labs: Laboratory Results - last 24 hr 04/17/17 04/17/17 04/19/17 19:35 19:35 06:18 WBC 18.9 H RBC 3.76 L Hgb 10.5 L Hct 34.0 L MCV 90.5 MCH 28.0 MCHC 30.9 L RDW 16.3 H Plt Count 377 MPV 9.5 Sodium Potassium Chloride Carbon Dioxide Anion Gap BUN Creatinine Est GFR ( Amer) Est GFR (Non-Af Amer) Random Glucose Calcium Total Bilirubin AST ALT Alkaline Phosphatase Total Protein Albumin Globulin Albumin/Globulin Ratio Vancomycin Trough WILLY 6 Profile Negative Hepatitis A IgM Ab Negative Hep Bs Antigen Negative Hep B Core IgM Ab Negative Hepatitis C Antibody Negative 04/19/17 04/19/17 06:18 12:29 WBC RBC Hgb Hct MCV MCH MCHC RDW Plt Count MPV Sodium 148 Potassium 3.6 Chloride 114 H Carbon Dioxide 25 Anion Gap 13 BUN 58 H Creatinine 0.9 Est GFR ( Amer) > 60 Est GFR (Non-Af Amer) > 60 Random Glucose 164 H Calcium 7.6 L Total Bilirubin 1.2 AST 616 H D ALT 1134 H Alkaline Phosphatase 237 H Total Protein 5.5 L Albumin 2.3 L Globulin 3.2 Albumin/Globulin Ratio 0.7 L Vancomycin Trough 13.0 H WILLY 6 Profile Hepatitis A IgM Ab Hep Bs Antigen Hep B Core IgM Ab Hepatitis C Antibody Assessment & Plan - Assessment and Plan (Free Text) Assessment: Palliative consult Code status DNR/DNI, Copy on chart, PPS 10%, ROS obtained from nursing and family, patient unable to provide due to AMS and respiratory distress I reviewed medical records, all diagnostic studies, examined patient in the bed and discussed goals of care with pretty's son and his , away from the bed side. Patient is lethargic, on BiPap, unable to fallow simple commends, non verbal, looking very sick. HR 92, on Cardizem drip. RR rare 18, BiPap on,O2 Sat 96%. Skin is pale. There are wounds to right foot looking gangrenous. Abdomen is soft with diminished bowel sounds. Limited ROM to LEs. I met with patient's son and daughter in law. The son showed obvious frustration with patient's condition . As per him, he saw his father 4 days ago at the [place] and patient looked his norm. We reviewed past medical Hx, current diagnostic studies results and agreed that the very complex medical Hx and progressive nature of those chronic diseases took toll on patient's health. I further elicited family's expectations and goals for end of life care. The common goal was patient's comfort. Family does not want to have patient's prolonged nr they want to speed it up. We discussed Hospice care vs. LTAC. Family prefers the LTAC placement where patient would be able to receive higher level of care including Bipap and IV antibiotics. Family does not want patient to return to NH just yet. Family also agreed that Hospice care will eventually be the option, but before they decide on it, thy would like to patient to be treated for his UTI. This was shared with patient's primary Rn Gabriela. Impression * Patient is chronically ill with obvious decline in overall condition * Family is aware of condition and is concerned with comfort care * Family would want patient to be treated for his UTI and to be transferred to LTAC * Family hopes, once the UTI is treated patient would return to his previous level of functioning * The hospice care remains as an option if all other levels of care failed * Patient is DNR/DNI Suggestion * Continua all ordinary measures to support life * Discharge plan to LTAC * Hospice care is still an option based on patient's progress
--- NOTE | 2017-04-19 15:19 | CP.PCM.PN ---
Subjective - Date & Time of Evaluation Date of Evaluation: 04/19/17 Time of Evaluation: 15:17 - Subjective Subjective: Surgery: Dr. Irizarry Patient remains in ICU. Patient on BiPAP. REsting comfortably. LE contracted. Objective - Vital Signs/Intake and Output Vital Signs (last 24 hours): Temp Pulse Resp BP Pulse Ox 98.5 F 94 H 20 144/63 98 04/19/17 04:00 04/19/17 14:00 04/19/17 14:00 04/19/17 13:59 04/19/17 14:00 Intake and Output: 04/19/17 04/19/17 06:59 18:59 Intake Total 1060.0 255 Output Total 660 350 Balance 400.0 -95 - Medications Medications: Current Medications Aspirin (Ecotrin) 81 mg PO DAILY [facility] Last Admin: 04/19/17 10:26 Dose: 81 mg Clopidogrel Bisulfate (Plavix) 75 mg PO DAILY [facility] Last Admin: 04/19/17 10:26 Dose: 75 mg Diltiazem HCl (Cardizem) 60 mg PO Q8H [facility] Last Admin: 04/19/17 10:26 Dose: 60 mg Enoxaparin Sodium (Lovenox) 60 mg SC Q12 [facility] Last Admin: 04/19/17 10:25 Dose: 60 mg Famotidine (Pepcid) 20 mg IVP DAILY [facility] Last Admin: 04/19/17 10:26 Dose: 20 mg Furosemide (Lasix) 20 mg IVP DAILY [facility] Last Admin: 04/19/17 10:26 Dose: 20 mg Hydromorphone HCl (Dilaudid) 0.5 mg IVP Q6H PRN PRN Reason: pain Last Admin: 04/19/17 11:53 Dose: 0.5 mg Imipenem/Cilastatin Sodium 500 (mg/ Sodium Chloride) 100 mls @ 100 mls/hr IVPB Q8H [facility] Last Admin: 04/19/17 10:27 Dose: 100 mls/hr Vancomycin/Sodium Chloride (Vancocin) 1 gm in 200 mls @ 133.333 mls/hr IVPB Q24H [facility] Stop: 04/20/17 13:01 Last Admin: 04/18/17 13:02 Dose: 133.333 mls/hr Diltiazem HCl 125 mg/ Sodium (Chloride) 125 mls @ 5 mls/hr IV .Q24H PRN; 5 MG/ HR PRN Reason: Protocol Last Admin: 04/19/17 11:58 Dose: 5 mg/hr, 5 mls/hr Metoprolol Tartrate (Lopressor) 50 mg PO Q12 [facility] Last Admin: 04/19/17 10:27 Dose: 50 mg Morphine Sulfate (Morphine) 2 mg IV Q4 PRN PRN Reason: Pain, moderate (4-7) Last Admin: 04/19/17 08:01 Dose: 2 mg - Labs Labs: 04/19/17 06:18 04/19/17 06:18 PT 13.7 SECONDS (9.7-12.2) H 04/17/17 19:35 INR 1.2 04/17/17 19:35 APTT 45 SECONDS (21-34) H D 04/16/17 06:45 - Constitutional Appears: Cachectic, Chronically Ill - Eye Exam Eye Exam: Normal appearance - ENT Exam ENT Exam: Mucous Membranes Moist - Respiratory Exam Respiratory Exam: absent: Respiratory Distress - Cardiovascular Exam Cardiovascular Exam: REGULAR RHYTHM - Extremities Exam Additional comments: RLE cool to touch, dry gangrene noted to toes bilaterally. 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 Edie BIRCH PGY-3
[2017-04-19] MEDS: Vancomycin 1 gm/NS 200 ml 1 GM/200 ML BAG IVPB SCH (15:42)
--- NOTE | 2017-04-19 17:09 | CP.PCM.PN ---
Subjective - Date & Time of Evaluation Date of Evaluation: 04/19/17 Time of Evaluation: 14:20 - Subjective Subjective: clinically same Objective - Vital Signs/Intake and Output Vital Signs (last 24 hours): Temp Pulse Resp BP Pulse Ox 98.6 F 100 H 27 H 133/56 L 99 04/19/17 16:00 04/19/17 16:01 04/19/17 16:00 04/19/17 15:59 04/19/17 16:00 Intake and Output: 04/19/17 04/19/17 06:59 18:59 Intake Total 1060.0 545 Output Total 660 500 Balance 400.0 45 - Medications Medications: Current Medications Aspirin (Ecotrin) 81 mg PO DAILY [facility] Last Admin: 04/19/17 10:26 Dose: 81 mg Clopidogrel Bisulfate (Plavix) 75 mg PO DAILY [facility] Last Admin: 04/19/17 10:26 Dose: 75 mg Diltiazem HCl (Cardizem) 60 mg PO Q8H [facility] Last Admin: 04/19/17 10:26 Dose: 60 mg Enoxaparin Sodium (Lovenox) 60 mg SC Q12 [facility] Last Admin: 04/19/17 10:25 Dose: 60 mg Famotidine (Pepcid) 20 mg IVP DAILY [facility] Last Admin: 04/19/17 10:26 Dose: 20 mg Furosemide (Lasix) 20 mg IVP DAILY [facility] Last Admin: 04/19/17 10:26 Dose: 20 mg Hydromorphone HCl (Dilaudid) 0.5 mg IVP Q6H PRN PRN Reason: pain Last Admin: 04/19/17 11:53 Dose: 0.5 mg Imipenem/Cilastatin Sodium 500 (mg/ Sodium Chloride) 100 mls @ 100 mls/hr IVPB Q8H [facility] Last Admin: 04/19/17 10:27 Dose: 100 mls/hr Vancomycin/Sodium Chloride (Vancocin) 1 gm in 200 mls @ 133.333 mls/hr IVPB Q24H [facility] Stop: 04/20/17 13:01 Last Admin: 04/19/17 15:42 Dose: 133.333 mls/hr Diltiazem HCl 125 mg/ Sodium (Chloride) 125 mls @ 5 mls/hr IV .Q24H PRN; 5 MG/ HR PRN Reason: Protocol Last Admin: 04/19/17 11:58 Dose: 5 mg/hr, 5 mls/hr Metoprolol Tartrate (Lopressor) 50 mg PO Q12 [facility] Last Admin: 04/19/17 10:27 Dose: 50 mg Morphine Sulfate (Morphine) 2 mg IV Q4 PRN PRN Reason: Pain, moderate (4-7) Last Admin: 04/19/17 08:01 Dose: 2 mg - Labs Labs: 04/19/17 06:18 04/19/17 06:18 PT 13.7 SECONDS (9.7-12.2) H 04/17/17 19:35 INR 1.2 04/17/17 19:35 APTT 45 SECONDS (21-34) H D 04/16/17 06:45 - Constitutional Appears: Well - Head Exam Head Exam: ATRAUMATIC, NORMAL INSPECTION, NORMOCEPHALIC - Eye Exam Eye Exam: EOMI, Normal appearance, PERRL Pupil Exam: NORMAL ACCOMODATION, PERRL - ENT Exam ENT Exam: Mucous Membranes Moist, Normal Exam - Neck Exam Neck Exam: Full ROM, Normal Inspection. absent: Lymphadenopathy - Respiratory Exam Respiratory Exam: Decreased Breath Sounds - Cardiovascular Exam Cardiovascular Exam: REGULAR RHYTHM, +S1, +S2 - GI/Abdominal Exam GI & Abdominal Exam: Soft, Diminished Bowel Sounds - Rectal Exam Rectal Exam: Deferred
--- NOTE | 2017-04-19 22:04 | CP.PCM.PN ---
Subjective - Date & Time of Evaluation Date of Evaluation: 04/19/17 Time of Evaluation: 22:04 - Subjective Subjective: AFEBRILE, LETHARGIC NONVERBAL UNABLE TO FOLLOW SIMPLE COMMANDS. oxygen saturation on BiPAP 96%. oN cARDIZEM DRIP/AND lASIX. PT NOW DNR/DNI PER FAMILY CXR -PULMONARY EDEMA/CHF With bilateral pleural effusions. ROS. HEENT : N. Resp : LESS SOB wheezing, cough Cardio : No CP, PND orthopnea GI : No abd. Pain, n/v SECURITY INSPECTOR : No headache , focal deficit. Musculoskel : N Ext. : Pedal pulses WEAK, no edema or calf pain B/L ,FEET TOES ISCHEMIC CHANGES AND DRY GANGRENE. Derm : N . Psych : N. PE. Pt. is awake in no distress.CONFUSED V.S As noted in the chart Head ,ear nose,throat and eyes : Normal. Neck : Supple with normal carotids. Lungs: FEW BASILAR RALES Heart : S1 & S2 IRREGULAR. . No murmur. Abd : Soft non tender with normal bowel sounds. Neuro : Moves all ext. with no localized deficit. Ext : Pedal pulses WEAK, no edema or calf pain B/L ,FEET TOES ISCHEMIC CHANGES AND DRY GANGRENE Derm : No rashes or decubitus ulcer. Radiology/Labs . REVIEWED wbc 18.9 cREATININE 0.9/bun 58 vANCO TROUGH 13.0 OK CXR 04/16/17 diffuse bilateral infiltrates representing PE /CHF /? PNEUMONIA.BILATERAL PLEURAL EFFUSIONS. urine culture 04/14/17 +ve YEAST BLOOD CULTURES NEGATIVE TO DATE .LFTS ; TRANSAMINITIS IMPROVING. TROPONINS POSITIVE. Objective - Vital Signs/Intake and Output Vital Signs (last 24 hours): Temp Pulse Resp BP Pulse Ox 97.8 F 114 H 19 138/63 98 04/19/17 20:00 04/19/17 19:31 04/19/17 19:00 04/19/17 17:59 04/19/17 19:00 Intake and Output: 04/19/17 04/20/17 18:59 06:59 Intake Total 735 40 Output Total 985 Balance -250 40 - Medications Medications: Current Medications Aspirin (Ecotrin) 81 mg PO DAILY [facility] Last Admin: 04/19/17 10:26 Dose: 81 mg Clopidogrel Bisulfate (Plavix) 75 mg PO DAILY [facility] Last Admin: 04/19/17 10:26 Dose: 75 mg Diltiazem HCl (Cardizem) 60 mg PO Q8H [facility] Last Admin: 04/19/17 17:35 Dose: 60 mg Enoxaparin Sodium (Lovenox) 60 mg SC Q12 [facility] Last Admin: 04/19/17 21:24 Dose: 60 mg Famotidine (Pepcid) 20 mg IVP DAILY [facility] Last Admin: 04/19/17 10:26 Dose: 20 mg Furosemide (Lasix) 20 mg IVP DAILY [facility] Last Admin: 04/19/17 10:26 Dose: 20 mg Hydromorphone HCl (Dilaudid) 0.5 mg IVP Q6H PRN PRN Reason: pain Last Admin: 04/19/17 11:53 Dose: 0.5 mg Imipenem/Cilastatin Sodium 500 (mg/ Sodium Chloride) 100 mls @ 100 mls/hr IVPB Q8H [facility] Last Admin: 04/19/17 17:34 Dose: 100 mls/hr Vancomycin/Sodium Chloride (Vancocin) 1 gm in 200 mls @ 133.333 mls/hr IVPB Q24H [facility] Stop: 04/20/17 13:01 Last Admin: 04/19/17 15:42 Dose: 133.333 mls/hr Diltiazem HCl 125 mg/ Sodium (Chloride) 125 mls @ 5 mls/hr IV .Q24H PRN; 5 MG/ HR PRN Reason: Protocol Last Admin: 04/19/17 11:58 Dose: 5 mg/hr, 5 mls/hr Metoprolol Tartrate (Lopressor) 50 mg PO Q12 [facility] Last Admin: 04/19/17 21:24 Dose: 50 mg Morphine Sulfate (Morphine) 2 mg IV Q4 PRN PRN Reason: Pain, moderate (4-7) Last Admin: 04/19/17 20:23 Dose: 2 mg - Labs Labs: 04/19/17 06:18 04/19/17 06:18 PT 13.7 SECONDS (9.7-12.2) H 04/17/17 19:35 INR 1.2 04/17/17 19:35 APTT 45 SECONDS (21-34) H D 04/16/17 06:45 Assessment and Plan (1) Altered mental status Assessment & Plan: Continue IV Primaxin 500 every 8 hourly for broader gram-negative coverage. / Continue IV Vanco 1 g every 24 hourly for now. 04/14/17. Monitor renal functions closely. follow-up Vanco trough level prior to the fourth dose and keep it between 10 and 20. IV DIFLUCAN HELD IN VIEW OF RISING TRANSAMINITIS. STATINS HELD ALSO. OBSERVE LFTS . REPEAT ua AND URINE CULTURE. Status: Acute (2) Atrial fibrillation Status: Acute (3) UTI (urinary tract infection) Assessment & Plan: LAST URINE CULTURE +VE YEAST.04/14 BLOOD CULTURES -VE FOR FUNGAL ELEMENTS.F/U CULTURES. REPEAT ua URINE CULTURE . Status: Acute (4) Myocardial infarction Status: Acute (5) PAD (peripheral artery disease) Assessment & Plan: PATIENT HAS BILATERAL ISCHEMIC GANGRENOUS TOES. LEN /FARNAZ Status: Acute
--- NOTE | 2017-04-19 22:39 | CP.PCM.PN ---
Subjective - Date & Time of Evaluation Date of Evaluation: 04/19/17 Time of Evaluation: 15:35 - Subjective Subjective: Patient seen and evaluated No cardiac events noted Continue current medications Objective - Vital Signs/Intake and Output Vital Signs (last 24 hours): Temp Pulse Resp BP Pulse Ox 97.8 F 114 H 19 138/63 98 04/19/17 20:00 04/19/17 19:31 04/19/17 19:00 04/19/17 17:59 04/19/17 19:00 Intake and Output: 04/19/17 04/20/17 18:59 06:59 Intake Total 735 40 Output Total 985 Balance -250 40 - Medications Medications: Current Medications Aspirin (Ecotrin) 81 mg PO DAILY [facility] Last Admin: 04/19/17 10:26 Dose: 81 mg Clopidogrel Bisulfate (Plavix) 75 mg PO DAILY [facility] Last Admin: 04/19/17 10:26 Dose: 75 mg Diltiazem HCl (Cardizem) 60 mg PO Q8H [facility] Last Admin: 04/19/17 17:35 Dose: 60 mg Enoxaparin Sodium (Lovenox) 60 mg SC Q12 [facility] Last Admin: 04/19/17 21:24 Dose: 60 mg Famotidine (Pepcid) 20 mg IVP DAILY [facility] Last Admin: 04/19/17 10:26 Dose: 20 mg Furosemide (Lasix) 20 mg IVP DAILY [facility] Last Admin: 04/19/17 10:26 Dose: 20 mg Hydromorphone HCl (Dilaudid) 0.5 mg IVP Q6H PRN PRN Reason: pain Last Admin: 04/19/17 11:53 Dose: 0.5 mg Imipenem/Cilastatin Sodium 500 (mg/ Sodium Chloride) 100 mls @ 100 mls/hr IVPB Q8H [facility] Last Admin: 04/19/17 17:34 Dose: 100 mls/hr Vancomycin/Sodium Chloride (Vancocin) 1 gm in 200 mls @ 133.333 mls/hr IVPB Q24H [facility] Stop: 04/20/17 13:01 Last Admin: 04/19/17 15:42 Dose: 133.333 mls/hr Diltiazem HCl 125 mg/ Sodium (Chloride) 125 mls @ 5 mls/hr IV .Q24H PRN; 5 MG/ HR PRN Reason: Protocol Last Admin: 04/19/17 11:58 Dose: 5 mg/hr, 5 mls/hr Metoprolol Tartrate (Lopressor) 50 mg PO Q12 [facility] Last Admin: 04/19/17 21:24 Dose: 50 mg Morphine Sulfate (Morphine) 2 mg IV Q4 PRN PRN Reason: Pain, moderate (4-7) Last Admin: 04/19/17 20:23 Dose: 2 mg - Labs Labs: 04/19/17 06:18 04/19/17 06:18 PT 13.7 SECONDS (9.7-12.2) H 04/17/17 19:35 INR 1.2 04/17/17 19:35 APTT 45 SECONDS (21-34) H D 04/16/17 06:45
[2017-04-20 06:22] LABS: URINE BACTERIA RARE (<OCC); URINE BILIRUBIN NEGATIVE (NEGATIVE); URINE BLOOD 2+ (NEGATIVE); URINE CLARITY Hazy (Clear); URINE COLOR Yellow (YELLOW); URINE GLUCOSE (UA) NORMAL (Normal); URINE LEUKOCYTE ESTERASE 1+ Leu/uL (Negative); URINE NITRATE NEGATIVE (NEGATIVE); URINE PROTEIN 1+ mg/dL (NEGATIVE)
[2017-04-20 06:25] LABS: BASO % 0.2 % (0.0-2.0); EOS # 0.4 K/uL (0.0-0.7); EOS % 2.5 % (0.0-4.0); HEMOGLOBIN 10.5 g/dL (12.0-18.0); LYMPH # 1.7 K/uL (1.0-4.3); LYMPH % 10.1 % (20.0-40.0); MEAN CELL VOLUME 89.9 fL (80.0-94.0); MEAN CORPUSCULAR HEMOGLOBIN 28.5 pg (27.0-31.0); MEAN CORPUSCULAR HGB CONC 31.7 g/dL (33.0-37.0); MEAN PLATELET VOLUME 9.7 fL (7.2-11.7); MONO # 1.3 K/uL (0.0-0.8); MONO % 7.8 % (0.0-10.0); NEUT # 13.5 K/uL (1.8-7.0); NEUT % 79.4 % (50.0-75.0); NRBC % 0.1 % (0.0-2.0); RBC 3.67 Mil/uL (4.40-5.90); RED CELL DISTRIBUTION WIDTH 15.7 % (11.5-14.5)
[2017-04-20 06:28] LABS: ALBUMIN 2.3 g/dL (3.5-5.0)
[2017-04-20 06:31] LABS: ALB/GLOB RATIO 0.7 (1.0-2.1); AST/SGOT 239 U/L (17-59); BILIRUBIN,DIRECT 0.9 mg/dL (0.0-0.4); BLOOD UREA NITROGEN 48 mg/dL (9-20); GFR AFRICAN-AMERICAN > 60; GFR NON-AFRICAN AMERICAN > 60
[2017-04-20 06:32] LABS: ALT/SGPT 619 U/L (21-72); CALCIUM 7.8 mg/dl (8.6-10.4); MAGNESIUM 2.4 mg/dL (1.6-2.3)
[2017-04-20] MEDS ORDERED: Potassium Chloride 10 mEq ER Tab PO ONE (07:07)
--- NOTE | 2017-04-20 07:22 | CP.CCUPN ---
CCU Subjective - Physician Review Subjective (Free Text): 04/19/17 13:25 Patient seen and examined at bedside in the AM. Patient was alert but not oriented. Patient continuously grunted. Per patient's daughter would like to discuss the option of hospice care for her father. 04/19/17 13:25 CCU Objective - Vital Signs / Intake & Output Vital Signs (Last 4 hours): Vital Signs Temp Pulse Resp BP Pulse Ox 04/20/17 05:55 102 H 04/20/17 04:00 98 F 122 H 22 174/52 H 96 Intake and Output (Last 8hrs): Intake & Output 04/19/17 04/20/17 04/20/17 22:59 06:59 14:59 Intake Total 610 660 Output Total 335 800 Balance 275 -140 Intake: Intake, IV Amount 320 100 Left Hand 20 RFA 300 PRINCE 100 Tube Feeding 200 420 Other 90 140 Output: Urine 335 800 Urethral (Ivy) 335 800 Other: # Bowel Movements 0 - Physical Exam Head: Positive for: Atraumatic Pupils: Positive for: PERRL Extroacular Muscles: Positive for: EOMI Conjunctiva: Positive for: Normal, Icteric Mouth: Positive for: Moist Mucous Membranes Respiratory/Chest: Positive for: Rales, Tachypneic. Negative for: Clear to Auscultation, Respiratory Distress, Accessory Muscle Use Cardiovascular: Positive for: Regular Rate and Rhythm, Murmurs, Tachycardic Abdomen: Positive for: Normal Bowel Sounds. Negative for: Tenderness, Distention Lower Extremity: Positive for: Other (Right foot gangrene) Neurological: Positive for: Motor Func Grossly Intact, Normal Sensory Function Skin: Positive for: Warm, Dry Psychiatric: Positive for: Alert, Anxious, Agitated - Medications Active Medications: Active Medications Generic Name Dose Route Start Last Admin Trade Name Freq PRN Reason Stop Dose Admin Aspirin 81 mg 04/15/17 10:00 04/19/17 10:26 Ecotrin PO 81 mg DAILY [facility] Administration Clopidogrel Bisulfate 75 mg 04/15/17 10:00 04/19/17 10:26 Plavix PO 75 mg DAILY [facility] Administration Diltiazem HCl 60 mg 04/19/17 10:15 04/20/17 02:11 Cardizem PO 60 mg Q8H [facility] Administration Enoxaparin Sodium 60 mg 04/18/17 22:00 04/19/17 21:24 Lovenox SC 60 mg Q12 [facility] Administration Famotidine 20 mg 04/15/17 10:00 04/19/17 10:26 Pepcid IVP 20 mg DAILY [facility] Administration Furosemide 20 mg 04/17/17 17:00 04/19/17 10:26 Lasix IVP 20 mg DAILY [facility] Administration Hydromorphone HCl 0.5 mg 04/17/17 11:51 04/19/17 23:19 Dilaudid IVP 0.5 mg Q6H PRN Administration pain Imipenem/Cilastatin Sodium 500 100 mls @ 100 mls/hr 04/14/17 18:00 04/20/17 02:11 mg/ Sodium Chloride IVPB 100 mls/hr Q8H [facility] Administration Vancomycin/Sodium Chloride 1 gm in 200 mls @ 133.333 mls/hr 04/15/17 13:00 15:42 Vancocin IVPB 04/20/17 13:01 133.333 mls/hr Q24H [facility] Administration Diltiazem HCl 125 mg/ Sodium 125 mls @ 5 mls/hr 04/19/17 10:54 04/19/17 11:58 Chloride IV 5 mg/hr .Q24H PRN 5 mls/hr Protocol Administration 5 MG/HR Metoprolol Tartrate 50 mg 04/19/17 10:15 04/19/17 21:24 Lopressor PO 50 mg Q12 [facility] Administration Morphine Sulfate 2 mg 04/18/17 18:35 04/20/17 05:46 Morphine IV 2 mg Q4 PRN Administration Pain, moderate (4-7) - Patient Studies Lab Studies: Lab Studies 04/20/17 04/20/17 04/20/17 Range/Units 06:11 06:11 06:11 WBC 17.0 H (4.8-10.8) K/uL RBC 3.67 L (4.40-5.90) Mil/uL Hgb 10.5 L (12.0-18.0) g/dL Hct 33.0 L (35.0-51.0) % MCV 89.9 (80.0-94.0) fL MCH 28.5 (27.0-31.0) pg MCHC 31.7 L (33.0-37.0) g/dL RDW 15.7 H (11.5-14.5) % Plt Count 362 (130-400) K/uL MPV 9.7 (7.2-11.7) fL Neut % (Auto) 79.4 H (50.0-75.0) % Lymph % (Auto) 10.1 L (20.0-40.0) % Lawrence % (Auto) 7.8 (0.0-10.0) % Eos % (Auto) 2.5 (0.0-4.0) % Baso % (Auto) 0.2 (0.0-2.0) % Neut # 13.5 H (1.8-7.0) K/uL Lymph # 1.7 (1.0-4.3) K/uL Lawrence # 1.3 H (0.0-0.8) K/uL Eos # 0.4 (0.0-0.7) K/uL Baso # 0.0 (0.0-0.2) K/uL Sodium 152 H (132-148) mmol/L Potassium 3.4 L (3.6-5.2) mmol/L Chloride 116 H (98-107) mmol/L Carbon Dioxide 28 (22-30) mmol/L Anion Gap 11 (10-20) BUN 48 H (9-20) mg/dL Creatinine 0.8 (0.8-1.5) MG/DL Est GFR ( Amer) > 60 Est GFR (Non-Af Amer) > 60 Random Glucose 145 H (75-110) mg/dL Calcium 7.8 L (8.6-10.4) mg/dl Phosphorus 2.9 (2.5-4.5) mg/dL Magnesium 2.4 H (1.6-2.3) mg/dL Total Bilirubin 0.9 (0.2-1.3) mg/dL Direct Bilirubin 0.9 H (0.0-0.4) mg/dL AST 239 H D (17-59) U/L ALT 619 H D (21-72) U/L Alkaline Phosphatase 262 H (38-126) U/L Total Protein 5.5 L (6.3-8.3) g/dL Albumin 2.3 L (3.5-5.0) g/dL Globulin 3.2 (2.2-3.9) gm/dL Albumin/Globulin Ratio 0.7 L (1.0-2.1) Urine Color Yellow (YELLOW) Urine Clarity Hazy (Clear) Urine pH 5.0 (5.0-8.0) Ur Specific Dilley 1.017 (1.003-1.030) Urine Protein 1+ H (NEGATIVE) mg/dL Urine Glucose (UA) Normal (Normal) mg/dL Urine Ketones Trace (NEGATIVE) mg/dL Urine Blood 2+ H (NEGATIVE) Urine Nitrate Negative (NEGATIVE) Urine Bilirubin Negative (NEGATIVE) Urine Urobilinogen 2.0 (0.2-1.0) mg/dL Ur Leukocyte Esterase 1+ H (Negative) Louis/uL Urine WBC (Auto) 19 H (0-5) /hpf Urine RBC (Auto) 4 H (0-3) /hpf Urine Bacteria Rare (<OCC) Urine Yeast (Budding) Few H (NEGATIVE) /hpf Vancomycin Trough (5.0-10.0) ug/mL WILLY 6 Profile (NEGATIVE) Anti-Mitochondrial Ab (Negative) Anti-Smooth Muscle Ab (Negative) Hepatitis A IgM Ab (NEGATIVE) Hep Bs Antigen (NEGATIVE) Hep B Core IgM Ab (NEGATIVE) Hepatitis C Antibody (NEGATIVE) 04/20/17 04/19/17 04/19/17 Range/Units 06:11 12:29 06:18 WBC 18.9 H (4.8-10.8) K/uL RBC 3.76 L (4.40-5.90) Mil/uL Hgb 10.5 L (12.0-18.0) g/dL Hct 34.0 L (35.0-51.0) % MCV 90.5 (80.0-94.0) fL MCH 28.0 (27.0-31.0) pg MCHC 30.9 L (33.0-37.0) g/dL RDW 16.3 H (11.5-14.5) % Plt Count 377 (130-400) K/uL MPV 9.5 (7.2-11.7) fL Neut % (Auto) (50.0-75.0) % Lymph % (Auto) (20.0-40.0) % Lawrence % (Auto) (0.0-10.0) % Eos % (Auto) (0.0-4.0) % Baso % (Auto) (0.0-2.0) % Neut # (1.8-7.0) K/uL Lymph # (1.0-4.3) K/uL Lawrence # (0.0-0.8) K/uL Eos # (0.0-0.7) K/uL Baso # (0.0-0.2) K/uL Sodium (132-148) mmol/L Potassium (3.6-5.2) mmol/L Chloride (98-107) mmol/L Carbon Dioxide (22-30) mmol/L Anion Gap (10-20) BUN (9-20) mg/dL Creatinine (0.8-1.5) MG/DL Est GFR ( Amer) Est GFR (Non-Af Amer) Random Glucose (75-110) mg/dL Calcium (8.6-10.4) mg/dl Phosphorus (2.5-4.5) mg/dL Magnesium (1.6-2.3) mg/dL Total Bilirubin (0.2-1.3) mg/dL Direct Bilirubin (0.0-0.4) mg/dL AST (17-59) U/L ALT (21-72) U/L Alkaline Phosphatase (38-126) U/L Total Protein (6.3-8.3) g/dL Albumin (3.5-5.0) g/dL Globulin (2.2-3.9) gm/dL Albumin/Globulin Ratio (1.0-2.1) Urine Color (YELLOW) Urine Clarity (Clear) Urine pH (5.0-8.0) Ur Specific Dilley (1.003-1.030) Urine Protein (NEGATIVE) mg/dL Urine Glucose (UA) (Normal) mg/dL Urine Ketones (NEGATIVE) mg/dL Urine Blood (NEGATIVE) Urine Nitrate (NEGATIVE) Urine Bilirubin (NEGATIVE) Urine Urobilinogen (0.2-1.0) mg/dL Ur Leukocyte Esterase (Negative) Louis/uL Urine WBC (Auto) (0-5) /hpf Urine RBC (Auto) (0-3) /hpf Urine Bacteria (<OCC) Urine Yeast (Budding) (NEGATIVE) /hpf Vancomycin Trough 18.0 H 13.0 H (5.0-10.0) ug/mL WILLY 6 Profile (NEGATIVE) Anti-Mitochondrial Ab (Negative) Anti-Smooth Muscle Ab (Negative) Hepatitis A IgM Ab (NEGATIVE) Hep Bs Antigen (NEGATIVE) Hep B Core IgM Ab (NEGATIVE) Hepatitis C Antibody (NEGATIVE) 04/17/17 04/17/17 04/17/17 Range/Units 19:35 19:35 19:35 WBC (4.8-10.8) K/uL RBC (4.40-5.90) Mil/uL Hgb (12.0-18.0) g/dL Hct (35.0-51.0) % MCV (80.0-94.0) fL MCH (27.0-31.0) pg MCHC (33.0-37.0) g/dL RDW (11.5-14.5) % Plt Count (130-400) K/uL MPV (7.2-11.7) fL Neut % (Auto) (50.0-75.0) % Lymph % (Auto) (20.0-40.0) % Lawrence % (Auto) (0.0-10.0) % Eos % (Auto) (0.0-4.0) % Baso % (Auto) (0.0-2.0) % Neut # (1.8-7.0) K/uL Lymph # (1.0-4.3) K/uL Lawrence # (0.0-0.8) K/uL Eos # (0.0-0.7) K/uL Baso # (0.0-0.2) K/uL Sodium (132-148) mmol/L Potassium (3.6-5.2) mmol/L Chloride (98-107) mmol/L Carbon Dioxide (22-30) mmol/L Anion Gap (10-20) BUN (9-20) mg/dL Creatinine (0.8-1.5) MG/DL Est GFR ( Amer) Est GFR (Non-Af Amer) Random Glucose (75-110) mg/dL Calcium (8.6-10.4) mg/dl Phosphorus (2.5-4.5) mg/dL Magnesium (1.6-2.3) mg/dL Total Bilirubin (0.2-1.3) mg/dL Direct Bilirubin (0.0-0.4) mg/dL AST (17-59) U/L ALT (21-72) U/L Alkaline Phosphatase (38-126) U/L Total Protein (6.3-8.3) g/dL Albumin (3.5-5.0) g/dL Globulin (2.2-3.9) gm/dL Albumin/Globulin Ratio (1.0-2.1) Urine Color (YELLOW) Urine Clarity (Clear) Urine pH (5.0-8.0) Ur Specific Dilley (1.003-1.030) Urine Protein (NEGATIVE) mg/dL Urine Glucose (UA) (Normal) mg/dL Urine Ketones (NEGATIVE) mg/dL Urine Blood (NEGATIVE) Urine Nitrate (NEGATIVE) Urine Bilirubin (NEGATIVE) Urine Urobilinogen (0.2-1.0) mg/dL Ur Leukocyte Esterase (Negative) Louis/uL Urine WBC (Auto) (0-5) /hpf Urine RBC (Auto) (0-3) /hpf Urine Bacteria (<OCC) Urine Yeast (Budding) (NEGATIVE) /hpf Vancomycin Trough (5.0-10.0) ug/mL WILLY 6 Profile Negative (NEGATIVE) Anti-Mitochondrial Ab Negative (Negative) Anti-Smooth Muscle Ab Negative (Negative) Hepatitis A IgM Ab Negative (NEGATIVE) Hep Bs Antigen Negative (NEGATIVE) Hep B Core IgM Ab Negative (NEGATIVE) Hepatitis C Antibody Negative (NEGATIVE) Laboratory Results - last 24 hr 04/17/17 04/17/17 04/17/17 19:35 19:35 19:35 WBC RBC Hgb Hct MCV MCH MCHC RDW Plt Count MPV Neut % (Auto) Lymph % (Auto) Lawrence % (Auto) Eos % (Auto) Baso % (Auto) Neut # Lymph # Lawrence # Eos # Baso # Sodium Potassium Chloride Carbon Dioxide Anion Gap BUN Creatinine Est GFR ( Amer) Est GFR (Non-Af Amer) Random Glucose Calcium Phosphorus Magnesium Total Bilirubin Direct Bilirubin AST ALT Alkaline Phosphatase Total Protein Albumin Globulin Albumin/Globulin Ratio Urine Color Urine Clarity Urine pH Ur Specific Dilley Urine Protein Urine Glucose (UA) Urine Ketones Urine Blood Urine Nitrate Urine Bilirubin Urine Urobilinogen Ur Leukocyte Esterase Urine WBC (Auto) Urine RBC (Auto) Urine Bacteria Urine Yeast (Budding) Vancomycin Trough WILLY 6 Profile Negative Anti-Mitochondrial Ab Negative Anti-Smooth Muscle Ab Negative Hepatitis A IgM Ab Negative Hep Bs Antigen Negative Hep B Core IgM Ab Negative Hepatitis C Antibody Negative 04/19/17 04/19/17 04/20/17 06:18 12:29 06:11 WBC 18.9 H RBC 3.76 L Hgb 10.5 L Hct 34.0 L MCV 90.5 MCH 28.0 MCHC 30.9 L RDW 16.3 H Plt Count 377 MPV 9.5 Neut % (Auto) Lymph % (Auto) Lawrence % (Auto) Eos % (Auto) Baso % (Auto) Neut # Lymph # Lawrence # Eos # Baso # Sodium Potassium Chloride Carbon Dioxide Anion Gap BUN Creatinine Est GFR ( Amer) Est GFR (Non-Af Amer) Random Glucose Calcium Phosphorus Magnesium Total Bilirubin Direct Bilirubin AST ALT Alkaline Phosphatase Total Protein Albumin Globulin Albumin/Globulin Ratio Urine Color Urine Clarity Urine pH Ur Specific Dilley Urine Protein Urine Glucose (UA) Urine Ketones Urine Blood Urine Nitrate Urine Bilirubin Urine Urobilinogen Ur Leukocyte Esterase Urine WBC (Auto) Urine RBC (Auto) Urine Bacteria Urine Yeast (Budding) Vancomycin Trough 13.0 H 18.0 H WILLY 6 Profile Anti-Mitochondrial Ab Anti-Smooth Muscle Ab Hepatitis A IgM Ab Hep Bs Antigen Hep B Core IgM Ab Hepatitis C Antibody 04/20/17 04/20/17 04/20/17 06:11 06:11 06:11 WBC 17.0 H RBC 3.67 L Hgb 10.5 L Hct 33.0 L MCV 89.9 MCH 28.5 MCHC 31.7 L RDW 15.7 H Plt Count 362 MPV 9.7 Neut % (Auto) 79.4 H Lymph % (Auto) 10.1 L Lawrence % (Auto) 7.8 Eos % (Auto) 2.5 Baso % (Auto) 0.2 Neut # 13.5 H Lymph # 1.7 Lawrence # 1.3 H Eos # 0.4 Baso # 0.0 Sodium 152 H Potassium 3.4 L Chloride 116 H Carbon Dioxide 28 Anion Gap 11 BUN 48 H Creatinine 0.8 Est GFR ( Amer) > 60 Est GFR (Non-Af Amer) > 60 Random Glucose 145 H Calcium 7.8 L Phosphorus 2.9 Magnesium 2.4 H Total Bilirubin 0.9 Direct Bilirubin 0.9 H AST 239 H D ALT 619 H D Alkaline Phosphatase 262 H Total Protein 5.5 L Albumin 2.3 L Globulin 3.2 Albumin/Globulin Ratio 0.7 L Urine Color Yellow Urine Clarity Hazy Urine pH 5.0 Ur Specific Dilley 1.017 Urine Protein 1+ H Urine Glucose (UA) Normal Urine Ketones Trace Urine Blood 2+ H Urine Nitrate Negative Urine Bilirubin Negative Urine Urobilinogen 2.0 Ur Leukocyte Esterase 1+ H Urine WBC (Auto) 19 H Urine RBC (Auto) 4 H Urine Bacteria Rare Urine Yeast (Budding) Few H Vancomycin Trough WILLY 6 Profile Anti-Mitochondrial Ab Anti-Smooth Muscle Ab Hepatitis A IgM Ab Hep Bs Antigen Hep B Core IgM Ab Hepatitis C Antibody Fingerstick Blood Sugar Results: 200
[2017-04-20] MEDS: Enoxaparin 60 mg Syringe SC SCH ×2 (10:11→21:36)
[2017-04-20] MEDS: HYDROmorphone 0.5 mg/0.5 ml ISec IVP PRN (11:38)
--- NOTE | 2017-04-20 11:47 | CP.PCM.PN ---
Subjective - Date & Time of Evaluation Date of Evaluation: 04/20/17 Time of Evaluation: 14:00 - Subjective Subjective: clinically same Objective - Vital Signs/Intake and Output Vital Signs (last 24 hours): Temp Pulse Resp BP Pulse Ox 98.4 F 129 H 28 H 161/65 H 100 04/20/17 08:00 04/20/17 08:00 04/20/17 08:00 04/20/17 10:12 04/20/17 08:00 Intake and Output: 04/20/17 04/20/17 06:59 18:59 Intake Total 790 335 Output Total 800 0 Balance -10 335 - Medications Medications: Current Medications Aspirin (Ecotrin) 81 mg PO DAILY [facility] Last Admin: 04/20/17 10:12 Dose: 81 mg Clopidogrel Bisulfate (Plavix) 75 mg PO DAILY [facility] Last Admin: 04/20/17 10:12 Dose: 75 mg Diltiazem HCl (Cardizem) 60 mg PO Q8H [facility] Last Admin: 04/20/17 10:12 Dose: 60 mg Enoxaparin Sodium (Lovenox) 60 mg SC Q12 [facility] Last Admin: 04/20/17 10:11 Dose: 60 mg Famotidine (Pepcid) 20 mg IVP DAILY [facility] Last Admin: 04/20/17 10:12 Dose: 20 mg Furosemide (Lasix) 20 mg IVP DAILY [facility] Last Admin: 04/20/17 10:12 Dose: 20 mg Hydromorphone HCl (Dilaudid) 0.5 mg IVP Q6H PRN PRN Reason: pain Last Admin: 04/20/17 11:38 Dose: 0.5 mg Imipenem/Cilastatin Sodium 500 (mg/ Sodium Chloride) 100 mls @ 100 mls/hr IVPB Q8H [facility] Last Admin: 04/20/17 10:48 Dose: 100 mls/hr Vancomycin/Sodium Chloride (Vancocin) 1 gm in 200 mls @ 133.333 mls/hr IVPB Q24H [facility] Stop: 04/20/17 13:01 Last Admin: 04/19/17 15:42 Dose: 133.333 mls/hr Diltiazem HCl 125 mg/ Sodium (Chloride) 125 mls @ 5 mls/hr IV .Q24H PRN; 5 MG/ HR PRN Reason: Protocol Last Admin: 04/19/17 11:58 Dose: 5 mg/hr, 5 mls/hr Metoprolol Tartrate (Lopressor) 50 mg PO Q12 [facility] Last Admin: 04/20/17 10:12 Dose: 50 mg Morphine Sulfate (Morphine) 2 mg IV Q4 PRN PRN Reason: Pain, moderate (4-7) Last Admin: 04/20/17 08:29 Dose: 2 mg - Labs Labs: 04/20/17 06:11 04/20/17 06:11 PT 13.7 SECONDS (9.7-12.2) H 04/17/17 19:35 INR 1.2 04/17/17 19:35 APTT 45 SECONDS (21-34) H D 04/16/17 06:45 - Constitutional Appears: Well - Head Exam Head Exam: ATRAUMATIC, NORMAL INSPECTION, NORMOCEPHALIC - Eye Exam Eye Exam: EOMI, Normal appearance, PERRL Pupil Exam: NORMAL ACCOMODATION, PERRL - ENT Exam ENT Exam: Mucous Membranes Moist, Normal Exam - Neck Exam Neck Exam: Full ROM, Normal Inspection. absent: Lymphadenopathy - Respiratory Exam Respiratory Exam: Decreased Breath Sounds - Cardiovascular Exam Cardiovascular Exam: REGULAR RHYTHM, +S1, +S2 - GI/Abdominal Exam GI & Abdominal Exam: Soft, Diminished Bowel Sounds - Rectal Exam Rectal Exam: Deferred
[2017-04-20] MEDS: Vancomycin 1 gm/NS 200 ml 1 GM/200 ML BAG IVPB SCH (12:50)
--- NOTE | 2017-04-20 22:43 | CP.PCM.PN ---
Subjective - Date & Time of Evaluation Date of Evaluation: 04/20/17 Time of Evaluation: 08:05 - Subjective Subjective: Patient seen and evaluated No new events noted Objective - Vital Signs/Intake and Output Vital Signs (last 24 hours): Temp Pulse Resp BP Pulse Ox 98.8 F 146 H 28 H 157/79 H 100 04/20/17 16:00 04/20/17 20:00 04/20/17 08:00 04/20/17 16:00 04/20/17 16:00 Intake and Output: 04/20/17 04/21/17 18:59 06:59 Intake Total 1020 Output Total 1300 Balance -280 - Medications Medications: Current Medications Aspirin (Ecotrin) 81 mg PO DAILY [facility] Last Admin: 04/20/17 10:12 Dose: 81 mg Clopidogrel Bisulfate (Plavix) 75 mg PO DAILY [facility] Last Admin: 04/20/17 10:12 Dose: 75 mg Diltiazem HCl (Cardizem) 60 mg PO Q8H [facility] Last Admin: 04/20/17 17:15 Dose: 60 mg Enoxaparin Sodium (Lovenox) 60 mg SC Q12 [facility] Last Admin: 04/20/17 21:36 Dose: 60 mg Famotidine (Pepcid) 20 mg IVP DAILY [facility] Last Admin: 04/20/17 10:12 Dose: 20 mg Furosemide (Lasix) 20 mg IVP DAILY [facility] Last Admin: 04/20/17 10:12 Dose: 20 mg Hydromorphone HCl (Dilaudid) 0.5 mg IVP Q6H PRN PRN Reason: pain Last Admin: 04/20/17 11:38 Dose: 0.5 mg Imipenem/Cilastatin Sodium 500 (mg/ Sodium Chloride) 100 mls @ 100 mls/hr IVPB Q8H [facility] Last Admin: 04/20/17 17:07 Dose: 100 mls/hr Diltiazem HCl 125 mg/ Sodium (Chloride) 125 mls @ 5 mls/hr IV .Q24H PRN; 5 MG/ HR PRN Reason: Protocol Last Admin: 04/19/17 11:58 Dose: 5 mg/hr, 5 mls/hr Metoprolol Tartrate (Lopressor) 50 mg PO Q12 [facility] Last Admin: 04/20/17 21:38 Dose: 50 mg Morphine Sulfate (Morphine) 2 mg IV Q4 PRN PRN Reason: Pain, moderate (4-7) Last Admin: 04/20/17 18:26 Dose: 2 mg - Labs Labs: 04/20/17 06:11 04/20/17 06:11 PT 13.7 SECONDS (9.7-12.2) H 04/17/17 19:35 INR 1.2 04/17/17 19:35 APTT 45 SECONDS (21-34) H D 04/16/17 06:45
--- NOTE | 2017-04-20 23:31 | CP.PCM.PN ---
Subjective - Date & Time of Evaluation Date of Evaluation: 04/20/17 Time of Evaluation: 23:31 - Subjective Subjective: AFEBRILE, LETHARGIC NONVERBAL oxygen saturation on BiPAP 96%. ON CARDIZEM DRIP/AND lASIX. PT NOW DNR/DNI PER FAMILY ROS.ON OBSERVATION HEENT : N. Resp : LESS SOB wheezing, cough Cardio : No CP, PND orthopnea GI : No abd. Pain, n/v [employer] : No headache , focal deficit. Musculoskel : N Ext. : Pedal pulses WEAK, no edema or calf pain B/L ,FEET TOES ISCHEMIC CHANGES AND DRY GANGRENE. Derm : N . Psych : N. PE. Pt. is awake in no distress.CONFUSED,NONVERBAL V.S As noted in the chart Head ,ear nose,throat and eyes : Normal. Neck : Supple with normal carotids. Lungs: FEW BASILAR RALES Heart : S1 & S2 IRREGULAR. . No murmur. Abd : Soft non tender with normal bowel sounds. Neuro : Moves all ext. with no localized deficit. Ext : Pedal pulses WEAK, no edema or calf pain B/L ,FEET TOES ISCHEMIC CHANGES AND DRY GANGRENE Derm : No rashes or decubitus ulcer. Radiology/Labs . REVIEWED wbc 17.0 NA152 IMPROVING RENAL FUNCTIONS OKAY vANCO TROUGH 18.0 OK CXR 04/17/17- UNCHANGED diffuse bilateral infiltrates R >L MODERATE VENOUS CONGESTION. /bILATERAL PLEURAL EFFUSIONS. CXR 04/16/17 diffuse bilateral infiltrates representing PE /CHF /? PNEUMONIA.BILATERAL PLEURAL EFFUSIONS. urine culture 04/14/17 +ve YEAST BLOOD CULTURES NEGATIVE TO DATE .LFTS ; TRANSAMINITIS IMPROVING. Objective - Vital Signs/Intake and Output Vital Signs (last 24 hours): Temp Pulse Resp BP Pulse Ox 98.8 F 146 H 28 H 157/79 H 100 04/20/17 16:00 04/20/17 20:00 04/20/17 08:00 04/20/17 16:00 04/20/17 16:00 Intake and Output: 04/20/17 04/21/17 18:59 06:59 Intake Total 1020 Output Total 1300 Balance -280 - Medications Medications: Current Medications Aspirin (Ecotrin) 81 mg PO DAILY [facility] Last Admin: 04/20/17 10:12 Dose: 81 mg Clopidogrel Bisulfate (Plavix) 75 mg PO DAILY [facility] Last Admin: 04/20/17 10:12 Dose: 75 mg Diltiazem HCl (Cardizem) 60 mg PO Q8H [facility] Last Admin: 04/20/17 17:15 Dose: 60 mg Enoxaparin Sodium (Lovenox) 60 mg SC Q12 [facility] Last Admin: 04/20/17 21:36 Dose: 60 mg Famotidine (Pepcid) 20 mg IVP DAILY [facility] Last Admin: 04/20/17 10:12 Dose: 20 mg Furosemide (Lasix) 20 mg IVP DAILY [facility] Last Admin: 04/20/17 10:12 Dose: 20 mg Hydromorphone HCl (Dilaudid) 0.5 mg IVP Q6H PRN PRN Reason: pain Last Admin: 04/20/17 11:38 Dose: 0.5 mg Imipenem/Cilastatin Sodium 500 (mg/ Sodium Chloride) 100 mls @ 100 mls/hr IVPB Q8H [facility] Last Admin: 04/20/17 17:07 Dose: 100 mls/hr Diltiazem HCl 125 mg/ Sodium (Chloride) 125 mls @ 5 mls/hr IV .Q24H PRN; 5 MG/ HR PRN Reason: Protocol Last Admin: 04/19/17 11:58 Dose: 5 mg/hr, 5 mls/hr Metoprolol Tartrate (Lopressor) 50 mg PO Q12 [facility] Last Admin: 04/20/17 21:38 Dose: 50 mg Morphine Sulfate (Morphine) 2 mg IV Q4 PRN PRN Reason: Pain, moderate (4-7) Last Admin: 04/20/17 18:26 Dose: 2 mg - Labs Labs: 04/20/17 06:11 04/20/17 06:11 PT 13.7 SECONDS (9.7-12.2) H 04/17/17 19:35 INR 1.2 04/17/17 19:35 APTT 45 SECONDS (21-34) H D 04/16/17 06:45 Assessment and Plan (1) Altered mental status Assessment & Plan: Continue IV Primaxin 500 every 8 hourly for broader gram-negative coverage. / Continue IV Vanco 1 g every 24 hourly for now. 04/14/17. Monitor renal functions closely. OBSERVE LFTS . REPEAT ua AND URINE CULTURE.-P Status: Acute (2) Atrial fibrillation Status: Acute (3) UTI (urinary tract infection) Assessment & Plan: LAST URINE CULTURE +VE YEAST./ BLOOD CULTURES -VE FOR FUNGAL ELEMENTS.F/U CULTURES. REPEAT ua URINE CULTURE . Status: Acute (4) Myocardial infarction Status: Acute (5) PAD (peripheral artery disease) Assessment & Plan: patient has bilateral GANGRENE IS ISCHEMIC TOES. pATIENT CONDITION TO POOR TO INTERVENE. aS PER SURGERY CONSERVATIVE THERAPY. Status: Acute
[2017-04-21] MEDS: HYDROmorphone 0.5 mg/0.5 ml ISec IVP PRN (02:06)
[2017-04-21 06:26] LABS: BASO # 0.1 K/uL (0.0-0.2); BASO % 0.3 % (0.0-2.0); EOS # 0.4 K/uL (0.0-0.7); EOS % 2.3 % (0.0-4.0); HEMOGLOBIN 10.9 g/dL (12.0-18.0); LYMPH # 1.9 K/uL (1.0-4.3); LYMPH % 11.1 % (20.0-40.0); MEAN CELL VOLUME 90.8 fL (80.0-94.0); MEAN CORPUSCULAR HEMOGLOBIN 28.4 pg (27.0-31.0); MEAN CORPUSCULAR HGB CONC 31.2 g/dL (33.0-37.0); MEAN PLATELET VOLUME 10.2 fL (7.2-11.7); MONO # 1.2 K/uL (0.0-0.8); MONO % 6.7 % (0.0-10.0); NEUT # 13.9 K/uL (1.8-7.0); NEUT % 79.6 % (50.0-75.0); NRBC % 0.1 % (0.0-2.0); RBC 3.86 Mil/uL (4.40-5.90); RED CELL DISTRIBUTION WIDTH 15.5 % (11.5-14.5); WHITE BLOOD COUNT 17.4 K/uL (4.8-10.8)
[2017-04-21 06:36] LABS: ALBUMIN 2.3 g/dL (3.5-5.0)
[2017-04-21 06:39] LABS: GFR AFRICAN-AMERICAN > 60; GFR NON-AFRICAN AMERICAN > 60
[2017-04-21 06:40] LABS: ALB/GLOB RATIO 0.7 (1.0-2.1); ALT/SGPT 378 U/L (21-72); AST/SGOT 139 U/L (17-59); BLOOD UREA NITROGEN 43 mg/dL (9-20); MAGNESIUM 2.3 mg/dL (1.6-2.3)
[2017-04-21 06:59] VITALS: PULSE 114; RESP 18; O2SAT 98
[2017-04-21] MEDS: Enoxaparin 60 mg Syringe SC SCH (09:48)
[2017-04-21 11:42] VITALS: BP 160/90
--- NOTE | 2017-04-21 11:58 | CP.PCM.PN ---
Subjective - Date & Time of Evaluation Date of Evaluation: 04/21/17 Time of Evaluation: 11:58 - Subjective Subjective: AFEBRILE, LETHARGIC NONVERBAL oxygen saturation on BiPAP 96%. ON CARDIZEM DRIP/AND lASIX. PT NOW DNR/DNI PER FAMILY ROS.ON OBSERVATION HEENT : N. Resp : LESS SOB wheezing, cough Cardio : No CP, PND orthopnea GI : No abd. 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 Musculoskel : N Ext. : Pedal pulses WEAK, no edema or calf pain B/L ,FEET TOES ISCHEMIC CHANGES AND DRY GANGRENE. Derm : N . Psych : N. PE. Pt. is awake in no distress.CONFUSED,NONVERBAL V.S As noted in the chart Head ,ear nose,throat and eyes : Normal. Neck : Supple with normal carotids. Lungs: FEW BASILAR RALES Heart : S1 & S2 IRREGULAR. . No murmur. Abd : Soft non tender with normal bowel sounds. Neuro : Moves all ext. with no localized deficit. Ext : Pedal pulses WEAK, no edema or calf pain B/L ,FEET TOES ISCHEMIC CHANGES AND DRY GANGRENE Derm : No rashes or decubitus ulcer. Radiology/Labs . REVIEWED wbc 17.4 NA152 IMPROVING RENAL FUNCTIONS OKAY vANCO TROUGH 18.0 OK CXR 04/17/17- UNCHANGED diffuse bilateral infiltrates R >L MODERATE VENOUS CONGESTION. /bILATERAL PLEURAL EFFUSIONS. CXR 04/16/17 diffuse bilateral infiltrates representing PE /CHF /? PNEUMONIA.BILATERAL PLEURAL EFFUSIONS. urine culture 04/14/17 +ve YEAST BLOOD CULTURES NEGATIVE TO DATE .LFTS ; TRANSAMINITIS IMPROVING. Objective - Vital Signs/Intake and Output Vital Signs (last 24 hours): Temp Pulse Resp BP Pulse Ox 98.9 F 114 H 18 160/90 H 98 04/21/17 04:00 04/21/17 04:00 04/21/17 04:00 04/21/17 10:30 04/21/17 04:00 Intake and Output: 04/21/17 04/21/17 06:59 18:59 Intake Total 240 Output Total 350 Balance -110 - Medications Medications: Current Medications Aspirin (Ecotrin) 81 mg PO DAILY [facility] Last Admin: 04/21/17 09:58 Dose: 81 mg Clopidogrel Bisulfate (Plavix) 75 mg PO DAILY [facility] Last Admin: 04/21/17 09:48 Dose: 75 mg Diltiazem HCl (Cardizem) 60 mg PO Q8H [facility] Last Admin: 04/21/17 09:48 Dose: 60 mg Enoxaparin Sodium (Lovenox) 60 mg SC Q12 [facility] Last Admin: 04/21/17 09:48 Dose: 60 mg Famotidine (Pepcid) 20 mg IVP DAILY [facility] Last Admin: 04/21/17 09:48 Dose: 20 mg Furosemide (Lasix) 20 mg IVP DAILY [facility] Last Admin: 04/21/17 10:30 Dose: 20 mg Hydromorphone HCl (Dilaudid) 0.5 mg IVP Q6H PRN PRN Reason: pain Last Admin: 04/21/17 02:06 Dose: 0.5 mg Imipenem/Cilastatin Sodium 500 (mg/ Sodium Chloride) 100 mls @ 100 mls/hr IVPB Q8H [facility] Last Admin: 04/21/17 10:09 Dose: 100 mls/hr Diltiazem HCl 125 mg/ Sodium (Chloride) 125 mls @ 5 mls/hr IV .Q24H PRN; 5 MG/ HR PRN Reason: Protocol Last Admin: 04/19/17 11:58 Dose: 5 mg/hr, 5 mls/hr Metoprolol Tartrate (Lopressor) 50 mg PO Q12 [facility] Last Admin: 04/21/17 09:57 Dose: 50 mg Morphine Sulfate (Morphine) 2 mg IV Q4 PRN PRN Reason: Pain, moderate (4-7) Last Admin: 04/21/17 09:45 Dose: 2 mg - Labs Labs: 04/21/17 06:20 04/21/17 06:20 PT 13.7 SECONDS (9.7-12.2) H 04/17/17 19:35 INR 1.2 04/17/17 19:35 APTT 45 SECONDS (21-34) H D 04/16/17 06:45 Assessment and Plan (1) Altered mental status Assessment & Plan: Continue IV Primaxin 500 every 8 hourly for broader gram-negative coverage. / X 7DAYS MORE Continue IV Vanco 1 g every 24 hourly for now. 04/14/17. Monitor renal functions closely. OBSERVE LFTS . REPEAT ua AND URINE CULTURE.-P IF +VE FOR YEAST MAY CONSIDER ADDING ANTIFUNGAL. PT DNR/DNI PROGNOSIS GUARDED. PT FOR REAGAN ALTAC . Status: Acute (2) Atrial fibrillation Status: Acute (3) UTI (urinary tract infection) Assessment & Plan: F/U REPEAT URINE CULTURES BLOOD CULTURES NEGATIVE FOR FUNGUS FOR NOW. wE'LL HOLD OFF ANTIFUNGAL IN VIEW OF ELEVATED lftS WHICH ARE SLOWLY IMPROVING. Status: Acute (4) Myocardial infarction Status: Acute (5) PAD (peripheral artery disease) Assessment & Plan: patient has bilateral GANGRENE IS ISCHEMIC TOES. pATIENT CONDITION TO POOR TO INTERVENE. aS PER SURGERY CONSERVATIVE THERAPY. Status: Acute
[2017-04-21 13:34] VITALS: TEMP 97.6
[2017-04-21] MEDS ORDERED: metroNIDAZOLE IV 250mg/50 ml 250 MG/50 ML BAG IVPB SCH (14:00)
--- NOTE | 2017-04-21 15:50 | CP.PCM.PN ---
Subjective - Date & Time of Evaluation Date of Evaluation: 04/21/17 Time of Evaluation: 15:48 - Subjective Subjective: PGY2 progress note for Dr. Silvestre Pt seen and examined at bedside. No acute events overnight. Patient retracts from pain but does not follow commands. ROS are unobtainable due to mental status. Objective - Vital Signs/Intake and Output Vital Signs (last 24 hours): Temp Pulse Resp BP Pulse Ox 97.6 F 114 H 18 160/90 H 98 04/21/17 12:00 04/21/17 04:00 04/21/17 04:00 04/21/17 10:30 04/21/17 04:00 Intake and Output: 04/21/17 04/21/17 06:59 18:59 Intake Total 240 Output Total 350 Balance -110 - Labs Labs: 04/21/17 06:20 04/21/17 06:20 PT 13.7 SECONDS (9.7-12.2) H 04/17/17 19:35 INR 1.2 04/17/17 19:35 APTT 45 SECONDS (21-34) H D 04/16/17 06:45 - Constitutional Appears: Non-toxic - Head Exam Head Exam: ATRAUMATIC - ENT Exam ENT Exam: Mucous Membranes Moist - Respiratory Exam Respiratory Exam: absent: Accessory Muscle Use, Respiratory Distress - Cardiovascular Exam Cardiovascular Exam: REGULAR RHYTHM, +S1, +S2 - GI/Abdominal Exam GI & Abdominal Exam: Soft, Normal Bowel Sounds. absent: Distended, Firm, Guarding, Rigid, Organomegaly - Extremities Exam Extremities Exam: absent: Pedal Edema, Tenderness Additional comments: gangrene toes noted B/L. Pressure ulcer noted on buttock right sided - Neurological Exam Neurological Exam: Alert, Awake, Oriented x3 - Skin Skin Exam: Normal Color, Warm Assessment and Plan - Assessment and Plan (Free Text) Assessment: AMS - Likely due to urosepsis. urine culture from 04/14 grew yeast - Continue Abx imipenem and flagyl UTI - On admission, UA positive - Patient has history of UTI with VRE infection in 03/2017 A fib with RVR - Cardiology, Dr. Spicer was consulted - Pt on Cardizem drip 125 mg in NS, Cardizem 60 mg po q8, Lopressor 50 mg po q 12 - Lovenox 60 mg sc q 12 NSTEMI - On admission, troponins were elevated at 8 and subsequently trended down - Lovenox 60 q12 SC Pressure ulcer - rotate position q2 - local wound care Prophylaxis - Lovenox -pepcid Patient is made DNR/DNI Case discussed with attending, Dr. Silvestre Orders and management per Dr. Silvestre Patient is safe to be discharged to [facility]. Patient is to continue taking the following medications: Apirin 81 mg po QD, Plavix 75 mg po qd, Cardizem 60 mg po Q8H, Diltiazem 125 mg in NS at 5 mg/hr, Lovenox 60 mg SC Q12, Pepcid 20 mg IVP QD, Lasix 20 mg IVP QD, Dilaudid 0.5 mg IVP Q6 prn pain, Imipenem 500 mg in NS q8, Lopressor 50 mg po Q12, Morphine 2 mg q4 prn pain. Patient is to continue TPN feeding.
== END 2017-04-21 15:17 | DRG 871 ==
LOC: C.ER 10:46 → C.9E 12:42 → C.6T 13:12 → C.9E 14:16 → C.9I 14:50
PROVIDERS: ADMIT Internal Medicine Nephrology; ATTEND Internal Medicine Nephrology
PROC: 5A09557 Assistance with Respiratory Ventilation, Greater than 96 Consecutive Hours, Continuous Positive Airway Pressure (ICD-10-PCS; principal; 2017-04-16)
PROC: 30233N1 Transfusion of Nonautologous Red Blood Cells into Peripheral Vein, Percutaneous Approach (ICD-10-PCS; 2017-04-16)
DX: A41.9 Sepsis, unspecified organism (principal); I21.4 Non-ST elevation (NSTEMI) myocardial infarction; J96.91 Respiratory failure, unspecified with hypoxia; K72.00 Acute and subacute hepatic failure without coma; I69.354 Hemiplegia and hemiparesis following cerebral infarction affecting left non-dominant side; N39.0 Urinary tract infection, site not specified; I70.268 Atherosclerosis of native arteries of extremities with gangrene, other extremity; I50.9 Heart failure, unspecified; R65.20 Severe sepsis without septic shock; I48.91 Unspecified atrial fibrillation; F41.9 Anxiety disorder, unspecified; I25.10 Atherosclerotic heart disease of native coronary artery without angina pectoris; E78.00 Pure hypercholesterolemia, unspecified; Z95.5 Presence of coronary angioplasty implant and graft; Z87.891 Personal history of nicotine dependence; I35.0 Nonrheumatic aortic (valve) stenosis; Z66 Do not resuscitate; B96.89 Other specified bacterial agents as the cause of diseases classified elsewhere; K72.90 Hepatic failure, unspecified without coma; K76.0 Fatty (change of) liver, not elsewhere classified; I11.0 Hypertensive heart disease with heart failure; D53.9 Nutritional anemia, unspecified